=== PATIENT | female | born 1975 | race Hispanic/Latino ===

== ENCOUNTER → 2018-03-12 | Day surgery (SDC) | payer MEDICARE ==
[~2018-03-12] MED LIST: ACETAMINOPHEN 1000 MG/100 ML 100 ML IV ONE; AMPYRA10 MG PO; BACLOFEN10 MG PO; BELLADONNA/OPIUM 60 MG SUPP PR ONE; BOTULINUM TOXIN TYPE A 100 UNIT VIAL IM ONE; DEXAMETHASONE SOD PHOS INJ 4 MG/ML VIAL ONE; DITROPAN XL5 MG PO; FENTANYL CITRATE/PF 100MCG/2 ML INJ ONE; GENTAMICIN 80MG/NS 100 ML 200 ML IV ONE; HYDROCHLOROTHIA25 MG PO; IOPAMIDOL 610MG/1ML 300 MG/ML VIAL IV ONE; LIDOCAINE HCL 2% LOCAL INJ 5 ML SDV VIAL INJ ONE; MIDAZOLAM HCL 2 MG/2 ML VIAL ONE; NEURONTIN300 MG PO; NITROFURANTOIN100 MG PO; ONDANSETRON HCL INJ 2 MG/ML VIAL ONE; POTASSIUM CHLO20 ME1 PO; PROPOFOL IV EMULSION 10 MG/ML 20 ML VIAL ONE; SEVOFLURANE INHAL SOLN 250 ML PEN BTL ONE; TYSABRI300 MG/15 IV; ULTRAM50 MG PO
--- OUTSIDE RECORDS SUMMARY | 2018-03-12 05:12 | XMS REPORT | Clinical Summary ---
Author Author [facility] Organization [facility] Address Unknown Phone Unavailable Care Team Providers Care Financial Institution Manager Name Role Phone Caat Norman DO PCP Allergies No Known Allergies Current Medications Not on file Active Problems Not on file Encounters Date Type Specialty Care Team Description 10/04/2017 [facility]iology ReyesGriselda Mi Orders 10/03/2017 [facility] Radiology ReyesGriselda Mi Multiple sclerosis; Encounter High risk medications (not anticoagulants) long-term use; Weakness; Abnormality of gait; Spasticity 10/03/2017 [facility] Radiology ReyesGriselda Mi Multiple sclerosis; Encounter High risk medications (not anticoagulants) long-term use; Weakness; Abnormality of gait; Spasticity 10/03/2017 [facility] Radiology ReyesGriselda Mi Multiple sclerosis; Encounter High risk medications (not anticoagulants) long-term use; Weakness; Abnormality of gait; Spasticity 10/03/2017 [facility] Radiology ReyesGriselda Mi Orders 10/03/2017 Ancillary Radiology ReyesGriselda Mi Orders 10/03/2017 Ancillary Radiology ReyesGriselda Mi Orders 10/02/2017 Ancillary Radiology ReyesGriselda Mi Multiple sclerosis ; Orders High risk medications (not anticoagulants) long-term use; Weakness; Abnormality of gait; Spasticity 09/11/2017 Procedure Pass Radiology 09/11/2017 Procedure Pass Radiology 09/11/2017 Procedure Pass Radiology 09/11/2017 Transcribe Access Griselda Muniz Multiple sclerosis Orders (Primary Dx); High risk medications (not anticoagulants) long-term use; Weakness; Abnormality of gait; Spasticity after 03/11/2017 Social History Tobacco Use Types Packs/Day Years Used Date Never Assessed Sex Assigned at Date Recorded Not on file Last Filed Vital Signs Vital Sign Reading Time Taken Blood Pressure - - Pulse - - Temperature - - Respiratory Rate - - Oxygen Saturation - - Inhaled Oxygen - - Concentration Weight 54 kg (119 lb) 10/03/2017 1:10 PM 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 FINDINGS: 1. The patient has been previously described to have chronic demyelinating lesions in the mid and lower thoracic spinal cord. There is a similar appearance on today's examination although not that clearly or convincingly demonstrated. There is no abnormal contrast enhancement. There are no new lesions demonstrated. 2.There is minimal thoracic spondylosis without stenosis. In fact the patient has a large thoracic spinal canal. IMPRESSION: No definite change or new lesion demonstrated since the prior examinations. [facility]-[id number] Procedure Note Hm Interface, Radiology Results Incoming - 10/03/2017 3:42 PM PRINCIPAL CYBER ENGINEER EXAMINATION: MRI THORACIC SPINE W CONTRAST CLINICAL HISTORY: G35 Multiple sclerosis, Z79.899 Other long-term (current) drug therapy, G35 Z79.899 R53.1 R26.9 R25.2 COMPARISON: MRI thoracic spine April 13, 2011 and July 05, 2009. FINDINGS: 1. The patient has been previously described to have chronic demyelinating lesions in the mid and lower thoracic spinal cord. There is a similar appearance on today's examination although not that clearly or convincingly demonstrated. There is no abnormal contrast enhancement. There are no new lesions demonstrated. 2. There is minimal thoracic spondylosis without stenosis. In fact the patient has a large thoracic spinal canal. IMPRESSION: No definite change or new lesion demonstrated since the prior examinations. [facility]-[id number] * MRI Cervical Spine W Contrast (10/03/2017 2:05 PM) Specimen Performing Laboratory [facility] [address] [place] [address] Narrative EXAMINATION: MRI CERVICAL SPINE W CONTRAST CLINICAL HISTORY: G35 Multiple sclerosis, Z79.899 Other long-term (current) drug therapy, G35Z79.899R53.1R26.9R25.2 COMPARISON:MRI cervical spine from April 13, 2011 TECHNIQUE: Multiplanar multisequence pre and post contrast enhanced examination was performed of the cervical spine. FINDINGS: There are multiple areas of increased T2 signal intensity in the cervical cord seen best on the inversion recovery images. There is decreased size of the lower cervical and upper thoracic cord. These findings are relatively stable. I do not see definite areas of new enhancement or signal changes in the cord to suggest active demyelinating disease. Active demyelinating disease cannot be excluded on MRI exam. There is no significant canal or foramen stenosis from degenerative changes. There are mild degenerative changes in the cervical spine. There is a small amount of fluid in the left ethmoid sinus. There is no definite incidental thyroid gland mass. IMPRESSION: No definite evidence of active demyelinating disease although active demyelinating disease cannot be excluded on this exam. Left ethmoid sinusitis. [id number] Procedure Note Interface, Radiology Results Incoming - 10/03/2017 5:32 PM PRINCIPAL CYBER ENGINEER EXAMINATION: MRI CERVICAL SPINE W CONTRAST CLINICAL HISTORY: G35 Multiple sclerosis, Z79.899 Other adjunct faculty for medical terminology (current) drug therapy, G35 Z79.899 R53.1 R26.9 R25.2 COMPARISON: MRI cervical spine from April 13, 2011 TECHNIQUE: Multiplanar multisequence pre and post contrast enhanced examination was performed of the cervical spine. FINDINGS: There are multiple areas of increased T2 signal intensity in the cervical cord seen best on the inversion recovery images. There is decreased size of the lower cervical and upper thoracic cord. These findings are relatively stable. I do not see definite areas of new enhancement or signal changes in the cord to suggest active demyelinating disease. Active demyelinating disease cannot be excluded on MRI exam. There is no significant canal or foramen stenosis from degenerative changes. There are mild degenerative changes in the cervical spine. There is a small amount of fluid in the left ethmoid sinus. There is no definite incidental thyroid gland mass. IMPRESSION: No definite evidence of active demyelinating disease although active demyelinating disease cannot be excluded on this exam. Left ethmoid sinusitis. [id number] * MRI Brain W Wo Contrast (10/03/2017 1:35 PM) Specimen Performing [facility] [address] [facility] [place] [address] Narrative EXAMINATION: MRI BRAIN W WO CONTRAST CLINICAL HISTORY: G35 Multiple sclerosis, Z79.899 Other long-term (current) drug therapy, G35Z79.899R53.1R26.9R25.2 COMPARISON:MRI brain from November 11, 2016 TECHNIQUE: Multiplanar and multisequence MRI imaging of the brain was obtained with and without contrast. FINDINGS: There are no new areas of abnormal enhancement to suggest active demyelinating disease. Active demyelinating disease cannot excluded. There is severe areas of increased T2 and decreased T1 signal intensity in the white matter. Many of them are perpendicular to the lateral ventricles and some involve the corpus callosum consistent with the history of multiple sclerosis. I do not see definite new areas of signal changes given the differences in technique. IMPRESSION: No significant changes compared to prior exam given the differences in technique. [facility]-[id number] Procedure Note Interface, Radiology Results Incoming - 10/03/2017 3:30 PM PRINCIPAL CYBER ENGINEER EXAMINATION: MRI BRAIN W WO CONTRAST CLINICAL HISTORY: G35 Multiple sclerosis, Z79.899 Other adjunct faculty for medical terminology (current) drug therapy, G35 Z79.899 R53.1 R26.9 R25.2 COMPARISON: MRI brain from November 11, 2016 TECHNIQUE: Multiplanar and multisequence MRI imaging of the brain was obtained with and without contrast. FINDINGS: There are no new areas of abnormal enhancement to suggest active demyelinating disease. Active demyelinating disease cannot excluded. There is severe areas of increased T2 and decreased T1 signal intensity in the white matter. Many of them are perpendicular to the lateral ventricles and some involve the corpus callosum consistent with the history of multiple sclerosis. I do not see definite new areas of signal changes given the differences in technique. IMPRESSION: No significant changes compared to prior exam given the differences in technique. [id number] after 03/11/2017 Insurance Payer Benefit Subscriber ID Type Phone Address Plan / Group MEDICARE MEDICARE xxxxxxxxxx Medicare [place], [place] PART [place] B [place] [address] [facility] amily [address] [address]
--- OUTSIDE RECORDS SUMMARY | 2018-03-12 05:12 | XMS REPORT ---
Author Author [facility] Address Unknown Phone Unavailable Care Team Providers Care Flume Maker Name Role Phone PETRA GIRARD Unavailable Unavailable HAMPEL, AVA Unavailable Unavailable Problems This patient has no known problems. Allergies, Adverse Reactions, Alerts This patient has no known allergies or adverse reactions. Medications This patient has no known medications. Results Test Description Test Time Test Comments Text Results Atomic Results Result Comments RAD, CHEST, 1 VIEW, NON DEPT 2018-02-04 13:51:00 Reason for exam:->rule out infectionShould this be performed at the bedside?->Yes Addendum BeginsREPORT STATUS:A CLINICAL HISTORY: Multiple sclerosis, slurred speech Signed: Tevin Thomas Verified Date/Time: 02/04/2018 13:51: 55 Reading Location: [facility] Radiology Reading RoomAddendum EndsFINAL REPORT Chest one view AP 01/21/2018 10:27 AM CLINICAL HISTORY: rule out infection COMPARISON: None available FINDINGS: The lungs are clear. Cardiomediastinal contours are within normal limits. The central pulmonary vasculature is not engorged. IMPRESSION: Unremarkable frontal chest radiograph. Signed: Tevin Thomas Verified Date/Time: 2017 10:27:05 Reading Location: [facility] Radiology Reading Room W/PLT COUNT & AUTO DIFFERENTIAL 2018-01-21 07:24:00 WHITE BLOOD CELL COUNT (BEAKER) (test aahh=388) 8.4 K/ L 3.5-10.5 RED BLOOD CELL COUNT (BEAKER) (test sund=879) 4.41 M/ L 3.93-5.22 HEMOGLOBIN (BEAKER) (test pdif=810) 12.0 GM/DL 11.2-15.7 HEMATOCRIT (BEAKER) (test ljxw=511) 38.2 % 34.1-44.9 MEAN CORPUSCULAR VOLUME (BEAKER) (test osrp=970) 86.6 fL 79.4-94.8 MEAN CORPUSCULAR HEMOGLOBIN (BEAKER) (test sdij=478) 27.2 pg 25.6-32.2 MEAN CORPUSCULAR HEMOGLOBIN CONC (BEAKER) (test rema=843) 31.4 GM/DL 32.2- 35.5 RED CELL DISTRIBUTION WIDTH (BEAKER) (test npaz=507) 13.4 % 11.7-14.4 PLATELET COUNT (BEAKER) (test teic=103) 213 K/CU MM 150-450 MEAN PLATELET VOLUME (BEAKER) (test opkg=688) 11.5 fL 9.4-12.3 NUCLEATED RED BLOOD CELLS (BEAKER) (test wplo=377) 0 /100 WBC 0-0 NEUTROPHILS RELATIVE PERCENT (BEAKER) (test eodu=277) 35 % LYMPHOCYTES RELATIVE PERCENT (BEAKER) (test cquw=745) 48 % MONOCYTES RELATIVE PERCENT (BEAKER) (test yitq=938) 14 % EOSINOPHILS RELATIVE PERCENT (BEAKER) (test ndnm=113) 1 % BASOPHILS RELATIVE PERCENT (BEAKER) (test zjry=019) 1 % NEUTROPHILS ABSOLUTE COUNT (BEAKER) (test cjtd=862) 2.99 K/ L 1.56-6.13 LYMPHOCYTES ABSOLUTE COUNT (BEAKER) (test ebrk=714) 4.06 K/ L 1.18-3.74 MONOCYTES ABSOLUTE COUNT (BEAKER) (test fcuy=304) 1.18 K/ L 0.24-0.36 EOSINOPHILS ABSOLUTE COUNT (BEAKER) (test tmeo=583) 0.11 K/ L 0.04-0.36 BASOPHILS ABSOLUTE COUNT (BEAKER) (test ytps=784) 0.05 K/ L 0.01-0.08 IMMATURE GRANULOCYTES-RELATIVE PERCENT (BEAKER) (test mpyh=2022) 1 % 0-1 (MANUAL DIFFERENTIAL)2018-01-21 07:24:00* Test Item Value Reference Range Comments TOTAL COUNTED (BEAKER) (test niru=5083) TSH/FREE T4 IF [id number] 06:36:00* Test Item Value Reference Range Comments THYROID STIMULATING HORMONE (BEAKER) (test hmbi=375) 4.38 uIU/mL 0.35-4.94 [id number] 05:57:00* Test Item Value Reference Range Comments MAGNESIUM (BEAKER) (test akid=641) 1.7 mg/dL 1.6-2.6 BASIC METABOLIC [id number] 05:57:00* Test Item Value Reference Range Comments SODIUM (BEAKER) (test ybtd=128) 140 meq/L 136-145 POTASSIUM (BEAKER) (test gkbi=213) 3.5 meq/L 3.5-5.1 CHLORIDE (BEAKER) (test dlos=611) 104 meq/L 98-107 CO2 (BEAKER) (test bhaa=520) 28 meq/L 22-29 BLOOD UREA NITROGEN (BEAKER) (test opbe=142) 16 mg/dL 7-21 CREATININE (BEAKER) (test lniy=438) 0.59 mg/dL 0.57-1.25 GLUCOSE RANDOM (BEAKER) (test aglo=901) 84 mg/dL 70-105 CALCIUM (BEAKER) (test pmzq=357) 9.0 mg/dL 8.4-10.2 EGFR (BEAKER) (test uuxr=3421) 113 mL/min/1.73 sq m ESTIMATED GFR IS NOT ACCURATE CREATININE CLEARANCE IN PREDICTING GLOMERULAR FILTRATION RATE. ESTIMATED GFR IS NOT APPLICABLE FOR DIALYSIS PATIENTS. LIPID [id number] 05:57:00* Test Item Value Reference Range Comments TRIGLYCERIDES (BEAKER) (test oeph=126) 107 mg/dL CHOLESTEROL (BEAKER) (test sjjg=714) 170 mg/dL HDL CHOLESTEROL (BEAKER) (test dhbo=638) 52 mg/dL LDL CHOLESTEROL CALCULATED (BEAKER) (test rilt=108) 97 mg/dL Triglyceride Reference Range: Low Risk <150 Borderline 150-199 High Risk 200-499 Very High Risk >=500Cholesterol Reference Range: Low Risk <200 Borderline 200-239 High Risk >240HDL Cholesterol Reference Range: Low Risk >=60 High Risk <40LDL Cholesterol Reference Range: Optimal <100 Near Optimal 100-129 Borderline 130-159 High 160-189 Very High >=190 MR, SPINE, CERVICAL, [id number] 21:46:00FINAL REPORT EXAM : MRI cervical and thoracic spine with and without contrast . CLINICAL HISTORY: Multiple sclerosis. TECHNIQUE: MRI of the cervical and thoracic spine was performed with and without intravenous gadolinium contrast. COMPARISON: None available. FINDINGS: There is straightening of the cervical lordosis. There is a mild thoracic kyphosis. Vertebral body height and alignment is within normal limits. The bone marrow signal is normal. The craniocervical junction and visualized intracranial compartment are unremarkable. There is no abnormal enhancement. There is mild diffuse spinal cord atrophy. There is a possible T2 hyperintense lesion in the right dorsal T3 spinal cord (axial image 39). The conus medullaris is located at T12. The intervertebral disc spaces are normal in height and signal. There is no significant spinal canal or neuroforaminal stenosis. The prevertebral and paraspinal soft tissues are within normal limits. The visualized retroperitoneum is unremarkable. IMPRESSION: Mild diffuse spinal cord atrophy. Possible demyelinating lesion in the right dorsal T3 spinal cord. No abnormal enhancement to suggest active demyelination. Signed : Kia Contreras MDReport Verified Date/Time: 01/20/2018 21:46:33 Reading Location: [address] Transitional Reading Room , SPINE, THORACIC, [id number] 21:46:00FINAL REPORT EXAM: MRI cervical and thoracic spine with and without contrast . CLINICAL HISTORY: Multiple sclerosis. TECHNIQUE: MRI of the cervical and thoracic spine was performed with and without intravenous gadolinium contrast. COMPARISON: None available. FINDINGS: There is straightening of the cervical lordosis. There is a mild thoracic kyphosis. Vertebral body height and alignment is within normal limits. The bone marrow signal is normal. The craniocervical junction and visualized intracranial compartment are unremarkable. There is no abnormal enhancement. There is mild diffuse spinal cord atrophy. There is a possible T2 hyperintense lesion in the right dorsal T3 spinal cord (axial image 39). The conus medullaris is located at T12. The intervertebral disc spaces are normal in height and signal. There is no significant spinal canal or neuroforaminal stenosis. The prevertebral and paraspinal soft tissues are within normal limits. The visualized retroperitoneum is unremarkable. IMPRESSION: Mild diffuse spinal cord atrophy. Possible demyelinating lesion in the right dorsal T3 spinal cord. No abnormal enhancement to suggest active demyelination. Signed : Kia Contreras Verified Date/Time: 01/20/2018 21:46:33 Reading Location: [address] Transitional Reading Room , BRAIN, [id number] 21:35: 00FINAL REPORT Exam: MRI brain with and without contrast Comparison: No prior study for comparison. Reason for exam: Multiple sclerosis , new neurological event Discussion: Multiplanar multi sequential MR imaging of the brain was provided tvk-rra-thxm IV gadolinium administration. There are multiple small ovoid FLAIR hyperintense foci lesions in the bilateral periventricular and subcortical white matter without mass effect. Many of these lesions are seen along the callososeptal interface. Multiple juxtacortical lesions are present. No brainstem or cerebellar lesions are identified. A punctate right frontal subcortical white matter lesion demonstrates hyperintensity on the DWI sequence without corresponding hypointensity on the ADC sequence. There is no abnormal enhancement. There is mild parenchymal atrophy. There is no intracranial mass, mass effect, extra-axial collection, hydrocephalus or herniation. There is no restricted diffusion to suggest an acute infarct. There is no abnormality on susceptibility sequences to suggest hemorrhage or hemosiderin deposition. Flow-voids are seen in the basilar and internal carotid arteries as well as in the large posterior dural sinuses. The pineal, sella, and craniocervical junction regions are within normal limits. The visualized orbital contents, skullbase and surrounding soft tissues are unremarkable. The visualized paranasal sinuses and mastoid air cells are clear. Impressions: Multiple T2 hyperintense lesions in the supratentorial brain in keeping with reported history of demyelinating disease. No evidence of active demyelination.No acute intracranial hemorrhage, acute infarct or mass effect. Signed: Kia Contreras MDReport Verified Date/Time: 01/20/2018 21:35:56 Reading Location: [address] Transitional Reading Room -GLUCOSE [id number] 16: 54:00* Test Item Value Reference Range Comments POC-GLUCOSE METER (BEAKER) (test nmzu=7584) 99 mg/dL 70-110 [address]ED AT [address] [address] BASIC METABOLIC [id number] 14:54:00* Test Item Value Reference Range Comments SODIUM (BEAKER) (test cclq=825) 140 meq/L 136-145 POTASSIUM (BEAKER) (test rjaf=033) 3.1 meq/L 3.5-5.1 CHLORIDE (BEAKER) (test cbew=560) 102 meq/L 98-107 CO2 (BEAKER) (test fqyw=830) 30 meq/L 22-29 BLOOD UREA NITROGEN (BEAKER) (test pmsi=021) 18 mg/dL 7-21 CREATININE (BEAKER) (test bawh=755) 0.63 mg/dL 0.57-1.25 GLUCOSE RANDOM (BEAKER) (test hbtd=339) 80 mg/dL 70-105 CALCIUM (BEAKER) (test azek=159) 9.4 mg/dL 8.4-10.2 EGFR (BEAKER) (test dyue=9491) mL/min/1.73 sq m INSUFFICIENT CLINICAL DATA TO CALCULATE ESTIMATED GFR. SCREEN, [id number] 14:50:00* Test Item Value Reference Range Comments TEST URINE (BEAKER) (test qrro=887) Negative URINALYSIS W/ [id number] 14:50:00* Test Item Value Reference Range Comments COLOR (BEAKER) (test dpro=973) Yellow CLARITY (BEAKER) (test xkzj=657) Clear SPECIFIC GRAVITY UA (BEAKER) (test ipbt=767) 1.018 1.001-1.035 PH UA (BEAKER) (test eahl=753) 7.0 5.0-8.0 PROTEIN UA (BEAKER) (test zvxu=877) Negative Negative GLUCOSE UA (BEAKER) (test esre=292) Negative Negative KETONES UA (BEAKER) (test cnab=155) Negative Negative BILIRUBIN UA (BEAKER) (test lfqr=496) Negative Negative BLOOD UA (BEAKER) (test hdek=850) Negative Negative NITRITE UA (BEAKER) (test aunc=749) Negative Negative LEUKOCYTE ESTERASE UA (BEAKER) (test iuum=557) Negative Negative UROBILINOGEN UA (BEAKER) (test txux=480) 0.2 mg/dL 0.2-1.0 RBC UA (BEAKER) (test ppqe=559) 0 /HPF WBC UA (BEAKER) (test zgtj=862) 3 /HPF BACTERIA (BEAKER) (test dimw=017) Rare MUCUS (BEAKER) (test bzdq=2829) Rare SQUAMOUS EPITHELIAL (BEAKER) (test iphx=931) 5 /HPF SOURCE(BEAKER) (test twmw=3957) Urine, Clean Catch CBC W/PLT COUNT & AUTO [id number] 14:33:00* Test Item Value Reference Range Comments WHITE BLOOD CELL COUNT (BEAKER) (test zpyr=749) 7.8 K/ L 3.5-10.5 RED BLOOD CELL COUNT (BEAKER) (test mvoi=732) 4.42 M/ L 3.93-5.22 HEMOGLOBIN (BEAKER) (test ocol=918) 12.2 GM/DL 11.2-15.7 HEMATOCRIT (BEAKER) (test sgtq=886) 38.3 % 34.1-44.9 MEAN CORPUSCULAR VOLUME (BEAKER) (test ljfg=375) 86.7 fL 79.4-94.8 MEAN CORPUSCULAR HEMOGLOBIN (BEAKER) (test dlmg=053) 27.6 pg 25.6-32.2 MEAN CORPUSCULAR HEMOGLOBIN CONC (BEAKER) (test xwje=927) 31.9 GM/DL 32.2- 35.5 RED CELL DISTRIBUTION WIDTH (BEAKER) (test qrau=366) 13.4 % 11.7-14.4 PLATELET COUNT (BEAKER) (test zeds=896) 228 K/CU MM 150-450 MEAN PLATELET VOLUME (BEAKER) (test ssne=715) 10.6 fL 9.4-12.3 NUCLEATED RED BLOOD CELLS (BEAKER) (test ipyp=638) 0 /100 WBC 0-0 NEUTROPHILS RELATIVE PERCENT (BEAKER) (test fzts=539) 50 % LYMPHOCYTES RELATIVE PERCENT (BEAKER) (test yvmz=158) 33 % MONOCYTES RELATIVE PERCENT (BEAKER) (test xpmn=938) 15 % EOSINOPHILS RELATIVE PERCENT (BEAKER) (test nern=951) 1 % BASOPHILS RELATIVE PERCENT (BEAKER) (test pjtg=701) 1 % NEUTROPHILS ABSOLUTE COUNT (BEAKER) (test vhvm=700) 3.89 K/ L 1.56-6.13 LYMPHOCYTES ABSOLUTE COUNT (BEAKER) (test xmww=234) 2.62 K/ L 1.18-3.74 MONOCYTES ABSOLUTE COUNT (BEAKER) (test hoph=881) 1.15 K/ L 0.24-0.36 EOSINOPHILS ABSOLUTE COUNT (BEAKER) (test puda=977) 0.10 K/ L 0.04-0.36 BASOPHILS ABSOLUTE COUNT (BEAKER) (test cxqg=519) 0.04 K/ L 0.01-0.08 IMMATURE GRANULOCYTES-RELATIVE PERCENT (BEAKER) (test vcgc=2471) 1 % 0-1 US RENAL RETROPERITONEAL COMP [place] [address] Patient Name: NANI GARCIA MR #: [id number] : 1975 Age/Sex: 42/F Req #: [id number] Adm Physician: Ordered by: AVA ROSE MD Report #: [id number] Location: US Room/Bed: Procedure: [id number] US/US RENAL RETROPERITONEAL COMP Exam Date: Exam Time: REPORT STATUS: Signed PROCEDURE: US RETROPERITONEAL ( KIDNEY ) . COMPARISON: 06/13/2016. INDICATIONS: Urine Retention TECHNIQUE: Chacko- scale and color sonographic images of the bilateral kidneys and bladder where obtained in transverse and longitudinal planes. FINDINGS: RIGHT KIDNEY: 9.4 cm in length, cortical thickness 1.3 cm. Cysts: None Solid masses: None Stones: None Hydronephrosis: None Echogenicity: Normal renal cortical echogenicity. LEFT KIDNEY: 9.1 cm in length, cortical thickness 1.2 cm. Cysts: None Solid masses: None Stones: None Hydronephrosis: None Echogenicity: Normal renal cortical echogenicity. Bladder: Mildly distended but otherwise unremarkable. Right and left ureteral jets are identified. CONCLUSION: Unremarkable sonographic appearance of the kidneys. Dictated by: Subha Rivera M.D. on 08/06/2017 at 15:23 Electronically approved by: Subha Rivera M.D. on 12/2016 at 15:23 Dictated By: SUBHA RIVERA MD 1523 Transcribed By: LUIS F on 08/06/17 1523 COPY TO: AVA ROSE MD
--- OUTSIDE RECORDS SUMMARY | 2018-03-12 05:12 | XMS REPORT | Clinical Summary ---
Author Author [facility] Address Unknown Phone Unavailable Care Team Providers Care Core Feeder Name Role Phone PCP Unavailable Allergies Active Allergy Reactions Severity Noted Date Comments Fluconazole Swelling 01/20/2018 Swelling of lips and hives on face Current Medications Prescription Sig. Disp. Refills Start End Date Status Date oxybutynin (DITROPAN XL) Take 10 mg by mouth 2 Active 10 MG 24 hr (two) times daily . tabletIndications: Neurogenic Bladder nitrofurantoin Take 50 mg by mouth daily Active (MACRODANTIN) 50 MG . capsule gabapentin (NEURONTIN) Take 600 mg by mouth 3 Active 600 MG tablet (three) times daily. NATALIZUMAB (TYSABRI IV) Inject intravenously. Active baclofen (LIORESAL) 10 MG Take 10 mg by mouth 2 Active tablet (two) times daily. zolpidem (AMBIEN CR) 12.5 Take 12.5 mg by mouth Active MG CR tablet every night as needed for Insomnia. dalfampridine 10 mg Take 10 mg by mouth 2 Active [id number]: walking (two) times daily. impairment due to multiple sclerosis hydroCHLOROthiazide Take 2 capsules (25 mg 60 capsule 11 01/22/20 Active (MICROZIDE) 12.5 mg total) by mouth daily. 18 19 capsule hydroCHLOROthiazide Take 25 mg by mouth 01/22/20 Discontin (MICROZIDE) 12.5 mg daily. 18 ued capsuleIndications: Edema traMADol (ULTRAM) 50 mg Take 1 tablet (50 mg 60 tablet 0 01/22/20 tablet total) by mouth every 12 18 18 (twelve) hours as needed for Pain for up to 10 days. Max Daily Amount: 100 mg Active Problems Problem Noted Date MS (multiple sclerosis) (HCC) 01/20/2018 Encounters Date Type Specialty Care Team Description 01/20/2018 [facility] General Internal Medicine JaquezMonicoOlivierShane, Weakness of left lower - Encounter MD extremity (Primary Dx);MS 01/21/2018 Nathaniel Miller MD (multiple sclerosis) Yessy Sandhu MD ([facility]);Slurred speech;Neurogenic bladder;Immunosuppressive disease ([facility]) after 03/11/2017 Social History Tobacco Use Types Packs/Day Years Used Date Never Smoker Alcohol Use Drinks/Week oz/Week Comments No Sex Assigned at Date Recorded Not on file Last Filed Vital Signs Vital Sign Reading Time Taken Blood Pressure 98/53 01/21/2018 11:23 AM CDT Pulse 70 01/21/2018 11:23 AM CDT Temperature 36 C (96.8 F) 01/21/2018 11:23 AM CDT Respiratory Rate 18 01/21/2018 11:23 AM CDT Oxygen Saturation 98% 01/21/2018 11:23 AM CDT Inhaled Oxygen - - Concentration Weight 53 kg (116 lb 14.4 oz) 01/21/2018 6:00 AM CDT Height 154.9 cm (5' 1") 01/20/2018 1:42 PM CDT Body Mass Index 22.09 01/21/2018 6:00 AM CDT Plan of Treatment Not on file Results * XR chest 1 view portable / bedside (01/21/2018 10:19 AM) Specimen Performing Laboratory GE RIS Narrative Addendum Begins REPORT STATUS:A CLINICAL HISTORY: Multiple sclerosis, slurred speech Signed: Tevin Pang MD Report Verified Date/Time:02/04/2018 13:51:55 Reading Location: [facility] Radiology Reading Room Addendum Ends FINAL REPORT Chest one view AP 01/21/2018 10:27 AM CLINICAL HISTORY: rule out infection COMPARISON: None available FINDINGS: The lungs are clear. Cardiomediastinal contours are within normal limits. The central pulmonary vasculature is not engorged. IMPRESSION: Unremarkable frontal chest radiograph. Signed: Tevin Pang MD Report Verified Date/Time:01/21/2018 10:27:05 Reading Location: [facility] Radiology Reading Room Procedure Note Interface, External Ris In - 02/04/2018 1:54 PM CDT Addendum Begins REPORT STATUS:A CLINICAL HISTORY: Multiple sclerosis, slurred speech Signed: Tevin Pang MD Report Verified Date/Time: 02/04/2018 13:51:55 Reading Location: [facility] Radiology Reading Room Addendum Ends FINAL REPORT Chest one view AP 01/21/2018 10:27 AM CLINICAL HISTORY: rule out infection COMPARISON: None available FINDINGS: The lungs are clear. Cardiomediastinal contours are within normal limits. The central pulmonary vasculature is not engorged. IMPRESSION: Unremarkable frontal chest radiograph. Signed: Tevin Pang MD Report Verified Date/Time: 01/21/2018 10:27:05 Reading Location: [facility] Reading Room * Manual Differential (01/21/2018 3:58 AM) Component Value Ref Range Total Counted Specimen [place] [address] * TSH/Free T4 If Indicated (01/21/2018 3:58 AM) Component Value Ref Range TSH 4.38 0.35 - 4.94 uIU/mL Specimen [place] [address] * CBC with platelet count + automated diff (01/21/2018 3:58 AM) Only the most recent of 2 results within the time period is included. Component Value Ref Range WBC 8.4 3.5 - 10.5 K/ L RBC 4.41 3.93 - 5.22 M/ L Hemoglobin 12.0 11.2 - 15.7 GM/DL Hematocrit 38.2 34.1 - 44.9 % MCV 86.6 79.4 - 94.8 fL MCH 27.2 25.6 - 32.2 pg MCHC 31.4 (L) 32.2 - 35.5 GM/DL RDW 13.4 11.7 - 14.4 % Platelets 213 150 - 450 K/CU MM MPV 11.5 9.4 - 12.3 fL nRBC 0 0 - 0 /100 WBC % Neutros 35 % % Lymphs 48 % % Monos 14 % % Eos 1 % % Baso 1 % # Neutros 2.99 1.56 - 6.13 K/ L # Lymphs 4.06 (H) 1.18 - 3.74 K/ L # Monos 1.18 (H) 0.24 - 0.36 K/ L # Eos 0.11 0.04 - 0.36 K/ L # Baso 0.05 0.01 - 0.08 K/ L Immature 1 0 - 1 % Granulocytes-Relative Specimen Performing Laboratory Blood [address] [address] * CBC with platelet count + automated diff (01/21/2018 3:58 AM) Only the most recent of 2 results within the time period is included. Specimen Performing Laboratory Blood Narrative The following orders were created for panel order CBC with platelet count + automated diff. Procedure Abnormality Status --------- - ------ CBC with platelet count ...[[id number]]AbnormalFinal result Manual Differential[[id number]] Final result Please view results for these tests on the individual orders. * Magnesium (01/21/2018 3:58 AM) Component Value Ref Range Magnesium 1.7 1.6 - 2.6 mg/dL Specimen Performing Laboratory Blood [address] [address] * Lipid panel (01/21/2018 3:58 AM) Component Value Ref Range Triglycerides 107 mg/dL Cholesterol 170 mg/dL HDL 52 mg/dL LDL Calculated 97 mg/dL Specimen Performing Laboratory Blood [address] [address] Narrative Triglyceride Reference Range: Low Risk <150 [id number] High Risk 200-499 Very High Risk>=500 Cholesterol Reference Range: Low Risk <200 Ymkqrohzhf570-532 High Risk>240 HDL Cholesterol Reference Range: Low Risk >=60 High Risk <40 LDL Cholesterol Reference Range: Optimal<100 Near Hkpsfij395-569 Ytbtjnzrcv121-131 Aoxa868-169 Very High >=190 * Basic metabolic panel (01/21/2018 3:58 AM) Only the most recent of 2 results within the time period is included. Component Value Ref Range Sodium 140 136 - 145 meq/L Potassium 3.5 3.5 - 5.1 meq/L Chloride 104 98 - 107 meq/L CO2 28 22 - 29 meq/L BUN 16 7 - 21 mg/dL Creatinine 0.59 0.57 - 1.25 mg/dL Glucose 84 70 - 105 mg/dL Calcium 9.0 8.4 - 10.2 mg/dL EGFR 113Comment: ESTIMATED GFR IS NOT ACCURATE mL/min/1.73 sq m CREATININE CLEARANCE IN PREDICTING GLOMERULAR FILTRATION RATE. ESTIMATED GFR IS NOT APPLICABLE FOR DIALYSIS PATIENTS. Specimen Performing Laboratory Blood [facility] [address] [address] * MR thoracic spine without & with IV contrast (01/20/2018 9:22 PM) Specimen Performing Laboratory RIS Narrative FINAL REPORT EXAM: MRI cervical and thoracic spine with and without contrast . CLINICAL HISTORY: Multiple sclerosis. TECHNIQUE: MRI of the cervical and thoracic spine was performed with and without intravenous gadolinium contrast. COMPARISON: None available. FINDINGS: There is straightening of the cervical lordosis. There is a mild thoracic kyphosis.Vertebral body height and alignment is within normal limits.The bone marrow signal is normal. The craniocervical [...] No abnormal enhancement to suggest active demyelination. Signed: Conchis Contreras MD Report Verified Date/Time:01/20/2018 21:46:33 Reading Location: [facility] Transitional Reading Room Procedure Note Interface, External Ris In - 01/20/2018 9:48 PM CDT FINAL REPORT EXAM: MRI cervical and thoracic spine [...] No abnormal enhancement to suggest active demyelination. Signed: Conchis Contreras MD Report Verified Date/Time: 01/20/2018 21:46:33 Reading Location: [address] Transitional Reading Room * MR cervical spine without & with IV contrast (01/20/2018 9:22 PM) Specimen Performing Laboratory [facility] Narrative FINAL REPORT EXAM: MRI cervical and thoracic spine with and without contrast . CLINICAL HISTORY: Multiple sclerosis. TECHNIQUE: MRI of the cervical and thoracic spine was performed with and without intravenous gadolinium contrast. COMPARISON: None available. FINDINGS: There is straightening of the cervical lordosis. There is a mild thoracic kyphosis.Vertebral body height and alignment is within normal limits.The bone marrow signal is normal. The craniocervical [...] No abnormal enhancement to suggest active demyelination. Signed: Conchis Contreras MD Report Verified Date/Time:01/20/2018 21:46:33 Reading Location: [address] Transitional Reading Room Procedure Note Interface, External Ris In - 01/20/2018 9:48 PM CDT FINAL REPORT EXAM: MRI cervical and thoracic spine [...] No abnormal enhancement to suggest active demyelination. Signed: Conchis Contreras MD Report Verified Date/Time: 01/20/2018 21:46:33 Reading Location: [address] Transitional Reading Room * MR brain without & with IV contrast (01/20/2018 9:22 PM) Specimen Performing Laboratory [facility] RIS Narrative FINAL REPORT Exam: MRI brain with and without contrast Comparison:No prior study for comparison. Reason for exam: Multiple sclerosis, new neurological event Discussion: Multiplanar multi sequential MR imaging of the brain was provided [id number] IV gadolinium administration. There are multiple small [...] of demyelinating disease. No evidence of active demyelination. No acute intracranial hemorrhage, acute infarct or mass effect. Signed: Conchis Contreras MD Report Verified Date/Time:01/20/2018 21:35:56 Reading Location: [facility] Transitional Reading Room Procedure Note Interface, External Ris In - 01/20/2018 9:38 PM CDT FINAL REPORT Exam: MRI brain with and without contrast Comparison: No prior study for comparison. Reason for exam: Multiple sclerosis, new neurological event Discussion: Multiplanar multi sequential MR imaging of the brain was provided [id number] IV gadolinium administration. There are multiple small [...] of demyelinating disease. No evidence of active demyelination. No acute intracranial hemorrhage, acute infarct or mass effect. Signed: Conchis Contreras MD Report Verified Date/Time: 01/20/2018 21:35:56 Reading Location: [facility] C013T Transitional Reading Room * POC-Glucose meter (01/20/2018 4:47 PM) Component Value Ref Range POC-Glucose Meter 99Comment: TESTED AT [address] [place] 70 - 110 mg/dL [address] Specimen Performing Laboratory Blood [address] [address] * Screen, urine (01/20/2018 2:15 PM) Component Value Ref Range Preg Test, Ur Negative Specimen Performing Laboratory Urine - Urine, [facility] [address] [place] [phone] * Urinalysis w/Microscopic (01/20/2018 2:15 PM) Component Value Ref Range Color, UA Yellow Clarity, UA Clear Specific [place], UA 1.018 1.001 - 1.035 pH, UA 7.0 5.0 - 8.0 Protein, UA Negative Negative Glucose, UA Negative Negative Ketones, UA Negative Negative Bilirubin, UA Negative Negative Blood, UA Negative Negative Nitrite, UA Negative Negative Leukocytes, UA Negative Negative Urobilinogen, UA 0.2 0.2 - 1.0 mg/dL RBC, UA 0 /HPF WBC, UA 3 /HPF Bacteria, UA Rare Mucus Rare Squam Epithel, UA 5 /HPF Specimen Source Urine, Clean Catch Specimen Performing Laboratory Urine - Urine, [facility] [address] [place] [address] after 03/11/2017
[2018-03-12 06:01] LABS: BASOPHILS % 0.5 % (0.0-1.0); EOSINOPHILS # (AUTO) 0.1 (0.0-0.4); EOSINOPHILS % 1.8 % (0.0-6.0); HEMATOCRIT 36.6 % (34.2-44.1); HEMOGLOBIN 11.9 g/dL (12.0-16.0); LYMPHOCYTES # (AUTO) 2.9 (1.0-3.2); MEAN CORPUSCULAR HEMOGLOBIN 27.4 pg (28-32); MEAN CORPUSCULAR HGB CONC 32.5 g/dL (31-35); MEAN CORPUSCULAR VOLUME 84.1 fL (81-99); MONOCYTES # (AUTO) 0.7 (0.2-0.8); MONOCYTES % 11.2 % (4.4-11.3); NEUTROPHILS # (AUTO) 2.3 (2.1-6.9); NEUTROPHILS % 38.2 % (38.7-80.0); PLATELET COUNT 207 x10e3/uL (140-360); RED BLOOD COUNT 4.35 x10e6/uL (3.6-5.1); RED CELL DISTRIBUTION WIDTH 13.8 % (11.7-14.4)
[2018-03-12 06:14] LABS: ANION GAP 11.1 mmol/L (8-16); BLOOD UREA NITROGEN 17 mg/dL (7-26); BUN/CREATININE RATIO 26 (6-25); CALCIUM 9.3 mg/dL (8.4-10.2); CARBON DIOXIDE 28 mmol/L (22-29); CHLORIDE 102 mmol/L (98-107); CREATININE, SERUM 0.66 mg/dL (0.57-1.11); EST GLOMERULAR FILTRATION RATE > 60 ML/MIN (60-); GLUCOSE 87 mg/dL (74-118); POTASSIUM 3.1 mmol/L (3.5-5.1); SODIUM 138 mmol/L (136-145)
--- NOTE | 2018-04-24 03:02 | Operative Report ---
DATE OF PROCEDURE: March 12, 2018 PREOPERATIVE DIAGNOSES: 1. Refractory urge incontinence. 2. Urinary tract infections. POSTOPERATIVE DIAGNOSES: 1. Refractory urge incontinence. 2. Urinary tract infections. 3. Mild cystocele. PROCEDURES PERFORMED: 1. Cystourethroscopy with bilateral ureteral catheterization and retrograde ureteropyelography (separate procedure performed for the urinary tract infections). 2. Interpretation of retrograde ureteropyelography. 3. Supervision of fluoroscopy. No radiologist present. 4. Cystourethroscopy with intravesical injection of Botox (separate procedure performed for the incontinence). 5. Pelvic examination under anesthesia. ANESTHESIA: General. COMPLICATIONS: None. CLINICAL SUMMARY: Omayra Gan is an unfortunate 42-year-old woman with multiple sclerosis. The patient has multiple sequelae from her disease. She is brought to the operating room for the above procedures. She is on anticholinergic medications as well as intermittent catheterizations as well as suppression antibiotics. She is aware of the risks of bleeding, infection, injury to adjacent structures, need for additional procedures and elected to proceed. OPERATIVE PROCEDURE IN DETAIL: Informed consent was verified. Omayra Gan was properly identified, taken to the operating room, placed on the cystoscopy table in supine position. Anesthesia was uneventfully begun. The patient was then carefully and gently repositioned in the dorsal lithotomy position with all pressure points well padded. Her genitalia were prepared and draped in usual sterile fashion. A 22.5-Portuguese cystoscope sheath with the obturator in place was atraumatically inserted into the patient's urethra and the bladder was drained. Panendoscopy of the urinary bladder revealed no suspicious mucosal lesions, no tumors, no stones and no diverticula. Normally positioned and configured ureteral orifices were identified. Heavy trabeculations were noted. Ureteral catheter was used to cannulate each ureter and retrograde ureteropyelograms were performed. Interpretation of retrograde ureteropyelography: Contrast was instilled in retrograde fashion bilaterally. There were no tumors, no stones and no diverticula. Unobstructed drainage was observed bilaterally fluoroscopically. Two hundred units of Botox were constituted in 20 mL of saline. They were injected in 1 mL aliquots in an even distribution throughout the supratrigonal bladder. No significant bleeding was encountered. The patient's bladder was drained. The cystoscope was withdrawn. Pelvic examination under anesthesia revealed a grade 1 cystocele, no rectocele. No abnormal palpable pelvic masses could be appreciated. The patient was then uneventfully reversed from anesthesia and taken to recovery room in stable condition. There were no complications during the procedure. She tolerated the procedure well. Explicit postoperative instructions were given. We will follow the patient up in the office. Job#: [id number] JANET
== END | disposition home or self-care (01) ==
LOC: OR 05:10
PROVIDERS: ATTEND Urology
DX: N39.41 Urge incontinence (principal); N39.0 Urinary tract infection, site not specified; N32.89 Other specified disorders of bladder; N81.10 Cystocele, unspecified; N32.81 Overactive bladder; G35 Multiple sclerosis
CPT/HCPCS: 36415; 52005; 52287; 74420; 80048; 84702; 85025; C1758; J0587; J1100; J1580; J2001; J2250; J2405; Q9967

== ENCOUNTER → 2018-07-19 | Day surgery (SDC) | payer MEDICARE ==
[~2018-07-19] MED LIST changes: -ACETAMINOPHEN 1000 MG/100 ML 100 ML IV ONE; -BELLADONNA/OPIUM 60 MG SUPP PR ONE; +CEFTRIAXONE SOD 1 GM VIAL ONE; -GENTAMICIN 80MG/NS 100 ML 200 ML IV ONE; +IOPAMIDOL 300MG/ML 50ML INFUS..BTL IV ONE; -IOPAMIDOL 610MG/1ML 300 MG/ML VIAL IV ONE
[2018-07-19 14:30] VITALS: BP 109/75
--- NOTE | 2018-07-19 15:09 | Diagnostic Imaging Report ---
Bilateral retrograde urography Indications: Incontinence Comparison: Retrograde urogram 03/12/2018 and 09/17/2017 CPT code: 95643 Technique: Fluoroscopic guidance was provided to Dr. Samson Cabezas for the purposes of retrograde urogram. RADIATION DOSE: Fluoroscopy Time: 00:20 seconds Dose (Kerma) Area Product: 112.6 cGycm2 Air Kerma (AK) value (7.56 mGy) has been reviewed. It is below the limits set by the Radiation Protocol Committee (RPC) committee. Findings: Contrast was injected into the left ureter in a retrograde fashion. No intraluminal mass. No dilatation or stricture. The collecting system fills normally with normal morphology. Contrast was injected into the right ureter in a retrograde fashion. The caliber of the right ureter appear normal. No stricture or intraluminal mass. The right renal collecting system filled normally. IMPRESSION: Unremarkable bilateral retrograde urography. Signed by: Dr. Jose Jeter MD on 07/19/2018 3:05 PM
--- OUTSIDE RECORDS SUMMARY | 2018-08-08 08:03 | XMS REPORT | Clinical Summary ---
Author Author [facility] Address Unknown Phone Unavailable Care Team Providers Care Retail Customer Service Representative Name Role Phone Cata Norman DO PCP Allergies No Known Allergies Current Medications Not on file Active Problems Not on file Encounters Date Type Specialty Care Team Description 10/04/2017 [facility] ReyesGriselda Mi Orders 10/03/2017 [facility] Radiology ReyesGriselda Mi Multiple sclerosis; Encounter High risk medications (not anticoagulants) long-term use; Weakness; Abnormality of gait; Spasticity 10/03/2017 [facility] Radiology ReyesGriselda Mi Multiple sclerosis; Encounter High risk medications (not anticoagulants) long-term use; Weakness; Abnormality of gait; Spasticity 10/03/2017 [facility] Radiology ReyesGriselda Mi Multiple sclerosis; Encounter High [...] use; Weakness; Abnormality of gait; Spasticity after 07/18/2017 Social History Tobacco Use Types Packs/Day Years Used Date Never Assessed Sex Assigned at Date Recorded Not on file Last Filed Vital Signs Vital Sign Reading Time Taken Blood Pressure - - Pulse - - Temperature - - Respiratory Rate - - Oxygen Saturation - - Inhaled Oxygen - - Concentration Weight 54 kg (119 lb) 10/03/2017 1:10 PM DATE NIGHT CAREGIVER Height - - Body Mass Index 22.48 10/03/2017 1:10 PM DATE NIGHT CAREGIVER Plan of Treatment Health Maintenance Due Date Last Done Comments CERVICAL CANCER SCREENING 1998 INFLUENZA VACCINE 06/05/2018 Procedures Procedure Name Priority Date/Time Associated Diagnosis Comments MRI THORACIC SPINE W Routine 10/03/2017 Multiple sclerosis Results for this CONTRAST 2:38 PM DATE NIGHT CAREGIVER High risk medications procedure are in the (not anticoagulants) results section. long-term use Weakness Abnormality of gait Spasticity MRI CERVICAL SPINE W Routine 10/03/2017 Multiple sclerosis Results for this CONTRAST 2:05 PM DATE NIGHT CAREGIVER High risk medications procedure are in the (not anticoagulants) results section. long-term use Weakness Abnormality of gait Spasticity MRI BRAIN W WO CONTRAST Routine 10/03/2017 Multiple sclerosis Results for this 1:35 PM DATE NIGHT CAREGIVER High risk medications procedure are in the (not anticoagulants) results section. 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 Left ethmoid sinusitis. [facility]-[id number] Procedure Note Interface, Radiology Results Incoming - 10/03/2017 5:32 PM DATE NIGHT CAREGIVER EXAMINATION: MRI CERVICAL SPINE W CONTRAST CLINICAL HISTORY: G35 Multiple sclerosis, Z79.899 Other detention (current) drug therapy, G35 Z79.899 R53.1 R26.9 [...] excluded on this exam. Left ethmoid sinusitis. [facility]-[id number] Performing Organization Address City/State/Zipcode Phone Number [facility] [address] [place] [address] * MRI Brain W Wo Contrast (10/03/2017 1:35 PM) Narrative Performed At [facility] EXAMINATION: MRI BRAIN W WO CONTRAST CLINICAL HISTORY: G35 Multiple sclerosis, Z79.899 Other detention (current) drug therapy, G35 Z79.899 R53.1 R26.9 [...] prior exam given the differences in technique. 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 [facility][id number] Performing Organization Address City/State/Zipcode Phone Number [facility] [address] [place] [address] after 07/18/2017 Insurance Payer Benefit Subscriber ID Type Phone Address Plan / Group MEDICARE MEDICARE xxxxxxxxxx Medicare [place], [place] PART A AND B
--- OUTSIDE RECORDS SUMMARY | 2018-08-08 08:03 | XMS REPORT | Clinical Summary ---
Author Author QUITA [facility] Address Unknown Phone Unavailable Care Team Providers Care Event Planning Intern Name Role Phone PCP Unavailable Allergies Active [...] Take 10 mg by mouth 2 Active [id number]: walking (two) times daily. impairment due to [...] Date Type Specialty Care Team Description 01/20/2018 [facility] General Internal Medicine JaquezMonicoOlivierShane, Weakness of left lower - Encounter MD extremity (Primary Dx);MS 01/21/2018 Nathaniel Miller MD (multiple sclerosis) Yessy Sandhu MD ([facility]);Slurred speech;Neurogenic bladder;Immunosuppressive disease ([facility]) after 07/18/2017 Social History Tobacco Use Types [...] MD Report Verified Date/Time:02/04/2018 13:51:55 Reading Location: [facility] Radiology Reading Room Addendum Ends FINAL REPORT Chest one view AP 01/21/2018 10:27 AM CLINICAL HISTORY: rule out infection COMPARISON: None available FINDINGS: The lungs are clear. Cardiomediastinal contours are within normal limits. The central pulmonary vasculature is not engorged. IMPRESSION: Unremarkable frontal chest radiograph. Signed: Tevin Pang MD Report Verified Date/Time:01/21/2018 10:27:05 Reading Location: [facility] Radiology Reading Room Procedure Note Interface, External Ris In - 02/04/2018 1:54 PM CDT Addendum Begins REPORT STATUS:A CLINICAL HISTORY: Multiple sclerosis, slurred speech Signed: Tevin Pang MD Report Verified Date/Time: 02/04/2018 13:51:55 Reading Location: [facility] Radiology Reading Room Addendum Ends FINAL REPORT Chest one view AP 01/21/2018 10:27 AM CLINICAL HISTORY: rule out infection COMPARISON: None available FINDINGS: The lungs are clear. Cardiomediastinal contours are within normal limits. The central pulmonary vasculature is not engorged. IMPRESSION: Unremarkable frontal chest radiograph. Signed: Tevin Pang MD Report Verified Date/Time: 01/21/2018 10:27:05 Reading Location: [facility] [place] Reading Room * Manual Differential (01/21/2018 3:58 AM) Component Value Ref Range Total Counted Specimen [place] [address] * TSH/Free T4 If Indicated (01/21/2018 3:58 AM) Component Value Ref Range TSH 4.38 0.35 - 4.94 uIU/mL Specimen [place] [address] * CBC with platelet count + automated [...] 1 % Granulocytes-Relative Specimen Performing Laboratory Blood [address] [address] * CBC with platelet count + automated diff (01/21/2018 3:58 AM) Only the most recent of 2 results within the time period is included. Specimen Performing Laboratory Blood Narrative The following orders were created for panel order CBC with platelet count + automated diff. Procedure Abnormality Status --------- - ------ CBC with platelet count ...[[id number]]AbnormalFinal result Manual Differential[[id number]] Final result Please view results for these tests on the individual orders. * Magnesium (01/21/2018 3:58 AM) Component Value Ref Range Magnesium 1.7 1.6 - 2.6 mg/dL Specimen Performing Laboratory Blood [address] [address] * Lipid panel (01/21/2018 3:58 AM) Component Value Ref Range Triglycerides 107 mg/dL Cholesterol 170 mg/dL HDL 52 mg/dL LDL Calculated 97 mg/dL Specimen Performing Laboratory Blood [address] [address] Narrative Triglyceride Reference Range: Low Risk <150 Vpoedvnviy126-217 High Risk 200-499 Very High Risk>=500 Cholesterol Reference Range: Low Risk <200 Rgowyzuwhs460-109 High Risk>240 HDL Cholesterol Reference Range: Low Risk >=60 High Risk <40 LDL Cholesterol Reference Range: Optimal<100 Near Jjtnivu795-562 Xaxqpkldmg380-971 Oouh230-250 Very High >=190 * Basic metabolic panel [...] DIALYSIS PATIENTS. Specimen Performing Laboratory Blood [facility] [address] [address] * MR thoracic spine without & with [...] MD Report Verified Date/Time:01/20/2018 21:46:33 Reading Location: [facility] Transitional Reading Room Procedure Note Interface, [...] Report Verified Date/Time: 01/20/2018 21:46:33 Reading Location: [address] Transitional Reading Room * MR cervical spine without & with IV contrast (01/20/2018 9:22 PM) Specimen Performing Laboratory Harimata Narrative FINAL REPORT EXAM: MRI cervical and [...] MD Report Verified Date/Time:01/20/2018 21:46:33 Reading Location: [address] Transitional Reading Room Procedure Note Interface, [...] Report Verified Date/Time: 01/20/2018 21:46:33 Reading Location: [address] Transitional Reading Room * MR brain without & with IV contrast (01/20/2018 9:22 PM) Specimen Performing Laboratory Dealo RIS Narrative FINAL REPORT Exam: MRI brain with and without contrast Comparison:No prior study for comparison. Reason for exam: Multiple sclerosis, new neurological event Discussion: Multiplanar multi sequential MR imaging of the brain was provided [id number] IV gadolinium administration. There are multiple small [...] MD Report Verified Date/Time:01/20/2018 21:35:56 Reading Location: [facility] Transitional Reading Room Procedure Note Interface, External Ris In - 01/20/2018 9:38 PM CDT FINAL REPORT Exam: MRI brain with and without contrast Comparison: No prior study for comparison. Reason for exam: Multiple sclerosis, new neurological event Discussion: Multiplanar multi sequential MR imaging of the brain was provided [id number]-[id number] IV gadolinium administration. There are multiple small [...] Report Verified Date/Time: 01/20/2018 21:35:56 Reading Location: [facility] C013T Transitional Reading Room * POC-Glucose meter (01/20/2018 4:47 PM) Component Value Ref Range POC-Glucose Meter 99Comment: TESTED AT [address] [place] [address] - 110 mg/dL [address] Specimen Performing Laboratory Blood [address] [address] * Screen, urine (01/20/2018 2:15 PM) Component Value Ref Range Preg Test, Ur Negative Specimen Performing Laboratory Urine - Urine, [facility] [address] [place] [address] * Urinalysis w/Microscopic (01/20/2018 2:15 PM) Component Value Ref Range Color, UA Yellow Clarity, UA Clear Specific [place], UA 1.018 1.001 - 1.035 pH, UA [...] [facility] [address] [place] [address] after 07/18/2017
--- NOTE | 2018-09-16 01:40 | Operative Report ---
DATE OF PROCEDURE: July 19, 2018 PREOPERATIVE DIAGNOSES 1. Refractory urge incontinence. 2. Recurrent urinary tract infections. POSTOPERATIVE DIAGNOSES 1. Refractory urge incontinence. 2. Recurrent urinary tract infections. 3. Mild urethral hypermobility. 4. Mild cystocele. OPERATIONS PERFORMED 1. Cystourethroscopy with bilateral ureteral catheterization and retrograde ureteropyelography (separate procedure performed for the urinary tract infections). 2. Interpretation of retrograde ureteropyelography. 3. Supervision of fluoroscopy. No radiologist present. 4. Cystourethroscopy with intravesical injection of Botox (separate procedure performed to relieve the refractory urge incontinence). 5. Pelvic examination under anesthesia. ANESTHESIA: General. COMPLICATIONS: None. CLINICAL SUMMARY: Omayra Gan is a woman, who suffers from urinary retention as well as refractory urge incontinence. She also has urinary frequency. She self-catheterizes at least 5 times a day and her symptomatology waxes and wanes with flare ups of her multiple sclerosis. The patient had a good success with Botox injection and desires to continue therapy. She is aware of the risks of bleeding, infection, injury to adjacent structures, need for additional procedures, and elected to proceed. OPERATIVE PROCEDURE IN DETAIL: Informed consent was verified. Omayra Gan was properly identified, taken to operating room, placed on the cystoscopy table in supine position. Anesthesia was uneventfully begun. The patient was then carefully and gently repositioned in the dorsal lithotomy position with all pressure points well padded. Her genitalia were prepared draped in usual sterile fashion. The 22.5-Austrian cystoscope sheath was inserted. Patient's urethra and the bladder was drained. Panendoscopy revealed no suspicious mucosal lesions. No tumors, no stones, and no diverticula. Normally positioned and configured ureteral orifices were identified. Some trabeculations were noted. An 8-Austrian catheter was used to cannulate each ureter and retrograde ureteropyelograms were performed. Interpretation of retrograde ureteropyelography: Contrast was instilled in retrograde fashion bilaterally. There were no tumors, no stones, and no diverticula. Unobstructed drainage was observed bilaterally fluoroscopically. Botox was reconstituted. The 200 units of Botox were reconstituted in 20 mL of sterile saline. We then proceeded with injecting 1 mL aliquots in an uneven distribution throughout the supratrigonal bladder. There were no complications to the procedure. Patient tolerated the procedure well. The patient's bladder was drained. The cystoscope was withdrawn. Pelvic examination under anesthesia revealed mild urethral hypermobility with a mild cystocele. No abnormal palpable pelvic masses were identified. There were no obvious mucosal lesions. Patient was then uneventfully reversed from anesthesia and taken to recovery room in stable condition. Explicit postop instructions were given. Will follow the patient up in the office. Job#: [id number]
== END | disposition home or self-care (01) ==
LOC: OR 11:36
PROVIDERS: ATTEND Urology
DX: N39.41 Urge incontinence (principal); N39.0 Urinary tract infection, site not specified; N36.41 Hypermobility of urethra; N81.10 Cystocele, unspecified; N32.89 Other specified disorders of bladder; G35 Multiple sclerosis; F41.9 Anxiety disorder, unspecified
CPT/HCPCS: 52005; 52287; 74420; 81025; C1758; J0587; J0696; J1100; J2001; J2250; J2405; Q9967

== ENCOUNTER 2018-08-17 20:35 | Emergency (ER) | payer MEDICARE ==
[~2018-08-17] VITALS: Ht 154.9 cm; Wt 54.0 kg
[~2018-08-17 20:35] MED LIST changes: -BOTULINUM TOXIN TYPE A 100 UNIT VIAL IM ONE; -CEFTRIAXONE SOD 1 GM VIAL ONE; -DEXAMETHASONE SOD PHOS INJ 4 MG/ML VIAL ONE; -FENTANYL CITRATE/PF 100MCG/2 ML INJ ONE; -IOPAMIDOL 300MG/ML 50ML INFUS..BTL IV ONE; -LIDOCAINE HCL 2% LOCAL INJ 5 ML SDV VIAL INJ ONE; -MIDAZOLAM HCL 2 MG/2 ML VIAL ONE; -ONDANSETRON HCL INJ 2 MG/ML VIAL ONE; -PROPOFOL IV EMULSION 10 MG/ML 20 ML VIAL ONE; -SEVOFLURANE INHAL SOLN 250 ML PEN BTL ONE
[2018-08-17] MEDS ORDERED: SODIUM CHLORIDE 0.9% 1000ML 1,000 ML IV STA (20:57)
[2018-08-17 21:44] LABS: BASOPHILS # (AUTO) 0.1 (0.0-0.1); BASOPHILS % 0.4 % (0.0-1.0); EOSINOPHILS # (AUTO) 0.1 (0.0-0.4); HEMATOCRIT 39.9 % (34.2-44.1); HEMOGLOBIN 13.1 g/dL (12.0-16.0); LYMPHOCYTES % 30.7 % (18.0-39.1); MEAN CORPUSCULAR HEMOGLOBIN 27.9 pg (28-32); MEAN CORPUSCULAR HGB CONC 32.8 g/dL (31-35); MEAN CORPUSCULAR VOLUME 85.1 fL (81-99); MONOCYTES # (AUTO) 1.7 (0.2-0.8); MONOCYTES % 12.7 % (4.4-11.3); NEUTROPHILS # (AUTO) 7.2 (2.1-6.9); NEUTROPHILS % 54.8 % (38.7-80.0); PLATELET COUNT 314 x10e3/uL (140-360); RED BLOOD COUNT 4.69 x10e6/uL (3.6-5.1); RED CELL DISTRIBUTION WIDTH 14.3 % (11.7-14.4)
[2018-08-17 21:49] LABS: ALANINE AMINOTRANSFERASE 37 IU/L (0-55); ALBUMIN 4.4 g/dL (3.5-5.0); ALBUMIN/GLOBULIN RATIO 1.4 (0.8-2.0); ALKALINE PHOSPHATASE 60 IU/L (40-150); ANION GAP 16.8 mmol/L (8-16); BLOOD UREA NITROGEN 20 mg/dL (7-26); BUN/CREATININE RATIO 27 (6-25); CALCIUM 9.8 mg/dL (8.4-10.2); CARBON DIOXIDE 27 mmol/L (22-29); CHLORIDE 99 mmol/L (98-107); CREATININE, SERUM 0.74 mg/dL (0.57-1.11); EST GLOMERULAR FILTRATION RATE > 60 ML/MIN (60-); GLUCOSE 79 mg/dL (74-118); SODIUM 140 mmol/L (136-145)
[2018-08-17 21:52] LABS: POTASSIUM 2.8 mmol/L (3.5-5.1)
[2018-08-17] MEDS ORDERED: POTASSIUM CHLORIDE 20 MEQ TAB CR PO STA (22:07)
[2018-08-17] MEDS ORDERED: HYDROMORPHONE 2MG/ML 2 MG/ML ML IV STA (22:07)
[2018-08-17] MEDS ORDERED: ONDANSETRON HCL INJ 2 MG/ML VIAL IV STA (22:07)
[2018-08-17 22:11] LABS: CLARITY,URINE SL CLOUDY (CLEAR); COLOR,URINE YELLOW (YELLOW)
[2018-08-17 22:12] LABS: BILIRUBIN,URINE NEGATIVE (NEGATIVE); KETONES,URINE TRACE (NEGATIVE); LEUKOCYTE ESTERASE ,URINE 2+ (NEGATIVE); NITRITE,URINE POSITIVE (NEGATIVE); PROTEIN,URINE DIPSTICK 1+ (NEGATIVE); URINE UROBILINOGEN 0.2 mg/dL (0.2 - 1)
[2018-08-17] MEDS ORDERED: KCL 20MEQ/.9 SOD CHL 1,000 ML IV ONE (22:15)
[2018-08-17 22:29] LABS: LYMPHOCYTES % (MANUAL) 25 % (19-48); MONOCYTES % (MANUAL) 14 % (3.4-9.0); NEUTROPHILS % (MANUAL) 59 % (40-74); NUCLEATED RED BLOOD CELLS 2
[2018-08-17 22:30] LABS: PLATELET ESTIMATE ADEQUATE; PLATELET MORPHOLOGY COMMENT NORMAL; RBC MORPHOLOGY COMMENT ABNORMAL
[2018-08-17 22:34] LABS: ANISOCYTOSIS SLIGHT
[2018-08-17 22:55] LABS: BACTERIA,URINE MODERATE /HPF; EPITHELIAL CELLS,URINE FEW /LPF; RBC,URINE 0-5 /HPF (0-5); WBC,URINE (MAN) >50 /HPF (0-5)
--- NOTE | 2018-08-17 23:11 | Diagnostic Imaging Report ---
EXAM: CT ABDOMEN AND PELVIS without IV CONTRAST INDICATION: Lower abdominal pain, Botox injection Bladder 2 weeks ago COMPARISON: None TECHNIQUE: The abdomen and pelvis were scanned using a multidetector helical scanner. Coronal and sagittal reformations were obtained. Dose modulation, iterative reconstruction, and/or weight based adjustment of the mA/kV was utilized to reduce the radiation dose to as low as reasonably achievable. Routine protocol performed. IV Contrast: None Oral Contrast: None CTDIvol has been reviewed. It is below the limits set by the Radiation Protocol Committee (RPC). FINDINGS: LOWER THORAX: No consolidations LIVER: No masses BILIARY: Normal gallbladder. No ductal dilation. SPLEEN: No masses PANCREAS: No masses ADRENALS: No nodules RIGHT KIDNEY: No nephroureterolithiasis or hydronephrosis. LEFT KIDNEY: No nephroureterolithiasis or hydronephrosis. GI TRACT: No wall thickening or obstruction. VESSELS: Unremarkable PERITONEUM/RETROPERITONEUM: No free air or fluid LYMPH NODES: No lymphadenopathy REPRODUCTIVE ORGANS: Normal BLADDER: Normal SOFT TISSUES: Normal BONES: No suspicious bone lesions. IMPRESSION: Normal CT of the abdomen and pelvis. Signed by: Dr. Lissette Chamorro M.D. on 08/17/2018 11:07 PM
[2018-08-17] MEDS ORDERED: CEFTRIAXONE SOD 1 GM VIAL IV ONE (23:45)
--- OUTSIDE RECORDS SUMMARY | 2018-08-20 13:48 | XMS REPORT | Clinical Summary ---
Author Author QUITA [facility] Address Unknown Phone Unavailable Care Team Providers Care Electrician Apprentice Powerhouse Name Role Phone PCP Unavailable Allergies Active [...] Take 10 mg by mouth 2 Active [id number]: walking (two) times daily. impairment due to multiple sclerosis hydroCHLOROthiazide Take 2 capsules (25 mg 60 capsule 11 01/22/20 01/22/20 Active (MICROZIDE) 12.5 mg total) by mouth daily. 18 19 capsule hydroCHLOROthiazide Take 25 mg by mouth 01/22/20 Discontin (MICROZIDE) 12.5 mg daily. 18 ued capsuleIndications: Edema traMADol (ULTRAM) 50 mg Take 1 tablet (50 mg 60 tablet 0 01/22/20 02/01/20 tablet total) by mouth every 12 18 [...] Miller MD (multiple sclerosis) Yessy Sandhu MD ([facility]);Slurred speech;Neurogenic bladder;Immunosuppressive disease ([facility]) after 08/16/2017 Social History Tobacco Use Types Packs/Day Years [...] MD Report Verified Date/Time:02/04/2018 13:51:55 Reading Location: [facility] Radiology Reading Room Addendum Ends FINAL REPORT Chest one view AP 01/21/2018 10:27 AM CLINICAL HISTORY: rule out infection COMPARISON: None available FINDINGS: The lungs are clear. Cardiomediastinal contours are within normal limits. The central pulmonary vasculature is not engorged. IMPRESSION: Unremarkable frontal chest radiograph. Signed: Tevin Pang MD Report Verified Date/Time:01/21/2018 10:27:05 Reading Location: [facility] Radiology Reading Room Procedure Note Interface, External Ris In - 02/04/2018 1:54 PM CDT Addendum Begins REPORT STATUS:A CLINICAL HISTORY: Multiple sclerosis, slurred speech Signed: Tevin Pang MD Report Verified Date/Time: 02/04/2018 13:51:55 Reading Location: [facility] Radiology Reading Room Addendum Ends FINAL REPORT Chest one view AP 01/21/2018 10:27 AM CLINICAL HISTORY: rule out infection COMPARISON: None available FINDINGS: The lungs are clear. Cardiomediastinal contours are within normal limits. The central pulmonary vasculature is not engorged. IMPRESSION: Unremarkable frontal chest radiograph. Signed: Tevin Pang MD Report Verified Date/Time: 01/21/2018 10:27:05 Reading Location: [facility] Reading Room * Manual Differential (01/21/2018 3:58 AM) Component Value Ref Range Total Counted Specimen [place] [address] * TSH/Free T4 If Indicated (01/21/2018 3:58 AM) Component Value Ref Range TSH 4.38 0.35 - 4.94 uIU/mL Specimen [place]forming [place] [address] * CBC with platelet count + automated diff (01/21/2018 3:58 AM) Only the most recent of 2 results within the time period is included. Component Value Ref Range WBC 8.4 3.5 - 10.5 K/L RBC 4.41 3.93 - 5.22 M/L Hemoglobin 12.0 11.2 - 15.7 GM/DL Hematocrit [...] % # Neutros 2.99 1.56 - 6.13 K/L # Lymphs 4.06 (H) 1.18 - 3.74 K/L # Monos 1.18 (H) 0.24 - 0.36 K/L # Eos 0.11 0.04 - 0.36 K/L # Baso 0.05 0.01 - 0.08 K/L Immature 1 0 - 1 % Granulocytes-Relative Specimen Performing Laboratory Blood [address] [address] * CBC with platelet count + automated diff (01/21/2018 3:58 AM) Only the most recent of 2 results within the time period is included. Specimen Performing Laboratory Blood Narrative The following orders were created for panel order CBC with platelet count + automated diff. Procedure Abnormality Status --------- ------ CBC with platelet count ...[[id number]]AbnormalFinal result Manual Differential[[id number]]Final result Please view results for these tests on the individual orders. * Magnesium (01/21/2018 3:58 AM) Component Value Ref Range Magnesium 1.7 1.6 - 2.6 mg/dL Specimen Performing Laboratory Blood [address] [address] * Lipid panel (01/21/2018 3:58 AM) Component Value Ref Range Triglycerides 107 mg/dL Cholesterol 170 mg/dL HDL 52 mg/dL LDL Calculated 97 mg/dL Specimen Performing Laboratory Blood [address] [address] Narrative Triglyceride Reference Range: Low Risk <150 Yjocwxzyeg661-321 High Risk 200-499 Very High Risk>=500 Cholesterol Reference Range: Low Risk <200 Fpydjvyvmr641-488 High Risk>240 HDL Cholesterol Reference Range: Low Risk >=60 High Risk <40 LDL Cholesterol Reference Range: Optimal<100 Near Lgjvosy486-397 Rufjoxhxit740-286 Enjb330-311 Very High >=190 * Basic metabolic panel [...] DIALYSIS PATIENTS. Specimen Performing Laboratory Blood [facility] [address] [address] * MR thoracic spine without & with [...] MD Report Verified Date/Time:01/20/2018 21:46:33 Reading Location: [facility] Transitional Reading Room Procedure Note Interface, External [...] Verified Date/Time: 01/20/2018 21:46:33 Reading Location: [address] Transitional Reading Room * MR cervical spine without & with IV contrast (01/20/2018 9:22 PM) Specimen Performing Laboratory [employer] Narrative FINAL REPORT EXAM: MRI cervical and [...] Report Verified Date/Time:01/20/2018 21:46:33 Reading Location: [address] Transitional Reading Room Procedure Note Interface, [...] Verified Date/Time: 01/20/2018 21:46:33 Reading Location: [address] Transitional Reading Room * MR brain without & with IV contrast (01/20/2018 9:22 PM) Specimen Performing Laboratory [employer] RIS Narrative FINAL REPORT Exam: MRI brain with and without contrast Comparison:No prior study for comparison. Reason for exam: Multiple sclerosis, new neurological event Discussion: Multiplanar multi sequential MR imaging of the brain was provided [id number] IV gadolinium administration. There are multiple small [...] MD Report Verified Date/Time:01/20/2018 21:35:56 Reading Location: [facility] Transitional Reading Room Procedure Note Interface, External Ris In - 01/20/2018 9:38 PM CDT FINAL REPORT Exam: MRI brain with and without contrast Comparison: No prior study for comparison. Reason for exam: Multiple sclerosis, new neurological event Discussion: Multiplanar multi sequential MR imaging of the brain was provided [id number] IV gadolinium administration. There are multiple small [...] Report Verified Date/Time: 01/20/2018 21:35:56 Reading Location: [facility] C013T Transitional Reading Room * POC-Glucose meter (01/20/2018 4:47 PM) Component Value Ref Range POC-Glucose Meter 99Comment: TESTED AT [address] [place] [address] mg/dL [address] Specimen Performing Laboratory Blood [address] [address] * Screen, urine (01/20/2018 2:15 PM) Component Value Ref Range Preg Test, Ur Negative Specimen Performing Laboratory Urine - Urine, [facility] [address] [place] [address] * Urinalysis w/Microscopic (01/20/2018 2:15 PM) Component Value Ref Range Color, UA Yellow Clarity, UA Clear Specific [place], UA 1.018 1.001 - 1.035 pH, UA [...] Catch Specimen Performing Laboratory Urine - Urine, [facility] [address] [place] [address] after 08/16/2017
--- OUTSIDE RECORDS SUMMARY | 2018-08-20 13:48 | XMS REPORT | Clinical Summary ---
Author Author [facility] Address Unknown Phone Unavailable Care Team Providers Care Residential Designer Name Role Phone Cata Norman DO PCP Allergies No Known Allergies Current Medications Not on file Active Problems Not on file Encounters Date Type Specialty Care Team Description 10/04/2017 [facility]iology ReyesGriselda Mi Orders 10/03/2017 [facility] Radiology ReyesGriselda Mi Multiple sclerosis; Encounter High risk medications (not anticoagulants) long-term use; Weakness; Abnormality of gait; Spasticity 10/03/2017 [facility] Radiology ReyesGriselda Mi Multiple sclerosis; Encounter High risk medications (not anticoagulants) long-term use; Weakness; Abnormality of gait; Spasticity 10/03/2017 [facility] Radiology ReyesGriselda Mi Multiple sclerosis; Encounter High risk medications (not anticoagulants) long-term use; Weakness; Abnormality of gait; Spasticity 10/03/2017 Ancillary Radiology ReyesGriselda Mi Orders 10/03/2017 Ancillary Radiology ReyesGriselda Mi Orders 10/03/2017 Ancillary Radiology ReyesGriselda Mi Orders 10/02/2017 Ancillary Radiology ReyesGriselda Mi Multiple sclerosis; Orders High risk medications (not anticoagulants) long-term use; Weakness; Abnormality of gait; Spasticity 09/11/2017 Procedure Pass Radiology 09/11/2017 Procedure Pass Radiology 09/11/2017 Procedure Pass Radiology 09/11/2017 Transcribe Access Griselda Muniz Multiple sclerosis Orders (Primary Dx); High risk medications (not anticoagulants) long-term use; Weakness; Abnormality of gait; Spasticity after 08/16/2017 Social History Tobacco Use Types Packs/Day Years Used Date Never Assessed Sex Assigned at Date Recorded Not on file Last Filed Vital Signs Vital Sign Reading Time Taken Blood Pressure - - Pulse - - Temperature - - Respiratory Rate - - Oxygen Saturation - - Inhaled Oxygen - - Concentration Weight 54 kg (119 lb) 10/03/2017 1:10 PM SUBWAY REPAIR SUPERVISOR Height - - Body Mass Index 22.48 10/03/2017 1:10 PM SUBWAY REPAIR SUPERVISOR Plan of Treatment Health Maintenance Due Date Last Done Comments CERVICAL CANCER SCREENING 1998 INFLUENZA VACCINE 06/05/2018 Procedures Procedure Name Priority Date/Time Associated Diagnosis Comments MRI THORACIC SPINE W Routine 10/03/2017 Multiple sclerosis Results for this CONTRAST 2:38 PM SUBWAY REPAIR SUPERVISOR High risk medications procedure are in the (not anticoagulants) results section. long-term use Weakness Abnormality of gait Spasticity MRI CERVICAL SPINE W Routine 10/03/2017 Multiple sclerosis Results for this CONTRAST 2:05 PM SUBWAY REPAIR SUPERVISOR High risk medications procedure are in the (not anticoagulants) results section. long-term use Weakness Abnormality of gait Spasticity MRI BRAIN W WO CONTRAST Routine 10/03/2017 Multiple sclerosis Results for this 1:35 PM SUBWAY REPAIR SUPERVISOR High risk medications procedure are in the (not anticoagulants) results section. long-term use Weakness Abnormality of gait Spasticity after 08/16/2017 Results * MRI Thoracic Spine W Contrast (10/03/2017 2:38 PM) Narrative Performed At EXAMINATION:MRI THORACIC SPINE W CONTRAST [facility] CLINICAL HISTORY:G35 Multiple sclerosis, Z79.899 Other fci (current) drug therapy, G35Z79.899R53.1R26.9R25.2 COMPARISON:MRI thoracic spine April [...] new lesion demonstrated since the prior examinations. [facility]-[id number] Procedure Note Hm Interface, Radiology Results Incoming - 10/03/2017 3:42 PM SUBWAY REPAIR SUPERVISOR EXAMINATION: MRI THORACIC SPINE W CONTRAST CLINICAL HISTORY: G35 Multiple sclerosis, Z79.899 Other exterminator helper termite (current) drug therapy, G35 Z79.899 R53.1 R26.9 [...] new lesion demonstrated since the prior examinations. [facility]-[id number] Performing Organization Address City/State/Zipcode Phone Number [facility] [address] [place] [address] * MRI Cervical Spine W Contrast (10/03/2017 2:05 PM) Narrative Performed At EXAMINATION: [facility]ERVICAL SPINE W CONTRAST [facility] CLINICAL H[facility]: G35 Multiple sclerosis, Z79.899 Other exterminator helper termite (current) drug therapy, G35Z79.899R53.1R26.9R25.2 COMPARISON:MRI cervical spine [...] excluded on this exam. Left ethmoid sinusitis. [facility]-[id number] Procedure Note Interface, Radiology Results Incoming - 10/03/2017 5:32 PM SUBWAY REPAIR SUPERVISOR EXAMINATION: MRI CERVICAL SPINE W CONTRAST CLINICAL HISTORY: G35 Multiple sclerosis, Z79.899 Other fci (current) drug therapy, G35 Z79.899 R53.1 R26.9 [...] excluded on this exam. Left ethmoid sinusitis. [facility]-[id number] Performing Organization Address City/State/Zipcode Phone Number [facility] [address] [place] [address] * MRI Brain W Wo Contrast (10/03/2017 1:35 PM) Narrative [facility]formed At [facility] EXAMINATION: MRI BRAIN W WO CONTRAST CLINICAL HISTORY: G35 Multiple sclerosis, Z79.899 Other exterminator helper termite (current) drug therapy, G35Z79.899R53.1R26.9R25.2 COMPARISON:MRI brain from [...] prior exam given the differences in technique. [facility]-[id number] Procedure Note Interface, Radiology Results Incoming - 10/03/2017 3:30 PM SUBWAY REPAIR SUPERVISOR EXAMINATION: MRI BRAIN W WO CONTRAST CLINICAL HISTORY: G35 Multiple sclerosis, Z79.899 Other exterminator helper termite (current) drug therapy, G35 Z79.899 R53.1 R26.9 [...] prior exam given the differences in technique. [facility]-[id number] Performing Organization Address City/State/Zipcode Phone Number [facility] [address] [place] [address] after 08/16/2017 Insurance Payer Benefit Subscriber ID Type Phone Address Plan / Group MEDICARE MEDICARE xxxxxxxxxx Medicare [place], [place] PART A AND B
== END 2018-08-18 01:44 | disposition home or self-care (01) ==
LOC: ER 20:35
DX: M54.5 Low back pain (principal); R10.30 Lower abdominal pain, unspecified; N30.90 Cystitis, unspecified without hematuria; G35 Multiple sclerosis; N31.9 Neuromuscular dysfunction of bladder, unspecified
CPT/HCPCS: 36415; 74176; 80053; 81001; 81025; 83605; 85025; 87040; 87086; 87186; 96374; 96375; 99284; J0696; J1170; J2405; J7030

== ENCOUNTER → 2018-10-28 | Day surgery (SDC) | payer MEDICARE ==
[~2018-10-28] MED LIST changes: +BELLADONNA/OPIUM 30 MG SUPP RC ONE; +BOTULINUM TOXIN TYPE A 100 UNIT VIAL IM ONE; +DEXAMETHASONE SOD PHOS INJ 4 MG/ML VIAL ONE; +FENTANYL CITRATE/PF 100MCG/2 ML INJ ONE; +IOPAMIDOL 610MG/1ML 300 MG/ML VIAL IV ONE; +LIDOCAINE HCL 2% LOCAL INJ 5 ML SDV VIAL INJ ONE; +MIDAZOLAM HCL 2 MG/2 ML VIAL ONE; +ONDANSETRON HCL INJ 2MG/ML 2ML 2 MG/ML VIAL ONE; +PIPER-TAZ 3.375 GM 50 ML ONE; +PROPOFOL IV EMULSION 10 MG/ML 20 ML VIAL ONE; +SEVOFLURANE INHAL SOLN 250 ML PEN BTL ONE
--- OUTSIDE RECORDS SUMMARY | 2018-10-28 08:44 | XMS REPORT | Clinical Summary ---
Author Author QUITA [facility] Address Unknown Phone Unavailable Care Team Providers Care Rn Access Name Role Phone Cata Norman PCP Allergies Comments Active Allergy Reactions Severity Noted Date Swelling of lips and hives on face Fluconazole Swelling 01/20/2018 Medications End Date Status Medication Sig Dispensed Refills Start Date Active oxybutynin (DITROPAN XL) Take 10 mg by 0 10 MG 24 hr mouth 2 (two) tabletIndications: times daily . Neurogenic Bladder Active nitrofurantoin Take 50 mg by 0 (MACRODANTIN) 50 MG mouth daily . capsule Active gabapentin (NEURONTIN) Take 600 mg 0 600 MG tablet by mouth 3 (three) times daily. Active NATALIZUMAB (TYSABRI IV) Inject 0 intravenously . Active baclofen (LIORESAL) 10 MG Take 10 mg by 0 tablet mouth 2 (two) times daily. Active zolpidem (AMBIEN CR) 12.5 Take 12.5 mg 0 MG CR tablet by mouth every night as needed for Insomnia. Active dalfampridine 10 mg Take 10 mg by 0 [id number]: walking mouth 2 (two) impairment due to times daily. multiple sclerosis 01/21/2019 Active hydroCHLOROthiazide Take 2 60 capsule 11 (MICROZIDE) 12.5 mg capsules (25 8 capsule mg total) by mouth daily. 01/21/2018 Discontinued hydroCHLOROthiazide Take 25 mg by 0 (MICROZIDE) 12.5 mg mouth daily. capsuleIndications: Edema 01/31/2018 traMADol (ULTRAM) 50 mg Take 1 tablet 60 tablet 0 tablet (50 mg total) 8 by mouth every 12 (twelve) hours as needed for Pain for up to 10 days. Max Daily Amount: 100 mg Active Problems Problem Noted Date MS (multiple sclerosis) 01/20/2018 Encounters Care Team Description Date Type Specialty Monico Jaquez MD Parikh, MD Phoebe Max, Yessy Alicea MD Weakness of left lower extremity (Primary Dx); MS (multiple sclerosis) ([facility]); Slurred speech; Neurogenic bladder; Immunosuppressive disease ([facility]) 01/20/2018 [facility] Internal Medicine - Encounter 01/21/2018 after 10/27/2017 Social History Date Tobacco Use Types Packs/Day Years Used Never Smoker Alcohol Use Drinks/Week oz/Week Comments No Sex Assigned at Date Recorded Not on file Industry Job Start Date Occupation Not on file Not on file Not on file Travel End Travel History Travel Start No recent travel history available. Last Filed Vital Signs Time Taken Vital Sign Reading 01/21/2018 11:23 AM CDT Blood Pressure 98/53 01/21/2018 11:23 AM CDT Pulse 70 01/21/2018 11:23 AM CDT Temperature 36 C (96.8 F) 01/21/2018 11:23 AM CDT Respiratory Rate 18 01/21/2018 11:23 AM CDT Oxygen Saturation 98% - Inhaled Oxygen - Concentration 01/21/2018 6:00 AM CDT Weight 53 kg (116 lb 14.4 oz) 01/20/2018 1:42 PM CDT Height 154.9 cm (5' 1") 01/21/2018 6:00 AM CDT Body Mass Index 22.09 Plan of Treatment Not on file Procedures Comments Procedure Name Priority Date/Time Associated Diagnosis XR CHEST 1 VIEW Routine 01/21/2018 PORTABLE/BEDSIDE 10:19 AM CDT (MANUAL DIFFERENTIAL) Routine 01/21/2018 3:58 AM CDT CBC W/PLT COUNT & AUTO Routine 01/21/2018 DIFFERENTIAL 3:58 AM CDT TSH/FREE T4 IF INDICATED Routine 01/21/2018 3:58 AM CDT CBC W/PLT COUNT & AUTO Routine 01/21/2018 DIFFERENTIAL 3:58 AM CDT MAGNESIUM Routine 01/21/2018 3:58 AM CDT LIPID PANEL Routine 01/21/2018 3:58 AM CDT BASIC METABOLIC PANEL (7) Routine 01/21/2018 3:58 AM CDT MR THORACIC SPINE W & WO STAT 01/20/2018 CONTRAST 9:22 PM CDT MR CERVICAL SPINE W/WO STAT 01/20/2018 CONTRAST 9:22 PM CDT MR BRAIN WITHOUT & WITH STAT 01/20/2018 IV CONTRAST 9:22 PM CDT POCT-GLUCOSE METER Routine 01/20/2018 4:47 PM CDT CBC W/PLT COUNT & AUTO STAT 01/20/2018 DIFFERENTIAL 2:16 PM CDT BASIC METABOLIC PANEL (7) STAT 01/20/2018 2:16 PM CDT CBC W/PLT COUNT & AUTO STAT 01/20/2018 DIFFERENTIAL 2:16 PM CDT SCREEN, URINE STAT 01/20/2018 2:15 PM CDT URINALYSIS W/ MICROSCOPIC STAT 01/20/2018 2:15 PM CDT after 10/27/2017 Results * XR chest 1 view portable / bedside (01/21/2018 10:19 AM CDT) Narrative Performed At Addendum Begins [facility] REPORT STATUS:A CLINICAL HISTORY: Multiple sclerosis, slurred speech Signed: Tevin Pang MD Report Verified Date/Time:02/04/2018 13:51:55 Reading Location: [facility] Radiology Reading Room Addendum Ends FINAL REPORT Chest one view AP 01/21/2018 10:27 AM CLINICAL HISTORY: rule out infection COMPARISON: None available FINDINGS: The lungs are clear. Cardiomediastinal contours are within normal limits. The central pulmonary vasculature is not engorged. IMPRESSION: Unremarkable frontal chest radiograph. Signed: Tevin Pang MD Report Verified Date/Time:01/21/2018 10:27:05 Reading Location: [facility] Radiology Reading Room Procedure Note Interface, External Ris In - 02/04/2018 1:54 PM CDT Addendum Begins REPORT STATUS:A CLINICAL HISTORY: Multiple sclerosis, slurred speech Signed: Tevin Pang MD Report Verified Date/Time: 02/04/2018 13:51:55 Reading Location: [facility] Radiology Reading Room Addendum Ends FINAL REPORT Chest one view AP 01/21/2018 10:27 AM CLINICAL HISTORY: rule out infection COMPARISON: None available FINDINGS: The lungs are clear. Cardiomediastinal contours are within normal limits. The central pulmonary vasculature is not engorged. IMPRESSION: Unremarkable frontal chest radiograph. Signed: Tevin Pang MD Report Verified Date/Time: 01/21/2018 10:27:05 Reading Location: [facility] Radiology Reading Room Performing Organization Address [facility] Phone Number GE RIS * Manual Differential (01/21/2018 3:58 AM CDT) Total Counted [facility] Specimen Blood Performing Organization Address [facility] Phone Number [address] * TSH/Free T4 If Indicated (01/21/2018 3:58 AM CDT) TSH 4.38 0.35 - 4.94 uIU/mL [facility] Specimen Blood Performing Organization Address [facility] Phone Number [address] * CBC with platelet count + automated diff (01/21/2018 3:58 AM CDT) Only the most recent of 2 results within the time period is included. WBC 8.4 3.5 - 10.5 K/L [facility] RBC 4.41 3.93 - 5.22 M/L [facility] Hemoglobin 12.0 11.2 - 15.7 GM/DL [facility] Hematocrit 38.2 34.1 - 44.9 % [facility] MCV 86.6 79.4 - 94.8 fL [facility] MCH 27.2 25.6 - 32.2 pg [facility] MCHC 31.4 (L) 32.2 - 35.5 GM/DL [facility] RDW 13.4 11.7 - 14.4 % [facility] Platelets 213 150 - 450 K/CU MM [facility] MPV 11.5 9.4 - 12.3 fL [facility] nRBC 0 0 - 0 /100 WBC [facility] % Neutros 35 % [facility] % Lymphs 48 % [facility] % Monos 14 % [facility] % Eos 1 % [facility] % Baso 1 % [facility] # Neutros 2.99 1.56 - 6.13 K/L [facility] # Lymphs 4.06 (H) 1.18 - 3.74 K/L [facility] # Monos 1.18 (H) 0.24 - 0.36 K/L [facility] # Eos 0.11 0.04 - 0.36 K/L [facility] # Baso 0.05 0.01 - 0.08 K/L [facility] Immature 1 0 - 1 % [facility] Granulocytes-[facility] CENTER Specimen Blood Performing Organization Address City/State/Zipcode Phone Number [facility] [address] [place] [address] [facility] * Magnesium (01/21/2018 3:58 AM CDT) Magnesium 1.7 1.6 - 2.6 mg/dL [facility] Specimen Blood Performing Organization Address [facility] Phone Number [place] [phone] [place], [place] [phone] [facility] * Lipid panel (01/21/2018 3:58 AM CDT) Triglycerides 107 mg/dL [facility] Cholesterol 170 mg/dL [facility] HDL 52 mg/dL [facility] LDL Calculated 97 mg/dL [facility] Specimen Blood Narrative Performed At Triglyceride Reference Range: [facility] Low Risk <150 [facility] [id number] High Risk 200-499 Very High Risk>=500 Cholesterol Reference Range: Low Risk <200 [id number] High Risk>240 HDL Cholesterol Reference Range: Low Risk >=60 High Risk <40 LDL Cholesterol Reference Range: Optimal<100 Near [id number] Very High >=190 Performing Organization Address City/[facility] Phone Number [place] [phone] [place], [place] [phone] [facility] * Basic metabolic panel (01/21/2018 3:58 AM CDT) Only the most recent of 2 results within the time period is included. Sodium 140 136 - 145 meq/L [facility] Potassium 3.5 3.5 - 5.1 meq/L [facility] Chloride 104 98 - 107 meq/L [facility] CO2 28 22 - 29 meq/L [facility] BUN 16 7 - 21 mg/dL [facility] Creatinine 0.59 0.57 - 1.25 mg/dL [facility] Glucose 84 70 - 105 mg/dL [facility] Calcium 9.0 8.4 - 10.2 mg/dL [facility] EGFR 113Comment: ESTIMATED GFR IS mL/min/1.73 sq m [facility] NOT ACCURATE CREATININE [facility] CLEARANCE IN PREDICTING GLOMERULAR FILTRATION RATE. ESTIMATED GFR IS NOT APPLICABLE FOR DIALYSIS PATIENTS. Specimen Blood Performing Organization Address City/State/Zipcode Phone Number [facility] [address] [place] [address] MED[facility] * MR thoracic spine without & with IV contrast (01/20/2018 9:22 PM CDT) Narrative Performed At FINAL REPORT [facility] EXAM: MRI cervical and thoracic spine with [...] abnormal enhancement to suggest active demyelination. Signed: Kia Contreras MD Report Verified Date/Time:01/20/2018 21:46:33 Reading Location: [address] Transitional Reading Room Procedure Note Interface, [...] abnormal enhancement to suggest active demyelination. Signed: Kia Contreras MD Report Verified Date/Time: 01/20/2018 21:46:33 Reading Location: [address] Reading Room Performing Organization Address City/State/Zipcode Phone Number [facility] * MR cervical spine without & with IV contrast (01/20/2018 9:22 PM CDT) Narrative Performed At FINAL REPORT [facility] EXAM: MRI cervical and thoracic spine with [...] abnormal enhancement to suggest active demyelination. Signed: Kia Contreras MD Report Verified Date/Time:01/20/2018 21:46:33 Reading Location: [address] Transitional Reading Room Procedure Note Interface, [...] abnormal enhancement to suggest active demyelination. Signed: Kia Contreras MD Report Verified Date/Time: 01/20/2018 21:46:33 Reading Location: [address] Transitional Reading Room Performing Organization Address City/State/Zipcode Phone Number [facility] * MR brain without & with IV contrast (01/20/2018 9:22 PM CDT) Narrative Performed At FINAL REPORT [facility] Exam: MRI brain with and without contrast Comparison:No prior study for comparison. Reason for exam: Multiple sclerosis, new neurological event Discussion: Multiplanar multi sequential MR imaging of the brain was provided [id number] IV gadolinium administration. There are multiple small [...] infarct or mass effect. Signed: Kia Contreras MD Report Verified Date/Time:01/20/2018 21:35:56 Reading Location: [address] Transitional Reading Room Procedure Note Interface, External Ris In - 01/20/2018 9:38 PM CDT FINAL REPORT Exam: MRI brain with and without contrast Comparison: No prior study for comparison. Reason for exam: Multiple sclerosis, new neurological event Discussion: Multiplanar multi sequential MR imaging of the brain was provided [id number] IV gadolinium administration. There are multiple small [...] infarct or mass effect. Signed: Kia Contreras MD Report Verified Date/Time: 01/20/2018 21:35:56 Reading Location: [facility] C013 Transitional Reading Room Performing Organization Address City/[facility] Phone Number [facility] * POC-Glucose meter (01/20/2018 4:47 PM CDT) POC-Glucose Meter 99Comment: TESTED AT [facility] 70 - 110 mg/dL [address] Specimen Blood Performing Organization Address [facility] Phone Number [address] * Screen, urine (01/20/2018 2:15 PM CDT) Preg Test, Ur Negative [facility] Specimen Urine - Urine, Clean Catch Performing Organization Address [facility] Phone Number [address] * Urinalysis w/Microscopic (01/20/2018 2:15 PM CDT) Color, UA Yellow [facility] Clarity, UA Clear [facility] Specific Reading, UA 1.018 1.001 - 1.035 [facility] pH, UA 7.0 5.0 - 8.0 [facility] Protein, UA Negative Negative [facility] Glucose, UA Negative Negative [facility] Ketones, UA Negative Negative [facility] Bilirubin, UA Negative Negative [facility] Blood, UA Negative Negative [facility] Nitrite, UA Negative Negative [facility] Leukocytes, UA Negative Negative [facility] Urobilinogen, UA 0.2 0.2 - 1.0 mg/dL [facility] RBC, UA 0 /HPF [facility] WBC, UA 3 /HPF [facility] Bacteria, UA Rare [facility] Mucus Rare [facility] Squam Epithel, UA 5 /HPF [facility] Specimen Source Urine, Clean Catch [facility] Specimen Urine - Urine, Clean Catch Performing Organization Address City/State/Zipcode Phone Number [facility] [address] [place] [address] [facility] after 10/27/2017 Insurance Payer Benefit Subscriber ID Type Phone Address Plan / Group MEDICARE MEDICARE A xxxxxxxxxx Medicare B Advance Directives For more information, please contact: [facility] [address] [place], [place] [phone] Date Inactivated Comments Code Status Date Activated 01/21/2018 6:16 PM Full Code 01/20/2018 3:41 PM This code status was determined by: Patient
--- OUTSIDE RECORDS SUMMARY | 2018-10-28 08:44 | XMS REPORT | Clinical Summary ---
Author Author [facility] Organization [facility] Address Unknown Phone Unavailable Care Team Providers Care Business Manager Name Role Phone Cata Norman DO PCP Allergies No Known Allergies Medications Not on file Active Problems Not on file Social History Date Tobacco Use Types Packs/Day Years Used Never Assessed Sex Assigned at Date Recorded Not on file Industry Job Start Date Occupation Not on file Not on file Not on file Travel End Travel History Travel Start No recent travel history available. Last Filed Vital Signs Not on file Plan of Treatment Health Maintenance Due Date Last Done Comments CERVICAL CANCER SCREENING 1998 INFLUENZA VACCINE 06/05/2018 Results Not on fileafter 10/27/2017 Insurance Payer Benefit Subscriber ID Type Phone Address Plan / Group MEDICARE MEDICARE xxxxxxxxxx Medicare [place], [place] PART A AND B Advance Directives Patient has advance care planning documents on file. For more information, shay montes contact: Jonnie Lima [address] [place] [address]
[2018-10-28 13:00] VITALS: BP 101/76
--- NOTE | 2018-12-30 08:22 | Operative Report ---
DATE OF PROCEDURE: 1975 SURGEON: Samson Cabezas MD PREOPERATIVE DIAGNOSES: 1. Refractory urge incontinence. 2. Urinary tract infections. POSTOPERATIVE DIAGNOSES: 1. Refractory urge incontinence. 2. Urinary tract infections. 3. Mild cystocele. 4. Urethral hypermobility. OPERATION PERFORMED: 1. Cystourethroscopy with bilateral ureteral catheterization and retrograde ureteropyelography (several procedures were then performed for the urinary tract infections). 2. Interpretation of retrograde ureteropyelography. 3. Cystourethroscopy with intravesical injection of Botox (several procedures were then performed for the refractory urge incontinence). 4. Pelvic examination under anesthesia. ANESTHESIA: General. COMPLICATIONS: None. CLINICAL SUMMARY: Omayra Salmon is a complicated 43-year-old woman with multiple sclerosis. She has a neurogenic bladder and overreactive bladder. She does intermittent catheterizations and does have some leaking between catheterizations. This leak was greatly improved with Botox injections. She is brought to the operating room for another procedure. She is aware of the risks of bleeding, infection, injury to the adjacent structures, and need for additional procedure, and elected to proceed. PROCEDURE IN DETAIL: Informed consent was verified. Omayra Salmon was appropriately identified, taken to the operating room, and placed on the cystoscopy table in the supine position. Anesthesia was uneventfully begun. The patient was then carefully and gently repositioned in a dorsal lithotomy position with all pressure points well padded. Her genitalia were prepared and draped in the usual sterile fashion. A 22.5-Malagasy cystoscopy sheath was inserted in the patient's urethra and the bladder was drained. Panendoscopy revealed no suspicious mucosal lesions, no tumors, no stones, and no diverticula. Mild trabeculations were noted. A ureteral catheter was used to cannulate each ureter and retrograde ureteropyelograms were performed. Interpretation Of Retrograde Ureteropyelography: Contrast was instilled in a retrograde fashion bilaterally. There were no tumors, no stones, and no diverticula. Unobstructed drainage was observed bilaterally fluoroscopically. A 200 units of Botox were dissolved in 20 mL of sterile saline. We then injected 1 mL aliquots in an even distribution throughout the supratrigonal bladder. The patient's bladder was drained and the cystoscope was withdrawn. Pelvic examination under anesthesia revealed a grade 1 cystocele with urethral hypermobility. No abnormal could be appreciated. There were no suspicious mucosal lesions. The patient was then uneventfully reversed from anesthesia and taken to the recovery room in stable condition. Exclusive postop instructions were given and we will follow the patient up in the office. MD CEDRIC Silva/ANGELO /[id number] cc: Cata Norman DO
== END | disposition home or self-care (01) ==
LOC: OR 08:41
PROVIDERS: ATTEND Urology
DX: N39.41 Urge incontinence (principal); N39.0 Urinary tract infection, site not specified; N81.10 Cystocele, unspecified; N36.41 Hypermobility of urethra; G35 Multiple sclerosis; N32.89 Other specified disorders of bladder
CPT/HCPCS: 52005; 52287; 74420; 81025; C1758; J0587; J1100; J2001; J2250; J2405; J2543; J2704; Q9967

== ENCOUNTER → 2019-03-03 | Day surgery (SDC) | payer MEDICARE ==
[~2019-03-03] MED LIST changes: -BELLADONNA/OPIUM 30 MG SUPP RC ONE; +BELLADONNA/OPIUM 60 MG SUPP PR ONE; +CEFTRIAXONE SOD 1 GM/NS 50 ML 50 ML IV ONE; +DIPHENHYDRAMINE HCL INJ 50 MG/ML VIAL ONE; +GENTAMICIN 80MG/NS 100 ML 100 ML IV ONE; +HYDROMORPHONE 2MG/ML 2 MG/ML ML ONE; -PIPER-TAZ 3.375 GM 50 ML ONE
--- OUTSIDE RECORDS SUMMARY | 2019-03-03 05:21 | XMS REPORT | Clinical Summary ---
Author Author [facility] Organization [facility] Address Unknown Phone Unavailable Care Team Providers Care Dental Mechanic Name Role Phone Cata Norman DO PCP [...] Comments CERVICAL CANCER SCREENING 1998 INFLUENZA VACCINE 06/05/2019 Results Not on fileafter 03/02/2018 Insurance Payer Benefit Subscriber ID Type Phone Address Plan / Group MEDICARE MEDICARE xxxxxxxxxx Medicare [place], [place] PART A AND B Advance Directives Patient has advance care planning documents on file. For more information, shay montes contact: Jonnie Lima [address] [place] [address]
--- OUTSIDE RECORDS SUMMARY | 2019-03-03 05:21 | XMS REPORT | Clinical Summary ---
Author Author QUITA [facility] Address Unknown Phone Unavailable Care Team Providers Care [employer] W[employer] Technician Name Role Phone Cata Norman PCP Allergies [...] 10 mg Take 10 mg by 0 [id number]: walking mouth 2 (two) impairment due to times daily. multiple sclerosis 01/21/2019 hydroCHLOROthiazide Take 2 60 capsule 11 (MICROZIDE) 12.5 mg capsules (25 8 capsule mg total) by mouth daily. Active Problems Problem Noted Date MS (multiple sclerosis) 01/20/2018 Encounters Care Team Description Date Type Specialty [facility] 01/27/2019 Hospital Magnetic Resonance Encounter Imaging Aston Turner Jr., MD 3, [facility] [place] Mr Multiple sclerosis (HCC) 01/27/2019 [facility] Magnetic Resonance Encounter [facility] 01/27/2019 [facility] Magnetic Resonance Encounter Imaging Aston Turner Jr., MD Multiple sclerosis (HCC) (Primary Dx) 01/17/2019 Outside Orders Central Scheduling after 03/02/2018 Social History Date Tobacco Use Types Packs/Day Years Used Never Smoker Alcohol Use Drinks/Week oz/Week Comments No Sex Assigned at Date Recorded Not on file Industry Job Start Date Occupation Not on file Not on file Not on file Travel End Travel History Travel Start No recent travel history available. Last Filed Vital Signs Not on file Plan of Treatment Not on file Procedures Comments Procedure Name Priority Date/Time Associated Diagnosis MR CERVICAL SPINE W/WO Routine 01/27/2019 Multiple sclerosis (HCC) CONTRAST 11:00 AM CDT MR THORACIC SPINE W & WO Routine 01/27/2019 Multiple sclerosis (HCC) CONTRAST 11:00 AM CDT MR BRAIN WITHOUT & WITH Routine 01/27/2019 Multiple sclerosis (HCC) IV CONTRAST 10:59 AM CDT after 03/02/2018 Results * MR thoracic spine without & with IV contrast (01/27/2019 11:00 AM CDT) Specimen Narrative Performed At FINAL REPORT [facility] EXAMINATION: MRI of the cervical and thoracic spinewithout and with contrast. HISTORY: Multiple sclerosis,back pain radiating to the lower extremities with weakness for the last month. COMPARISON: Cervical and thoracic spine MRI of 02/26/2017 and 01/20/2018 TECHNIQUE: Pre-contrast sagittal T1, T2, STIR; axial T1, T2.. Post contrast axial and sagittal T1. Intravenous Contrast: 5 mLGadavist. FINDINGS: Spinal Cord: Spinal cord size: Minimal diffuse volume loss T1 lesions: None Enhancing lesions: None T2 lesions: Overall unchanged T2 lesions as follows: Cervical spinal cord: No significantly changedsubtle ill-defined lesions are better visualized on sagittal STIR. Questionable dorsal lesions extending from the base of the dens to the inferior endplate of C7. C2: Subtle bilateral lateral cord. C3-C4: Central/holocord lesion better seen on sagittal plane. C5 C7: Questionable ill-defined ventral cord lesion, probably already present on prior study. Thoracic spinal cord: Multiple scattered small and sagittal T2 lesions throughout the thoracic spinal cord are less conspicuous, no discrete new lesions. T1-T2: Left lateral and posterior cord. T2: Left lateral and right posterolateral cord. T3: Left lateral cord. T4-T5: Left lateral cord. T5-T6: Possible right posterolateral cord. T6: Questionable right posterolateral cord. T7: Right lateral and left lateral cord. T8 and T9: Subtle bilateral lateral cord. Others: Vertebrae: Normal alignment, height, signal intensity. Discs: Stable minimal spondylosis with tiny right paracentral disc protrusion at T6-T7, otherwise unremarkable. Craniocervical junction: Normal. IMPRESSION: 1.No significant interval change in previously seen cervical and thoracic spinal cord demyelinating T2 lesions. No discrete new MS lesions. 2.Mild diffuse spinal cord volume loss. Signed: Jonathan Pérez MD Report Verified Date/Time:01/27/2019 12:51:08 Reading Location: [facility] Reading Room [address] [place] [address] Procedure Note Interface, External Ris In - 01/27/2019 12:53 PM CDT FINAL REPORT EXAMINATION: MRI of the cervical and thoracic spine without and with contrast. HISTORY: Multiple sclerosis,back pain radiating to the lower extremities with weakness for the last month. COMPARISON: Cervical and thoracic spine MRI of 02/26/2017 and 01/20/2018 TECHNIQUE: Pre-contrast sagittal T1, T2, STIR; axial T1, T2.. Post contrast axial and sagittal T1. Intravenous Contrast: 5 mL Gadavist. FINDINGS: Spinal Cord: Spinal cord size: Minimal diffuse volume loss T1 lesions: None Enhancing lesions: None T2 lesions: Overall unchanged T2 lesions as follows: Cervical spinal cord: No significantly changed subtle ill-defined lesions are better visualized on sagittal STIR. Questionable dorsal lesions extending from the base of the dens to the inferior endplate of C7. C2: Subtle bilateral lateral cord. C3-C4: Central/holocord lesion better seen on sagittal plane. C5 C7: Questionable ill-defined ventral cord lesion, probably already present on prior study. Thoracic spinal cord: Multiple scattered small and sagittal T2 lesions throughout the thoracic spinal cord are less conspicuous, no discrete new lesions. T1-T2: Left lateral and posterior cord. T2: Left lateral and right posterolateral cord. T3: Left lateral cord. T4-T5: Left lateral cord. T5-T6: Possible right posterolateral cord. T6: Questionable right posterolateral cord. T7: Right lateral and left lateral cord. T8 and T9: Subtle bilateral lateral cord. Others: Vertebrae: Normal alignment, height, signal intensity. Discs: Stable minimal spondylosis with tiny right paracentral disc protrusion at T6-T7, otherwise unremarkable. Craniocervical junction: Normal. IMPRESSION: 1.No significant interval change in previously seen cervical and thoracic spinal cord demyelinating T2 lesions. No discrete new MS lesions. 2.Mild diffuse spinal cord volume loss. Signed: Jonathan Pérez MD Report Verified Date/Time: 01/27/2019 12:51:08 Reading Location: [facility] Reading Room [address] [place] [address] Performing Organization Address City/State/Zipcode Phone Number [facility] * MR cervical spine without & with IV contrast (01/27/2019 11:00 AM CDT) Specimen Narrative Performed At FINAL REPORT [facility] EXAMINATION: MRI of the cervical and thoracic spinewithout and with contrast. HISTORY: Multiple sclerosis,back pain radiating to the lower extremities with weakness for the last month. COMPARISON: Cervical and thoracic spine MRI of 02/26/2017 and 01/20/2018 TECHNIQUE: Pre-contrast sagittal T1, T2, STIR; axial T1, T2.. Post contrast axial and sagittal T1. Intravenous Contrast: 5 mLGadavist. FINDINGS: Spinal Cord: Spinal cord size: Minimal diffuse volume loss T1 lesions: None Enhancing lesions: None T2 lesions: Overall unchanged T2 lesions as follows: Cervical spinal cord: No significantly changedsubtle ill-defined lesions are better visualized on sagittal STIR. Questionable dorsal lesions extending from the base of the dens to the inferior endplate of C7. C2: Subtle bilateral lateral cord. C3-C4: Central/holocord lesion better seen on sagittal plane. C5 C7: Questionable ill-defined ventral cord lesion, probably already present on prior study. Thoracic spinal cord: Multiple scattered small and sagittal T2 lesions throughout the thoracic spinal cord are less conspicuous, no discrete new lesions. T1-T2: Left lateral and posterior cord. T2: Left lateral and right posterolateral cord. T3: Left lateral cord. T4-T5: Left lateral cord. T5-T6: Possible right posterolateral cord. T6: Questionable right posterolateral cord. T7: Right lateral and left lateral cord. T8 and T9: Subtle bilateral lateral cord. Others: Vertebrae: Normal alignment, height, signal intensity. Discs: Stable minimal spondylosis with tiny right paracentral disc protrusion at T6-T7, otherwise unremarkable. Craniocervical junction: Normal. IMPRESSION: 1.No significant interval change in previously seen cervical and thoracic spinal cord demyelinating T2 lesions. No discrete new MS lesions. 2.Mild diffuse spinal cord volume loss. Signed: Jonathan Pérez MD Report Verified Date/Time:01/27/2019 12:51:08 Reading Location: [facility] Reading Room [address] [place] [address] Procedure Note Interface, External Ris In - 01/27/2019 12:53 PM CDT FINAL REPORT EXAMINATION: MRI of the cervical and thoracic spine without and with contrast. HISTORY: Multiple sclerosis,back pain radiating to the lower extremities with weakness for the last month. COMPARISON: Cervical and thoracic spine MRI of 02/26/2017 and 01/20/2018 TECHNIQUE: Pre-contrast sagittal T1, T2, STIR; axial T1, T2.. Post contrast axial and sagittal T1. Intravenous Contrast: 5 mL Gadavist. FINDINGS: Spinal Cord: Spinal cord size: Minimal diffuse volume loss T1 lesions: None Enhancing lesions: None T2 lesions: Overall unchanged T2 lesions as follows: Cervical spinal cord: No significantly changed subtle ill-defined lesions are better visualized on sagittal STIR. Questionable dorsal lesions extending from the base of the dens to the inferior endplate of C7. C2: Subtle bilateral lateral cord. C3-C4: Central/holocord lesion better seen on sagittal plane. C5 C7: Questionable ill-defined ventral cord lesion, probably already present on prior study. Thoracic spinal cord: Multiple scattered small and sagittal T2 lesions throughout the thoracic spinal cord are less conspicuous, no discrete new lesions. T1-T2: Left lateral and posterior cord. T2: Left lateral and right posterolateral cord. T3: Left lateral cord. T4-T5: Left lateral cord. T5-T6: Possible right posterolateral cord. T6: Questionable right posterolateral cord. T7: Right lateral and left lateral cord. T8 and T9: Subtle bilateral lateral cord. Others: Vertebrae: Normal alignment, height, signal intensity. Discs: Stable minimal spondylosis with tiny right paracentral disc protrusion at T6-T7, otherwise unremarkable. Craniocervical junction: Normal. IMPRESSION: 1.No significant interval change in previously seen cervical and thoracic spinal cord demyelinating T2 lesions. No discrete new MS lesions. 2.Mild diffuse spinal cord volume loss. Signed: Jonathan Pérez MD Report Verified Date/Time: 01/27/2019 12:51:08 Reading Location: [facility] Reading Room [address] [place] [address] Performing Organization Address City/State/Zipcode Phone Number [facility] * MR brain without & with IV contrast (01/27/2019 10:59 AM CDT) Specimen Narrative Performed At FINAL REPORT [facility] EXAMINATION: MRI of the brain without and with contrast . HISTORY: Multiple sclerosis, back pain radiating to the lower extremities with weakness for the last month. COMPARISON: Brain MRI 01/20/2018 TECHNIQUE: Precontrast axial DWI, T1, T2, T2 FLAIR, Volumetric T2 FLAIR FS reconstructed in the axial, sagittal and coronal planes. Postcontrast volumetric T1 FS obtained in the coronal plane reconstructed in the axial and sagittal planes Intravenous contrast: 5 mL Gadavist FINDINGS: T2 lesions: Accounting for the differences in technique there has not been significant interval change in previously seen too numerous and too confluent to count supratentorial white matter demyelinating T2 lesions located in the corpus callosum, callosal septal interface, periventricular, hayden radiata, centrum semiovale and juxtacortical white matter. Also grossly unchanged sagittal T2 lesion in the right ventral [place] near the root entry zone four and L4-5. No discrete new T2 lesions. T1 lesions: Unchanged about 10-15 slightly T1 hypointense periventricular. Enhancing lesions: None Corpus callosum volume: Mild volume loss Brain volume: Mild generalized volume loss Other: No mass, hydrocephalus, hemorrhage, acute or chronic infarcts IMPRESSION: 1.Not significantly changed predominantly supratentorial white matter demyelinating T2 lesions compared to MRI of 01/20/2018. No enhancing MS plaques. 2.Stable mild brain and callosal volume loss. Signed: Jonathan Pérez MD Report Verified Date/Time:01/27/2019 12:22:03 Reading Location: [facility] Reading Room [address] [place] [address] Procedure Note Interface, External Ris In - 01/27/2019 12:24 PM CDT FINAL REPORT EXAMINATION: MRI of the brain without and with contrast . HISTORY: Multiple sclerosis, back pain radiating to the lower extremities with weakness for the last month. COMPARISON: Brain MRI 01/20/2018 TECHNIQUE: Precontrast axial DWI, T1, T2, T2 FLAIR, Volumetric T2 FLAIR FS reconstructed in the axial, sagittal and coronal planes. Postcontrast volumetric T1 FS obtained in the coronal plane reconstructed in the axial and sagittal planes Intravenous contrast: 5 mL Gadavist FINDINGS: T2 lesions: Accounting for the differences in technique there has not been significant interval change in previously seen too numerous and too confluent to count supratentorial white matter demyelinating T2 lesions located in the corpus callosum, callosal septal interface, periventricular, hayden radiata, centrum semiovale and juxtacortical white matter. Also grossly unchanged sagittal T2 lesion in the right ventral [place] near the root entry zone four and L4-5. No discrete new T2 lesions. T1 lesions: Unchanged about 10-15 slightly T1 hypointense periventricular. Enhancing lesions: None Corpus callosum volume: Mild volume loss Brain volume: Mild generalized volume loss Other: No mass, hydrocephalus, hemorrhage, acute or chronic infarcts IMPRESSION: 1.Not significantly changed predominantly supratentorial white matter demyelinating T2 lesions compared to MRI of 01/20/2018. No enhancing MS plaques. 2.Stable mild brain and callosal volume loss. Signed: Jonathan Pérez MD Report Verified Date/Time: 01/27/2019 12:22:03 Reading Location: [facility] Reading Room [address] [place] [address] Performing Organization Address City/State/Zipcode Phone Number [facility] RIS after 03/02/2018 Insurance Payer Benefit Subscriber ID Type Phone Address Plan / Group MEDICARE MEDICARE A xxxxxxxxxxx Medicare B Advance Directives For more information, please contact: [address] [address] Date Inactivated Comments Code Status Date Activated 01/21/2018 6:16 PM Full Code 01/20/2018 3:41 PM This code status was determined by: Patient
--- OUTSIDE RECORDS SUMMARY | 2019-03-03 05:22 | XMS REPORT | Continuity of Care Document ---
Author Author [facility] Interface Address Unknown Phone Unavailable Problems Problem Status Onset Date Classification Date Reported Comments Source LOWER EXTREMITY Active 02/03/2019 [facility] Discharge Diagnosis: Nausea vomiting and diarrhea 06/09/2017 06/12/2017 [facility] Discharge Diagnosis: Acute hypokalemia 06/09/2017 06/12/2017 [facility] VOMITING Active 06/09/2017 [facility] MULTIPLE SCLEROSIS Active 01/11/2017 [facility] MULTIPLE SCLER Active 12/06/2016 [facility] [place] S/P R UNT Active 03/05/2015 [facility] [place] section Active Problem 06/12/2017 [facility]<sup>1</sup> Active Problem 06/12/2017 right knee scope [facility] Resolved Problem 06/12/2017 [facility] Insomnia Active Problem 02/09/2019 [facility] Swelling of lower extremity Active Problem 06/14/2018 [facility] Neuropathy Active Problem 02/09/2019 [facility] Neurogenic bladder Active Problem 02/09/2019 [facility] Multiple sclerosis Active Problem 06/14/2018 [facility] Osteopenia Active Problem 08/30/2017 [facility] Anxiety Active Problem 02/09/2019 [facility] Osteopenia of other site Active Diagnosis 10/03/2017 [facility] Low blood potassium Active Diagnosis 03/08/2018 [facility] Exposure to sexually transmitted disease Active Diagnosis 03/02/2018 [facility] Acute vaginitis Active Diagnosis 08/30/2018 [facility] Possible exposure to STD Active Diagnosis 03/05/2018 [facility] Dysphagia, unspecified type Active Problem 02/09/2019 [facility] Mild acid reflux Active Problem 02/09/2019 [facility] Self-catheterizes urinary bladder Active Problem 02/09/2019 [facility] Multiple sclerosis, secondary progressive Active Problem 02/09/2019 [facility] Plantar fasciitis Active Problem 06/14/2018 [facility] Spasticity Active Diagnosis 06/27/2018 [facility] Dependent edema Active Diagnosis 04/19/2016 [facility] UTI Active Diagnosis 01/15/2016 [facility] Pain passing urine Active Diagnosis 01/15/2016 [facility] Vaginitis Active Diagnosis 06/16/2016 [facility] Discoloration of skin of foot Active Problem 02/09/2019 [facility] Breast pain, right Active Diagnosis 11/28/2016 [facility] Hordeolum externum of left upper eyelid Active Diagnosis 2016 [facility] Left foot pain Active Diagnosis 11/12/2018 [facility] Swelling of left foot Active Diagnosis 11/12/2018 [facility] Cold extremities Active Diagnosis 11/12/2018 [facility] Medications Medication Details Route Status Patient Instructions Ordering Provider Order Date Source NIFEdipine ER 1 tablet on an empty stomach Orally Active 30 mg Orally Once a day [place] 10/25/2018 [facility] Zantac 1 tablet at bedtime Orally Active 300 MG Orally Once a day [place] 06/24/2018 [facility] Bactrim DS 1 tablet Orally Active 800-160 MG Orally Twice a day [place] 06/24/2018 [facility] Terazol 3 1 application at bedtime Vaginal Active 0.8 % Vaginal once every night for 3 nights [place] 02/25/2018 [facility] Flagyl 1 tablet Orally Active 500 mg Orally twice a day (bid) [place] 02/25/2018 [facility] Potassium Chloride ER 1 tablet with food Orally Active 20 MEQ Orally Once a day [place] 09/25/2017 [facility] Ondansetron 4 MG Disintegrating Tablet 4 mg=1 tab, PO, TID, PRN Nausea / Vomiting, Dissolve tab under tongue, # 10 tab, 0 Refill(s) Active 06/09/2017 [facility] Potassium Chloride 40 mEq, 2 tab, Route: PO, Drug form: ERTAB, ONCE, Dosing Weight 52.727, kg, Priority: STAT, Start date: 06/09/17 13:58:00 CDT, Stop date: 06/09/17 13:58:00 CDTNotes: (Same as: K-Dur 20) "Do Not Crush" With food and full glass of water Inactive 06/09/2017 [facility] Ondansetron 4 mg, 2 mL, Route: IVP, Drug form: INJ, ONCE, Dosing Weight 52.727, kg, Priority: STAT, Start date: 06/09/17 13:58:00 CDT, Stop date: 06/09/17 13:58:00 CDTNotes: (Same as: Kennafran) MEDICATION WASTE Product Size: 4 mg Product Wasted: ___ mg Inactive 06/09/2017 [facility] Potassium Chloride 10 mEq, Route: IVPB, ONCE, Dosing Weight 52.727, kg, Start date: 06/09/17 11:51:00 CDT, Stop date: 06/09/17 11:51:00 CDT Inactive 06/09/2017 [facility] Potassium Chloride 40 mEq, Route: PO, Drug form: ERTAB, ONCE, Dosing Weight 52.727, kg, Priority: STAT, Start date: 06/09/17 11:50:00 CDT, Stop date: 06/09/17 11:50:00 CDT Inactive 06/09/2017 [facility] Ondansetron 4 mg, Route: IVP, ONCE, Dosing Weight 52.727, kg, Priority: STAT, Start date: 06/09/17 11:03:00 CDT, Stop date: 06/09/17 11:03:00 CDT Inactive 06/09/2017 [facility] Saline Flush 0.9% 10 mL, Route: IVP, Drug Form: INJ, Dosing Weight 52.727, kg, PRN, PRN Line Flush, Start date: 06/09/17 11:03:00 CDT, Duration: 30 day, Stop date: 07/09/17 11:02:00 CDTNotes: preservative free. Inactive 06/09/2017 [facility] Sodium Chloride 0.9% (Bolus) IV 1,000 mL, 2,000 ml/hr, Infuse Over: 30 minutes, Route: IV, ONCE, Priority: STAT, Dosing Weight 52.727 kg, Start date: 06/09/17 11:03:00 CDT, Duration: 1 doses or times, Stop date: 06/09/17 11:03:00 CDT Inactive 06/09/2017 [facility] Hydrochlorothiazide 1 tablet Orally Active 50 MG Orally Once a day [place] 02/19/2017 [facility] Ibuprofen 1 tablet Orally Active 800 MG Orally Q 8 PRN [place] 08/03/2016 [facility] TobraDex 1 application Ophthalmic Active 0.3-0.1 % Ophthalmic 2- 3 times daily PRN Marisol 08/03/2016 [facility] Hydrochlorothiazide 1 tablet Orally Active 50 mg Orally Once a day [place] 04/17/2016 [facility] Cipro 1 tablet Orally Active 500 mg Orally Twice a day [place] 01/13/2016 [facility] Nasonex 2 sprays in each nostril Nasally Active 50 MCG/ACT Nasally Once a day [place] 07/29/2013 [facility] Zolpidem Tartrate ER 1 tablet Orally Active 12.5 MG Orally qhs prn LAST REFILL, NEEDS TO BE SEEN Ruben 04/23/2013 [facility] Zolpidem Tartrate ER 1 tablet Orally Active 12.5 MG Orally qhs prn LAST REFILL, MUST SEE DOCTOR Bharath Bradley 04/23/2013 [facility] Tramadol HCl 1 - 2 tablet Orally Active 50 mg Orally every [address] [facility] Nitrofurantoin 1 tablet Orally Active 50 MG Orally Once a day [facility] Ditropan XL as directed Orally Active [address] [facility] Ampyra 1 tablet Orally Active 10 MG Orally Twice a day [facility] Lorazepam 1 tablet as needed Orally Active 1 MG Orally Twice a day [facility] Gabapentin 2 capsule Orally Active 300 MG Orally Q [address] [facility] Tysabri 15 ml IV infusion Intravenous Active 300 MG/15ML Intravenous Once a month Je[address] [facility] Potassium Chloride CR not defined Orally Active [address] [facility] Gabapentin 2 capsule Orally Active 300 MG Orally three times a day (tid) Ruben [facility] Baclofen 1 tablet with food or milk Orally Active 10 mg Orally twice a day (bid) Ruben [facility] Hydrochlorothiazide 1 tablet Orally Active 50 MG Orally Once a day [place] [facility] Gabapentin 2 capsule Orally Active 300 MG Orally three times a day (tid) Jeyson [facility] Hydrochlorothiazide 1 tablet Orally Active 50 Orally Once a day [address] [facility] Baclofen 1 tablet with food or milk Orally Active 10 mg Orally twice a day (bid) Jeyson [facility] Hydrochlorothiazide 1 capsule as needed Orally No Longer Active 12.5 Orally Once a day [facility] Nitrofurantoin 1 tablet Orally Active 50 MG Orally Once a day [address] [facility] Ampyra 1 tablet Orally Active 10 MG Orally Twice a day [facility] [facility] Tramadol HCl 1 - 2 tablet Orally Active 50 mg Orally every 6 hrs [place] [facility] Lorazepam 1 tablet as needed Orally Active 1 MG Orally Twice a day [facility] Ditropan XL as directed Orally Active 15 MG Orally [place] [facility] Gabapentin 2 capsule Orally Active 300 MG Orally Three times a day Mar[place] [facility] Tysabri 15 ml IV infusion Intravenous Active 300 MG/15ML Intravenous Once a month [place] [facility] Hydrochlorothiazide 1 tablet Orally Active 50 MG Orally Once a day [place] [facility] Gabapentin 2 capsule Orally Active 300 MG Orally Q 8 [facility] Hydrochlorothiazide 1 TABLET ONCE A DAY ORALLY 30 DAY(S) NA Active 50 mg [facility] Allergies, Adverse Reactions, Alerts Substance Category Reaction Severity Reaction type Status Date Reported Comments Source Diflucan Adverse Reaction Info Not Available Adverse Reaction Active 10/25/2018 [facility] Immunizations Immunization Date Given Site Status Last Updated Comments Source Results Order Name Results Value Reference Range Date Interpretation Comments Source ELECTROLYTES Potassium Lvl 3.2 meq/L 3.5 - 5.1 06/09/2017 [facility] CHEM PANEL Alk Phos 118 unit/L 39 - 136 06/09/2017 [facility] CHEM PANEL AST 18 unit/L 0 - 37 06/09/2017 [facility] CHEM PANEL Bili Total 0.5 mg/dL 0.2 - 1.3 06/09/2017 [facility] CHEM PANEL ALT 31 unit/L 0 - 65 06/09/2017 [facility] A/G Ratio 1.3 0.7 - 1.6 06/09/2017 [facility] Globulin 3.3 g/dL 2.7 - 4.2 06/09/2017 [facility] CHEM PANEL Albumin Lvl 4.2 g/dL 3.5 - 5.0 06/09/2017 [facility]M PANEL B/C Ratio 15 6 - 25 06/09/2017 [facility]M PANEL Total Protein 7.5 g/dL 6.4 - 8.4 06/09/2017 [facility] CHEM PANEL eGFR 111 mL/min/1.73m2 06/09/2017 Result Comment: The eGFR is calculated using the CKD-EPI formula. In most young, healthy individuals the eGFR will be >90 mL/min/1.73m2. The eGFR declines with age. An eGFR of 60-89 may be normal in some populations, particularly the elderly, for whom the CKD-EPI formula has not been extensively validated. Use of the eGFR is not recommended in the following populations: Individuals with unstable creatinine concentrations, including patients and those with serious co-morbid conditions. Patients with extremes in muscle mass or diet. The data above are obtained from the National Kidney Disease Education Program (NKDEP) which additionally recommends that when the eGFR is used in patients with extremes of body mass index for purposes of drug dosing, the eGFR should be multiplied by the estimated BMI. [facility] CHEM PANEL Calcium Lvl 9.0 mg/dL 8.5 - 10.5 06/09/2017 [facility] CHEM PANEL AGAP 10.5 meq/L 10.0 - 20.0 06/09/2017 [facility] CHEM PANEL CO2 32 meq/L 24 - 32 06/09/2017 [facility] CHEM PANEL Potassium Lvl 2.5 meq/L 3.5 - 5.1 06/09/2017 Result Comment: Critical Result(s) called to BOBBY at _06/09/2017 11:42 by [facility]_. Read back OK. [facility] CHEM PANEL Chloride Lvl 97 meq/L 95 - 109 06/09/2017 [facility] CHEM PANEL Sodium Lvl 137 meq/L 135 - 145 06/09/2017 [facility] CHEM PANEL Creatinine Lvl 0.67 mg/dL 0.50 - 1.40 06/09/2017 [facility] CHEM PANEL BUN 10 mg/dL 7 - 22 06/09/2017 [facility] CHEM PANEL Glucose Lvl 84 mg/dL 70 - 99 06/09/2017 [facility] CHEM PANEL Lipase Lvl 152 unit/L 73 - 393 06/09/2017 [facility] CHEM PANEL Amylase Lvl 22 unit/L 25 - 115 06/09/2017 [facility] HEMATOLOGY Platelet 252 K/CMM 133 - 450 06/09/2017 [facility] HEMATOLOGY Hgb 13.2 g/dL 12.0 - 16.0 06/09/2017 [facility] MCH 27.6 pg 27.0 - 31.0 06/09/2017 [facility] HEMATOLOGY MCV 83.2 fL 80.0 - 98.0 06/09/2017 [facility] Hct 39.8 % 36.0 - 48.0 06/09/2017 [facility] RBC 4.79 M/CMM 4.20 - 5.40 06/09/2017 [facility] WBC 9.2 K/CMM 3.7 - 10.4 06/09/2017 [facility] RDW 13.9 % 11.5 - 14.5 06/09/2017 [facility] MCHC 33.2 g/dL 32.0 - 36.0 06/09/2017 [facility] MPV 9.2 fL 7.4 - 10.4 06/09/2017 [facility] Basophils # 0.1 K/CMM 0.0 - 0.2 06/09/2017 [facility] HEMATOLOGY Basophils 1.2 % 0.0 - 1.0 06/09/2017 [facility] HEMATOLOGY Eosinophils 0.8 % 0.0 - 4.0 06/09/2017 [facility] Monocytes 9.4 % 2.0 - 12.0 06/09/2017 [facility] Lymphocytes 35.2 % 20.0 - 40.0 06/09/2017 [facility] HEMATOLOGY Segs-Bands # 4.9 K/CMM 1.5 - 8.1 06/09/2017 [facility] HEMATOLOGY Segs 53.4 % 45.0 - 75.0 06/09/2017 [facility] Eosinophils # 0.1 K/CMM 0.0 - 0.5 06/09/2017 [facility] HEMATOLOGY Monocytes # 0.9 K/CMM 0.0 - 0.8 06/09/2017 [facility] HEMATOLOGY Lymphocytes # 3.2 K/CMM 1.0 - 5.5 06/09/2017 [facility] URINE AND STOOL UA Urobilinogen <=1.0 mg/dL 0.1 - 1.0 06/09/2017 [facility] URINE AND STOOL UA Bacteria Moderate /HPF None Seen /HPF 06/09/2017 [facility] URINE AND STOOL UA WBC 2 /HPF 0 - 5 06/09/2017 [facility] URINE AND STOOL UA Color Yellow *NA* (06/09/17 11:08 AM) Yellow 06/09/2017 [facility] URINE AND STOOL UA Protein Negative mg/dL Negative mg/dL 06/09/2017 [facility] URINE AND STOOL UA Glucose Negative mg/dL Negative mg/dL 06/09/2017 [facility] URINE AND STOOL UA pH 7.0 5.0 - 8.0 06/09/2017 [facility] URINE AND STOOL UA Spec Grav 1.009 <=1.030 06/09/2017 [facility] URINE AND STOOL UA Turbidity Clear (06/09/17 11:08 AM) Clear 06/09/2017 [facility] URINE AND STOOL UA Sq Epi Few /LPF Few /LPF 06/09/2017 [facility] URINE AND STOOL UA Leuk Est Trace *ABN* (06/09/17 11:08 AM) Negative 06/09/2017 [facility] URINE AND STOOL UA Nitrite Negative (06/09/17 11:08 AM) Negative 06/09/2017 [facility] URINE AND STOOL UA Blood Negative (06/09/17 11:08 AM) Negative 06/09/2017 [facility] URINE AND STOOL UA Bili Negative *NA* (06/09/17 11:08 AM) Negative 06/09/2017 [facility] URINE AND STOOL UA Ketones 20 mg/dL Negative mg/dL 06/09/2017 [facility] URINE CHEM U Preg Negative (06/09/17 11:08 AM) Negative 06/09/2017 [facility] Vital Signs Vital Sign Value Date Comments Source Weight 121 10/25/2018 [facility] Height 60 10/25/2018 [facility] Heart Rate 65 10/25/2018 [facility] Diastolic (mm Hg) 72 10/25/2018 [facility] Systolic (mm Hg) 104 10/25/2018 [facility] Weight 118 06/24/2018 [facility] Height 60 06/24/2018 [facility] Temperature Oral (F) 97.9 F 06/24/2018 [facility] Heart Rate 63 06/24/2018 [facility] Diastolic (mm Hg) 60 06/24/2018 [facility] Systolic (mm Hg) 90 06/24/2018 [facility] Weight 119 02/25/2018 [facility] Height 60 02/25/2018 [facility] Temperature Oral (F) 98.2 F 02/25/2018 [facility] Heart Rate 80 02/25/2018 [facility] Diastolic (mm Hg) 60 02/25/2018 [facility] Systolic (mm Hg) 92 02/25/2018 [facility] Weight 120 09/25/2017 [facility] Height 60 09/25/2017 [facility] Heart Rate 68 09/25/2017 [facility] Diastolic (mm Hg) 58 09/25/2017 [facility] Systolic (mm Hg) 90 09/25/2017 [facility] Systolic (mm Hg) 101 06/09/2017 [facility] Diastolic (mm Hg) 72 06/09/2017 [facility] Temperature Oral (F) 98 F 06/09/2017 [facility] Respitory Rate 13 06/09/2017 [facility] Systolic (mm Hg) 109 06/09/2017 [facility] Diastolic (mm Hg) 71 06/09/2017 [facility] Respitory Rate 12 06/09/2017 [facility] Temperature Oral (F) 97.8 F 06/09/2017 [facility] Height 154.94 cm 06/09/2017 [facility] Heart Rate 69 06/09/2017 [facility] Temperature Oral (F) 98 F 06/09/2017 [facility] Respitory Rate 18 06/09/2017 [facility] Systolic (mm Hg) 123 06/09/2017 [facility] Diastolic (mm Hg) 81 06/09/2017 [facility] Weight 52.727 06/09/2017 [facility] BMI Calculated 21.96 06/09/2017 [facility] Weight 118 02/08/2017 [facility] Height 60 02/08/2017 [facility] Heart Rate 78 02/08/2017 [facility] Diastolic (mm Hg) 70 02/08/2017 [facility] Systolic (mm Hg) 100 02/08/2017 [facility] Weight 118 10/26/2016 [facility] Height 60 10/26/2016 [facility] Heart Rate 68 10/26/2016 [facility] Diastolic (mm Hg) 70 10/26/2016 [facility] Systolic (mm Hg) 102 10/26/2016 [facility] Weight 115 08/03/2016 [facility] Height 60 08/03/2016 [facility] Diastolic (mm Hg) 68 08/03/2016 [facility] Systolic (mm Hg) 100 08/03/2016 [facility] Weight 117 06/13/2016 [facility] Height 60 06/13/2016 [facility] Diastolic (mm Hg) 70 06/13/2016 [facility] Systolic (mm Hg) 108 06/13/2016 [facility] Weight 112 01/13/2016 [facility] Height 60 01/13/2016 [facility] Temperature Oral (F) 98.3 F 01/13/2016 [facility] Diastolic (mm Hg) 68 01/13/2016 [facility] Systolic (mm Hg) 100 01/13/2016 [facility] Encounters Location Location Details Encounter Type Encounter Number Reason For Visit Attending Provider ADM Date DC Date Status Source [facility] Unknown [id number] 07/29/2013 07/29/2013 [facility] Unknown [id number] 07/29/2013 07/29/2013 [facility] Unknown [id number] 07/29/2013 07/29/2013 [facility] Unknown [id number] 07/29/2013 07/29/2013 [facility] Unknown [id number] 07/29/2013 07/29/2013 [facility] Unknown [id number] 07/29/2013 07/29/2013 [facility] Unknown [id number] 07/29/2013 07/29/2013 [facility] Unknown [id number] 07/29/2013 07/29/2013 [facility] Unknown [id number] 07/29/2013 07/29/2013 [facility] Unknown [id number] 07/29/2013 07/29/2013 [facility] Unknown [id number] 07/29/2013 07/29/2013 [facility] Unknown [id number] 07/29/2013 07/29/2013 [facility] Results [id number] 08/08/2013 08/08/2013 [facility] Results [id number] 08/08/2013 08/08/2013 [facility] Results [id number] 08/08/2013 08/08/2013 [facility] Results [id number] 08/08/2013 08/08/2013 [facility] Results [id number] 08/08/2013 08/08/2013 [facility] Results [id number] 08/08/2013 08/08/2013 [facility] Results [id number] 08/08/2013 08/08/2013 [facility] Results [id number] 08/08/2013 08/08/2013 [facility] Results [id number] 08/08/2013 08/08/2013 [facility] Results [id number] 08/08/2013 08/08/2013 [facility] Results [id number] 08/08/2013 08/08/2013 [facility] Results [id number] 08/08/2013 08/08/2013 [facility] Refill [id number] 08/19/2013 08/19/2013 [facility] Refill [id number] 08/19/2013 08/19/2013 [facility] Refill [id number] 08/19/2013 08/19/2013 [facility] Refill [id number] 08/19/2013 08/19/2013 [facility] Refill [id number] 08/19/2013 08/19/2013 [facility] Refill [id number] 08/19/2013 08/19/2013 [facility] Refill [id number] 08/19/2013 08/19/2013 [facility] Refill [id number] 08/19/2013 08/19/2013 [facility] Refill [id number] 08/19/2013 08/19/2013 [facility] Refill [id number] 08/19/2013 08/19/2013 [facility] Refill [id number] 08/19/2013 08/19/2013 [facility] Refill [id number] 08/19/2013 08/19/2013 [facility] Unknown [id number] 10/27/2013 10/27/2013 [facility] Unknown [id number] 10/27/2013 10/27/2013 [facility] Unknown [id number] 10/27/2013 10/27/2013 [facility] Unknown [id number] 10/27/2013 10/27/2013 [facility] Unknown [id number] 10/27/2013 10/27/2013 [facility] Unknown [id number] 10/27/2013 10/27/2013 [facility] Unknown [id number] 10/27/2013 10/27/2013 [facility] Unknown [id number] 10/27/2013 10/27/2013 [facility] Unknown [id number] 10/27/2013 10/27/2013 [facility] Unknown [id number] 10/27/2013 10/27/2013 [facility] Unknown [id number] 10/27/2013 10/27/2013 [facility] Unknown [id number] 10/27/2013 10/27/2013 [facility] shingles outbreak [id number] 10/28/2013 10/28/2013 [facility] shingles outbreak [id number] 10/28/2013 10/28/2013 [facility] shingles outbreak [id number] 10/28/2013 10/28/2013 [facility] shingles outbreak [id number] 10/28/2013 10/28/2013 [facility] shingles outbreak [id number] 10/28/2013 10/28/2013 [facility] shingles outbreak [id number] 10/28/2013 10/28/2013 [facility] shingles outbreak [id number] 10/28/2013 10/28/2013 [facility] shingles outbreak [id number] 10/28/2013 10/28/2013 [facility] shingles outbreak [id number] 10/28/2013 10/28/2013 [facility] shingles outbreak [id number] 10/28/2013 10/28/2013 [facility] shingles outbreak [id number] 10/28/2013 10/28/2013 [facility] shingles outbreak [id number] 10/28/2013 10/28/2013 [facility] Shingles [id number] 10/31/2013 10/31/2013 [facility] Shingles [id number] 10/31/2013 10/31/2013 [facility] Shingles [id number] 10/31/2013 10/31/2013 [facility] Shingles [id number] 10/31/2013 10/31/2013 [facility] Shingles [id number] 10/31/2013 10/31/2013 [facility] Yasmin [id number] 10/31/2013 10/31/2013 [facility] Yasmin [id number] 10/31/2013 10/31/2013 [facility] Yasmin [id number] 10/31/2013 10/31/2013 [facility] Yasmin [id number] 10/31/2013 10/31/2013 [facility] Yasmin [id number] 10/31/2013 10/31/2013 [facility] Yasmin [id number] 10/31/2013 10/31/2013 [facility] Yasmin [id number] 10/31/2013 10/31/2013 [facility] Return to work note [id number] 11/03/2013 11/03/2013 [facility] Return to work note [id number] 11/03/2013 11/03/2013 [facility] Return to work note [id number] 11/03/2013 11/03/2013 [facility] Return to work note [id number] 11/03/2013 11/03/2013 [facility] Return to work note [id number] 11/03/2013 11/03/2013 [facility] Return to work note [id number] 11/03/2013 11/03/2013 [facility] Return to work note [id number] 11/03/2013 11/03/2013 [facility] Return to work note [id number] 11/03/2013 11/03/2013 [facility] Return to work note [id number] 11/03/2013 11/03/2013 [facility] Return to work note [id number] 11/03/2013 11/03/2013 [facility] Return to work note [id number] 11/03/2013 11/03/2013 [facility] Return to work note [id number] 11/03/2013 11/03/2013 [facility] Unknown [id number] 11/04/2013 11/04/2013 [facility] Unknown [id number] 11/04/2013 11/04/2013 [facility] Unknown [id number] 11/04/2013 11/04/2013 [facility] Unknown [id number] 11/04/2013 11/04/2013 [facility] Unknown [id number] 11/04/2013 11/04/2013 [facility] Unknown [id number] 11/04/2013 11/04/2013 [facility] Unknown [id number] 11/04/2013 11/04/2013 [facility] Unknown [id number] 11/04/2013 11/04/2013 [facility] Unknown [id number] 11/04/2013 11/04/2013 [facility] Unknown [id number] 11/04/2013 11/04/2013 [facility] Unknown [id number] 11/04/2013 11/04/2013 [facility] Unknown [id number] 11/04/2013 11/04/2013 [facility] Unknown [id number] 11/12/2013 11/12/2013 [facility] Unknown [id number] 11/12/2013 11/12/2013 [facility] Unknown [id number] 11/12/2013 11/12/2013 [facility] Unknown [id number] 11/12/2013 11/12/2013 [facility] Unknown [id number] 11/12/2013 11/12/2013 [facility] Unknown [id number] 11/12/2013 11/12/2013 [facility] Unknown [id number] 11/12/2013 11/12/2013 [facility] Unknown [id number] 11/12/2013 11/12/2013 [facility] Unknown [id number] 11/12/2013 11/12/2013 [facility] Unknown [id number] 11/12/2013 11/12/2013 [facility] Unknown [id number] 11/12/2013 11/12/2013 [facility] Unknown [id number] 11/12/2013 11/12/2013 [facility] REFILL [id number] 12/17/2013 12/17/2013 [facility] REFILL [id number] 12/17/2013 12/17/2013 [facility] REFILL [id number] 12/17/2013 12/17/2013 [facility] REFILL [id number] 12/17/2013 12/17/2013 [facility] REFILL [id number] 12/17/2013 12/17/2013 [facility] REFILL [id number] 12/17/2013 12/17/2013 [facility] REFILL [id number] 12/17/2013 12/17/2013 [facility] REFILL [id number] 12/17/2013 12/17/2013 [facility] REFILL [id number] 12/17/2013 12/17/2013 [facility] REFILL [id number] 12/17/2013 12/17/2013 [facility] REFILL [id number] 12/17/2013 12/17/2013 [facility] REFILL [id number] 12/17/2013 12/17/2013 [facility] Refill [id number] 01/14/2014 01/14/2014 [facility] Refill [id number] 01/14/2014 01/14/2014 [facility] Refill [id number] 01/14/2014 01/14/2014 [facility] Refill [id number] 01/14/2014 01/14/2014 [facility] Refill [id number] 01/14/2014 01/14/2014 [facility] Refill [id number] 01/14/2014 01/14/2014 [facility] Refill [id number] 01/14/2014 01/14/2014 [facility] Refill [id number] 01/14/2014 01/14/2014 [facility] Refill [id number] 01/14/2014 01/14/2014 [facility] Refill [id number] 01/14/2014 01/14/2014 [facility] Refill [id number] 01/14/2014 01/14/2014 [facility] Refill [id number] 01/14/2014 01/14/2014 [facility] Refill [id number] 02/11/2014 02/11/2014 [facility] Refill [id number] 02/11/2014 02/11/2014 [facility] Refill [id number] 02/11/2014 02/11/2014 [facility] Refill [id number] 02/11/2014 02/11/2014 [facility] Refill [id number] 02/11/2014 02/11/2014 [facility] Refill [id number] 02/11/2014 02/11/2014 [facility] Refill [id number] 02/11/2014 02/11/2014 [facility] Refill [id number] 02/11/2014 02/11/2014 [facility] Refill [id number] 02/11/2014 02/11/2014 [facility] Refill [id number] 02/11/2014 02/11/2014 [facility] Refill [id number] 02/11/2014 02/11/2014 [facility] Refill [id number] 02/11/2014 02/11/2014 [facility] RIGHT HAND NUMB/RASH [id number] 02/19/2014 02/19/2014 [facility] RIGHT HAND NUMB/RASH [id number] 02/19/2014 02/19/2014 [facility] RIGHT HAND NUMB/RASH [id number] 02/19/2014 02/19/2014 [facility] RIGHT HAND NUMB/RASH [id number] 02/19/2014 02/19/2014 [facility] RIGHT HAND NUMB/RASH [id number] 02/19/2014 02/19/2014 [facility] RIGHT HAND NUMB/RASH [id number] 02/19/2014 02/19/2014 [facility] RIGHT HAND NUMB/RASH [id number] 02/19/2014 02/19/2014 [facility] RIGHT HAND NUMB/RASH [id number] 02/19/2014 02/19/2014 [facility] RIGHT HAND NUMB/RASH [id number] 02/19/2014 02/19/2014 [facility] RIGHT HAND NUMB/RASH [id number] 02/19/2014 02/19/2014 [facility] RIGHT HAND NUMB/RASH [id number] 02/19/2014 02/19/2014 [facility] RIGHT HAND NUMB/RASH [id number] 02/19/2014 02/19/2014 [facility] REFILL [id number] 03/10/2014 03/10/2014 [facility] REFILL [id number] 03/10/2014 03/10/2014 [facility] REFILL [id number] 03/10/2014 03/10/2014 [facility] REFILL [id number] 03/10/2014 03/10/2014 [facility] REFILL [id number] 03/10/2014 03/10/2014 [facility] REFILL [id number] 03/10/2014 03/10/2014 [facility] REFILL [id number] 03/10/2014 03/10/2014 [facility] REFILL [id number] 03/10/2014 03/10/2014 [facility] REFILL [id number] 03/10/2014 03/10/2014 [facility] REFILL [id number] 03/10/2014 03/10/2014 [facility] REFILL [id number] 03/10/2014 03/10/2014 [facility] REFILL [id number] 03/10/2014 03/10/2014 [facility] Refill [id number] 04/03/2014 04/03/2014 [facility] Refill [id number] 04/03/2014 04/03/2014 [facility] Refill [id number] 04/03/2014 04/03/2014 [facility] Refill [id number] 04/03/2014 04/03/2014 [facility] Refill [id number] 04/03/2014 04/03/2014 [facility] Refill [id number] 04/03/2014 04/03/2014 [facility] Refill [id number] 04/03/2014 04/03/2014 [facility] Refill [id number] 04/03/2014 04/03/2014 [facility] Refill [id number] 04/03/2014 04/03/2014 [facility] Refill [id number] 04/03/2014 04/03/2014 [facility] Refill [id number] 04/03/2014 04/03/2014 [facility] Refill [id number] 04/03/2014 04/03/2014 [facility] Unknown [id number] 04/06/2014 04/06/2014 [facility] Unknown [id number] 04/06/2014 04/06/2014 [facility] Unknown [id number] 04/06/2014 04/06/2014 [facility] Unknown [id number] 04/06/2014 04/06/2014 [facility] Unknown [id number] 04/06/2014 04/06/2014 [facility] Unknown [id number] 04/06/2014 04/06/2014 [facility] Unknown [id number] 04/06/2014 04/06/2014 [facility] Unknown [id number] 04/06/2014 04/06/2014 [facility] Unknown [id number] 04/06/2014 04/06/2014 [facility] Unknown [id number] 04/06/2014 04/06/2014 [facility] Unknown [id number] 04/06/2014 04/06/2014 [facility] Unknown [id number] 04/06/2014 04/06/2014 [facility] REFILL [id number] 04/09/2014 04/09/2014 [facility] REFILL [id number] 04/09/2014 04/09/2014 [facility] REFILL [id number] 04/09/2014 04/09/2014 [facility] REFILL [id number] 04/09/2014 04/09/2014 [facility] REFILL [id number] 04/09/2014 04/09/2014 [facility] REFILL [id number] 04/09/2014 04/09/2014 [facility] REFILL [id number] 04/09/2014 04/09/2014 [facility] REFILL [id number] 04/09/2014 04/09/2014 [facility] REFILL [id number] 04/09/2014 04/09/2014 [facility] REFILL [id number] 04/09/2014 04/09/2014 [facility] REFILL [id number] 04/09/2014 04/09/2014 [facility] REFILL [id number] 04/09/2014 04/09/2014 [facility] refill [id number] 05/11/2014 05/11/2014 [facility] refill [id number] 05/11/2014 05/11/2014 [facility] refill [id number] 05/11/2014 05/11/2014 [facility] refill [id number] 05/11/2014 05/11/2014 [facility] refill [id number] 05/11/2014 05/11/2014 [facility] refill [id number] 05/11/2014 05/11/2014 [facility] refill [id number] 05/11/2014 05/11/2014 [facility] refill [id number] 05/11/2014 05/11/2014 [facility] refill [id number] 05/11/2014 05/11/2014 [facility] refill [id number] 05/11/2014 05/11/2014 [facility] refill [id number] 05/11/2014 05/11/2014 [facility] refill [id number] 05/11/2014 05/11/2014 [facility] lt eye pain [id number] 05/26/2014 05/26/2014 [facility] lt eye pain [id number] 05/26/2014 05/26/2014 [facility] lt eye pain [id number] 05/26/2014 05/26/2014 [facility] lt eye pain [id number] 05/26/2014 05/26/2014 [facility] lt eye pain [id number] 05/26/2014 05/26/2014 [facility] lt eye pain [id number] 05/26/2014 05/26/2014 [facility] lt eye pain [id number] 05/26/2014 05/26/2014 [facility] lt eye pain [id number] 05/26/2014 05/26/2014 [facility] lt eye pain [id number] 05/26/2014 05/26/2014 [facility] lt eye pain [id number] 05/26/2014 05/26/2014 [facility] lt eye pain [id number] 05/26/2014 05/26/2014 [facility] lt eye pain [id number] 05/26/2014 05/26/2014 [facility] Refill [id number] 06/05/2014 06/05/2014 [facility] Refill [id number] 06/05/2014 06/05/2014 [facility] Refill [id number] 06/05/2014 06/05/2014 [facility] Refill [id number] 06/05/2014 06/05/2014 [facility] Refill [id number] 06/05/2014 06/05/2014 [facility] Refill [id number] 06/05/2014 06/05/2014 [facility] Refill [id number] 06/05/2014 06/05/2014 [facility] Refill [id number] 06/05/2014 06/05/2014 [facility] Refill [id number] 06/05/2014 06/05/2014 [facility] Refill [id number] 06/05/2014 06/05/2014 [facility] Refill [id number] 06/05/2014 06/05/2014 [facility] Refill [id number] 06/05/2014 06/05/2014 [facility] Unknown [id number] 07/06/2014 07/06/2014 [facility] Unknown [id number] 07/06/2014 07/06/2014 [facility] Unknown [id number] 07/06/2014 07/06/2014 [facility] Unknown [id number] 07/06/2014 07/06/2014 [facility] Unknown [id number] 07/06/2014 07/06/2014 [facility] Unknown [id number] 07/06/2014 07/06/2014 [facility] Unknown [id number] 07/06/2014 07/06/2014 [facility] Unknown [id number] 07/07/2014 07/07/2014 [facility] Unknown [id number] 07/07/2014 07/07/2014 [facility] Unknown [id number] 07/07/2014 07/07/2014 [facility] Unknown [id number] 07/07/2014 07/07/2014 [facility] Unknown [id number] 07/07/2014 07/07/2014 [facility] Refill [id number] 11/03/2014 11/03/2014 [facility] Refill [id number] 11/03/2014 11/03/2014 [facility] Refill [id number] 11/03/2014 11/03/2014 [facility] Refill [id number] 11/03/2014 11/03/2014 [facility] Refill [id number] 11/03/2014 11/03/2014 [facility] Refill [id number] 11/03/2014 11/03/2014 [facility] Refill [id number] 11/03/2014 11/03/2014 [facility] Refill [id number] 11/03/2014 11/03/2014 [facility] Refill [id number] 11/03/2014 11/03/2014 [facility] Refill [id number] 11/03/2014 11/03/2014 [facility] Refill [id number] 11/03/2014 11/03/2014 [facility] Refill [id number] 11/03/2014 11/03/2014 [facility] [id number] Zoya Causey 03/25/2015 04/24/2015 [facility] legs [id number] 04/09/2015 04/09/2015 [facility] legs [id number] 04/09/2015 04/09/2015 [facility] legs [id number] 04/09/2015 04/09/2015 [facility] legs [id number] 04/09/2015 04/09/2015 [facility] legs [id number] 04/09/2015 04/09/2015 [facility] legs [id number] 04/09/2015 04/09/2015 [facility] legs [id number] 04/09/2015 04/09/2015 [facility] legs [id number] 04/09/2015 04/09/2015 [facility] legs [id number] 04/09/2015 04/09/2015 [facility] legs [id number] 04/09/2015 04/09/2015 [facility] legs [id number] 04/09/2015 04/09/2015 [facility] legs [id number] 04/09/2015 04/09/2015 [facility] Unknown [id number] 04/30/2015 04/30/2015 [facility] Unknown [id number] 04/30/2015 04/30/2015 [facility] Unknown [id number] 04/30/2015 04/30/2015 [facility] Unknown [id number] 04/30/2015 04/30/2015 [facility] Unknown [id number] 04/30/2015 04/30/2015 [facility] Unknown [id number] 04/30/2015 04/30/2015 [facility] Unknown [id number] 04/30/2015 04/30/2015 [facility] Unknown [id number] 04/30/2015 04/30/2015 [facility] Unknown [id number] 04/30/2015 04/30/2015 [facility] Unknown [id number] 04/30/2015 04/30/2015 [facility] Unknown [id number] 04/30/2015 04/30/2015 [facility] Unknown [id number] 04/30/2015 04/30/2015 [facility] Unknown [id number] 05/29/2015 05/29/2015 [facility] Unknown [id number] 05/29/2015 05/29/2015 [facility] Unknown [id number] 05/29/2015 05/29/2015 [facility] Unknown [id number] 05/29/2015 05/29/2015 [facility] Unknown [id number] 05/29/2015 05/29/2015 [facility] Unknown [id number] 05/29/2015 05/29/2015 [facility] Unknown [id number] 05/29/2015 05/29/2015 [facility] Unknown [id number] 05/29/2015 05/29/2015 [facility] Unknown [id number] 05/29/2015 05/29/2015 [facility] Unknown [id number] 05/29/2015 05/29/2015 [facility] Unknown [id number] 05/29/2015 05/29/2015 [facility] Unknown [id number] 05/29/2015 05/29/2015 [facility] Unknown [id number] 05/31/2015 05/31/2015 [facility] Unknown [id number] 05/31/2015 05/31/2015 [facility] Unknown [id number] 05/31/2015 05/31/2015 [facility] Unknown [id number] 05/31/2015 05/31/2015 [facility] Unknown [id number] 05/31/2015 05/31/2015 [facility] [facility] Unknown [id number] 05/31/2015 05/31/2015 [facility] Unknown [id number] 05/31/2015 05/31/2015 [facility] Unknown [id number] 05/31/2015 05/31/2015 [facility] Unknown [id number] 05/31/2015 05/31/2015 [facility] Unknown [id number] 05/31/2015 05/31/2015 [facility] Unknown [id number] 05/31/2015 05/31/2015 [facility] Unknown [id number] 05/31/2015 05/31/2015 [facility] Unknown [id number] 07/29/2015 07/29/2015 [facility] Unknown [id number] 07/29/2015 07/29/2015 [facility] Unknown [id number] 07/29/2015 07/29/2015 [facility] Unknown [id number] 07/29/2015 07/29/2015 [facility] Unknown [id number] 07/29/2015 07/29/2015 [facility] Unknown [id number] 07/29/2015 07/29/2015 [facility] Unknown [id number] 07/29/2015 07/29/2015 [facility] Unknown [id number] 07/29/2015 07/29/2015 [facility] Unknown [id number] 07/29/2015 07/29/2015 [facility] Unknown [id number] 07/29/2015 07/29/2015 [facility] Unknown [id number] 07/29/2015 07/29/2015 [facility] Unknown [id number] 07/29/2015 07/29/2015 [facility] Refill [id number] 08/27/2015 08/27/2015 [facility] Refill [id number] 08/27/2015 08/27/2015 [facility] Refill [id number] 08/27/2015 08/27/2015 [facility] Refill [id number] 08/27/2015 08/27/2015 [facility] Refill [id number] 08/27/2015 08/27/2015 [facility] Refill [id number] 08/27/2015 08/27/2015 [facility] Refill [id number] 08/27/2015 08/27/2015 [facility] Refill [id number] 08/27/2015 08/27/2015 [facility] Refill [id number] 08/27/2015 08/27/2015 [facility] Refill [id number] 08/27/2015 08/27/2015 [facility] Refill [id number] 08/27/2015 08/27/2015 [facility] Refill [id number] 08/27/2015 08/27/2015 [facility] Refill [id number] 09/27/2015 09/27/2015 [facility] Refill [id number] 09/27/2015 09/27/2015 [facility] Refill [id number] 09/27/2015 09/27/2015 [facility] Refill [id number] 09/27/2015 09/27/2015 [facility] Refill [id number] 09/27/2015 09/27/2015 [facility] Refill [id number] 09/27/2015 09/27/2015 [facility] Refill [id number] 09/27/2015 09/27/2015 [facility] Refill [id number] 09/27/2015 09/27/2015 [facility] Refill [id number] 09/27/2015 09/27/2015 [facility] Refill [id number] 09/27/2015 09/27/2015 [facility] Refill [id number] 09/27/2015 09/27/2015 [facility] Refill [id number] 09/27/2015 09/27/2015 [facility] Unknown [id number] 10/27/2015 10/27/2015 [facility] Unknown [id number] 10/27/2015 10/27/2015 [facility] Unknown [id number] 10/27/2015 10/27/2015 [facility] Unknown [id number] 10/27/2015 10/27/2015 [facility] Unknown [id number] 10/27/2015 10/27/2015 [facility] Unknown [id number] 10/27/2015 10/27/2015 [facility] Unknown [id number] 10/27/2015 10/27/2015 [facility] Unknown [id number] 10/28/2015 10/28/2015 [facility] Unknown [id number] 10/28/2015 10/28/2015 [facility] Unknown [id number] 10/28/2015 10/28/2015 [facility] Unknown [id number] 10/28/2015 10/28/2015 [facility] Unknown [id number] 10/28/2015 10/28/2015 [facility] Bladder problems. [id number] 01/13/2016 01/13/2016 [facility] Bladder problems. [id number] 01/13/2016 01/13/2016 [facility] Bladder problems. [id number] 01/13/2016 01/13/2016 [facility] Bladder problems. [id number] 01/13/2016 01/13/2016 [facility] Bladder problems. [id number] 01/13/2016 01/13/2016 [facility] Bladder problems. [id number] 01/13/2016 01/13/2016 [facility] Bladder problems. [id number] 01/13/2016 01/13/2016 [facility] Bladder problems. [id number] 01/13/2016 01/13/2016 [facility] Bladder problems. [id number] 01/13/2016 01/13/2016 [facility] Bladder problems. [id number] 01/13/2016 01/13/2016 [facility] Bladder problems. [id number] 01/13/2016 01/13/2016 [facility] Bladder problems. [id number] 01/13/2016 01/13/2016 [facility] Needs call back from Medical Staff [id number] 04/17/2016 04/17/2016 [facility] Needs call back from Medical Staff [id number] 04/17/2016 04/17/2016 [facility] Needs call back from Medical Staff [id number] 04/17/2016 04/17/2016 [facility] Needs call back from Medical Staff [id number] 04/17/2016 04/17/2016 [facility] Needs call back from Medical Staff [id number] 04/17/2016 04/17/2016 [facility] Needs call back from Medical Staff [id number] 04/17/2016 04/17/2016 [facility] Needs call back from Medical Staff [id number] 04/17/2016 04/17/2016 [facility] Needs call back from Medical Staff [id number] 04/17/2016 04/17/2016 [facility] Needs call back from Medical Staff [id number] 04/17/2016 04/17/2016 [facility] Needs call back from Medical Staff [id number] 04/17/2016 04/17/2016 [facility] Needs call back from Medical Staff [id number] 04/17/2016 04/17/2016 [facility] Refill [id number] 05/15/2016 05/15/2016 [facility] Refill [id number] 05/15/2016 05/15/2016 [facility] Refill [id number] 05/15/2016 05/15/2016 [facility] Refill [id number] 05/15/2016 05/15/2016 [facility] Refill [id number] 05/15/2016 05/15/2016 [facility] Refill [id number] 05/15/2016 05/15/2016 [facility] Refill [id number] 05/15/2016 05/15/2016 [facility] Refill [id number] 05/15/2016 05/15/2016 [facility] Refill [id number] 05/15/2016 05/15/2016 [facility] Refill [id number] 05/15/2016 05/15/2016 [facility] [id number] 06/13/2016 06/13/2016 [facility] [id number] 06/13/2016 06/13/2016 [facility] [id number] 06/13/2016 06/13/2016 [facility] [id number] 06/13/2016 06/13/2016 [facility] [id number] 06/13/2016 06/13/2016 [facility] [id number] 06/13/2016 06/13/2016 [facility] [id number] 06/13/2016 06/13/2016 [facility] [id number] 06/13/2016 06/13/2016 [facility] [id number] 06/13/2016 06/13/2016 [facility] Refill [id number] 06/20/2016 06/20/2016 [facility] Refill [id number] 06/20/2016 06/20/2016 [facility] Refill [id number] 06/20/2016 06/20/2016 [facility] Refill [id number] 06/20/2016 06/20/2016 [facility] Refill [id number] 06/20/2016 06/20/2016 [facility] Refill [id number] 06/20/2016 06/20/2016 [facility] Refill [id number] 06/20/2016 06/20/2016 [facility] Refill [id number] 06/20/2016 06/20/2016 [facility] Refill [id number] 07/21/2016 07/21/2016 [facility] Refill [id number] 07/21/2016 07/21/2016 [facility] Refill [id number] 07/21/2016 07/21/2016 [facility] Refill [id number] 07/21/2016 07/21/2016 [facility] Refill [id number] 07/21/2016 07/21/2016 [facility] Refill [id number] 07/21/2016 07/21/2016 [facility] Refill [id number] 07/21/2016 07/21/2016 [facility] Woke up with eye very swollen [id number] 08/03/2016 08/03/2016 [facility] Woke up with eye very swollen [id number] 08/03/2016 08/03/2016 [facility] Woke up with eye very swollen [id number] 08/03/2016 08/03/2016 [facility] Woke up with eye very swollen [id number] 08/03/2016 08/03/2016 [facility] Woke up with eye very swollen [id number] 08/03/2016 08/03/2016 [facility] Woke up with eye very swollen [id number] 08/03/2016 08/03/2016 [facility] Refill [id number] 08/22/2016 08/22/2016 [facility] Refill [id number] 08/22/2016 08/22/2016 [facility] Refill [id number] 08/22/2016 08/22/2016 [facility] Refill [id number] 08/22/2016 08/22/2016 [facility] Refill [id number] 08/22/2016 08/22/2016 [facility] Needs call back from Medical Staff [id number] 09/14/2016 09/14/2016 [facility] Needs call back from Medical Staff [id number] 09/14/2016 09/14/2016 [facility] Needs call back from Medical Staff [id number] 09/14/2016 09/14/2016 [facility] Needs call back from Medical Staff [id number] 09/14/2016 09/14/2016 [facility] RED HANDS AND FEET, SHARP PRICKLY FEELINGS. [id number] 10/26/2016 10/26/2016 [facility] RED HANDS AND FEET, SHARP PRICKLY FEELINGS. [id number] 10/26/2016 10/26/2016 [facility] RED HANDS AND FEET, SHARP PRICKLY FEELINGS. [id number] 10/26/2016 10/26/2016 [facility] Unknown [id number] 11/27/2016 11/27/2016 [facility] Unknown [id number] 11/27/2016 11/27/2016 [facility] Unknown [id number] 01/12/2017 01/12/2017 [facility] OP Therapy Patients [id number] Aston Turner Jr 01/23/2017 02/22/2017 [facility] Emergency [id number] Justin Hahn 06/09/2017 06/09/2017 [facility] Procedures Procedure Code Date Perfomer Comments Source section 24542495 [facility] Carpal tunnel release [id number] [facility] section [id number] [facility]
--- OUTSIDE RECORDS SUMMARY | 2019-03-03 05:23 | XMS REPORT | Summary of Care ---
Author Organization Unknown Address Unknown Phone Unavailable Encounter [facility] Jurgenntr_chi(FIN) [id number] Date(s): 03/25/15 - 04/23/15 [facility] [place] Discharge Disposition: Home Physician Attending: Zoya Causey MD Vital Signs No data available for this section Problem List Condition Effective Dates Status Health Status Informant Active section(Confirmed) Knee joint Active operation(Confirmed) 1 MS - Multiple Resolved sclerosis(Confirmed) 1right knee scope Allergies, Adverse Reactions, Alerts Substance Reaction Severity Status NKDA Active Medications No data available for this section Results No data available for this section Immunizations No data available for this section Procedures Procedure Date Related Diagnosis Body Site section Social History Social History Type Response Alcohol Previous treatment: None. Smoking Status Never smoker; Exposure to Tobacco Smoke None; Cigarette Smoking Last 365 Days No; Reg Smoking Cessation Counseling No Assessment and Plan No data available for this section
--- OUTSIDE RECORDS SUMMARY | 2019-03-03 05:23 | XMS REPORT | Summary of Care ---
Author Author [facility] Organization [facility] Address Unknown Phone Unavailable Encounter HQ Praveen(NOEL) [id number] Date(s): 06/09/17 - 06/09/17 [facility] [address] [place] [address]- Discharge Diagnosis: Nausea vomiting and diarrhea Discharge Diagnosis: Acute hypokalemia Discharge Disposition: Home or Self Care Attending Physician: Justin Hahn MD Vital Signs 1 2 3 Most recent to oldest [Reference Range]: 154.94 cm (06/09/17 9:45 AM) Height 98 DegF (06/09/17 3:10 PM) 97.8 DegF (06/09/17 12:42 PM) 98 DegF (06/09/17 9:45 AM) Temperature Oral [96.4-99.1 DegF] 101/72 mmHg (06/09/17 3:10 PM) 109/71 mmHg (06/09/17 12:42 PM) 123/81 mmHg (06/09/17 9:45 AM) Blood Pressure [90-140/60-90 mmHg] 13 BRMIN *LOW* (06/09/17 3:10 PM) 12 BRMIN *LOW* (06/09/17 12:42 PM) 18 BRMIN (06/09/17 9:45 AM) Respiratory Rate [14-20 BRMIN] 69 bpm (06/09/17 9:45 AM) Peripheral Pulse Rate [60-100 bpm] 52.727 kg (06/09/17 9:45 AM) Weight 21.96 m2 (06/09/17 9:45 AM) Body Mass Index Problem List Condition Effective Dates Status Health Status Informant Active section(Confirmed) Knee joint Active operation(Confirmed) 1 MS - Multiple Resolved sclerosis(Confirmed) 1right knee scope Allergies, Adverse Reactions, Alerts Substance Reaction Severity Status NKDA Active Medications ondansetron 4 mg, Route: IVP, ONCE, Dosing Weight 52.727, kg, Priority: STAT, Start date: 11:03:00 CDT, Stop date: 06/09/17 11:03:00 CDT Start Date: 06/09/17 Stop Date: 06/09/17 Status: Completed ondansetron 4 mg, 2 mL, Route: IVP, Drug form: INJ, ONCE, Dosing Weight 52.727, kg, Priority : STAT, Start date: 06/09/17 13:58:00 CDT, Stop date: 06/09/17 13:58:00 CDT Notes: (Same as: Altaf) MEDICATION WASTE Product Size: 4 mgProduct Was gregory: ___ mg Start Date: 06/09/17 Stop Date: 06/09/17 Status: Completed ondansetron 4 mg oral tablet, disintegrating 4 mg=1 tab, PO, TID, PRN Nausea / Vomiting, Dissolve tab under tongue, # 10 tab, 0 Refill(s) Start Date: 06/09/17 Stop Date: 06/12/17 Status: Ordered potassium chloride 40 mEq, 2 tab, Route: PO, Drug form: ERTAB, ONCE, Dosing Weight 52.727, kg, Prio rity: STAT, Start date: 06/09/17 13:58:00 CDT, Stop date: 06/09/17 13:58:00 CDT Notes: (Same as: K-Dur 20)"Do Not Crush" With food and full glass of water Start Date: 06/09/17 Stop Date: 06/09/17 Status: Completed potassium chloride 40 mEq, Route: PO, Drug form: ERTAB, ONCE, Dosing Weight 52.727, kg, Priority: S TAT, Start date: 06/09/17 11:50:00 CDT, Stop date: 06/09/17 11:50:00 CDT Start Date: 06/09/17 Stop Date: 06/09/17 Status: Completed potassium chloride 10 mEq, Route: IVPB, ONCE, Dosing Weight 52.727, kg, Start date: 06/09/17 11:51: 00 CDT, Stop date: 06/09/17 11:51:00 CDT Start Date: 06/09/17 Stop Date: 06/09/17 Status: Completed Saline Flush 0.9% 10 mL, Route: IVP, Drug Form: INJ, Dosing Weight 52.727, kg, PRN, PRN Line Flush , Start date: 06/09/17 11:03:00 CDT, Duration: 30 day, Stop date: 07/09/17 11:02 :00 CDT Notes: preservative free. Start Date: 06/09/17 Stop Date: 06/09/17 Status: Discontinued Sodium Chloride 0.9% (Bolus) IV 1,000 mL, 2,000 ml/hr, Infuse Over: 30 minutes, Route: IV, ONCE, Priority: STAT, Dosing Weight 52.727 kg, Start date: 06/09/17 11:03:00 CDT, Duration: 1 doses or times, Stop date: 06/09/17 11:03:00 CDT Start Date: 06/09/17 Stop Date: 06/09/17 Status: Completed Results ELECTROLYTES Most recent to 1 2 oldest [Reference Range]: Sodium Lvl [135-145 137 mEq/L mEq/L] (06/09/17 11:08 AM) Potassium Lvl 3.2 mEq/L 2.5 mEq/L 1 [3.5-5.1 mEq/L] *LOW* *CRIT* (06/09/17 2:36 PM) (06/09/17 11:08 AM) Chloride Lvl [95-109 97 mEq/L mEq/L] (06/09/17 11:08 AM) CO2 [24-32 mEq/L] 32 mEq/L (06/09/17 11:08 AM) AGAP [10.0-20.0 10.5 mEq/L mEq/L] (06/09/17 11:08 AM) 1Result Comment: Critical Result(s) called to BOBBY at _06/09/2017 11:42 by [facility]_. Read back OK. CHEM PANEL Most recent to 1 2 oldest [Reference Range]: Creatinine Lvl 0.67 mg/dL [0.50-1.40 mg/dL] (06/09/17 11:08 AM) eGFR 111 mL/min/1.73m2 1 *NA* (06/09/1708 AM) BUN [7-22 mg/dL] 10 mg/dL (06/09/1708 AM) B/C Ratio [6-25] 15 (06/09/1708 AM) Glucose Lvl [70-99 84 mg/dL mg/dL] (06/09/1708 AM) Total Protein 7.5 g/dL [6.4-8.4 g/dL] (06/09/1708 AM) Albumin Lvl [3.5-5.0 4.2 g/dL g/dL] (06/09/1708 AM) Globulin [2.7-4.2 3.3 g/dL g/dL] (06/09/17 AM) A/G Ratio [0.7-1.6] 1.3 (06/09/1708 AM) Calcium Lvl 9.0 mg/dL [8.5-10.5 mg/dL] (06/09/1708 AM) ALT [0-65 unit/L] 31 unit/L (06/09/1708 AM) AST [0-37 unit/L] 18 unit/L (06/09/1708 AM) Alk Phos [39-136 118 unit/L unit/L] (06/09/1708 AM) Bili Total [0.2-1.3 0.5 mg/dL mg/dL] (06/09/17:08 AM) Amylase Lvl [25-115 22 unit/L unit/L] *LOW* (06/09/1708 AM) Lipase Lvl [73-393 152 unit/L unit/L] (06/09/17:08 AM) 1Result Comment: The eGFR is calculated using the [...] from the National Kidney Disease Education Program ( NKDEP) which additionally recommends that when the eGFR is used in patients with extremes of body mass index for purposes of drug dosing, the eGFR should be mul tiplied by the estimated BMI. URINE CHEM Most recent to 1 2 oldest [Reference Range]: U Preg [Negative] Negative (06/09/17 11:08 AM) URINE AND STOOL Most recent to 1 2 oldest [Reference Range]: UA Turbidity [Clear] Clear (06/09/17 11:08 AM) UA Color [Yellow] Yellow *NA* (06/09/17:08 AM) UA pH [5.0-8.0] 7.0 (06/09/17 11:08 AM) UA Spec Grav 1.009 [<=1.030] (06/09/17 11:08 AM) UA Glucose [Negative Negative mg/dL mg/dL] *NA* (06/09/17 11:08 AM) UA Blood [Negative] Negative (06/09/17 11:08 AM) UA Ketones [Negative 20 mg/dL mg/dL] *ABN* (06/09/17 11:08 AM) UA Protein [Negative Negative mg/dL mg/dL] (06/09/17 11:08 AM) UA Urobilinogen <=1.0 mg/dL [0.1-1.0 mg/dL] *NA* (06/09/17 11:08 AM) UA Bili [Negative] Negative *NA* (06/09/17 11:08 AM) UA Leuk Est Trace [Negative] *ABN* (06/09/17 11:08 AM) UA Nitrite Negative [Negative] (06/09/17 11:08 AM) UA WBC [0-5 /HPF] 2 /HPF (06/09/17 11:08 AM) UA Bacteria [None Moderate /HPF Seen /HPF] *ABN* (06/09/17 11:08 AM) UA Sq Epi [Few /LPF] Few /LPF *NA* (06/09/17 11:08 AM) HEMATOLOGY Most recent to 1 2 oldest [Reference Range]: WBC [3.7-10.4 K/CMM] 9.2 K/CMM (06/09/17 11:08 AM) RBC [4.20-5.40 4.79 M/CMM M/CMM] (06/09/17 11:08 AM) Hgb [12.0-16.0 g/dL] 13.2 g/dL (06/09/17 11:08 AM) Hct [36.0-48.0 %] 39.8 % (06/09/17 11:08 AM) MCV [80.0-98.0 fL] 83.2 fL (06/09/17:08 AM) MCH [27.0-31.0 pg] 27.6 pg (06/09/17:08 AM) MCHC [32.0-36.0 33.2 g/dL g/dL] (06/09/17 11:08 AM) RDW [11.5-14.5 %] 13.9 % (06/09/17 11:08 AM) Platelet [133-450 252 K/CMM K/CMM] (06/09/17 11:08 AM) MPV [7.4-10.4 fL] 9.2 fL (06/09/17 11:08 AM) Segs [45.0-75.0 %] 53.4 % (06/09/17 11:08 AM) Lymphocytes 35.2 % [20.0-40.0 %] (06/09/17 11:08 AM) Monocytes [2.0-12.0 9.4 % %] (06/09/17 11:08 AM) Eosinophils [0.0-4.0 0.8 % %] (06/09/17 11:08 AM) Basophils [0.0-1.0 1.2 % %] *HI* (06/09/17 11:08 AM) Segs-Bands # 4.9 K/CMM [1.5-8.1 K/CMM] (06/09/17 11:08 AM) Lymphocytes # 3.2 K/CMM [1.0-5.5 K/CMM] (06/09/17 11:08 AM) Monocytes # [0.0-0.8 0.9 K/CMM K/CMM] *HI* (06/09/17 11:08 AM) Eosinophils # 0.1 K/CMM [0.0-0.5 K/CMM] (06/09/17 11:08 AM) Basophils # [0.0-0.2 0.1 K/CMM K/CMM] (06/09/17 11:08 AM) Immunizations No data available for this section Procedures Procedure Date Related Diagnosis Body Site Carpal tunnel release section Social History Social History Type Response Substance Abuse Use: None. Alcohol Previous treatment: None. Smoking Status Never smoker; Exposure to Tobacco Smoke None; Cigarette Smoking Last 365 Days No; Reg Smoking Cessation Counseling No Assessment and Plan No data available for this section
--- OUTSIDE RECORDS SUMMARY | 2019-03-03 05:23 | XMS REPORT ---
Author Author Vicki Orr Organization [employer] Address Unknown Phone Unavailable Care Team Providers Care Mechanical Manufacturing Engineer Name Role Phone Vicki Orr CP Unavailable Allergies No Known Allergies Problems Problem Type Condition Code Onset Dates Condition Status Problem Swelling of lower extremity M79.89 Active Problem Neuropathy G62.9 Active Problem Neurogenic bladder N31.9 Active Problem Anxiety F41.9 Active Assessment Low blood potassium E87.6 Active Problem Multiple sclerosis G35 Active Problem Insomnia G47.00 Active Medications No Known Medications Results No Known Results Summary Purpose [employer] Submission
--- OUTSIDE RECORDS SUMMARY | 2019-03-03 05:23 | XMS REPORT ---
Author Author Vicki Orr Organization [employer] Address Unknown Phone Unavailable Care Team Providers Care Dump Worker Name Role Phone Vicki Orr CP Unavailable Allergies No Known Allergies Problems Problem Type Condition Code Onset Dates Condition Status Problem Swelling of lower extremity M79.89 Active Problem Neuropathy G62.9 Active Problem Neurogenic bladder N31.9 Active Problem Anxiety F41.9 Active Problem Multiple sclerosis G35 Active Problem Insomnia G47.00 Active Medications No Known Medications Results No Known Results Summary Purpose [employer] Submission
--- OUTSIDE RECORDS SUMMARY | 2019-03-03 05:23 | XMS REPORT ---
Author Author Cata Wills Organization [employer] Address Unknown Phone Unavailable Care Team Providers Care Stand Grinder Name Role Phone Cata Wills CP Unavailable Allergies No Known Allergies Problems Problem Type Condition Code Onset Dates Condition Status Problem Swelling of lower extremity M79.89 Active Problem Neuropathy G62.9 Active Problem Neurogenic bladder N31.9 Active Problem Anxiety F41.9 Active Assessment Insomnia G47.00 Active Problem Multiple sclerosis G35 Active Problem Insomnia G47.00 Active Medications Medication Code System Code Instructions Start Date End Date Status Dosage Zolpidem Tartrate ER [facility] 30680419958 12.5 MG Orally qhs prn April 23, 2013 Active 1 tablet Results No Known Results Summary Purpose [employer] Submission
--- OUTSIDE RECORDS SUMMARY | 2019-03-03 05:23 | XMS REPORT ---
Author Aldo Beltran Organization [employer] Address Unknown Phone Unavailable Care Team Providers Care Powder Line Repairer Name Role Phone Aldo Miranda CP Unavailable Allergies, Adverse Reactions, Alerts Substance Reaction Event Type Diflucan Info Not Available Drug Allergy Problems Problem Type Condition Code Onset Dates Condition Status Assessment Multiple sclerosis G35 Active Assessment Exposure to sexually transmitted disease (STD) Z20.2 Active Problem Swelling of lower extremity M79.89 Active Problem Neuropathy G62.9 Active Problem Neurogenic bladder N31.9 Active Problem Anxiety F41.9 Active Assessment Acute vaginitis N76.0 Active Problem Multiple sclerosis G35 Active Problem Insomnia G47.00 Active Medications Medication Code System Code Instructions Start Date End Date Status Dosage Ampyra [facility] 64643853490 10 MG Orally Twice a day Active 1 tablet Potassium Chloride CR NDC 0 20 MEQ Orally Active not defined Gabapentin [facility] [address]-05 300 MG Orally three times a day (tid) Active 2 capsule Lorazepam [facility] 62431429798 1 MG Orally Twice a day Active 1 tablet as needed Tramadol HCl [facility] 49786840348 50 mg Orally every 6 hrs Active 1 - 2 tablet Terazol 3 NDC 0 0.8 % Vaginal Once a day February 25, 2018 February 28, 2018 Active 1 application at bedtime Baclofen [facility] [address]-08 10 mg Orally twice a day (bid) Active 1 tablet with food or milk Hydrochlorothiazide [facility] 36231432392 50 MG Orally Once a day Active 1 tablet Zolpidem Tartrate ER ND 23308529382 12.5 MG Orally qhs prn April 23, 2013 Active 1 tablet Tysabri [facility] 72292110231 300 MG/15ML Intravenous Once a month Active 15 ml IV infusion Flagyl [facility] 24794411451 500 mg Orally twice a day (bid) February 25, 2018 March 04, 2018 Active 1 tablet Ditropan XL [facility] 69960834078 15 MG Orally Active as directed Nitrofurantoin [facility] [address]-29 50 MG Orally Once a day Active 1 tablet Vital Signs Date/Time: February 25, 2018 BMI 23.24 Index Weight 119 lbs Height 60 in Temperature 98.2 F Cardiac Monitoring Heart Rate 80 /min Blood Pressure Diastolic 60 mm Hg Blood Pressure Systolic 92 mm Hg Results No Known Results Summary Purpose [employer] Submission
--- OUTSIDE RECORDS SUMMARY | 2019-03-03 05:23 | XMS REPORT ---
Author Author Cata Wills Organization [employer] Address Unknown Phone Unavailable Care Team Providers Care Machine Adjuster Name Role Phone Cata Wills CP Unavailable [...] Date Status Dosage Zolpidem Tartrate ER [facility] 68952084598 12.5 MG Orally qhs prn April 23, 2013 Active 1 tablet Results No Known Results Summary Purpose [employer] Submission
--- OUTSIDE RECORDS SUMMARY | 2019-03-03 05:23 | XMS REPORT ---
Author Aldo Beltran Organization [employer] Address Unknown Phone Unavailable Care Team Providers Care Press Tender Long Goods Name Role Phone Aldo Miranda CP Unavailable Allergies No Known Allergies Problems Problem Type Condition Code Onset Dates Condition Status Problem Insomnia G47.00 Active Problem Anxiety F41.9 Active Assessment Insomnia G47.00 Active Problem Dysphagia, unspecified type R13.10 Active Problem Mild acid reflux K21.9 Active Problem Discoloration of skin of foot L81.9 Active Problem Neurogenic bladder N31.9 Active Problem Neuropathy G62.9 Active Problem Multiple sclerosis, secondary progressive G35 Active Problem Self-catheterizes urinary bladder Z78.9 Active Medications Medication Code System Code Instructions Start Date End Date Status Dosage Zolpidem Tartrate ER [facility] 47578856732 12.5 MG Orally qhs prn April 23, 2013 Active 1 tablet Results No Known Results Summary Purpose [employer] Submission
--- OUTSIDE RECORDS SUMMARY | 2019-03-03 05:23 | XMS REPORT ---
Author Author Cata Wills Organization [employer] Address Unknown Phone Unavailable Care Team Providers Care Production Hand Name Role Phone Cata Wills CP Unavailable Allergies No Known Allergies Problems Problem Type Condition Code Onset Dates Condition Status Assessment Insomnia G47.00 Active Problem Neurogenic bladder N31.9 Active Problem Neuropathy G62.9 Active Problem Swelling of lower extremity M79.89 Active Problem Insomnia G47.00 Active Problem Osteopenia 733.90 Active Problem Anxiety F41.9 Active Problem Multiple sclerosis G35 Active Medications Medication Code System Code Instructions Start Date End Date Status Dosage Zolpidem Tartrate ER [facility] [address]-68 12.5 MG Orally qhs prn LAST REFILL, MUST SEE DOCTOR April 23, 2013 Active 1 tablet Results No Known Results Summary Purpose [employer] Submission
--- OUTSIDE RECORDS SUMMARY | 2019-03-03 05:23 | XMS REPORT ---
Author Author Cata Wills Organization [employer] Address Unknown Phone Unavailable Care Team Providers Care Parts Administrator Name Role Phone Cata Wills CP Unavailable [...] End Date Status Dosage Zolpidem Tartrate ER [facility] [address]-68 12.5 MG Orally at bedtime as needed April 23, 2013 Active 1 tablet Results No Known Results Summary Purpose [employer] Submission
--- OUTSIDE RECORDS SUMMARY | 2019-03-03 05:23 | XMS REPORT ---
Author Author Vicki Orr Organization [employer] Address Unknown Phone Unavailable Care Team Providers Care Plastic Parts Designer Name Role Phone Vicki Orr CP Unavailable [...]
--- OUTSIDE RECORDS SUMMARY | 2019-03-03 05:23 | XMS REPORT ---
Author Author Vicki Orr Organization [employer] Address Unknown Phone Unavailable Care Team Providers Care Reheater Name Role Phone Vicki Orr CP Unavailable [...]
--- OUTSIDE RECORDS SUMMARY | 2019-03-03 05:23 | XMS REPORT ---
Author Author Aldo Miranda Organization [employer] Address Unknown Phone Unavailable Care Team Providers Care Roller Structural Mill Name Role Phone Aldo Miranda CP Unavailable Allergies, Adverse Reactions, Alerts Substance Reaction Event Type Diflucan Info Not Available Drug Allergy Problems Problem Type Condition Code Onset Dates Condition Status Assessment Anxiety F41.9 Active Assessment Multiple sclerosis G35 Active Assessment Osteopenia of other site M85.88 Active Assessment Neurogenic bladder N31.9 Active Assessment Insomnia G47.00 Active Problem Swelling of lower extremity M79.89 Active Problem Neuropathy G62.9 Active Problem Neurogenic bladder N31.9 Active Problem Anxiety F41.9 Active Assessment Swelling of lower extremity M79.89 Active Problem Multiple sclerosis G35 Active Problem Insomnia G47.00 Active Medications Medication Code System Code Instructions Start Date End Date Status Dosage Hydrochlorothiazide [facility] 15844515433 50 MG Orally Once a day February 19, 2017 Active 1 tablet Tramadol HCl [facility] 63582329196 50 mg Orally every 6 hrs Active 1 - 2 tablet Zolpidem Tartrate ER [facility] 45990818230 12.5 MG Orally qhs prn April 23, 2013 Active 1 tablet Nitrofurantoin [facility] [address]-90 50 MG Orally Once a day Active 1 tablet Ditropan XL [facility] 14931553440 15 MG Orally Active as directed Ampyra [facility] 72487316297 10 MG Orally Twice a day Active 1 tablet Potassium Chloride ER [facility] 12570067991 20 MEQ Orally Once a day Sep 25, 2017 January 23, 2018 Active 1 tablet with food Lorazepam [facility] 37182924159 1 MG Orally Twice a day Active 1 tablet as needed Gabapentin ND 05243386970 300 MG Orally Q 8 Active 2 capsule Tysabri [facility] 55096051070 300 MG/15ML Intravenous Once a month Active 15 ml IV infusion Vital Signs Date/Time: Sep 25, 2017 BMI 23.43 Index Weight 120 lbs Height 60 in Cardiac Monitoring Heart Rate 68 /min Blood Pressure Diastolic 58 mm Hg Blood Pressure Systolic 90 mm Hg Results Name Result Date Reference Range Unit Abnormality Flag CBC With Differential/Platelet ----Neutrophils (Absolute) 2.4 [id number] 1.4-7.0 x10E3/uL ----Basos 1 [id number] Not Estab. % ----Monocytes(Absolute) 1.0 [id number] 0.1-0.9 x10E3/uL H ----Lymphs (Absolute) 2.7 [id number] 0.7-3.1 x10E3/uL ----Platelets 207 [id number] 150-379 x10E3/uL ----Baso (Absolute) 0.0 [id number] 0.0-0.2 x10E3/uL ----RDW 14.5 20170925 12.3-15.4 % ----Eos (Absolute) 0.1 20170925 0.0-0.4 x10E3/uL ----MCHC 34.2 20170925 31.5-35.7 g/dL ----MCH 28.0 20170925 26.6-33.0 pg ----MCV 82 20170925 79-97 fL ----Lymphs 41 [id number] Not Estab. % ----Neutrophils 39 [id number] Not Estab. % ----Eos 2 [id number] Not Estab. % ----Monocytes 16 [id number] Not Estab. % ----Immature Granulocytes 1 [id number] Not Estab. % ----Immature Grans (Abs) 0.0 20170925 0.0-0.1 x10E3/uL ----WBC 6.3 20170925 3.4-10.8 x10E3/uL ----RBC 4.72 20170925 3.77-5.28 x10E6/uL ----Hemoglobin 13.2 20170925 11.1-15.9 g/dL ----Hematocrit 38.6 20170925 34.0-46.6 % Summary Purpose [employer] Submission
--- OUTSIDE RECORDS SUMMARY | 2019-03-03 05:23 | XMS REPORT ---
Author Author Kerrie Benítez Organization [employer] Address Unknown Phone Unavailable Care Team Providers Care Claim Clerk Name Role Phone Kerrie Benítez CP Unavailable Allergies No Known Allergies Problems Problem Type Condition Code Onset Dates Condition Status Problem Swelling of lower extremity M79.89 Active Problem Neuropathy G62.9 Active Problem Neurogenic bladder N31.9 Active Problem Anxiety F41.9 Active Assessment Insomnia G47.00 Active Problem Multiple sclerosis G35 Active Problem Insomnia G47.00 Active Medications Medication Code System Code Instructions Start Date End Date Status Dosage Zolpidem Tartrate ER [facility] 76016651940 12.5 MG Orally qhs prn April 23, 2013 Active 1 tablet Results No Known Results Summary Purpose [employer] Submission
--- OUTSIDE RECORDS SUMMARY | 2019-03-03 05:23 | XMS REPORT | Summary of Care ---
Author Author [facility] Address Unknown Phone Unavailable Encounter [facility] Jurgenntr_chi(FIN) [id number] Date(s): 01/23/17 - 02/21/17 Critical access hospital Discharge Disposition: Home or Self Care Attending Physician: Aston Bruno MD Vital Signs No data available for [...]
--- OUTSIDE RECORDS SUMMARY | 2019-03-03 05:23 | XMS REPORT ---
Author Author Aldo Miranda Organization [employer] Address Unknown Phone Unavailable Care Team Providers Care Outbound Sales Advisor Name Role Phone Aldo Miranda CP Unavailable Allergies No Known Allergies Problems Problem Type Condition Code Onset Dates Condition Status Problem Insomnia G47.00 Active Problem Anxiety F41.9 Active Problem Dysphagia, unspecified type R13.10 Active Problem Mild acid reflux K21.9 Active Problem Discoloration of skin of foot L81.9 Active Problem Neurogenic bladder N31.9 Active Problem Neuropathy G62.9 Active Problem Multiple sclerosis, secondary progressive G35 Active Problem Self-catheterizes urinary bladder Z78.9 Active Medications No Known Medications Results No Known Results Summary Purpose [employer] Submission
--- OUTSIDE RECORDS SUMMARY | 2019-03-03 05:23 | XMS REPORT ---
Author Author Vicki Orr Organization [employer] Address Unknown Phone Unavailable Care Team Providers Care Telephone Ad Taker Name Role Phone Vicki Orr CP Unavailable [...]
--- OUTSIDE RECORDS SUMMARY | 2019-03-03 05:23 | XMS REPORT ---
Author Author Cata Wills Organization [employer] Address Unknown Phone Unavailable Care Team Providers Care Repair Coil Winder Name Role Phone Cata Wills CP Unavailable [...] End Date Status Dosage Zolpidem Tartrate ER [facility] [address]-14 12.5 MG Orally at bedtime as needed April 23, 2013 Active 1 tablet Results No Known Results Summary Purpose [employer] Submission
--- OUTSIDE RECORDS SUMMARY | 2019-03-03 05:23 | XMS REPORT ---
Author Author Cata Wills Organization [employer] Address Unknown Phone Unavailable Care Team Providers Care Blue Line Hanger Name Role Phone Cata Wills CP Unavailable [...] End Date Status Dosage Zolpidem Tartrate ER [facility] [address]-90 12.5 MG Orally at bedtime as needed April 23, 2013 Active 1 tablet Results No Known Results Summary Purpose [employer] Submission
--- OUTSIDE RECORDS SUMMARY | 2019-03-03 05:23 | XMS REPORT ---
Author Author Vicki Orr Organization [employer] Address Unknown Phone Unavailable Care Team Providers Care Leach Tank Tender Name Role Phone Vicki Orr CP Unavailable [...]
--- OUTSIDE RECORDS SUMMARY | 2019-03-03 05:23 | XMS REPORT ---
Author Author Kerrie Benítez Organization [employer] Address Unknown Phone Unavailable Care Team Providers Care Instrumentation Manager Name Role Phone Kerrie Benítez CP Unavailable Allergies No Known Allergies Problems Problem Type Condition Code Onset Dates Condition Status Problem Neurogenic bladder N31.9 Active Problem Neuropathy G62.9 Active Problem Swelling of lower extremity M79.89 Active Problem Insomnia G47.00 Active Problem Osteopenia 733.90 Active Problem Anxiety F41.9 Active Problem Multiple sclerosis G35 Active Medications No Known Medications Results No Known Results Summary Purpose [employer]Works Submission
--- OUTSIDE RECORDS SUMMARY | 2019-03-03 05:23 | XMS REPORT ---
Author Author Vicki Orr Organization [employer] Address Unknown Phone Unavailable Care Team Providers Care Electrocardiograph Technician Name Role Phone Vicki Orr CP Unavailable [...]
--- OUTSIDE RECORDS SUMMARY | 2019-03-03 05:23 | XMS REPORT ---
Author Author Vicki Orr Organization [employer] Address Unknown Phone Unavailable Care Team Providers Care Printer'S Assistant Name Role Phone Vicki Orr CP Unavailable [...]
--- OUTSIDE RECORDS SUMMARY | 2019-03-03 05:23 | XMS REPORT ---
Author Author Cata Wills Organization [employer] Address Unknown Phone Unavailable Care Team Providers Care Oil Mixer Name Role Phone Cata Wills CP Unavailable Allergies No Known Allergies Problems Problem Type Condition Code Onset Dates Condition Status Assessment Insomnia G47.00 Active Problem Swelling of lower extremity M79.89 Active Problem Neuropathy G62.9 Active Problem Neurogenic bladder N31.9 Active Problem Multiple sclerosis G35 Active Problem Osteopenia 733.90 Active Problem Insomnia G47.00 Active Problem Anxiety F41.9 Active Medications Medication Code System Code Instructions Start Date End Date Status Dosage Zolpidem Tartrate ER [facility] 17961068916 12.5 MG Orally qhs prn LAST REFILL, MUST SEE DOCTOR April 23, 2013 Active 1 tablet Results No Known Results Summary Purpose [employer]ClinicalWorks Submission
--- OUTSIDE RECORDS SUMMARY | 2019-03-03 05:23 | XMS REPORT ---
Author Author Vicki Orr Organization [employer] Address Unknown Phone Unavailable Care Team Providers Care Exerciser Name Role Phone Vicki Orr CP Unavailable Allergies No Known Allergies Problems Problem Type Condition Code Onset Dates Condition Status Assessment Possible exposure to STD Z20.2 Active Problem Swelling of lower extremity M79.89 Active Problem Neuropathy G62.9 Active Problem Neurogenic bladder N31.9 Active Problem Anxiety F41.9 Active Assessment Multiple sclerosis G35 Active Problem Multiple sclerosis G35 Active Problem Insomnia G47.00 Active Medications No Known Medications Results No Known Results Summary Purpose [employer]Works Submission
--- OUTSIDE RECORDS SUMMARY | 2019-03-03 05:24 | XMS REPORT ---
Author Author Echo Koenig Organization [employer] Address Unknown Phone Unavailable Care Team Providers Care Patient Transporter Name Role Phone Echo Koenig Unavailable Allergies, Adverse Reactions, Alerts Substance Reaction Event Type Diflucan Info Not Available Drug Allergy Encounters Encounter Location Date REFILL [facility] Dec 17, 2013 Bladder problems. [facility] January 13, 2016 Unknown [facility] Oct 27, 2015 refill [facility] May 11, 2014 RIGHT HAND NUMB/RASH [facility] February 19, 2014 REFILL [facility] April 09, 2014 Refill [facility] April 03, 2014 REFILL [facility] March 10, 2014 Unknown [facility] April 06, 2014 Refill [facility] January 14, 2014 Refill [facility] February 11, 2014 Refill [facility] Jun 05, 2014 shingles outbreak [facility] Oct 27, 2013 Unknown [facility] Oct 27, 2013 Shingles [facility] Oct 31, 2013 Return to work note [facility] Nov 03, 2013 Unknown [facility] Jul 29, 2013 Results [facility] Aug 08, 2013 Refill [facility] Aug 19, 2013 lt eye pain [facility] May 26, 2014 Unknown [facility] Jul 06, 2014 Unknown [facility] Nov 04, 2013 Unknown [facility] Nov 12, 2013 Unknown [facility] May 31, 2015 Unknown [facility] Jul 29, 2015 Refill [facility] Aug 27, 2015 Refill [facility] Sep 27, 2015 Refill [facility] Nov 03, 2014 legs [facility] April 09, 2015 Unknown [facility] April 30, 2015 Unknown [facility] May 28, 2015 Problems Problem Type Condition ICD-9 Code Onset Dates Condition Status Problem Multiple sclerosis G35 Active Problem Insomnia G47.00 Active Problem Anxiety F41.9 Active Assessment UTI (urinary tract infection) N39.0 Active Problem Osteopenia 733.90 Active Assessment Pain passing urine R30.9 Active Medications Medication Code System Code Instructions Start Date End Date Status Dosage Nitrofurantoin [facility] [address]-96 50 MG Orally Active Unknown Zolpidem Tartrate ER [facility] [address]-72 12.5 MG Orally at bedtime as needed April 23, 2013 Active 1 tablet Ampyra [facility] [address]-64 10 MG Orally Twice a day Active 1 tablet Tramadol HCl [facility] [address]-56 50 mg Orally every 6 hrs Active 1 - 2 tablet Lorazepam [facility] [address]-15 1 MG Orally Twice a day Active 1 tablet as needed Hydrochlorothiazide [facility] 81845432393 12.5 Orally Once a day Active 1 capsule as needed Ditropan XL [facility] [address]-39 15 MG Orally Active as directed Gabapentin [facility] [address]-39 300 MG Orally Three times a day Active 1 capsule Nasonex [facility] [address]-60 50 MCG/ACT Nasally Once a day Jul 29, 2013 Active 2 sprays in each nostril Tysabri [facility] [address]-43 300 MG/15ML Intravenous Once a month Active 15 ml IV infusion Cipro [facility] [address]-88 500 mg Orally Twice a day January 13, 2016 January 18, 2016 Active 1 tablet Social History Social History Element Qualifiers Date Reported Ethnicity . Status , Is jordanian your primary language? Yes January 13, 2016 children . 1 January 13, 2016 Tobacco Use: . Are you a: never smoker January 13, 2016 Use of recreational / street drugs? . Answer: No January 13, 2016 Where or with whom do you live ? . with spouse January 13, 2016 Do you have pets? . Status: No January 13, 2016 Marital Status: single. January 13, 2016 Caffeine intake? . Status: Yes, What type: Coffee, 1 - 2 cup(s) a day January 13, 2016 Do you exercise? . Answer: No January 13, 2016 Do you drink alcohol? . 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 [employer] January 13, 2016 Family history Qualifier Description Comment Date Reported Maternal Grandmother Comment not available January 13, 2016 Paternal Grandmother Comment not available January 13, 2016 Siblings Comment not available January 13, 2016 Maternal Grandfather Comment not available January 13, 2016 Children Comment not available January 13, 2016 Father alive prostate cancer January 13, 2016 Paternal Grandfather Comment not available January 13, 2016 Mother alive bladder cancer, bone cancer January 13, 2016 Other: Comment not available January 13, 2016 Vital Signs Date/Time: January 13, 2016 Weight 112 lbs Height 60 in Temperature 98.3 F Blood Pressure Diastolic 68 mm Hg Blood Pressure Systolic 100 mm Hg Summary Purpose eClinicalWorks Submission
--- OUTSIDE RECORDS SUMMARY | 2019-03-03 05:24 | XMS REPORT ---
Author Aldo Beltran Organization [employer] Address Unknown Phone Unavailable Care Team Providers Care Local Intermodal Truck Driver Name Role Phone Aldo Miranda CP Unavailable [...] End Date Status Dosage Zolpidem Tartrate ER [facility] 70993809584 12.5 MG Orally qhs prn April 23, 2013 Active 1 tablet Results No Known Results Summary Purpose eClinicalWorks Submission
--- OUTSIDE RECORDS SUMMARY | 2019-03-03 05:24 | XMS REPORT ---
Author Author Cata Wills Organization [employer] Address Unknown Phone Unavailable Care Team Providers Care Hand Box Folder Name Role Phone Cata Wills CP Unavailable [...] Date Status Dosage Zolpidem Tartrate ER [facility] 11729440093 12.5 MG Orally qhs prn April 23, 2013 Active 1 tablet Results No Known Results Summary Purpose [employer]ClinicalWorks Submission
--- OUTSIDE RECORDS SUMMARY | 2019-03-03 05:24 | XMS REPORT ---
Author Author Aldo Miranda Organization [employer] Address Unknown Phone Unavailable Care Team Providers Care Distribution Manager Name Role Phone Aldo Miranda CP Unavailable Allergies No Known Allergies Problems Problem Type Condition Code Onset Dates Condition Status Assessment Acute vaginitis N76.0 Active Problem Anxiety F41.9 Active Problem Dysphagia, unspecified type R13.10 Active Problem Mild acid reflux K21.9 Active Problem Self-catheterizes urinary bladder Z78.9 Active Problem Neuropathy G62.9 Active Problem Insomnia G47.00 Active Problem Multiple sclerosis, secondary progressive G35 Active Problem Neurogenic bladder N31.9 Active Medications Medication Code System Code Instructions Start Date End Date Status Dosage Terazol 3 NDC 0 0.8 % Vaginal once every night for 3 nights February 25, 2018 Sep 01, 2018 Active 1 application at bedtime Results No Known Results Summary Purpose [employer]ClinicalWorks Submission
--- OUTSIDE RECORDS SUMMARY | 2019-03-03 05:24 | XMS REPORT ---
Author Author Kerrie Benítez Organization [employer] Address Unknown Phone Unavailable Care Team Providers Care Net Mobile Developer Name Role Phone Kerrie Benítez CP Unavailable Allergies No Known Allergies Problems Problem Type Condition Code Onset Dates Condition Status Problem Insomnia G47.00 Active Problem Anxiety F41.9 Active Assessment Discoloration of skin of foot L81.9 Active Problem Dysphagia, unspecified type R13.10 Active Problem Mild acid reflux K21.9 Active Problem Discoloration of skin of foot L81.9 Active Problem Neurogenic bladder N31.9 Active Problem Neuropathy G62.9 Active Problem Multiple sclerosis, secondary progressive G35 Active Problem Self-catheterizes urinary bladder Z78.9 Active Medications Medication Code System Code Instructions Start Date End Date Status Dosage Gabapentin [facility] 68973951147 300 MG Orally three times a day (tid) Active 2 capsule Tysabri [facility] 62292974716 300 MG/15ML Intravenous Once a month Active 15 ml IV infusion Potassium Chloride CR NDC 0 20 MEQ Orally Active not defined Nitrofurantoin [facility] [address]-72 50 MG Orally Once a day Active 1 tablet NIFEdipine ER ND 28536434188 30 mg Orally Once a day Oct 25, 2018 Active 1 tablet on an empty stomach Ampyra [facility] 90332515856 10 MG Orally Twice a day Active 1 tablet Tramadol HCl ND 67915330584 50 mg Orally every 6 hrs Active 1 - 2 tablet Baclofen ND 84381707096 10 mg Orally twice a day (bid) Active 1 tablet with food or milk Hydrochlorothiazide [facility] 22321475147 50 MG Orally Once a day Active 1 tablet Ditropan XL ND 17439999629 15 MG Orally Active as directed Zolpidem Tartrate ER ND 96212500002 12.5 MG Orally qhs prn April 23, 2013 Active 1 tablet Zantac ND 11617860606 300 MG Orally Once a day Jun 24, 2018 Active 1 tablet at bedtime Results No Known Results Summary Purpose eClinicalWorks Submission
--- OUTSIDE RECORDS SUMMARY | 2019-03-03 05:24 | XMS REPORT ---
Author Aldo Beltran Organization [employer] Address Unknown Phone Unavailable Care Team Providers Care Career Development Associate Name Role Phone Aldo Miranda CP Unavailable Allergies, Adverse Reactions, Alerts Substance Reaction Event Type Diflucan Info Not Available Drug Allergy Problems Problem Type Condition Code Onset Dates Condition Status Assessment Neurogenic bladder N31.9 Active Problem Anxiety F41.9 Active Assessment Multiple sclerosis, secondary progressive G35 Active Problem Dysphagia, unspecified type R13.10 Active Problem Mild acid reflux K21.9 Active Problem Self-catheterizes urinary bladder Z78.9 Active Problem Neuropathy G62.9 Active Problem Insomnia G47.00 Active Problem Multiple sclerosis, secondary progressive G35 Active Problem Neurogenic bladder N31.9 Active Assessment Self-catheterizes urinary bladder Z78.9 Active Assessment Spasticity R25.2 Active Assessment Neuropathy G62.9 Active Assessment Mild acid reflux K21.9 Active Assessment Insomnia G47.00 Active Assessment Dysphagia, unspecified type R13.10 Active Medications Medication Code System Code Instructions Start Date End Date Status Dosage Gabapentin [facility] 10790984115 300 MG Orally three times a day (tid) Active 2 capsule Zantac [facility] 76970394337 300 MG Orally Once a day Jun 24, 2018 Active 1 tablet at bedtime Hydrochlorothiazide ND 19699963709 50 Orally Once a day Active 1 tablet Nitrofurantoin [facility] [address]-35 50 MG Orally Once a day Active 1 tablet Potassium Chloride CR ND 0 20 MEQ Orally Active not defined Tysabri [facility] 15260412816 300 MG/15ML Intravenous Once a month Active 15 ml IV infusion Tramadol HCl ND 23446254904 50 mg Orally every 6 hrs Active 1 - 2 tablet Hydrochlorothiazide [facility] 08228724612 50 MG Orally Once a day Active 1 tablet Ditropan XL ND 59652565752 15 MG Orally Active as directed Zolpidem Tartrate ER ND 48376483426 12.5 MG Orally qhs prn April 23, 2013 Active 1 tablet Ampyra [facility] 44488700844 10 MG Orally Twice a day Active 1 tablet Bactrim DS [facility] 15764092533 800-160 MG Orally Twice a day Jun 24, 2018 Jun 29, 2018 Active 1 tablet Baclofen [facility] 99755514164 10 mg Orally twice a day (bid) Active 1 tablet with food or milk Lorazepam [facility] 41812758169 1 MG Orally Twice a day Active 1 tablet as needed Vital Signs Date/Time: Jun 24, 2018 BMI 23.04 Index Weight 118 lbs Height 60 in Temperature 97.9 F Cardiac Monitoring Heart Rate 63 /min Blood Pressure Diastolic 60 mm Hg Blood Pressure Systolic 90 mm Hg Results Name Result Date Reference Range Unit Abnormality Flag URINE AUTO W/O SCOPE ----Spec Commiskey 1.010 20180624 ----Turbidity clear 20180624 ----Glucose neg 20180624 ----Ketones 15 20180624 ----Blood neg 20180624 ----Bili neg 20180624 ----Color yellow 20180624 ----pH 7.0 20180624 ----Leuk Est trace 20180624 ----Nitrite neg 20180624 ----Urobilinogen 0.2 20180624 ----Protein neg 20180624 Summary Purpose eClinicalWorks Submission
--- OUTSIDE RECORDS SUMMARY | 2019-03-03 05:24 | XMS REPORT ---
Author Author Aldo Miranda Organization [employer] Address Unknown Phone Unavailable Care Team Providers Care Account Support Manager Name Role Phone Aldo Miranda CP Unavailable Allergies No Known Allergies Problems Problem Type Condition Code Onset Dates Condition Status Assessment Insomnia G47.00 Active Problem Swelling of lower extremity M79.89 Active Problem Neuropathy G62.9 Active Problem Neurogenic bladder N31.9 Active Problem Multiple sclerosis G35 Active Problem Plantar fasciitis M72.2 Active Problem Insomnia G47.00 Active Problem Anxiety F41.9 Active Medications Medication Code System Code Instructions Start Date End Date Status Dosage Zolpidem Tartrate ER [facility] 59718135778 12.5 MG Orally qhs prn April 23, 2013 Active 1 tablet Results No Known Results Summary Purpose eClinicalWorks Submission
--- OUTSIDE RECORDS SUMMARY | 2019-03-03 05:24 | XMS REPORT ---
Author Author Aldo Miranda Organization [employer] Address Unknown Phone Unavailable Care Team Providers Care Elderly Sitter Name Role Phone Aldo Miranda CP Unavailable Allergies, Adverse Reactions, Alerts Substance Reaction Event Type Diflucan Info Not Available Drug Allergy Encounters Encounter Location Date REFILL [facility] Dec 17, 2013 Needs call back from Medical Staff [facility] April 17, 2016 Bladder problems. [facility] January 13, 2016 Unknown [facility] Oct 27, 2015 refill [facility] May 11, 2014 RIGHT HAND NUMB/RASH [facility] February 19, 2014 Refill [facility] May 15, 2016 REFILL [facility] April 09, 2014 WWE/FBW [facility] Jun 13, 2016 Refill [facility] April 03, 2014 REFILL [facility] March 10, 2014 Unknown [facility] April 06, 2014 Refill [facility] January 14, 2014 Refill [facility] February 11, 2014 Refill [facility] Jun 05, 2014 shingles [facility] Oct 27, 2013 Unknown [facility] Oct 27, 2013 Shinjude [facility] Oct 31, 2013 Return to work note [facility] Nov 03, 2013 Unknown [facility] Jul 29, 2013 Results [facility] Aug 08, 2013 Refill [facility] Aug 19, 2013 lt eye pain [facility] May 26, 2014 Unknown [facility] Jul 06, 2014 Unknown [facility] Nov 04, 2013 Unknown [facility] Nov 12, 2013 Unknown [facility] May 31, 2015 Unknown [facility] Jul 29, 2015 Refill [facility] Aug 27, 2015 Refill [facility] Sep 27, 2015 Refill [facility] Nov 03, 2014 legs [facility] April 09, 2015 Unknown [facility] April 30, 2015 Unknown [facility] May 28, 2015 Problems Problem Type Condition ICD-9 Code Onset Dates Condition Status Problem Multiple sclerosis G35 Active Problem Insomnia G47.00 Active Problem Anxiety F41.9 Active Assessment Vaginitis N76.0 Active Problem Osteopenia 733.90 Active Assessment Encounter for routine gynecological examination Z01.419 Active Medications Medication Code System Code Instructions Start Date End Date Status Dosage Ampyra [facility] [address]-95 10 MG Orally Twice a day Active 1 tablet Ditropan XL [facility] [address]-56 15 MG Orally Active as directed Lorazepam [facility] [address]-94 1 MG Orally Twice a day Active 1 tablet as needed Tysabri [facility] [address]-36 300 MG/15ML Intravenous Once a month Active 15 ml IV infusion Gabapentin [facility] [address]-15 300 MG Orally Three times a day Active 1 capsule Nasonex [facility] [address]-01 50 MCG/ACT Nasally Once a day Jul 29, 2013 Active 2 sprays in each nostril Nitrofurantoin [facility] [address]-33 50 MG Orally Active Unknown Hydrochlorothiazide [facility] [address]-21 50 mg Orally Once a day April 17, 2016 Active 1 tablet Zolpidem Tartrate ER [facility] [address]-31 12.5 MG Orally at bedtime as needed April 23, 2013 Active 1 tablet Tramadol HCl [facility] [address]-27 50 mg Orally every 6 hrs Active 1 - 2 tablet Social History Social History Element Qualifiers Date Reported Ethnicity . Status , Is armenian your primary language? Yes Jun 13, 2016 children . 1 Jun 13, 2016 Tobacco Use: . Are you a: never smoker Jun 13, 2016 Use of recreational / street drugs? . Answer: No Jun 13, 2016 Where or with whom do you live ? . with spouse Jun 13, 2016 Do you have pets? . Status: No Jun 13, 2016 Marital Status: single. Jun 13, 2016 Caffeine intake? . Status: Yes, What type: Coffee, 1 - 2 cup(s) a day Jun 13, 2016 Do you exercise? . Answer: No Jun 13, 2016 Do you drink alcohol? . Status: No Jun 13, 2016 Occupation: employed. Disabled, working at the [employer] Jun 13, 2016 Family history Qualifier Description Comment Date Reported Maternal Grandmother Comment not available Jun 13, 2016 Paternal Grandmother Comment not available Jun 13, 2016 Siblings Comment not available Jun 13, 2016 Maternal Grandfather Comment not available Jun 13, 2016 Children Comment not available Jun 13, 2016 Father alive prostate cancer Jun 13, 2016 Paternal Grandfather Comment not available Jun 13, 2016 Mother alive bladder cancer, bone cancer Jun 13, 2016 Other: Comment not available Jun 13, 2016 Vital Signs Date/Time: Jun 13, 2016 Weight 117 lbs Height 60 in Blood Pressure Diastolic 70 mm Hg Blood Pressure Systolic 108 mm Hg Summary Purpose eClinicalWorks Submission
--- OUTSIDE RECORDS SUMMARY | 2019-03-03 05:24 | XMS REPORT ---
Author Author Aldo Miranda Organization [employer] Address Unknown Phone Unavailable Care Team Providers Care Application Architect Manager Name Role Phone Aldo Miranda CP Unavailable Encounters Encounter Location Date REFILL [facility] Dec 17, 2013 Needs call back from Medical Staff [facility] April 17, 2016 Bladder problems. [facility] January 13, 2016 Unknown [facility] Oct 27, 2015 refill [facility] May 11, 2014 RIGHT HAND NUMB/RASH [facility] February 19, 2014 REFILL [facility] April 09, 2014 Refill [facility] April 03, 2014 REFILL [facility] March 10, 2014 Unknown [facility] April 06, 2014 Refill [facility] January 14, 2014 Refill [facility] February 11, 2014 Refill [facility] Jun 05, 2014 shingles outbreak [facility] Oct 27, 2013 Unknown [facility] Oct 27, 2013 Shingles [facility] Oct 31, 2013 Return to work note [facility] Nov 03, 2013 Unknown [facility] Jul 29, 2013 Results [facility] Aug 08, 2013 Refill [facility] Aug 19, 2013 lt eye pain [facility] May 26, 2014 Unknown [facility] Jul 06, 2014 Unknown [facility] Nov 04, 2013 Unknown [facility] Nov 12, 2013 Unknown [facility] May 31, 2015 Unknown [facility] Jul 29, 2015 Refill [facility] Aug 27, 2015 Refill [facility] Sep 27, 2015 Refill [facility] Nov 03, 2014 legs [facility] April 09, 2015 Unknown [facility] April 30, 2015 Unknown [facility] May 28, 2015 Problems Problem Type Condition ICD-9 Code Onset Dates Condition Status Problem Multiple sclerosis G35 Active Problem Insomnia G47.00 Active Problem Anxiety F41.9 Active Problem Osteopenia 733.90 Active Assessment Dependent edema 782.3 Active Medications Medication Code System Code Instructions Start Date End Date Status Dosage Hydrochlorothiazide MEDISPAN [address]-95 50 mg Orally Once a day April 17, 2016 Active 1 tablet Hydrochlorothiazide MEDISPAN [id number] 12.5 Orally Once a day Inactive 1 capsule as needed Social History Social History Element Qualifiers Date Reported Ethnicity . Status , Is czech your primary language? 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
--- OUTSIDE RECORDS SUMMARY | 2019-03-03 05:24 | XMS REPORT ---
Author Aldo Beltran Organization [employer] Address Unknown Phone Unavailable Care Team Providers Care Process Control Tech Name Role Phone Aldo Miranda CP Unavailable Allergies No Known Allergies Problems Problem Type Condition Code Onset Dates Condition Status Problem Anxiety F41.9 Active Problem Dysphagia, unspecified type R13.10 Active Problem Mild acid reflux K21.9 Active Problem Self-catheterizes urinary bladder Z78.9 Active Problem Neuropathy G62.9 Active Problem Insomnia G47.00 Active Problem Multiple sclerosis, secondary progressive G35 Active Problem Neurogenic bladder N31.9 Active Medications No Known Medications Results No Known Results Summary Purpose [employer]Works Submission
--- OUTSIDE RECORDS SUMMARY | 2019-03-03 05:24 | XMS REPORT ---
Author Author Kerrie Benítez Organization [employer] Address Unknown Phone Unavailable Care Team Providers Care Plc Controls Engineer Name Role Phone Kerrie Benítez CP Unavailable Allergies, Adverse Reactions, Alerts Substance Reaction Event Type Diflucan Info Not Available Drug Allergy Encounters Encounter Location Date REFILL [facility] Dec 17, 2013 Needs call back from Medical Staff [facility] April 17, 2016 Bladder problems. [facility] January 13, 2016 Unknown [facility] Oct 27, 2015 Refill [facility] Jun 20, 2016 refill [facility] May 11, 2014 Refill [facility] Jul 21, 2016 RIGHT HAND NUMB/RASH [facility] February 19, 2014 Refill [facility] May 15, 2016 REFILL [facility] April 09, 2014 WWE/FBW [facility] Jun 13, 2016 Refill [facility] April 03, 2014 REFILL [facility] March 10, 2014 Unknown [facility] April 06, 2014 Woke up with eye very swollen [facility] Aug 03, 2016 Refill [facility] January 14, 2014 Refill [facility] February 11, 2014 Refill [facility] Jun 05, 2014 shingles outbreak [facility] Oct 27, 2013 Unknown [facility] Oct 27, 2013 Shingles [facility] Oct 31, 2013 Return to work note [facility] Nov 03, 2013 Unknown [facility] Jul 29, 2013 Results [facility] Aug 08, 2013 Refill [facility] Aug 19, 2013 lt eye pain [facility] May 26, 2014 Unknown [facility] Jul 06, 2014 Unknown [facility] Nov 04, 2013 Unknown [facility] Nov 12, 2013 Unknown [facility] May 31, 2015 Unknown [facility] Jul 29, 2015 Refill [facility] Aug 27, 2015 Refill [facility] Sep 27, 2015 Refill [facility] Nov 03, 2014 legs [facility] April 09, 2015 Unknown [facility] April 30, 2015 Unknown [facility] May 28, 2015 Problems Problem Type Condition ICD-9 Code Onset Dates Condition Status Problem Multiple sclerosis G35 Active Problem Insomnia G47.00 Active Problem Anxiety F41.9 Active Problem Osteopenia 733.90 Active Assessment Hordeolum externum of left upper eyelid H00.014 Active Medications Medication Code System Code Instructions Start Date End Date Status Dosage Ampyra [facility] [address]-60 10 MG Orally Twice a day Active 1 tablet Ditropan XL [facility] [address]-66 15 MG Orally Active as directed Hydrochlorothiazide [facility] 68158189752 50 mg Active 1 TABLET ONCE A DAY ORALLY 30 DAY(S) Nitrofurantoin [facility] [address]-63 50 MG Orally Active Unknown Nasonex [facility] [address]-18 50 MCG/ACT Nasally Once a day Jul 29, 2013 Active 2 sprays in each nostril Gabapentin [facility] [address]-26 300 MG Orally Three times a day Active 1 capsule Ibuprofen [facility] [address]-10 800 MG Orally Q 8 PRN Aug 03, 2016 Aug 13, 2016 Active 1 tablet Lorazepam [facility] [address]-35 1 MG Orally Twice a day Active 1 tablet as needed Tysabri [facility] [address]-20 300 MG/15ML Intravenous Once a month Active 15 ml IV infusion Zolpidem Tartrate ER [facility] [address]-81 12.5 MG Orally at bedtime as needed April 23, 2013 Active 1 tablet Tramadol HCl [facility] [address]-25 50 mg Orally every 6 hrs Active 1 - 2 tablet TobraDex [facility] [address]-46 0.3-0.1 % Ophthalmic 2-3 times daily PRN Aug 03, 2016 Active 1 application Social History Social History Element Qualifiers Date Reported Ethnicity . Status , Is pashto your primary language? Yes Aug 03, 2016 children . 1 Aug 03, 2016 Tobacco Use: . Are you a: never smoker Aug 03, 2016 Use of recreational / street drugs? . Answer: No Aug 03, 2016 Where or with whom do you live ? . with spouse Aug 03, 2016 Do you have pets? . Status: No Aug 03, 2016 Marital Status: single. Aug 03, 2016 Caffeine intake? . Status: Yes, What type: Coffee, 1 - 2 cup(s) a day Aug 03, 2016 Do you exercise? . Answer: No Aug 03, 2016 Do you drink alcohol? . Status: No Aug 03, 2016 Occupation: employed. Disabled, working at the [employer] Aug 03, 2016 Family history Qualifier Description Comment Date Reported Maternal Grandmother Comment not available Aug 03, 2016 Paternal Grandmother Comment not available Aug 03, 2016 Siblings Comment not available Aug 03, 2016 Maternal Grandfather Comment not available Aug 03, 2016 Children Comment not available Aug 03, 2016 Father alive prostate cancer Aug 03, 2016 Paternal Grandfather Comment not available Aug 03, 2016 Mother alive bladder cancer, bone cancer Aug 03, 2016 Other: Comment not available Aug 03, 2016 Vital Signs Date/Time: Aug 03, 2016 Weight 115 lbs Height 60 in Blood Pressure Diastolic 68 mm Hg Blood Pressure Systolic 100 mm Hg Summary Purpose eClinicalWorks Submission
--- OUTSIDE RECORDS SUMMARY | 2019-03-03 05:24 | XMS REPORT ---
Author Author Aldo Miranda Organization [employer] Address Unknown Phone Unavailable Care Team Providers Care Feeder Worker Power Unit Operator Name Role Phone Aldo Miranda CP Unavailable Encounters Encounter Location Date REFILL [facility] Dec 17, 2013 Needs call back from Medical Staff [facility] April 17, 2016 Bladder problems. [facility] January 13, 2016 Unknown [facility] Oct 27, 2015 Refill [facility] Jun 20, 2016 refill [facility] May 11, 2014 Refill [facility] Jul 21, 2016 RIGHT HAND NUMB/RASH [facility] February 19, 2014 Refill [facility] May 15, 2016 REFILL [facility] April 09, 2014 WWE/FBW [facility] Jun 13, 2016 Refill [facility] April 03, 2014 REFILL [facility] March 10, 2014 Unknown [facility] April 06, 2014 Woke up with eye very swollen [facility] Aug 03, 2016 Refill [facility] January 14, 2014 Refill [facility] Aug 22, 2016 Refill [facility] February 11, 2014 Refill [facility] Jun 05, 2014 shingles outbreak [facility] Oct 27, 2013 Unknown [facility] Oct 27, 2013 Shingles [facility] Oct 31, 2013 Return to work note [facility] Nov 03, 2013 Unknown [facility] Jul 29, 2013 Results [facility] Aug 08, 2013 Refill [facility] Aug 19, 2013 lt eye pain [facility] May 26, 2014 Unknown [facility] Jul 06, 2014 Unknown [facility] Nov 04, 2013 Unknown [facility] Nov 12[facility] 2013 Unknown [facility] May 31, 2015 Unknown [facility] Jul 29, 2015 Refill [facility] Aug 27, 2015 Refill [facility] Sep 27, 2015 Refill [facility] Nov 03, 2014 legs [facility] April 09, 2015 Unknown [facility] April 30, 2015 Unknown [facility] May 28, 2015 Problems Problem Type Condition ICD-9 Code Onset Dates Condition Status Problem Multiple sclerosis G35 Active Problem Insomnia G47.00 Active Problem Anxiety F41.9 Active Problem Osteopenia 733.90 Active Medications Medication Code System Code Instructions Start Date End Date Status Dosage Zolpidem Tartrate ER [facility] [address]-70 12.5 MG Orally at bedtime as needed April 23, 2013 Active 1 tablet Social History Social History Element Qualifiers Date Reported Ethnicity . Status , Is wallisian your primary language? Yes Aug 03, 2016 [...] 2016 Occupation: employed. Disabled, working at the [employer] Aug 03, 2016 Summary Purpose eClinicalWorks Submission
--- OUTSIDE RECORDS SUMMARY | 2019-03-03 05:24 | XMS REPORT ---
Author Author Aldo Miranda Organization [employer] Address Unknown Phone Unavailable Care Team Providers Care Sales And Service Specialist Name Role Phone Aldo Miranda CP Unavailable Encounters Encounter Location Date REFILL [facility] Dec 17, 2013 Needs call back from Medical Staff [facility] April 17, 2016 Bladder problems. [facility] January 13, [address] [facility] Oct 27, [address] [facility] Jun 20, [address] [facility] May 11, 2014 RIGHT HAND NUMB/RASH [facility] February 19, [address] [facility] May 15, [address] [facility] April 09, 2014 WWE/FBW [facility] Jun 13, [address] [facility] April 03, [address] [facility] March 10, [address] [facility] April 06, [address] [facility] January 14, [address] [facility] February 11, [address] [facility] Jun 05, 2014 shinjude kay [facility] Oct 27, [address] [facility] Oct 27, [address] [facility] Oct 31, 2013 Return to work note [facility] Nov 03, [address] [facility] Jul 29, [address] [facility] Aug 08, [address] [facility] Aug 19, [address] [facility] May 26, [address] [facility] Jul 06, [address] [facility] Nov 04, [address] [facility] Nov 12, [address] [facility] May 31, 2015 Unknown [facility] Jul 29, [address] [facility] Aug 27, 2015 Refill [facility] Sep 27[facility] 2015 Refill [facility] Nov 03, 2014 legs [facility] April 09, 2015 Unknown [facility] April 30, 2015 Unknown [facility] May 28, 2015 Problems Problem Type Condition ICD-9 Code Onset Dates Condition Status Problem Multiple sclerosis G35 Active Problem Insomnia G47.00 Active Problem Anxiety F41.9 Active Problem Osteopenia 733.90 Active Medications Medication Code System Code Instructions Start Date End Date Status Dosage Zolpidem Tartrate ER [facility] [address]-68 12.5 MG Orally at bedtime as needed April 23, 2013 Active 1 tablet Social History Social History Element Qualifiers Date Reported Ethnicity . Status , Is lao your primary language? Yes Jun 13, 2016 [...] 2016 Occupation: employed. Disabled, working at the [employer] Jun 13, 2016 Summary Purpose eClinicalWorks Submission
--- OUTSIDE RECORDS SUMMARY | 2019-03-03 05:24 | XMS REPORT ---
Author Author Aldo Miranda Organization [employer] Address Unknown Phone Unavailable Care Team Providers Care Junior Financial Analyst Name Role Phone Aldo Miranda CP Unavailable Encounters Encounter Location Date REFILL [facility] Dec 17, 2013 Needs call back from Medical Staff [facility] April 17, [address] [facility] January 13, [address] [facility] Oct 27, [address] [facility] May 11, 2014 RIGHT HAND NUMB/RASH [facility] February 19, [address] [facility] May 15, [address] [facility] April 09, [address] [facility] April 03, [address] [facility] March 10, [address] [facility] April 06, [address] [facility] January 14, [address] [facility] February 11, [address] [facility] Jun 05, 2014 shingles outbreak [facility] Oct 27, [address] [facility] Oct 27, [address] [facility] Oct 31, 2013 Return to work note [facility] Nov 03, [address] [facility] Jul 29, [address] [facility] Aug 08[facility] [address] [facility] Aug 19, 2013 lt eye pain [facility] May 26, [address] [facility] Jul 06, [address] [facility] Nov 04[facility] [address] [facility] Nov 12, [address] [facility] May 31, [address] [facility] Jul 29, [address] [facility] Aug 27, [address] [facility] Sep 27, [address] [facility] Nov 03, 2014 legs [facility] April 09, 2015 Unknown [facility] April 30, 2015 Unknown [facility] May 28, 2015 Problems Problem Type Condition ICD-9 Code Onset Dates Condition Status Problem Multiple sclerosis G35 Active Problem Insomnia G47.00 Active Problem Anxiety F41.9 Active Problem Osteopenia 733.90 Active Medications Medication Code System Code Instructions Start Date End Date Status Dosage Zolpidem Tartrate ER [facility] [address]-33 12.5 MG Orally at bedtime as needed April 23, 2013 Active 1 tablet Social History Social History Element Qualifiers Date Reported Ethnicity . Status , Is cape verdean your primary language? 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
--- OUTSIDE RECORDS SUMMARY | 2019-03-03 05:24 | XMS REPORT ---
Author Author Aldo Miranda Organization [employer] Address Unknown Phone Unavailable Care Team Providers Care Waxer Operator Name Role Phone Aldo Miranda CP Unavailable Encounters Encounter Location Date REFILL [facility] Dec 17, 2013 Needs call back from Medical Staff [facility] April 17, 2016 Bladder problems. [facility] January 13, 2016 Unknown [facility] Oct 27, 2015 Refill [facility] Jun 20, 2016 refill [facility] May 11, 2014 Refill [facility] Jul 21, 2016 RIGHT HAND NUMB/RASH [facility] February 19, 2014 Refill [facility] May 15, 2016 REFILL [facility] April 09, 2014 WWE/FBW [facility] Jun 13, 2016 Refill [facility] April 03, 2014 REFILL [facility] March 10, 2014 Unknown [facility] April 06, 2014 Refill [facility] January 14, 2014 Refill [facility] February 11, 2014 Refill [facility] Jun 05, 2014 shingles outbreak [facility] Oct 27, 2013 Unknown [facility] Oct 27, 2013 Shingles [facility] Oct 31, 2013 Return to work note [facility] Nov 03, 2013 Unknown [facility] Jul 29, 2013 Results [facility] Aug 08, 2013 Refill [facility] Aug 19, 2013 lt eye pain [facility] May 26, 2014 Unknown [facility] Jul 06, 2014 Unknown [facility] Nov 04, 2013 Unknown [facility] Nov 12, 2013 Unknown [facility] May 31, 2015 Unknown [facility] Jul 29, 2015 Refill [facility] Aug 27, 2015 Refill [facility] Sep 27, 2015 Refill [facility] Nov 03, 2014 legs [facility] April 09, 2015 Unknown [facility] April 30, 2015 Unknown [facility] May 28, 2015 Problems Problem Type Condition ICD-9 Code Onset Dates Condition Status Problem Multiple sclerosis G35 Active Problem Insomnia G47.00 Active Problem Anxiety F41.9 Active Problem Osteopenia 733.90 Active Medications Medication Code System Code Instructions Start Date End Date Status Dosage Zolpidem Tartrate ER [facility] [address]-27 12.5 MG Orally at bedtime as needed April 23, 2013 Active 1 tablet Social History Social History Element Qualifiers Date Reported Ethnicity . Status , Is turkish your primary language? Yes Jun 13, 2016 [...] 2016 Occupation: employed. Disabled, working at the [employer] Jun 13, 2016 Summary Purpose eClinicalWorks Submission
--- OUTSIDE RECORDS SUMMARY | 2019-03-03 05:24 | XMS REPORT ---
Author Author Kerrie Benítez [facility] [employer]Works Address Unknown Phone Unavailable Care Team Providers Care Marketing Information Coordinator Name Role Phone Kerrie Benítez Unavailable Allergies, Adverse Reactions, Alerts Substance Reaction [...] Active Problem Self-catheterizes urinary bladder Z78.9 Active Assessment Left foot pain M79.672 Active Assessment Swelling of left foot M79.89 Active Assessment Cold extremities R68.89 Active Assessment Discoloration of skin of foot L81.9 Active Medications Medication Code System Code Instructions Start Date End Date Status Dosage NIFEdipine ER [facility] 26551901627 30 mg Orally Once a day Oct 25, 2018 Active 1 tablet on an empty stomach Hydrochlorothiazide [facility] 36585191467 50 Orally Once a day Active 1 tablet Baclofen [facility] 90185709634 10 mg Orally twice a day (bid) Active 1 tablet with food or milk Lorazepam [facility] 95118865417 1 MG Orally Twice a day Active 1 tablet as needed Zantac [facility] 24515122943 300 MG Orally Once a day Jun 24, 2018 Active 1 tablet at bedtime Nitrofurantoin [facility] [address]-19 50 MG Orally Once a day Active 1 tablet Zolpidem Tartrate ER [facility] 25831908223 12.5 MG Orally qhs prn April 23, 2013 Active 1 tablet Hydrochlorothiazide [facility] 38026515248 50 MG Orally Once a day Active 1 tablet Tysabri [facility] 81348550634 300 MG/15ML Intravenous Once a month Active 15 ml IV infusion Potassium Chloride CR NDC 0 20 MEQ Orally Active not defined Ditropan XL [facility] 43412820860 15 MG Orally Active as directed Ampyra [facility] 78602706731 10 MG Orally Twice a day Active 1 tablet Tramadol HCl [facility] 07117476712 50 mg Orally every 6 hrs Active 1 - 2 tablet Gabapentin [facility] 88582468316 300 MG Orally three times a day (tid) Active 2 capsule Vital Signs Date/Time: Oct 25, 2018 BMI 23.63 Index Weight 121 lbs Height 60 in Cardiac Monitoring Heart Rate 65 /min Blood Pressure Diastolic 72 mm Hg Blood Pressure Systolic 104 mm Hg Results No Known Results Summary Purpose eClinicalWorks Submission
--- OUTSIDE RECORDS SUMMARY | 2019-03-03 05:24 | XMS REPORT ---
Author Author Aldo Miranda Organization [employer] Address Unknown Phone Unavailable Care Team Providers Care Occupational Work Experience Teacher Name Role Phone Aldo Miranda CP Unavailable Allergies No Known Allergies Problems Problem Type Condition Code Onset Dates Condition Status Problem Anxiety F41.9 Active Assessment Insomnia G47.00 Active Problem Dysphagia, unspecified type R13.10 Active Problem Mild acid reflux K21.9 Active Problem Self-catheterizes urinary bladder Z78.9 Active Problem Neuropathy G62.9 Active Problem Insomnia G47.00 Active Problem Multiple sclerosis, secondary progressive G35 Active Problem Neurogenic bladder N31.9 Active Medications Medication Code System Code Instructions Start Date End Date Status Dosage Zolpidem Tartrate ER [facility] 70496110601 12.5 MG Orally qhs prn April 23, 2013 Active 1 tablet Results No Known Results Summary Purpose eClinicalWorks Submission
--- OUTSIDE RECORDS SUMMARY | 2019-03-03 05:24 | XMS REPORT ---
Author Author Aldo Miranda Organization [employer] Address Unknown Phone Unavailable Care Team Providers Care Director Business Integration Name Role Phone Aldo Miranda CP Unavailable [...] End Date Status Dosage Zolpidem Tartrate ER [facility] 02841814718 12.5 MG Orally qhs prn April 23, 2013 Active 1 tablet Results No Known Results Summary Purpose eClinicalWorks Submission
--- OUTSIDE RECORDS SUMMARY | 2019-03-03 05:25 | XMS REPORT ---
Author Author Vciki Orr [facility] e[employer]Works Address Unknown Phone Unavailable Care Team Providers Care Icing Coater Name Role Phone Vicki Orr CP Unavailable Encounters Encounter Location Date REFILL [facility] Dec 17, 2013 Needs call back from Medical Staff [facility] April 17, 2016 Bladder problems. [facility] January 13, 2016 Unknown [facility] Oct 27, 2015 Refill [facility] Jun 20, 2016 refill [facility] May 11, 2014 Refill [facility] Jul 21, 2016 RIGHT HAND NUMB/RASH [facility] February 19, 2014 Refill [facility] May 15, 2016 REFILL [facility] April 09, 2014 WWE/FBW [facility] Jun 13, 2016 Refill [facility] April 03, 2014 Needs call back from Medical Staff [facility] Sep 14, 2016 REFILL [facility] March 10, 2014 Unknown [facility] April 06, 2014 Woke up with eye very swollen [facility] Aug 03, 2016 Refill [facility] January 14, 2014 Refill [facility] Aug 22, 2016 Refill [facility] February 11, 2014 Refill [facility] Jun 05, 2014 shingles outbreak [facility] Oct 27, 2013 Unknown [facility] Oct 27, 2013 Shinglaletha [facility] Oct 31, 2013 Return to work note [facility] Nov 03, 2013 Unknown [facility] Jul 29, 2013 Results [facility] Aug 08, 2013 Refill [facility] Aug 19, 2013 lt eye pain [facility] May 26, 2014 Unknown [facility] Jul 06, 2014 Unknown [facility] Nov 04, 2013 Unknown [facility] Nov 12, 2013 Unknown [facility] May 31, 2015 Unknown [facility] Jul 29, 2015 Refill [facility] Aug 27, 2015 Refill [facility] Sep 27, 2015 Refill [facility] Nov 03, 2014 legs [facility] April 09, 2015 Unknown [facility] April 30, 2015 Unknown [facility] May 28, 2015 Problems Problem Type Condition ICD-9 Code Onset Dates Condition Status Problem Multiple sclerosis G35 Active Problem Insomnia G47.00 Active Problem Anxiety F41.9 Active Problem Osteopenia 733.90 Active Social History Social History Element Qualifiers Date Reported Ethnicity . Status , Is lebanese your primary language? Yes Aug 03, 2016 [...] 2016 Occupation: employed. Disabled, working at the [employer] Aug 03, 2016 Summary Purpose eClinicalWorks Submission
--- OUTSIDE RECORDS SUMMARY | 2019-03-03 05:25 | XMS REPORT ---
Author Author Kerrie Benítez Organization [employer] Address Unknown Phone Unavailable Care Team Providers Care Garment Finisher Name Role Phone Kerrie Benítez CP Unavailable Allergies, Adverse Reactions, Alerts Substance Reaction Event Type Diflucan Info Not Available Drug Allergy Problems Problem Type Condition Code Onset Dates Condition Status Assessment Neuropathy G62.9 Active Assessment Insomnia G47.00 Active Assessment Swelling of lower extremity M79.89 Active Problem Neurogenic bladder N31.9 Active Problem Neuropathy G62.9 Active Problem Swelling of lower extremity M79.89 Active Problem Insomnia G47.00 Active Problem Osteopenia 733.90 Active Problem Anxiety F41.9 Active Problem Multiple sclerosis G35 Active Medications Medication Code System Code Instructions Start Date End Date Status Dosage Tramadol HCl [facility] [address]-64 50 mg Orally every 6 hrs Active 1 - 2 tablet Tysabri [facility] [address]-35 300 MG/15ML Intravenous Once a month Active 15 ml IV infusion Lorazepam [facility] [address]-27 1 MG Orally Twice a day Active 1 tablet as needed Ditropan XL [facility] [address]-04 15 MG Orally Active as directed Hydrochlorothiazide [facility] [address]-34 50 MG Orally Once a day Active 1 tablet Zolpidem Tartrate ER [facility] [address]-28 12.5 MG Orally at bedtime as needed April 23, 2013 Active 1 tablet Ampyra [facility] [address]-76 10 MG Orally Twice a day Active 1 tablet Nitrofurantoin [facility] [address]-92 50 MG Orally Once a day Active 1 tablet Gabapentin [facility] [address]-17 300 MG Orally Q 8 Active 2 capsule Vital Signs Date/Time: February 08, 2017 BMI 23.04 Index Weight 118 lbs Height 60 in Cardiac Monitoring Heart Rate 78 /min Blood Pressure Diastolic 70 mm Hg Blood Pressure Systolic 100 mm Hg Results No Known Results Summary Purpose eClinicalWorks Submission
--- OUTSIDE RECORDS SUMMARY | 2019-03-03 05:25 | XMS REPORT ---
Author Author Cata Wills Organization eClinicalWorks Address Unknown Phone Unavailable Care Team Providers Care Mitigation Supervisor Name Role Phone Bharath BradleyCata Unavailable Encounters Encounter Location Date REFILL [facility] Dec 17, 2013 Needs call back from Medical Staff [facility] April 17, 2016 Bladder problems. [facility] January 13, 2016 Unknown [facility] Oct 27, 2015 Refill [facility] Jun 20, 2016 refill [facility] May 11, 2014 Refill [facility] Jul 21, 2016 RIGHT HAND NUMB/RASH [facility] February 19, 2014 Refill [facility] May 15, 2016 REFILL [facility] April 09, 2014 WWE/FBW [facility] Jun 13, 2016 Refill [facility] April 03, 2014 Needs call back from Medical Staff [facility] Sep 14, 2016 REFILL [facility] March 10, 2014 Unknown [facility] April 06, 2014 Woke up with eye very swollen [facility] Aug 03, 2016 Refill [facility] January 14, 2014 Refill [facility] Aug 22, 2016 Refill [facility] February 11, 2014 Refill [facility] Jun 05, 2014 shingles outbreak [facility] Oct 27, 2013 Unknown [facility] Oct 27, 2013 Shinjude [facility] Oct 31, 2013 Return to work note [facility] Nov 03, 2013 Unknown [facility] Jul 29, 2013 Results [facility] Aug 08, 2013 Refill [facility] Aug 19, 2013 lt eye pain [facility] May 26, 2014 Unknown [facility] Jul 06, 2014 Unknown [facility] Nov 27, 2016 Unknown [facility] Nov 04, 2013 RED HANDS AND FEET, SHARP PRICKLY FEELINGS. [facility] Oct 26, 2016 Unknown [facility] Nov 12, 2013 Unknown [facility] January 12, 2017 Unknown [facility] May 31, 2015 Unknown [facility] Jul 29, 2015 Refill [facility] Aug 27, 2015 Refill [facility] Sep 27, 2015 Refill [facility] Nov 03, 2014 legs [facility] April 09, 2015 Unknown [facility] April 30, 2015 Unknown [facility] May 28, 2015 Problems Problem Type Condition ICD-9 Code Onset Dates Condition Status Problem Anxiety F41.9 Active Problem Multiple sclerosis G35 Active Problem Neuropathy G62.9 Active Problem Insomnia G47.00 Active Problem Osteopenia 733.90 Active Medications Medication Code System Code Instructions Start Date End Date Status Dosage Zolpidem Tartrate ER [facility] [address]-92 12.5 MG Orally at bedtime as needed April 23, 2013 Active 1 tablet Social History Social History Element Qualifiers Date Reported Occupation: employed. Disabled, working at the [employer] Oct 26, 2016 children . 1 Oct 26, 2016 Ethnicity . Status , Is persian your primary language? Yes Oct 26, 2016 Tobacco Use: . Are you a: never smoker Oct 26, 2016 Last Colonoscopy: . 2001 Oct 26, 2016 Use of recreational / street drugs? . Answer: No Oct 26, 2016 Do you have pets? . Status: No Oct 26, 2016 Where or with whom do you live ? . with spouse Oct 26, 2016 Last Bone Density: . never Oct 26, 2016 Marital Status: single. Oct 26, 2016 Caffeine intake? . Status: Yes, What type: Coffee, 1 - 2 cup(s) a day Oct 26, 2016 Do you exercise? . Answer: No Oct 26, 2016 Flu Vaccine: . Refuse Oct 26, 2016 Depression Screening: . negative Oct 26, 2016 Do you drink alcohol? . Status: No Oct 26, 2016 Summary Purpose eClinicalWorks Submission
--- OUTSIDE RECORDS SUMMARY | 2019-03-03 05:25 | XMS REPORT ---
Author Author Aldo Miranda Organization eClinicalWorks Address Unknown Phone Unavailable Care Team Providers Care Infusion Rn Name Role Phone Aldo Miranda CP Unavailable Encounters Encounter Location Date REFILL [facility] Dec 17, 2013 Needs call back from Medical Staff [facility] April 17, 2016 Bladder problems. [facility] January 13, 2016 Unknown [facility] Oct 27, 2015 Refill [facility] Jun 20, 2016 refill [facility] May 11, 2014 Refill [facility] Jul 21, 2016 RIGHT HAND NUMB/RASH [facility] February 19, 2014 Refill [facility] May 15, 2016 REFILL [facility] April 09, 2014 WWE/FBW [facility] Jun 13, 2016 Refill [facility] April 03, 2014 Needs call back from Medical Staff [facility] Sep 14, 2016 REFILL [facility] March 10, 2014 Unknown [facility] April 06, 2014 Woke up with eye very swollen [facility] Aug 03, 2016 Refill [facility] January 14, 2014 Refill [facility] Aug 22, 2016 Refill [facility] February 11, 2014 Refill [facility] Jun 05, 2014 shingles outbreak [facility] Oct 27, 2013 Unknown [facility] Oct 27, 2013 Shinjude [facility] Oct 31, 2013 Return to work note [facility] Nov 03, 2013 Unknown [facility] Jul 29, 2013 Results [facility] Aug 08, 2013 Refill [facility] Aug 19, 2013 lt eye pain [facility] May 26, 2014 Unknown [facility] Jul 06, 2014 Unknown [facility] Nov 27, 2016 Unknown [facility] Nov 04, 2013 RED HANDS AND FEET, SHARP PRICKLY FEELINGS. [facility] Oct 26, 2016 Unknown [facility] Nov 12, 2013 Unknown [facility] May 31, 2015 Unknown [facility] Jul 29, 2015 Refill [facility] Aug 27, 2015 Refill [facility] Sep 27, 2015 Refill [facility] Nov 03, 2014 legs [facility] April 09, 2015 Unknown [facility] April 30, 2015 Unknown [facility] May 28, 2015 Problems Problem Type Condition ICD-9 Code Onset Dates Condition Status Problem Anxiety F41.9 Active Problem Multiple sclerosis G35 Active Problem Neuropathy G62.9 Active Assessment Breast pain, right N64.4 Active Problem Insomnia G47.00 Active Problem Osteopenia 733.90 Active Social History Social History Element Qualifiers Date Reported Occupation: employed. Disabled, working at the [employer] Oct 26, 2016 children . 1 Oct 26, 2016 Ethnicity . Status , Is lithuanian your primary language? Yes Oct 26, 2016 [...]
--- OUTSIDE RECORDS SUMMARY | 2019-03-03 05:25 | XMS REPORT ---
Author Author Keya Damon [facility] eClinicalWorks Address Unknown Phone Unavailable Care Team Providers Care Tiedown Operator Name Role Phone Keya Damon Unavailable Allergies, Adverse Reactions, Alerts Substance Reaction Event Type Diflucan Info Not Available Drug Allergy Encounters Encounter Location Date REFILL [facility] Dec 17, 2013 Needs call back from Medical Staff [facility] April 17, [address] [facility] January 13, [address] [facility] Oct 27, [address] [facility] Jun 20, [address] [facility] May 11, [address] [facility] Jul 21, 2016 RIGHT HAND NUMB/RASH [facility] February 19, [address] [facility] May 15, 2016 REFILL [facility] April 09, 2014 WWE/FBW [facility] Jun 13, [address] [facility] April 03, 2014 Needs call back from Medical Staff [facility] Sep 14, 2016 REFILL [facility] March 10, 2014 Unknown [facility] April 06, 2014 Woke up with eye very swollen [facility] Aug 03, 2016 Refill [facility] January 14, 2014 Refill [facility] Aug 22, 2016 Refill [facility] February 11, 2014 Refill [facility] Jun 05, 2014 shingles outbreak [facility] Oct 27, [address] [facility] Oct 27, 2013 Shingles [facility] Oct 31, 2013 Return to work note [facility] Nov 03, [address] [facility] Jul 29, [address] [facility] Aug 08, [address] [facility] Aug 19, 2013 lt eye pain [facility] May 26, 2014 Unknown [facility] Jul 06, 2014 Unknown [facility] Nov 04, 2013 RED HANDS AND FEET, SHARP PRICKLY FEELINGS. [facility] Oct 26, 2016 Unknown [facility] Nov 12, 2013 Unknown [facility] May 31, 2015 Unknown [facility] Jul 29, 2015 Refill [facility] Aug 27, 2015 Refill [facility] Sep 27, 2015 Refill [facility] Nov 03, 2014 legs [facility] April 09, 2015 Unknown [facility] April 30, 2015 Unknown [facility] May 28, 2015 Problems Problem Type Condition ICD-9 Code Onset Dates Condition Status Problem Anxiety F41.9 Active Problem Multiple sclerosis G35 Active Problem Neuropathy G62.9 Active Assessment Multiple sclerosis G35 Active Assessment Neuropathy G62.9 Active Problem Insomnia G47.00 Active Problem Osteopenia 733.90 Active Medications Medication Code System Code Instructions Start Date End Date Status Dosage Lorazepam [facility] [address]-35 1 MG Orally Twice a day Active 1 tablet as needed Tramadol HCl [facility] [address]-39 50 mg Orally every 6 hrs Active 1 - 2 tablet Hydrochlorothiazide [facility] 81432499751 50 mg Active 1 TABLET ONCE A DAY ORALLY 30 DAY(S) Zolpidem Tartrate ER [facility] [address]-37 12.5 MG Orally at bedtime as needed April 23, 2013 Active 1 tablet Ditropan XL [facility] [address]-88 15 MG Orally Active as directed Tysabri [facility] [address]-71 300 MG/15ML Intravenous Once a month Active 15 ml IV infusion TobraDex [facility] [address]-60 0.3-0.1 % Ophthalmic 2-3 times daily PRN Aug 03, 2016 Active 1 application Nitrofurantoin [facility] [address]-23 50 MG Orally Active Unknown Gabapentin [facility] [address]-19 300 MG Orally Three times a day Active 2 capsule Nasonex [facility] [address]-89 50 MCG/ACT Nasally Once a day Jul 29, 2013 Active 2 sprays in each nostril Ampyra [facility] [address]-90 10 MG Orally Twice a day Active 1 tablet Social History Social History Element Qualifiers Date Reported Occupation: employed. Disabled, working at the [employer] Oct 26, 2016 children . 1 Oct 26, 2016 Ethnicity . Status , Is portuguese your primary language? Yes Oct 26, 2016 Tobacco Use: . Are you a: never smoker Oct 26, 2016 Last Colonoscopy: . 2000Oct 26, 2016 Use of recreational / street [...] alcohol? . Status: No Oct 26, 2016 Family history Qualifier Description Comment Date Reported Maternal Grandmother Comment not available Oct 26, 2016 Paternal Grandmother Comment not available Oct 26, 2016 Siblings Comment not available Oct 26, 2016 Maternal Grandfather Comment not available Oct 26, 2016 Children Comment not available Oct 26, 2016 Father alive prostate cancer Oct 26, 2016 Paternal Grandfather Comment not available Oct 26, 2016 Mother alive bladder cancer, bone cancer Oct 26, 2016 Other: Comment not available Oct 26, 2016 Vital Signs Date/Time: Oct 26, 2016 Weight 118 lbs Height 60 in Cardiac Monitoring Heart Rate 68 /min Blood Pressure Diastolic 70 mm Hg Blood Pressure Systolic 102 mm Hg Summary Purpose eClinicalWorks Submission
[2019-03-03 06:27] LABS: ANION GAP 12.1 mmol/L (8-16); BLOOD UREA NITROGEN 19 mg/dL (7-26); BUN/CREATININE RATIO 26 (6-25); CALCIUM 9.5 mg/dL (8.4-10.2); CARBON DIOXIDE 31 mmol/L (22-29); CHLORIDE 101 mmol/L (98-107); CREATININE, SERUM 0.72 mg/dL (0.57-1.11); EST GLOMERULAR FILTRATION RATE > 60 ML/MIN (60-); GLUCOSE 85 mg/dL (74-118); POTASSIUM 3.1 mmol/L (3.5-5.1); SODIUM 141 mmol/L (136-145)
[2019-03-03 08:45] VITALS: BP 100/50
--- NOTE | 2019-03-19 04:41 | Operative Report ---
DATE OF PROCEDURE: 03/03/2019 SURGEON: Samson aCbezas MD PREOPERATIVE DIAGNOSES: 1. Refractory urge incontinence. 2. Urinary tract infections. 3. Mild cystocele. POSTOPERATIVE DIAGNOSES: 1. Refractory urge incontinence. 2. Urinary tract infections. 3. Mild cystocele. OPERATION PERFORMED: 1. Cystourethroscopy with bilateral ureteral catheterization and retrograde ureteropyelography (separate procedure performed for the urinary tract infections). 2. Interpretation of retrograde ureteropyelography. 3. Supervision of fluoroscopy, no radiologist present. 4. Cystourethroscopy with intravesical injection of 200 units of Botox (separate procedure performed for the refractory urge incontinence). 5. Pelvic examination under anesthesia. ANESTHESIA: General. COMPLICATIONS: None. CLINICAL SUMMARY: Omayra Gan is a 43-year-old woman with the above preoperative diagnoses. She is brought for the above procedure. She is aware of the risks of bleeding, infection, injury to adjacent structures, need for additional procedures and elected to proceed. OPERATIVE PROCEDURE IN DETAIL: Informed consent was verified. Omayra Gan was properly identified, taken to the operating room, placed on the cystoscopy table in supine position. Anesthesia was uneventfully begun. The patient was then carefully gently with repositioned in dorsal lithotomy position with all pressure points were padded. The genitalia were prepared and draped in usual sterile fashion. The cystoscope sheath was inserted into the patient's urethra with obturator in place and the bladder was drained. Panendoscopy revealed mild trabeculations, but no tumors, no stones, no suspicious lesions were identified. Normally positioned and configured ureteral orifices were identified. An 8-Belarusian catheter was used to cannulate each ureter and retrograde ureteropyelogram was performed. Interpretation of retrograde ureteropyelography: Contrast was instilled in retrograde fashion bilaterally. There was upper tract tortuosity, most noted on the right-hand side. There was some corkscrew-like tortuosity of the ureter in several locations. Nevertheless, there was no hydronephrosis and even though there was ptosis of the right kidney, unobstructed drainage was observed bilaterally fluoroscopically. No stones were identified. 200 units of Botox were dissolved in 20 mL of normal saline. This Botox was then injected in 1 mL aliquots in an even distribution in the supratrigonal bladder. The bladder was drained. The cystoscope was withdrawn. Gulshan suppository were placed revealing on pelvic examination, no cysts, no rectocele, no suspicious lesions, no abnormal palpable pelvic masses could be appreciated. There was a mild grade 1 cystocele. The patient was then uneventfully reversed from anesthesia and taken to the recovery room in stable condition. Expressive postop instructions were given. We will follow the patient up in the office as well as on an ongoing basis. Samson Cabezas MD [place]/MODL /[id number] cc: Cata Norman DO
== END | disposition home or self-care (01) ==
LOC: OR 05:18
PROVIDERS: ATTEND Urology
DX: N39.41 Urge incontinence (principal); N39.0 Urinary tract infection, site not specified; N81.10 Cystocele, unspecified; N32.89 Other specified disorders of bladder; N13.8 Other obstructive and reflux uropathy; N28.83 Nephroptosis; G35 Multiple sclerosis; F41.9 Anxiety disorder, unspecified
CPT/HCPCS: 36415; 52005; 52287; 74420; 80048; 81025; C1758; J0587; J0696; J1100; J1170; J1200; J1580; J2001; J2250; J2405; J2704; Q9967

== ENCOUNTER → 2019-06-09 | Day surgery (SDC) | payer MEDICARE ==
[~2019-06-09] MED LIST changes: +B&O 60MG R/S 60 MG SUPP PR ONE; -BELLADONNA/OPIUM 60 MG SUPP PR ONE; -DIPHENHYDRAMINE HCL INJ 50 MG/ML VIAL ONE; -GENTAMICIN 80MG/NS 100 ML 100 ML IV ONE; -HYDROMORPHONE 2MG/ML 2 MG/ML ML ONE; +MORPHINE SULFATE 2 MG/ML SYR 1ML ONE
--- OUTSIDE RECORDS SUMMARY | 2019-06-09 05:17 | XMS REPORT | Clinical Summary ---
Author Author [facility] Address Unknown Phone Unavailable Care Team Providers Care Stock Preparation Operator Name Role Phone Cata Norman PCP Allergies [...] 10 mg Take 10 mg by 0 [id number]: walking mouth 2 (two) impairment due to times daily. multiple sclerosis 01/21/2019 hydroCHLOROthiazide Take 2 60 capsule 11 (MICROZIDE) 12.5 mg capsules (25 8 capsule mg total) by mouth daily. Active Problems Problem Noted Date MS (multiple sclerosis) 01/20/2018 Encounters Care Team Description Date Type Specialty [facility] 01/27/2019 Hospital Magnetic Resonance Encounter Imaging Aston Turner Jr., MD 3, [facility] [place] Mr Multiple sclerosis (HCC) 01/27/2019 [facility] Encounter [facility] 01/27/2019 [facility] Magnetic Resonance Encounter Imaging Aston Turner Jr., MD Multiple sclerosis (HCC) (Primary Dx) 01/17/2019 Outside Orders Central Scheduling after 06/08/2018 Social History Date Tobacco Use Types Packs/Day [...] (HCC) IV CONTRAST 10:59 AM CDT after 06/08/2018 Results * MR thoracic spine without & with IV contrast (01/27/2019 11:00 AM CDT) Specimen Narrative Performed At FINAL REPORT [facility] EXAMINATION: MRI of the cervical and thoracic [...] MD Report Verified Date/Time:01/27/2019 12:51:08 Reading Location: [facility] Reading Room [address] [place] [address] Procedure Note Interface, External Ris In - [...] Report Verified Date/Time: 01/27/2019 12:51:08 Reading Location: [facility] Reading Room [address] [place] [address] Performing Organization Address City/State/Zipcode Phone Number [employer] * MR cervical spine without & with IV contrast (01/27/2019 11:00 AM CDT) Specimen Narrative Performed At FINAL REPORT [employer] EXAMINATION: MRI of the cervical and thoracic [...] MD Report Verified Date/Time:01/27/2019 12:51:08 Reading Location: [facility] Reading Room [address] [place] [address] Procedure Note Interface, External Ris In - [...] Report Verified Date/Time: 01/27/2019 12:51:08 Reading Location: [facility] Reading Room [address] [place] [address] Performing Organization Address City/State/Zipcode Phone Number [employer] * MR brain without & with IV contrast (01/27/2019 10:59 AM CDT) Specimen Narrative Performed At FINAL REPORT [employer] EXAMINATION: MRI of the brain without and [...] MD Report Verified Date/Time:01/27/2019 12:22:03 Reading Location: [facility] Reading Room [address] [place] [address] Procedure Note Interface, External Ris In - [...] Report Verified Date/Time: 01/27/2019 12:22:03 Reading Location: [facility] Reading Room [address] [place] [address] Performing Organization Address City/State/Zipcode Phone Number [facility] after 06/08/2018 Insurance Payer Benefit Subscriber ID Type Phone Address Plan / Group MEDICARE MEDICARE A xxxxxxxxxxx Medicare B Advance Directives For more information, please contact: [address] [address] Date Inactivated Comments Code Status Date Activated 01/21/2018 6:16 PM Full Code 01/20/2018 3:41 PM This code status was determined by: Patient
--- OUTSIDE RECORDS SUMMARY | 2019-06-09 05:17 | XMS REPORT | Clinical Summary ---
Author Author [facility] Address Unknown Phone Unavailable Care Team Providers Care Zipper Trimmer Hand Name Role Phone Cata Norman DO PCP [...] Health Maintenance Due Date Last Done Comments INFLUENZA VACCINE 06/05/2019 Results Not on fileafter 06/08/2018 Insurance Type Payer Benefit Subscriber ID Effective Phone Address Plan / Dates Group Medicare MEDICARE MEDICARE xxxxxxxxxx 2005-P JONNIE, PART A AND resent [place] B Advance Directives Patient has advance care planning documents on file. For more information, shay montes contact: Jonnie Lima [address] [place] [address]
--- OUTSIDE RECORDS SUMMARY | 2019-06-09 05:19 | XMS REPORT ---
Author Author Kerrie Benítez Organization e[employer] Address Unknown Phone Unavailable Care Team Providers Care Spa Manager Name Role Phone Kerrie Beníetz CP Unavailable Allergies No Known Allergies Problems [...] Tartrate ER [facility] [id number] 12.5 MG Orally qhs prn LAST REFILL, NEEDS TO BE SEEN April 23, 2013 Active 1 tablet Results No Known Results Summary Purpose eClinicalWorks Submission
--- OUTSIDE RECORDS SUMMARY | 2019-06-09 05:19 | XMS REPORT | Continuity of Care Document ---
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 Name Role Phone [employer] Unavailable Unavailable Problems Problem Status Onset Date Classification Date Reported Comments Source LOWER EXTREMITY Active 02/03/2019 [facility] [place] Discharge Diagnosis: Nausea vomiting and diarrhea 06/09/2017 06/12/2017 [facility] Discharge Diagnosis: Acute hypokalemia 06/09/2017 06/12/2017 [facility] VOMITING Active 06/09/2017 [facility] MULTIPLE SCLEROSIS Active 01/11/2017 [facility] [place] MULTIPLE SCLER Active 12/06/2016 [facility] [place] S/P R UNT Active 03/05/2015 [facility] [place] section Active Problem 06/12/2017 [facility] [place] Knee joint operation1 Active Problem 06/12/2017 right knee scope [facility] [place] - Multiple sclerosis Resolved Problem 06/12/2017 [facility] [place] Neuropathy Active Problem 05/10/2019 [facility] Insomnia Active Problem 05/10/2019 [facility] Swelling of lower extremity Active Problem 06/14/2018 [facility] Neurogenic bladder Active Problem 05/10/2019 [facility] Osteopenia Active Problem 08/30/2017 [facility] Anxiety Active Problem 04/09/2019 [facility] Multiple sclerosis Active Problem 06/14/2018 [facility] Low blood potassium Active Diagnosis 03/08/2018 [facility] Osteopenia of other site Active Diagnosis 10/03/2017 [facility] Dysphagia, unspecified type Active Problem 05/10/2019 [facility] Mild acid reflux Active Problem 05/10/2019 [facility] Discoloration of skin of foot Active Problem 05/10/2019 [facility] Multiple sclerosis, secondary progressive Active Problem 05/10/2019 [facility] Self-catheterizes urinary bladder Active Problem 05/10/2019 [facility] Possible exposure to STD Active Diagnosis 03/05/2018 [facility] Exposure to sexually transmitted disease Active Diagnosis 03/02/2018 [facility] Acute vaginitis Active Diagnosis 08/30/2018 [facility] Plantar fasciitis Active Problem 06/14/2018 [facility] Spasticity Active Diagnosis 06/27/2018 [facility] Falling Active Problem 05/10/2019 [facility] Left foot pain Active Diagnosis 11/12/2018 [facility] Swelling of left foot Active Diagnosis 11/12/2018 [facility] Cold extremities Active Diagnosis 11/12/2018 [facility] Encounter for screening mammogram for malignant neoplasm of breast Active Diagnosis 04/30/2019 [facility] Special screening for malignant neoplasms, colon Active Diagnosis 04/30/2019 [facility] Dependent edema Active Diagnosis 04/19/2016 [facility] UTI Active Diagnosis 01/15/2016 [facility] Pain passing urine Active Diagnosis 01/15/2016 [facility] Hordeolum externum of left upper eyelid Active Diagnosis 2016 [facility] Vaginitis Active Diagnosis 06/16/2016 [facility] Breast pain, right Active Diagnosis 11/28/2016 [facility] Medications Medication Details Route Status Patient Instructions Ordering Provider Order Date Source NIFEdipine ER 1 tablet on an empty stomach Orally Active 30 mg Orally Once a day [place] 10/25/2018 [facility] Zantac 1 tablet at bedtime Orally Active 300 MG Orally Once a day [place] 06/24/2018 [facility] Bactrim DS 1 tablet Orally Active 800-160 MG Orally Twice a day [place] 06/24/2018 [facility] Terazol 3 1 application at bedtime Vaginal Active 0.8 % Vaginal once every night for 3 nights [place] 02/25/2018 [facility] Flagyl 1 tablet Orally Active 500 mg Orally twice a day (bid) Ruben 02/25/2018 [facility] Potassium Chloride ER 1 tablet with food Orally Active 20 MEQ Orally Once a day [place] 09/25/2017 [facility] Ondansetron 4 MG Disintegrating Tablet 4 mg=1 tab, PO, TID, PRN Nausea / Vomiting, Dissolve tab under tongue, # 10 tab, 0 Refill(s) Active 06/09/2017 [facility] Potassium Chloride 40 mEq, 2 tab, Route: PO, Drug form: ERTAB, ONCE, Dosing Weight 52.727, kg, Priority: STAT, Start date: 06/09/17 13:58:00 CDT, Stop date: 06/09/17 13:58:00 CDTNotes: (Same as: K-Dur 20) "Do Not Crush" With food and full glass of water Inactive 06/09/2017 [facility] Ondansetron 4 mg, 2 mL, Route: IVP, Drug form: INJ, ONCE, Dosing Weight 52.727, kg, Priority: STAT, Start date: 06/09/17 13:58:00 CDT, Stop date: 06/09/17 13:58:00 CDTNotes: (Same as: Altaf) MEDICATION WASTE Product Size: 4 mg Product Wasted: ___ mg Inactive 06/09/2017 [facility] Potassium Chloride 10 mEq, Route: IVPB, ONCE, Dosing Weight 52.727, kg, Start date: 06/09/17 11:51:00 CDT, Stop date: 06/09/17 11:51:00 CDT Inactive 06/09/2017 [facility] Potassium Chloride 40 mEq, Route: PO, Drug form: ERTAB, ONCE, Dosing Weight 52.727, kg, Priority: STAT, Start date: 06/09/17 11:50:00 CDT, Stop date: 06/09/17 11:50:00 CDT Inactive 06/09/2017 [facility] Ondansetron 4 mg, Route: IVP, ONCE, Dosing Weight 52.727, kg, Priority: STAT, Start date: 06/09/17 11:03:00 CDT, Stop date: 06/09/17 11:03:00 CDT Inactive 06/09/2017 [facility] Saline Flush 0.9% 10 mL, Route: IVP, Drug Form: INJ, Dosing Weight 52.727, kg, PRN, PRN Line Flush, Start date: 06/09/17 11:03:00 CDT, Duration: 30 day, Stop date: 07/09/17 11:02:00 CDTNotes: preservative free. Inactive 06/09/2017 [facility] Sodium Chloride 0.9% (Bolus) IV 1,000 mL, 2,000 ml/hr, Infuse Over: 30 minutes, Route: IV, ONCE, Priority: STAT, Dosing Weight 52.727 kg, Start date: 06/09/17 11:03:00 CDT, Duration: 1 doses or times, Stop date: 06/09/17 11:03:00 CDT Inactive 06/09/2017 [facility] Hydrochlorothiazide 1 tablet Orally Active 50 MG Orally Once a day Ruben 02/19/2017 [facility] Ibuprofen 1 tablet Orally Active 800 MG Orally Q 8 PRN Jeyson 08/03/2016 [facility] TobraDex 1 application Ophthalmic Active 0.3-0.1 % Ophthalmic 2- 3 times daily PRN Marisol 08/03/2016 [facility] Hydrochlorothiazide 1 tablet Orally Active 50 mg Orally Once a day Ruben 04/17/2016 [facility] Cipro 1 tablet Orally Active 500 mg Orally Twice a day [place] 01/13/2016 [facility] Nasonex 2 sprays in each nostril Nasally Active 50 MCG/ACT Nasally Once a day Marisol 07/29/2013 [facility] Zolpidem Tartrate ER 1 tablet Orally Active 12.5 MG Orally qhs prn LAST REFILL, MUST SEE DOCTOR Bharath Bradley 04/23/2013 [facility] Zolpidem Tartrate ER 1 tablet Orally Active 12.5 MG Orally q hs prn Ruben 04/23/2013 [facility] Tramadol HCl 1 - 2 tablet Orally Active 50 mg Orally every 6 hrs Jeyson [facility] Tysabri 15 ml IV infusion Intravenous Active 300 MG/15ML Intravenous Once a month Jeyson [facility] Lorazepam 1 tablet as needed Orally Active 1 MG Orally Twice a day Jeyson [facility] Ditropan XL as directed Orally Active 15 MG Orally Jeyson [facility] Hydrochlorothiazide 1 tablet Orally Active 50 MG Orally Once a day Jeyson [facility] Ampyra 1 tablet Orally Active 10 MG Orally Twice a day Jeyson [facility] Nitrofurantoin 1 tablet Orally Active 50 MG Orally Once a day Jeyson [facility] Gabapentin 2 capsule Orally Active 300 MG Orally Q 8 Jeyson [facility] Tramadol HCl 1 - 2 tablet Orally Active 50 mg Orally every 6 hrs Ruben [facility] Nitrofurantoin 1 tablet Orally Active 50 MG Orally Once a day Ruben [facility] Ditropan XL as directed Orally Active 15 MG Orally Ruben [facility] Ampyra 1 tablet Orally Active 10 MG Orally Twice a day Ruben [facility] Lorazepam 1 tablet as needed Orally Active 1 MG Orally Twice a day Jeyson [facility] Gabapentin 2 capsule Orally Active 300 MG Orally Q 8 Ruben [facility] Tysabri 15 ml IV infusion Intravenous Active 300 MG/15ML Intravenous Once a month Ruben [facility] Potassium Chloride CR not defined Orally Active 20 MEQ Orally Ruben [facility] Gabapentin 2 capsule Orally Active 300 MG Orally three times a day (tid) Ruben [facility] Baclofen 1 tablet with food or milk Orally Active 10 mg Orally twice a day (bid) Ruben [facility] Hydrochlorothiazide 1 tablet Orally Active 50 MG Orally Once a day Ruben [facility] Gabapentin 2 capsule Orally Active 300 MG Orally three times a day (tid) Ruben [facility] Baclofen 1 tablet with food or milk Orally Active 10 mg Orally twice a day (bid) Ruben [facility] Hydrochlorothiazide 1 tablet orally Active 50 orally Once a day Ruben [facility] NIFEdipine ER 1 tablet on an empty stomach Orally Active 30 Orally Once a day Ruben [facility] Hydrochlorothiazide 1 capsule as needed Orally No Longer Active 12.5 Orally Once a day Ruben [facility] Gabapentin 2 capsule Orally Active 300 MG Orally Three times a day Marisol [facility] Hydrochlorothiazide 1 TABLET ONCE A DAY ORALLY 30 DAY(S) NA Active 50 mg Marisol [facility] Baclofen 10 Mg Tablet Twice A Day Active [facility] Dalfampridine (Ampyra) 10 Mg Tab.er.12h Every 12 Hours Active [facility] Gabapentin (Neurontin) 300 Mg Capsule Three Times A Day Active [facility] Hydrochlorothiazide 25 Mg Tablet Daily Active [facility] Natalizumab (Tysabri) 300 Mg/15 Ml Vial Mthly Active [facility] Nitrofurantoin Macrocrystal (Nitrofurantoin) 100 Mg Capsule Daily Active [facility] Oxybutynin Chloride (Ditropan Xl) 5 Mg Tab.er.24 Twice A Day Active [facility] Potassium Chloride 20 Meq Tab.er.prt Daily Active [facility] Tramadol Hcl (Ultram) 50 Mg Tablet As Needed Active [facility] Allergies, Adverse Reactions, Alerts Substance Category Reaction Severity Reaction type Status Date Reported Comments Source Diflucan Adverse Reaction Info Not Available Adverse Reaction Active 04/21/2019 [facility] Immunizations No Data Provided for This Section Results Order Name Results Value Reference Range Date Interpretation Comments Source Automated blood basophil count (count/volume) Automated blood basophil count (count/volume) 0.1 0.0 - 0.1 08/17/2018 [facility] Automated blood basophil count as percentage of total leukocytes Automated blood basophil count as percentage of total leukocytes 0.4 0.0 - 1.0 08/17/2018 [facility] Automated blood eosinophil count Automated blood eosinophil count 0.1 0.0 - 0.4 08/17/2018 [facility] Automated blood eosinophil count as percentage of total leukocytes Automated blood eosinophil count as percentage of total leukocytes 1.0 0.0 - 6.0 08/17/2018 [facility] Automated blood hematocrit (volume fraction) Automated blood hematocrit (volume fraction) 39.9 34.2 - 44.1 08/17/2018 [facility] Automated blood lymphocyte count as percentage ot total leukocytes Automated blood lymphocyte count as percentage ot total leukocytes 30.7 18.0 - 39.1 08/17/2018 [facility] Automated blood monocyte count as percentage of total leukocytes Automated blood monocyte count as percentage of total leukocytes 12.7 4.4 - 11.3 08/17/2018 [facility] Automated blood neutrophil count Automated blood neutrophil count 7.2 2.1 - 6.9 08/17/2018 [facility] Automated blood platelet count (count/volume) Automated blood platelet count (count/volume) 314 140 - 360 08/17/2018 [facility] Automated blood segmented neutrophil count as percentage of total leukocytes Automated blood segmented neutrophil count as percentage of total leukocytes 54.8 38.7 - 80.0 08/17/2018 [facility] Automated erythrocyte mean corpuscular hemoglobin (mass per erythrocyte) Automated erythrocyte mean corpuscular hemoglobin (mass per erythrocyte) 27.9 28 - 32 08/17/2018 [facility] Automated erythrocyte mean corpuscular hemoglobin concentration measurement (mass/volume) Automated erythrocyte mean corpuscular hemoglobin concentration measurement (mass/volume) 32.8 31 - 35 08/17/2018 [facility] Automated erythrocyte mean corpuscular volume Automated erythrocyte mean corpuscular volume 85.1 81 - 99 08/17/2018 [facility] Blood anisocytosis detection by light microscopy Blood anisocytosis detection by light microscopy SLIGHT 08/17/2018 [facility] Blood erythrocytes automated count (number/volume) Blood erythrocytes automated count (number/volume) 4.69 3.6 - 5.1 08/17/2018 [facility] Blood hemoglobin measurement (moles/volume) Blood hemoglobin measurement (moles/volume) 13.1 12.0 - 16.0 08/17/2018 [facility] Blood leukocytes automated count (number/volume) Blood leukocytes automated count (number/volume) 13.11 4.8 - 10.8 08/17/2018 [facility] Blood lymphocytes count (number/volume) Blood lymphocytes count (number/volume) 4.0 1.0 - 3.2 08/17/2018 [facility] Blood lymphocytes variant count (number/volume) Blood lymphocytes variant count (number/volume) 2 08/17/2018 [facility] Blood monocytes automated count (number/volume) Blood monocytes automated count (number/volume) 1.7 0.2 - 0.8 08/17/2018 [facility] Blood nucleated erythrocytes count (number/volume) Blood nucleated erythrocytes count (number/volume) 2 08/17/2018 [facility] Blood platelets count by estimate (number/volume) Blood platelets count by estimate (number/volume) ADEQUATE 08/17/2018 [facility] Estimated glomerular filtration rate (GFR) determination Estimated glomerular filtration rate (GFR) determination >60 60 08/17/2018 [facility] Glucose measurement Glucose measurement 79 74 - 118 08/17/2018 [facility] Manual blood lymphocytes/100 leukocytes Manual blood lymphocytes/100 leukocytes 25 19 - 48 08/17/2018 [facility] Manual blood monocytes/100 leukocytes Manual blood monocytes/100 leukocytes 14 3.4 - 9.0 08/17/2018 [facility] Manual blood neutrophils/100 leukocytes Manual blood neutrophils/100 leukocytes 59 40 - 74 08/17/2018 [facility] Plasma globulin measurement (mass/volume) Plasma globulin measurement (mass/volume) 3.1 2.3 - 3.5 08/17/2018 [facility] Platelet morphology Platelet morphology NORMAL 08/17/2018 [facility] RBC morphology RBC morphology ABNORMAL 08/17/2018 [facility] Serum or plasma alanine aminotransferase measurement (enzymatic activity/volume) Serum or plasma alanine aminotransferase measurement (enzymatic activity/volume) 37 0 - 55 08/17/2018 [facility] Serum or plasma albumin measurement (mass/volume) Serum or plasma albumin measurement (mass/volume) 4.4 3.5 - 5.0 08/17/2018 [facility] Serum or plasma albumin/globulin mass ratio Serum or plasma albumin/globulin mass ratio 1.4 0.8 - 2.0 08/17/2018 [facility] Serum or plasma alkaline phosphatase measurement (enzymatic activity/volume) Serum or plasma alkaline phosphatase measurement (enzymatic activity/volume) 60 40 - 150 08/17/2018 [facility] Serum or plasma anion gap Serum or plasma anion gap 16.8 8 - 16 08/17/2018 [facility] Serum or plasma calcium measurement (mass/volume) Serum or plasma calcium measurement (mass/volume) 9.8 8.4 - 10.2 08/17/2018 [facility] Serum or plasma carbon dioxide, total measurement (moles/volume) Serum or plasma carbon dioxide, total measurement (moles/volume) 27 22 - 29 08/17/2018 [facility] Serum or plasma chloride measurement (moles/volume) Serum or plasma chloride measurement (moles/volume) 99 98 - 107 08/17/2018 [facility] Serum or plasma creatinine measurement (mass/volume) Serum or plasma creatinine measurement (mass/volume) 0.74 0.57 - 1.11 08/17/2018 [facility] Serum or plasma potassium measurement (moles/volume) Serum or plasma potassium measurement (moles/volume) 2.8 3.5 - 5.1 08/17/2018 [facility] Serum or plasma protein measurement (mass/volume) Serum or plasma protein measurement (mass/volume) 7.5 6.5 - 8.1 08/17/2018 [facility] Serum or plasma sodium measurement (moles/volume) Serum or plasma sodium measurement (moles/volume) 140 136 - 145 08/17/2018 [facility] Serum or plasma total bilirubin measurement (mass/volume) Serum or plasma total bilirubin measurement (mass/volume) 0.4 0.2 - 1.2 08/17/2018 [facility] Serum or plasma urea nitrogen measurement (mass/volume) Serum or plasma urea nitrogen measurement (mass/volume) 20 7 - 26 08/17/2018 [facility] Serum or plasma urea nitrogen/creatinine mass ratio Serum or plasma urea nitrogen/creatinine mass ratio 27 6 - 25 08/17/2018 [facility] Red Cell Distribution Width 14.3 11.7 - 14.4 08/17/2018 [facility] IM GRANULOCYTES % 0.4 0.0 - 1.0 08/17/2018 [facility] Absolute Immature Granulocyte (auto 0.05 0 - 0.1 08/17/2018 [facility] Differential Total Cells Counted 100 08/17/2018 [facility] Lactic Acid Level 8.6 4.5 - 19.8 08/17/2018 [facility] Aspartate Amino Transf (AST/SGOT) 24 5 - 34 08/17/2018 [facility] Automated urine sediment leukocyte count by microscopy (number/high power field) Automated urine sediment leukocyte count by microscopy (number/high power field) >50 0 - 5 08/17/2018 [facility] Bacteria detection in urine sediment by light microscopy Bacteria detection in urine sediment by light microscopy MODERATE NONE 08/17/2018 [facility] Epithelial cells detection in urine sediment by light microscopy Epithelial cells detection in urine sediment by light microscopy FEW NONE 08/17/2018 [facility] Erythrocytes detection in urine sediment by light microscopy Erythrocytes detection in urine sediment by light microscopy <5 0 - 5 08/17/2018 [facility] Specific gravity of Urine by Test strip Specific gravity of Urine by Test strip 1.015 1.010 - 1.025 08/17/2018 [facility] Urine clarity Urine clarity SL CLOUDY CLEAR 08/17/2018 [facility] Urine color determination Urine color determination YELLOW YELLOW 08/17/2018 [facility] Urine erythrocytes detection Urine erythrocytes detection 2+ NEGATIVE 08/17/2018 [facility] Urine glucose detection Urine glucose detection NEGATIVE NEGATIVE 08/17/2018 [facility] Urine human chorionic gonadotropin (hCG) detection Urine human chorionic gonadotropin (hCG) detection NEGATIVE NEGATIVE 08/17/2018 [facility] Urine ketones detection by automated test strip Urine ketones detection by automated test strip TRACE NEGATIVE 08/17/2018 [facility] Urine leukocyte esterase detection by dipstick Urine leukocyte esterase detection by dipstick 2+ NEGATIVE 08/17/2018 [facility] Urine nitrite detection Urine nitrite detection POSITIVE NEGATIVE 08/17/2018 [facility] Urine pH measurement by automated test strip Urine pH measurement by automated test strip 6.5 5 - 7 08/17/2018 [facility] Urine protein measurement by test strip (mass/volume) Urine protein measurement by test strip (mass/volume) 1+ NEGATIVE 08/17/2018 [facility] Urine total bilirubin measurement (mass/volume) Urine total bilirubin measurement (mass/volume) NEGATIVE NEGATIVE 08/17/2018 [facility] Urine urobilinogen measurement by test strip (mass/volume) Urine urobilinogen measurement by test strip (mass/volume) 0.2 0.2 - 1 08/17/2018 [facility] Serum or plasma choriogonadotropin ( test) detection Serum or plasma choriogonadotropin ( test) detection NEGATIVE NEGATIVE 03/12/2018 [facility] ELECTROLYTES Potassium Lvl 3.2 3.5 - 5.1 06/09/2017 [facility] CHEM PANEL Alk Phos 118 39 - 136 06/09/2017 [facility] CHEM PANEL AST 18 0 - 37 06/09/2017 [facility] CHEM PANEL Bili Total 0.5 0.2 - 1.3 06/09/2017 [facility] CHEM PANEL ALT 31 0 - 65 06/09/2017 [facility] CHEM PANEL A/G Ratio 1.3 0.7 - 1.6 06/09/2017 [facility] CHEM PANEL Globulin 3.3 2.7 - 4.2 06/09/2017 [facility] CHEM PANEL Albumin Lvl 4.2 3.5 - 5.0 06/09/2017 [facility] CHEM PANEL B/C Ratio 15 6 - 25 06/09/2017 [facility] CHEM PANEL Total Protein 7.5 6.4 - 8.4 06/09/2017 [facility] CHEM PANEL eGFR 111 06/09/2017 Result Comment: The eGFR is calculated [...] should be multiplied by the estimated BMI. [facility] CHEM PANEL Calcium Lvl 9.0 8.5 - 10.5 06/09/2017 [facility] CHEM PANEL AGAP 10.5 10.0 - 20.0 06/09/2017 [facility] CHEM PANEL CO2 32 24 - 32 06/09/2017 [facility] CHEM PANEL Potassium Lvl 2.5 3.5 - 5.1 06/09/2017 Result Comment: Critical Result(s) called to BOBBY at _06/09/2017 11:42 by [facility]_. Read back OK. [facility] CHEM PANEL Chloride Lvl 97 95 - 109 06/09/2017 [facility] CHEM PANEL Sodium Lvl 137 135 - 145 06/09/2017 [facility] CHEM PANEL Creatinine Lvl 0.67 0.50 - 1.40 06/09/2017 [facility] CHEM PANEL BUN 10 7 - 22 06/09/2017 [facility] CHEM PANEL Glucose Lvl 84 70 - 99 06/09/2017 [facility] CHEM PANEL Lipase Lvl 152 73 - 393 06/09/2017 [facility] CHEM PANEL Amylase Lvl 22 25 - 115 06/09/2017 [facility] HEMATOLOGY Platelet 252 133 - 450 06/09/2017 [facility] HEMATOLOGY Hgb 13.2 12.0 - 16.0 06/09/2017 [facility] HEMATOLOGY MCH 27.6 27.0 - 31.0 06/09/2017 [facility] HEMATOLOGY MCV 83.2 80.0 - 98.0 06/09/2017 [facility] HEMATOLOGY Hct 39.8 36.0 - 48.0 06/09/2017 [facility] HEMATOLOGY RBC 4.79 4.20 - 5.40 06/09/2017 [facility] HEMATOLOGY WBC 9.2 3.7 - 10.4 06/09/2017 [facility] HEMATOLOGY RDW 13.9 11.5 - 14.5 06/09/2017 [facility] MCHC 33.2 32.0 - 36.0 06/09/2017 [facility] HEMATOLOGY MPV 9.2 7.4 - 10.4 06/09/2017 [facility] HEMATOLOGY Basophils # 0.1 0.0 - 0.2 06/09/2017 [facility] HEMATOLOGY Basophils 1.2 0.0 - 1.0 06/09/2017 [facility] HEMATOLOGY Eosinophils 0.8 0.0 - 4.0 06/09/2017 [facility] HEMATOLOGY Monocytes 9.4 2.0 - 12.0 06/09/2017 [facility] HEMATOLOGY Lymphocytes 35.2 20.0 - 40.0 06/09/2017 [facility] HEMATOLOGY Segs-Bands # 4.9 1.5 - 8.1 06/09/2017 [facility] HEMATOLOGY Segs 53.4 45.0 - 75.0 06/09/2017 [facility] HEMATOLOGY Eosinophils # 0.1 0.0 - 0.5 06/09/2017 [facility] HEMATOLOGY Monocytes # 0.9 0.0 - 0.8 06/09/2017 [facility] HEMATOLOGY Lymphocytes # 3.2 1.0 - 5.5 06/09/2017 [facility] URINE AND STOOL UA Urobilinogen <=1.0 mg/dL 0.1 - 1.0 06/09/2017 [facility] URINE AND STOOL UA Bacteria Moderate /HPF None Seen /HPF 06/09/2017 [facility] URINE AND STOOL UA WBC 2 0 - 5 06/09/2017 [facility] URINE AND STOOL UA Color Yellow *NA* (06/09/17 11:08 AM) Yellow 06/09/2017 [facility] URINE AND STOOL UA Protein Negative mg/dL Negative mg/dL 06/09/2017 [facility] URINE AND STOOL UA Glucose Negative mg/dL Negative mg/dL 06/09/2017 [facility] URINE AND STOOL UA pH 7.0 5.0 - 8.0 06/09/2017 [facility] URINE AND STOOL UA Spec Grav 1.009 <=1.030 06/09/2017 [facility] URINE AND STOOL UA Turbidity Clear (06/09/17 11:08 AM) Clear 06/09/2017 [facility] URINE AND STOOL UA Sq Epi Few /LPF Few /LPF 06/09/2017 [facility] URINE AND STOOL UA Leuk Est Trace *ABN* (06/09/17 11:08 AM) Negative 06/09/2017 [facility] URINE AND STOOL UA Nitrite Negative (06/09/17 11:08 AM) Negative 06/09/2017 [facility] URINE AND STOOL UA Blood Negative (06/09/17 11:08 AM) Negative 06/09/2017 [facility] URINE AND STOOL UA Bili Negative *NA* (06/09/17 11:08 AM) Negative 06/09/2017 [facility] URINE AND STOOL UA Ketones 20 mg/dL Negative mg/dL 06/09/2017 [facility] URINE CHEM U Preg Negative (06/09/17 11:08 AM) Negative 06/09/2017 [facility] Pathology Reports No Data Provided for This Section Diagnostic Reports No Data Provided for This Section Consultation Notes No Data Provided for This Section Discharge Summaries No Data Provided for This Section History and Physicals No Data Provided for This Section Vital Signs Vital Sign Value Date Comments Source Weight 122 04/21/2019 [facility] Height 60 04/21/2019 [facility] Heart Rate 72 04/21/2019 [facility] Diastolic (mm Hg) 74 04/21/2019 [facility] Systolic (mm Hg) 110 04/21/2019 [facility] Weight 121 10/25/2018 [facility] Height 60 10/25/2018 [facility] Heart [facility] Systolic (mm Hg) 90 09/25/2017 [facility] Systolic (mm Hg) 101 06/09/2017 [facility] Diastolic (mm Hg) 72 06/09/2017 [facility] Temperature Oral (F) 98 F 06/09/2017 [facility] Respitory Rate 13 06/09/2017 [facility] Systolic (mm Hg) 109 06/09/2017 [facility] Diastolic (mm Hg) 71 06/09/2017 [facility] Respitory Rate 12 06/09/2017 [facility] Temperature Oral (F) 97.8 F 06/09/2017 [facility] Height 154.94 cm 06/09/2017 [facility] Heart Rate 69 06/09/2017 [facility] Temperature Oral (F) 98 F 06/09/2017 [facility] Respitory Rate 18 06/09/2017 [facility] Systolic (mm Hg) 123 06/09/2017 [facility] Diastolic (mm Hg) 81 06/09/2017 [facility] Weight 52.727 06/09/2017 [facility] BMI Calculated 21.96 06/09/2017 [facility] Weight 118 02/08/2017 [facility] Height 60 02/08/2017 [facility] Heart Rate 78 02/08/2017 [facility] Diastolic (mm Hg) 70 02/08/2017 [facility] Systolic (mm Hg) 100 02/08/2017 [facility] Weight 118 10/26/2016 [facility] Height 60 10/26/2016 [facility] Heart Rate 68 10/26/2016 [facility] Diastolic (mm Hg) 70 10/26/2016 [facility] Systolic (mm Hg) 102 10/26/2016 [facility] Weight 115 08/03/2016 [facility] Height 60 08/03/2016 [facility] Diastolic (mm Hg) 68 08/03/2016 [facility] Systolic (mm Hg) 100 08/03/2016 [facility] Weight 117 06/13/2016 [facility] Height 60 06/13/2016 [facility] Diastolic (mm Hg) 70 06/13/2016 [facility] Systolic (mm Hg) 108 06/13/2016 [facility] Weight 112 01/13/2016 [facility] Height 60 01/13/2016 [facility] Temperature Oral (F) 98.3 F 01/13/2016 [facility] Diastolic (mm Hg) 68 01/13/2016 [facility] Systolic (mm Hg) 100 01/13/2016 [facility] Encounters Location Location Details Encounter Type Encounter Number Reason For Visit Attending Provider ADM Date DC Date Status Source [facility] Unknown [id number] 07/29/2013 07/29/2013 [facility] Unknown [id number] 07/29/2013 07/29/2013 [facility] Unknown [id number] 07/29/2013 07/29/2013 [facility] Unknown [id number] 07/29/2013 07/29/2013 [facility] Unknown [id number] 07/29/2013 07/29/2013 [facility] Unknown [id number] 07/29/2013 07/29/2013 [facility] Unknown [id number] 07/29/2013 07/29/2013 [facility] Unknown [id number] 07/29/2013 07/29/2013 [facility] Unknown [id number] 07/29/2013 07/29/2013 [facility] Unknown [id number] 07/29/2013 07/29/2013 [facility] Unknown [id number] 07/29/2013 07/29/2013 [facility] Unknown [id number] 07/29/2013 07/29/2013 [facility] Results [id number] 08/08/2013 08/08/2013 [facility] Results [id number] 08/08/2013 08/08/2013 [facility] Results [id number] 08/08/2013 08/08/2013 [facility] Results [id number] 08/08/2013 08/08/2013 [facility] Results [id number] 08/08/2013 08/08/2013 [facility] Results [id number] 08/08/2013 08/08/2013 [facility] Results [id number] 08/08/2013 08/08/2013 [facility] Results [id number] 08/08/2013 08/08/2013 [facility] Results [id number] 08/08/2013 08/08/2013 [facility] Results [id number] 08/08/2013 08/08/2013 [facility] Results [id number] 08/08/2013 08/08/2013 [facility] Results [id number] 08/08/2013 08/08/2013 [facility] Refill [id number] 08/19/2013 08/19/2013 [facility] Refill [id number] 08/19/2013 08/19/2013 [facility] Refill [id number] 08/19/2013 08/19/2013 [facility] Refill [id number] 08/19/2013 08/19/2013 [facility] Refill [id number] 08/19/2013 08/19/2013 [facility] Refill [id number] 08/19/2013 08/19/2013 [facility] Refill [id number] 08/19/2013 08/19/2013 [facility] Refill [id number] 08/19/2013 08/19/2013 [facility] Refill [id number] 08/19/2013 08/19/2013 [facility] Refill [id number] 08/19/2013 08/19/2013 [facility] Refill [id number] 08/19/2013 08/19/2013 [facility] Refill [id number] 08/19/2013 08/19/2013 [facility] Unknown [id number] 10/27/2013 10/27/2013 [facility] Unknown [id number] 10/27/2013 10/27/2013 [facility] Unknown [id number] 10/27/2013 10/27/2013 [facility] Unknown [id number] 10/27/2013 10/27/2013 [facility] Unknown [id number] 10/27/2013 10/27/2013 [facility] Unknown [id number] 10/27/2013 10/27/2013 [facility] Unknown [id number] 10/27/2013 10/27/2013 [facility] Unknown [id number] 10/27/2013 10/27/2013 [facility] Unknown [id number] 10/27/2013 10/27/2013 [facility] Unknown [id number] 10/27/2013 10/27/2013 [facility] Unknown [id number] 10/27/2013 10/27/2013 [facility] Unknown [id number] 10/27/2013 10/27/2013 [facility] yasmin kay [id number] 10/28/2013 10/28/2013 [facility] shingles outbreak [id number] 10/28/2013 10/28/2013 [facility] shingles outbreak [id number] 10/28/2013 10/28/2013 [facility] shingles outbreak [id number] 10/28/2013 10/28/2013 [facility] shingles outbreak [id number] 10/28/2013 10/28/2013 [facility] shingles outbreak [id number] 10/28/2013 10/28/2013 [facility] shingles outbreak [id number] 10/28/2013 10/28/2013 [facility] shingles outbreak [id number] 10/28/2013 10/28/2013 [facility] shingles outbreak [id number] 10/28/2013 10/28/2013 [facility] shingles outbreak [id number] 10/28/2013 10/28/2013 [facility] shingles outbreak [id number] 10/28/2013 10/28/2013 [facility] yasmin kay [id number] 10/28/2013 10/28/2013 [facility] Shinjude [id number] 10/31/2013 10/31/2013 [facility] Shinjude [id number] 10/31/2013 10/31/2013 [facility] Yasmin [id number] 10/31/2013 10/31/2013 [facility] Yasmin [id number] 10/31/2013 10/31/2013 [facility] Shinjude [id number] 10/31/2013 10/31/2013 [facility] [place] [id number] 10/31/2013 10/31/2013 [facility] Sh[place] [id number] 10/31/2013 10/31/2013 [facility] Sh[place]ude [id number] 10/31/2013 10/31/2013 [facility] [place] [id number] 10/31/2013 10/31/2013 [facility] Yasmin [id number] 10/31/2013 10/31/2013 [facility] Yasmin [id number] 10/31/2013 10/31/2013 [facility] Yasmin [id number] 10/31/2013 10/31/2013 [facility] Return to work note [id number] 11/03/2013 11/03/2013 [facility] Return to work note [id number] 11/03/2013 11/03/2013 [facility] Return to work note [id number] 11/03/2013 11/03/2013 [facility] Return to work note [id number] 11/03/2013 11/03/2013 [facility] Return to work note [id number] 11/03/2013 11/03/2013 [facility] Return to work note [id number] 11/03/2013 11/03/2013 [facility] Return to work note [id number] 11/03/2013 11/03/2013 [facility] Return to work note [id number] 11/03/2013 11/03/2013 [facility] Return to work note [id number] 11/03/2013 11/03/2013 [facility] Return to work note [id number] 11/03/2013 11/03/2013 [facility] Return to work note [id number] 11/03/2013 11/03/2013 [facility] Return to work note [id number] 11/03/2013 11/03/2013 [facility] Unknown [id number] 11/04/2013 11/04/2013 [facility] Unknown [id number] 11/04/2013 11/04/2013 [facility] Unknown [id number] 11/04/2013 11/04/2013 [facility] Unknown [id number] 11/04/2013 11/04/2013 [facility] Unknown [id number] 11/04/2013 11/04/2013 [facility] Unknown [id number] 11/04/2013 11/04/2013 [facility] Unknown [id number] 11/04/2013 11/04/2013 [facility] Unknown [id number] 11/04/2013 11/04/2013 [facility] Unknown [id number] 11/04/2013 11/04/2013 [facility] Unknown [id number] 11/04/2013 11/04/2013 [facility] Unknown [id number] 11/04/2013 11/04/2013 [facility] Unknown [id number] 11/04/2013 11/04/2013 [facility] Unknown [id number] 11/12/2013 11/12/2013 [facility] Unknown [id number] 11/12/2013 11/12/2013 [facility] Unknown [id number] 11/12/2013 11/12/2013 [facility] Unknown [id number] 11/12/2013 11/12/2013 [facility] Unknown [id number] 11/12/2013 11/12/2013 [facility] Unknown [id number] 11/12/2013 11/12/2013 [facility] Unknown [id number] 11/12/2013 11/12/2013 [facility] Unknown [id number] 11/12/2013 11/12/2013 [facility] Unknown [id number] 11/12/2013 11/12/2013 [facility] Unknown [id number] 11/12/2013 11/12/2013 [facility] Unknown [id number] 11/12/2013 11/12/2013 [facility] Unknown [id number] 11/12/2013 11/12/2013 [facility] REFILL [id number] 12/17/2013 12/17/2013 [facility] [facility] REFILL [id number] 12/17/2013 12/17/2013 [facility] REFILL [id number] 12/17/2013 12/17/2013 [facility] REFILL [id number] 12/17/2013 12/17/2013 [facility] REFILL [id number] 12/17/2013 12/17/2013 [facility] REFILL [id number] 12/17/2013 12/17/2013 [facility] REFILL [id number] 12/17/2013 12/17/2013 [facility] REFILL [id number] 12/17/2013 12/17/2013 [facility] REFILL [id number] 12/17/2013 12/17/2013 [facility] REFILL [id number] 12/17/2013 12/17/2013 [facility] REFILL [id number] 12/17/2013 12/17/2013 [facility] REFILL [id number] 12/17/2013 12/17/2013 [facility] Refill [id number] 01/14/2014 01/14/2014 [facility] Refill [id number] 01/14/2014 01/14/2014 [facility] Refill [id number] 01/14/2014 01/14/2014 [facility] Refill [id number] 01/14/2014 01/14/2014 [facility] Refill [id number] 01/14/2014 01/14/2014 [facility] Refill [id number] 01/14/2014 01/14/2014 [facility] Refill [id number] 01/14/2014 01/14/2014 [facility] Refill [id number] 01/14/2014 01/14/2014 [facility] Refill [id number] 01/14/2014 01/14/2014 [facility] Refill [id number] 01/14/2014 01/14/2014 [facility] Refill [id number] 01/14/2014 01/14/2014 [facility] Refill [id number] 01/14/2014 01/14/2014 [facility] Refill [id number] 02/11/2014 02/11/2014 [facility] Refill [id number] 02/11/2014 02/11/2014 [facility] Refill [id number] 02/11/2014 02/11/2014 [facility] Refill [id number] 02/11/2014 02/11/2014 [facility] Refill [id number] 02/11/2014 02/11/2014 [facility] Refill [id number] 02/11/2014 02/11/2014 [facility] Refill [id number] 02/11/2014 02/11/2014 [facility] Refill [id number] 02/11/2014 02/11/2014 [facility] Refill [id number] 02/11/2014 02/11/2014 [facility] Refill [id number] 02/11/2014 02/11/2014 [facility] Refill [id number] 02/11/2014 02/11/2014 [facility] Refill [id number] 02/11/2014 02/11/2014 [facility] RIGHT HAND NUMB/RASH [id number] 02/19/2014 02/19/2014 [facility] RIGHT HAND NUMB/RASH [id number] 02/19/2014 02/19/2014 [facility] RIGHT HAND NUMB/RASH [id number] 02/19/2014 02/19/2014 [facility] RIGHT HAND NUMB/RASH [id number] 02/19/2014 02/19/2014 [facility] RIGHT HAND NUMB/RASH [id number] 02/19/2014 02/19/2014 [facility] RIGHT HAND NUMB/RASH [id number] 02/19/2014 02/19/2014 [facility] RIGHT HAND NUMB/RASH [id number] 02/19/2014 02/19/2014 [facility] RIGHT HAND NUMB/RASH [id number] 02/19/2014 02/19/2014 [facility] RIGHT HAND NUMB/RASH [id number] 02/19/2014 02/19/2014 [facility] RIGHT HAND NUMB/RASH [id number] 02/19/2014 02/19/2014 [facility] RIGHT HAND NUMB/RASH [id number] 02/19/2014 02/19/2014 [facility] RIGHT HAND NUMB/RASH [id number] 02/19/2014 02/19/2014 [facility] REFILL [id number] 03/10/2014 03/10/2014 [facility] REFILL [id number] 03/10/2014 03/10/2014 [facility] REFILL [id number] 03/10/2014 03/10/2014 [facility] REFILL [id number] 03/10/2014 03/10/2014 [facility] REFILL [id number] 03/10/2014 03/10/2014 [facility] REFILL [id number] 03/10/2014 03/10/2014 [facility] REFILL [id number] 03/10/2014 03/10/2014 [facility] REFILL [id number] 03/10/2014 03/10/2014 [facility] REFILL [id number] 03/10/2014 03/10/2014 [facility] REFILL [id number] 03/10/2014 03/10/2014 [facility] REFILL [id number] 03/10/2014 03/10/2014 [facility] REFILL [id number] 03/10/2014 03/10/2014 [facility] Refill [id number] 04/03/2014 04/03/2014 [facility] Refill [id number] 04/03/2014 04/03/2014 [facility] Refill [id number] 04/03/2014 04/03/2014 [facility] Refill [id number] 04/03/2014 04/03/2014 [facility] Refill [id number] 04/03/2014 04/03/2014 [facility] Refill [id number] 04/03/2014 04/03/2014 [facility] Refill [id number] 04/03/2014 04/03/2014 [facility] Refill [id number] 04/03/2014 04/03/2014 [facility] Refill [id number] 04/03/2014 04/03/2014 [facility] Refill [id number] 04/03/2014 04/03/2014 [facility] Refill [id number] 04/03/2014 04/03/2014 [facility] Refill [id number] 04/03/2014 04/03/2014 [facility] Unknown [id number] 04/06/2014 04/06/2014 [facility] Unknown [id number] 04/06/2014 04/06/2014 [facility] Unknown [id number] 04/06/2014 04/06/2014 [facility] Unknown [id number] 04/06/2014 04/06/2014 [facility] Unknown [id number] 04/06/2014 04/06/2014 [facility] Unknown [id number] 04/06/2014 04/06/2014 [facility] Unknown [id number] 04/06/2014 04/06/2014 [facility] Unknown [id number] 04/06/2014 04/06/2014 [facility] Unknown [id number] 04/06/2014 04/06/2014 [facility] Unknown [id number] 04/06/2014 04/06/2014 [facility] Unknown [id number] 04/06/2014 04/06/2014 [facility] Unknown [id number] 04/06/2014 04/06/2014 [facility] REFILL [id number] 04/09/2014 04/09/2014 [facility] REFILL [id number] 04/09/2014 04/09/2014 [facility] REFILL [id number] 04/09/2014 04/09/2014 [facility] REFILL [id number] 04/09/2014 04/09/2014 [facility] REFILL [id number] 04/09/2014 04/09/2014 [facility] REFILL [id number] 04/09/2014 04/09/2014 [facility] REFILL [id number] 04/09/2014 04/09/2014 [facility] REFILL [id number] 04/09/2014 04/09/2014 [facility] REFILL [id number] 04/09/2014 04/09/2014 [facility] REFILL [id number] 04/09/2014 04/09/2014 [facility] REFILL [id number] 04/09/2014 04/09/2014 [facility] REFILL [id number] 04/09/2014 04/09/2014 [facility] refill [id number] 05/11/2014 05/11/2014 [facility] refill [id number] 05/11/2014 05/11/2014 [facility] refill [id number] 05/11/2014 05/11/2014 [facility] refill [id number] 05/11/2014 05/11/2014 [facility] refill [id number] 05/11/2014 05/11/2014 [facility] refill [id number] 05/11/2014 05/11/2014 [facility] refill [id number] 05/11/2014 05/11/2014 [facility] refill [id number] 05/11/2014 05/11/2014 [facility] refill [id number] 05/11/2014 05/11/2014 [facility] refill [id number] 05/11/2014 05/11/2014 [facility] refill [id number] 05/11/2014 05/11/2014 [facility] refill [id number] 05/11/2014 05/11/2014 [facility] lt eye pain [id number] 05/26/2014 05/26/2014 [facility] lt eye pain [id number] 05/26/2014 05/26/2014 [facility] lt eye pain [id number] 05/26/2014 05/26/2014 [facility] eye pain [id number] 05/26/2014 05/26/2014 [facility] lt eye pain [id number] 05/26/2014 05/26/2014 [facility] lt eye pain [id number] 05/26/2014 05/26/2014 [facility] pain [id number] 05/26/2014 05/26/2014 [facility] eye pain [id number] 05/26/2014 05/26/2014 [facility] eye pain [id number] 05/26/2014 05/26/2014 [facility] lt eye pain [id number] 05/26/2014 05/26/2014 [facility] lt eye pain [id number] 05/26/2014 05/26/2014 [facility] lt eye pain [id number] 05/26/2014 05/26/2014 [facility] Refill [id number] 06/05/2014 06/05/2014 [facility] Refill [id number] 06/05/2014 06/05/2014 [facility] Refill [id number] 06/05/2014 06/05/2014 [facility] Refill [id number] 06/05/2014 06/05/2014 [facility] Refill [id number] 06/05/2014 06/05/2014 [facility] Refill [id number] 06/05/2014 06/05/2014 [facility] Refill [id number] 06/05/2014 06/05/2014 [facility] Refill [id number] 06/05/2014 06/05/2014 [facility] Refill [id number] 06/05/2014 06/05/2014 [facility] Refill [id number] 06/05/2014 06/05/2014 [facility] Refill [id number] 06/05/2014 06/05/2014 [facility] Refill [id number] 06/05/2014 06/05/2014 [facility] Unknown [id number] 07/06/2014 07/06/2014 [facility] Unknown [id number] 07/06/2014 07/06/2014 [facility] Unknown [id number] 07/06/2014 07/06/2014 [facility] Unknown [id number] 07/06/2014 07/06/2014 [facility] Unknown [id number] 07/06/2014 07/06/2014 [facility] Unknown [id number] 07/06/2014 07/06/2014 [facility] Unknown [id number] 07/06/2014 07/06/2014 [facility] Unknown [id number] 07/07/2014 07/07/2014 [facility] Unknown [id number] 07/07/2014 07/07/2014 [facility] Unknown [id number] 07/07/2014 07/07/2014 [facility] Unknown [id number] 07/07/2014 07/07/2014 [facility] [facility] Unknown [id number] 07/07/2014 07/07/2014 [facility] Refill [id number] 11/03/2014 11/03/2014 [facility] Refill [id number] 11/03/2014 11/03/2014 [facility] Refill [id number] 11/03/2014 11/03/2014 [facility] Refill [id number] 11/03/2014 11/03/2014 [facility] Refill [id number] 11/03/2014 11/03/2014 [facility] Refill [id number] 11/03/2014 11/03/2014 [facility] Refill [id number] 11/03/2014 11/03/2014 [facility] Refill [id number] 11/03/2014 11/03/2014 [facility] Refill [id number] 11/03/2014 11/03/2014 [facility] Refill [id number] 11/03/2014 11/03/2014 [facility] Refill [id number] 11/03/2014 11/03/2014 [facility] Refill [id number] 11/03/2014 11/03/2014 [facility] [place] [facility] [id number] Zoya Paidlla 03/25/2015 04/24/2015 [facility] legs [id number] 04/09/2015 04/09/2015 [facility] legs [id number] 04/09/2015 04/09/2015 [facility] legs [id number] 04/09/2015 04/09/2015 [facility] legs [id number] 04/09/2015 04/09/2015 [facility] legs [id number] 04/09/2015 04/09/2015 [facility] legs [id number] 04/09/2015 04/09/2015 [facility] legs [id number] 04/09/2015 04/09/2015 [facility] legs [id number] 04/09/2015 04/09/2015 [facility] legs [id number] 04/09/2015 04/09/2015 [facility] legs [id number] 04/09/2015 04/09/2015 [facility] legs [id number] 04/09/2015 04/09/2015 [facility] legs [id number] 04/09/2015 04/09/2015 [facility] Unknown [id number] 04/30/2015 04/30/2015 [facility] Unknown [id number] 04/30/2015 04/30/2015 [facility] Unknown [id number] 04/30/2015 04/30/2015 [facility] Unknown [id number] 04/30/2015 04/30/2015 [facility] Unknown [id number] 04/30/2015 04/30/2015 [facility] Unknown [id number] 04/30/2015 04/30/2015 [facility] Unknown [id number] 04/30/2015 04/30/2015 [facility] Unknown [id number] 04/30/2015 04/30/2015 [facility] Unknown [id number] 04/30/2015 04/30/2015 [facility] Unknown [id number] 04/30/2015 04/30/2015 [facility] Unknown [id number] 04/30/2015 04/30/2015 [facility] Unknown [id number] 04/30/2015 04/30/2015 [facility] Unknown [id number] 05/29/2015 05/29/2015 [facility] Unknown [id number] 05/29/2015 05/29/2015 [facility] Unknown [id number] 05/29/2015 05/29/2015 [facility] Unknown [id number] 05/29/2015 05/29/2015 [facility] Unknown [id number] 05/29/2015 05/29/2015 [facility] Unknown [id number] 05/29/2015 05/29/2015 [facility] Unknown [id number] 05/29/2015 05/29/2015 [facility] Unknown [id number] 05/29/2015 05/29/2015 [facility] Unknown [id number] 05/29/2015 05/29/2015 [facility] Unknown [id number] 05/29/2015 05/29/2015 [facility] Unknown [id number] 05/29/2015 05/29/2015 [facility] Unknown [id number] 05/29/2015 05/29/2015 [facility] Unknown [id number] 05/31/2015 05/31/2015 [facility] Unknown [id number] 05/31/2015 05/31/2015 [facility] Unknown [id number] 05/31/2015 05/31/2015 [facility] Unknown [id number] 05/31/2015 05/31/2015 [facility] Unknown [id number] 05/31/2015 05/31/2015 [facility] Unknown [id number] 05/31/2015 05/31/2015 [facility] Unknown [id number] 05/31/2015 05/31/2015 [facility] Unknown [id number] 05/31/2015 05/31/2015 [facility] Unknown [id number] 05/31/2015 05/31/2015 [facility] Unknown [id number] 05/31/2015 05/31/2015 [facility] Unknown [id number] 05/31/2015 05/31/2015 [facility] Unknown [id number] 05/31/2015 05/31/2015 [facility] Unknown [id number] 07/29/2015 07/29/2015 [facility] Unknown [id number] 07/29/2015 07/29/2015 [facility] Unknown [id number] 07/29/2015 07/29/2015 [facility] Unknown [id number] 07/29/2015 07/29/2015 [facility] Unknown [id number] 07/29/2015 07/29/2015 [facility] Unknown [id number] 07/29/2015 07/29/2015 [facility] Unknown [id number] 07/29/2015 07/29/2015 [facility] Unknown [id number] 07/29/2015 07/29/2015 [facility] Unknown [id number] 07/29/2015 07/29/2015 [facility] Unknown [id number] 07/29/2015 07/29/2015 [facility] Unknown [id number] 07/29/2015 07/29/2015 [facility] Unknown [id number] 07/29/2015 07/29/2015 [facility] Refill [id number] 08/27/2015 08/27/2015 [facility] Refill [id number] 08/27/2015 08/27/2015 [facility] Refill [id number] 08/27/2015 08/27/2015 [facility] Refill [id number] 08/27/2015 08/27/2015 [facility] Refill [id number] 08/27/2015 08/27/2015 [facility] Refill [id number] 08/27/2015 08/27/2015 [facility] Refill [id number] 08/27/2015 08/27/2015 [facility] Refill [id number] 08/27/2015 08/27/2015 [facility] Refill [id number] 08/27/2015 08/27/2015 [facility] Refill [id number] 08/27/2015 08/27/2015 [facility] Refill [id number] 08/27/2015 08/27/2015 [facility] Refill [id number] 08/27/2015 08/27/2015 [facility] Refill [id number] 09/27/2015 09/27/2015 [facility] Refill [id number] 09/27/2015 09/27/2015 [facility] Refill [id number] 09/27/2015 09/27/2015 [facility] Refill [id number] 09/27/2015 09/27/2015 [facility] Refill [id number] 09/27/2015 09/27/2015 [facility] Refill [id number] 09/27/2015 09/27/2015 [facility] Refill [id number] 09/27/2015 09/27/2015 [facility] Refill [id number] 09/27/2015 09/27/2015 [facility] Refill [id number] 09/27/2015 09/27/2015 [facility] Refill [id number] 09/27/2015 09/27/2015 [facility] Refill [id number] 09/27/2015 09/27/2015 [facility] Refill [id number] 09/27/2015 09/27/2015 [facility] Unknown [id number] 10/27/2015 10/27/2015 [facility] Unknown [id number] 10/27/2015 10/27/2015 [facility] Unknown [id number] 10/27/2015 10/27/2015 [facility] Unknown [id number] 10/27/2015 10/27/2015 [facility] Unknown [id number] 10/27/2015 10/27/2015 [facility] Unknown [id number] 10/27/2015 10/27/2015 [facility] Unknown [id number] 10/27/2015 10/27/2015 [facility] Unknown [id number] 10/28/2015 10/28/2015 [facility] Unknown [id number] 10/28/2015 10/28/2015 [facility] Unknown [id number] 10/28/2015 10/28/2015 [facility] Unknown [id number] 10/28/2015 10/28/2015 [facility] Unknown [id number] 10/28/2015 10/28/2015 [facility] Bladder problems. [id number] 01/13/2016 01/13/2016 [facility] Bladder problems. [id number] 01/13/2016 01/13/2016 [facility] Bladder problems. [id number] 01/13/2016 01/13/2016 [facility] Bladder problems. [id number] 01/13/2016 01/13/2016 [facility] Bladder problems. [id number] 01/13/2016 01/13/2016 [facility] Bladder problems. [id number] 01/13/2016 01/13/2016 [facility] Bladder problems. [id number] 01/13/2016 01/13/2016 [facility] Bladder problems. [id number] 01/13/2016 01/13/2016 [facility] Bladder problems. [id number] 01/13/2016 01/13/2016 [facility] Bladder problems. [id number] 01/13/2016 01/13/2016 [facility] Bladder problems. [id number] 01/13/2016 01/13/2016 [facility] Bladder problems. [id number] 01/13/2016 01/13/2016 [facility] Needs call back from Medical Staff [id number] 04/17/2016 04/17/2016 [facility] Needs call back from Medical Staff [id number] 04/17/2016 04/17/2016 [facility] Needs call back from Medical Staff [id number] 04/17/2016 04/17/2016 [facility] Needs call back from Medical Staff [id number] 04/17/2016 04/17/2016 [facility] Needs call back from Medical Staff [id number] 04/17/2016 04/17/2016 [facility] Needs call back from Medical Staff [id number] 04/17/2016 04/17/2016 [facility] Needs call back from Medical Staff [id number] 04/17/2016 04/17/2016 [facility] Needs call back from Medical Staff [id number] 04/17/2016 04/17/2016 [facility] Needs call back from Medical Staff [id number] 04/17/2016 04/17/2016 [facility] Needs call back from Medical Staff [id number] 04/17/2016 04/17/2016 [facility] Needs call back from Medical Staff [id number] 04/17/2016 04/17/2016 [facility] Refill [id number] 05/15/2016 05/15/2016 [facility] Refill [id number] 05/15/2016 05/15/2016 [facility] Refill [id number] 05/15/2016 05/15/2016 [facility] Refill [id number] 05/15/2016 05/15/2016 [facility] Refill [id number] 05/15/2016 05/15/2016 [facility] Refill [id number] 05/15/2016 05/15/2016 [facility] Refill [id number] 05/15/2016 05/15/2016 [facility] Refill [id number] 05/15/2016 05/15/2016 [facility] Refill [id number] 05/15/2016 05/15/2016 [facility] Refill [id number] 05/15/2016 05/15/2016 [facility] [id number] 06/13/2016 06/13/2016 [facility] [id number] 06/13/2016 06/13/2016 [facility] [id number] 06/13/2016 06/13/2016 [facility] [id number] 06/13/2016 06/13/2016 [facility] [id number] 06/13/2016 06/13/2016 [facility] [id number] 06/13/2016 06/13/2016 [facility] [id number] 06/13/2016 06/13/2016 [facility] [id number] 06/13/2016 06/13/2016 [facility] [id number] 06/13/2016 06/13/2016 [facility] Refill [id number] 06/20/2016 06/20/2016 [facility] Refill [id number] 06/20/2016 06/20/2016 [facility] Refill [id number] 06/20/2016 06/20/2016 [facility] Refill [id number] 06/20/2016 06/20/2016 [facility] Refill [id number] 06/20/2016 06/20/2016 [facility] Refill [id number] 06/20/2016 06/20/2016 [facility] Refill [id number] 06/20/2016 06/20/2016 [facility] Refill [id number] 06/20/2016 06/20/2016 [facility] Refill [id number] 07/21/2016 07/21/2016 [facility] Refill [id number] 07/21/2016 07/21/2016 [facility] Refill [id number] 07/21/2016 07/21/2016 [facility] Refill [id number] 07/21/2016 07/21/2016 [facility] Refill [id number] 07/21/2016 07/21/2016 [facility] Refill [id number] 07/21/2016 07/21/2016 [facility] Refill [id number] 07/21/2016 07/21/2016 [facility] Woke up with eye very swollen [id number] 08/03/2016 08/03/2016 [facility] Woke up with eye very swollen [id number] 08/03/2016 08/03/2016 [facility] Woke up with eye very swollen [id number] 08/03/2016 08/03/2016 [facility] Woke up with eye very swollen [id number] 08/03/2016 08/03/2016 [facility] Woke up with eye very swollen [id number] 08/03/2016 08/03/2016 [facility] Woke up with eye very swollen [id number] 08/03/2016 08/03/2016 [facility] Refill [id number] 08/22/2016 08/22/2016 [facility] Refill [id number] 08/22/2016 08/22/2016 [facility] Refill [id number] 08/22/2016 08/22/2016 [facility] Refill [id number] 08/22/2016 08/22/2016 [facility] Refill [id number] 08/22/2016 08/22/2016 [facility] Needs call back from Medical Staff [id number] 09/14/2016 09/14/2016 [facility] Needs call back from Medical Staff [id number] 09/14/2016 09/14/2016 [facility] Needs call back from Medical Staff [id number] 09/14/2016 09/14/2016 [facility] Needs call back from Medical Staff [id number] 09/14/2016 09/14/2016 [facility] RED HANDS AND FEET, SHARP PRICKLY FEELINGS. [id number] 10/26/2016 10/26/2016 [facility] RED HANDS AND FEET, SHARP PRICKLY FEELINGS. [id number] 10/26/2016 10/26/2016 [facility] RED HANDS AND FEET, SHARP PRICKLY FEELINGS. [id number] 10/26/2016 10/26/2016 [facility] Unknown [id number] 11/27/2016 11/27/2016 [facility] Unknown [id number] 11/27/2016 11/27/2016 [facility] Unknown [id number] 01/12/2017 01/12/2017 [facility] OP Therapy Patients [id number] Aston Turner Jr 01/23/2017 02/22/2017 [facility] Emergency [id number] Justin Hahn 06/09/2017 06/09/2017 [facility] Registered Surgical Day Care [id number] AVA ROSE MD 03/12/2018 [facility] Registered Surgical Day Care [id number] AVA ROSE MD 07/19/2018 [facility] Departed Emergency Room [id number] SHARLA PHILLIP MD 08/17/2018 08/18/2018 [facility] Procedures Procedure Code Date Perfomer Comments Source CT of abdomen and pelvis without contrast [id number] 08/17/2018 [facility] Cystoscopy with retrograde pyelography [id number] 07/19/2018 [facility] CYSTOSCOPY & URETER CATHETER [id number] 03/12/2018 [facility] CYSTOSCOPY CHEMODENERVATION [id number] 03/12/2018 [facility] section [id number] [facility] Carpal tunnel release [id number] [facility] section [id number] [facility] Assessment and Plan No Data Provided for This Section Plan of Care Plan of Care Date Source Discharge Date 08/18/18 1:44am Disposition HOME, SELF-CARE Condition at Discharge Stable Instructions/Education Provided Hemorrhagic Cystitis Forms Provided Work/School Excuse Prescriptions See Medication Section Referrals JARED MATHIAS DO Address: [address] [address] [place], [place] [id number] AVA ROSE MD Address: [address] [place] [address] Additional Instructions/Education FOLLOW UP WITH [facility] SUNDAY. FOLLOW UP WITH PRIMARY CARE PHYSICIAN ON SUNDAY. TAKE ALL MEDICATION DIRECTED. 08/18/2018 [facility] Social History Social History Date Source No social history information available. 08/18/2018 [facility] Social History TypeResponse Substance Abuse Use: None. Alcohol Previous treatment: None. Smoking Status Never smoker; Exposure to Tobacco Smoke None; Cigarette Smoking Last 365 Days No; Reg Smoking Cessation Counseling No 06/09/2017 [facility] Social History ElementQualifiersDate Reported Occupation: employed. Disabled, working at the [employer] Oct 26, 2016 children . 1 Oct 26, 2016 Ethnicity . Status , Is tristanian your primary language? Yes Oct 26, 2016 [...] alcohol? . Status: No Oct 26, 2016 10/26/2016 [facility] Social History TypeResponse Alcohol Previous treatment: None. Smoking Status Never smoker; Exposure to Tobacco Smoke None; Cigarette Smoking Last 365 Days No; Reg Smoking Cessation Counseling No 01/10/2014 [facility] [place] Family History Value Date Source QualifierDescriptionCommentDate Reported Maternal Grandmother Comment not available Oct [...] Other: Comment not available Oct 26, 2016 10/28/2016 [facility] QualifierDescriptionCommentDate Reported Maternal Grandmother Comment not available Aug [...] Other: Comment not available Aug 03, 2016 2016 [facility] QualifierDescriptionCommentDate Reported Maternal Grandmother Comment not available Jun [...] Other: Comment not available Jun 13, 2016 06/16/2016 [facility] QualifierDescriptionCommentDate Reported Maternal Grandmother Comment not available January [...] Other: Comment not available January 13, 2016 01/15/2016 [facility] Advance Directives Order Name Results Value Date Source Advance Directives Advance Directives Directive Response Recorded Date/Time Does the patient have an advance directive? No 12/27/11 8:45am Do you have a Directive to Physician? No 08/17/18 8:35pm Do you have a Medical Power of Tree Sapper? No 08/17/18 8:35pm Do you have an out of hospital Do Not Resuscitate Order? No 08/17/18 8:35pm Do you have any special needs we should be aware of? No 08/17/18 8:35pm Do you have a support person here with you today? No 08/17/18 8:35pm Did patient receive Notice of Privacy Practices? Yes 08/17/18 8:35pm Did patient receive patient rights and responsibilities? Yes 08/17/18 8:35pm 08/18/2018 [facility] Functional Status No Data Provided for This Section
--- OUTSIDE RECORDS SUMMARY | 2019-06-09 05:19 | XMS REPORT ---
Author Author Vicki Orr Organization [employer] Address Unknown Phone Unavailable Care Team Providers Care Assistant Film Editor Name Role Phone Vicki Orr CP Unavailable Allergies No Known Allergies Problems Problem Type Condition Code Onset Dates Condition Status Problem Neuropathy G62.9 Active Problem Insomnia G47.00 Active Problem Discoloration of skin of foot L81.9 Active Problem Dysphagia, unspecified type R13.10 Active Problem Falling R29.6 Active Problem Self-catheterizes urinary bladder Z78.9 Active Problem Neurogenic bladder N31.9 Active Problem Mild acid reflux K21.9 Active Problem Multiple sclerosis, secondary progressive G35 Active Medications No Known Medications Results No Known Results Summary Purpose [employer] Submission
--- OUTSIDE RECORDS SUMMARY | 2019-06-09 05:20 | XMS REPORT ---
Author Aldo Beltran Organization [employer] Address Unknown Phone Unavailable Care Team Providers Care Special Education Paraeducator Name Role Phone Aldo Miranda CP Unavailable [...] End Date Status Dosage Zolpidem Tartrate ER [facility] 15879616999 12.5 MG Orally qhs prn LAST REFILL, NEEDS TO BE SEEN April 23, 2013 Active 1 tablet Results No Known Results Summary Purpose [employer] Submission
--- OUTSIDE RECORDS SUMMARY | 2019-06-09 05:20 | XMS REPORT ---
Author Author Aldo Miranda Organization [employer] Address Unknown Phone Unavailable Care Team Providers Care Heat Treater Helper Name Role Phone Aldo Miranda CP Unavailable [...] Multiple sclerosis, secondary progressive G35 Active Medications Medication Code System Code Instructions Start Date End Date Status Dosage Zolpidem Tartrate ER [facility] 79084558311 12.5 MG Orally q hs prn April 23, 2013 Active 1 tablet Results No Known Results Summary Purpose [employer] Submission
--- OUTSIDE RECORDS SUMMARY | 2019-06-09 05:20 | XMS REPORT ---
Author Author Aldo Miranda Organization [employer] Address Unknown Phone Unavailable Care Team Providers Care Customer Service Specialist Name Role Phone Aldo Miranda [...] Problem Multiple sclerosis, secondary progressive G35 Active Assessment Falling R29.6 Active Assessment Multiple sclerosis, secondary progressive G35 Active Assessment Encounter for screening mammogram for malignant neoplasm of breast Z12.31 Active Assessment Neurogenic bladder N31.9 Active Assessment Special screening for malignant neoplasms, colon Z12.11 Active Assessment Neuropathy G62.9 Active Assessment Encounter for routine gynecological examination Z01.419 Active Medications Medication Code System Code Instructions Start Date End Date Status Dosage Ditropan XL [facility] 85043954089 15 MG Orally Active as directed Hydrochlorothiazide [facility] 12291827336 50 MG Orally Once a day Active 1 tablet Zantac [facility] 31411322013 300 MG Orally Once a day Jun 24, 2018 Active 1 tablet at bedtime Zolpidem Tartrate ER [facility] 95334205422 12.5 MG Orally qhs prn LAST REFILL, NEEDS TO BE SEEN April 23, 2013 Active 1 tablet Potassium Chloride CR NDC 0 20 MEQ Orally Active not defined NIFEdipine ER [facility] 33669620217 30 mg Orally Once a day Oct 25, 2018 Active 1 tablet on an empty stomach Nitrofurantoin [facility] [address]-92 50 MG Orally Once a day Active 1 tablet NIFEdipine ER [facility] 95382223811 30 Orally Once a day Active 1 tablet on an empty stomach Tramadol HCl [facility] 28655266484 50 mg Orally every 6 hrs Active 1 - 2 tablet Hydrochlorothiazide [facility] 88207664148 50 orally Once a day Active 1 tablet Gabapentin [facility] 01292906887 300 MG Orally three times a day (tid) Active 2 capsule Tysabri [facility] 11884093554 300 MG/15ML Intravenous Once a month Active 15 ml IV infusion Ampyra [facility] 24211991850 10 MG Orally Twice a day Active 1 tablet Baclofen [facility] 02011486729 10 mg Orally twice a day (bid) Active 1 tablet with food or milk Vital Signs Date/Time: April 21, 2019 BMI 23.82 Index Weight 122 lbs Height 60 in Cardiac Monitoring Heart Rate 72 /min Blood Pressure Diastolic 74 mm Hg Blood Pressure Systolic 110 mm Hg Results No Known Results Summary Purpose [employer] Submission
[2019-06-09 08:40] VITALS: BP 95/61
--- NOTE | 2019-08-01 04:28 | Operative Report ---
DATE OF PROCEDURE: 06/09/2019 SURGEON: Samson Cabezas MD PREOPERATIVE DIAGNOSES: 1. Refractory urge incontinence. 2. Urinary tract infections. POSTOPERATIVE DIAGNOSES: 1. Refractory urge incontinence. 2. Urinary tract infections. 3. Urethral hypermobility. 4. Grade 1 rectocele. OPERATION PERFORMED: 1. Cystourethroscopy with bilateral ureteral catheterization and retrograde ureteropyelography (separate procedure performed for the urinary tract infections). 2. Interpretation of retrograde ureteropyelography. 3. Cystourethroscopy with intravesical injection of Botox (separate procedure performed for the refractory urge incontinence). 4. Pelvic examination under anesthesia. ANESTHESIA: General. COMPLICATIONS: None. CLINICAL SUMMARY: Omayra Gan is a 43-year-old woman with neurogenic bladder. She has had rather significant multiple sclerosis that has caused her rather significant debility. The patient has urinary retention, is managed with intermittent catheterizations 5 times daily and as needed. The patient has incontinence between catheterizations episodes and this is managed fairly well with Botox. The patient is brought for another Botox treatment. She is aware of the risks of bleeding, infection, injury to adjacent structures, need for additional procedures, and elected to proceed. Her recurrent urinary tract infections are managed with chronic suppressive antibiotics with relative success. OPERATIVE PROCEDURE IN DETAIL: Informed consent was verified. Omayra Gan was properly identified, taken to the operating room, and placed on the cystoscopy table in supine position. Anesthesia was uneventfully begun. The patient was then carefully and gently repositioned in the dorsal lithotomy position with all pressure points well padded. Her genitalia were prepared and draped in usual sterile fashion. The cystoscope sheath with obturator in place was atraumatically inserted into the patient's urethra and bladder was drained. Panendoscopy of the bladder revealed grade 2 trabeculations, but no tumors, no stones, and no diverticula. Normally positioned configured ureteral orifices were identified. An 8-Kiswahili catheter was used to cannulate each ureter and retrograde ureteropyelograms were performed. Interpretation of retrograde ureteropyelography contrast was instilled in retrograde fashion bilaterally. There were no tumors, no stones, and no diverticula. Unobstructed drainage was observed bilaterally fluoroscopically. There was ureteral tortuosity noted bilaterally. Nevertheless, there was unobstructed drainage observed fluoroscopically bilaterally. 200 units of Botox were dissolved in 20 mL of sterile saline and they were injected in 1 mL aliquots in an even distribution in the supratrigonal bladder. The patient's bladder was then drained and cystoscope was withdrawn. Pelvic examination under anesthesia revealed urethral hypermobility and grade 1 rectocele. No abnormal palpable pelvic masses could be identified. There were no obvious mucosal lesions. The patient was then uneventfully reversed from anesthesia and taken to recovery room in stable condition. Explicit postop instructions were given. We will follow the patient up in the office and of course on an ongoing basis. Samson MD [place]/[facility] /[id number] cc: Cata Norman DO
== END | disposition home or self-care (01) ==
LOC: OR 05:14
PROVIDERS: ATTEND Urology
DX: N31.9 Neuromuscular dysfunction of bladder, unspecified (principal); N39.41 Urge incontinence; N39.0 Urinary tract infection, site not specified; N36.41 Hypermobility of urethra; N81.6 Rectocele; G35 Multiple sclerosis; N32.89 Other specified disorders of bladder; N13.8 Other obstructive and reflux uropathy
CPT/HCPCS: 52005; 52287; 74420; 81025; C1758; J0587; J0696; J1100; J2001; J2250; J2270; J2405; J2704; J3010; Q9967

== ENCOUNTER → 2019-10-28 | Day surgery (SDC) | payer MEDICARE ==
[~2019-10-28] MED LIST changes: +AMPICILLIN SOD 1 GM/NS 50ML 50 ML IV ONE; -CEFTRIAXONE SOD 1 GM/NS 50 ML 50 ML IV ONE; +GENTAMICIN 80MG/NS 100 ML 100 ML IV ONE; +IOPAMIDOL 300MG/ML 50ML INFUS..BTL IV ONE; -IOPAMIDOL 610MG/1ML 300 MG/ML VIAL IV ONE; -MORPHINE SULFATE 2 MG/ML SYR 1ML ONE
--- OUTSIDE RECORDS SUMMARY | 2019-10-28 09:40 | XMS REPORT | Summary of Care ---
Author Author [facility] Organization [facility] Address Unknown Phone Unavailable Care Team Providers Care Nut Sifter Name Role Phone Referral, Self PCP Unavailable Reason for Visit * Reason Comments Multiple Sclerosis Encounter Details Care Team Description Date Type Department Pro Orta MD [address] [facility] 9th Floor, [address] [place] [address] Multiple Sclerosis 07/14/2019 Office Visit [facility] Multiple Sclerosis [address] [facility] 9th Floor, [address] [place] [id number] Allergies No Known Allergiesdocumented as of this encounter (statuses as of 07/15/2019) Medications End Date Status Medication Sig Dispensed Refills Start Date Active NITROFURANTOIN [address] onto 0 the skin. Active zolpidem (AMBIEN CR) 12.5 Take 12.5 mg 0 MG CR tablet by mouth nightly as needed for Sleep. Active hydrochlorothiazide Take 50 mg by 0 (HYDRODIURIL) 50 MG mouth daily. tablet Active AMPYRA 10 MG TB12 TAKE 1 TABLET 180 Tab BY MOUTH 8 EVERY 12 HOURS Active gabapentin (NEURONTIN) Take 3 Caps 810 Cap 1 300 MG by mouth 3 9 capsuleIndications: times daily. Multiple sclerosis (HCCode), Neuropathic pain 07/14/2019 Discontinued baclofen (LIORESAL) 10 MG Take 1 Tab by 360 Tab 0 tablet mouth four 9 times daily. 07/14/2019 Discontinued predniSONE (DELTASONE) 50 Take 1000mg 60 Tab 0 MG tablet by mouth 9 daily for 3 days documented as of this encounter (statuses as of 07/15/2019) Active Problems Problem Noted Date Dysphagia 01/27/2019 High risk medication use 12/04/2017 Neurogenic bowel 02/28/2011 Spasticity 02/28/2011 Weakness of both legs 02/28/2011 NAUSEA WITHOUT VOMITING 02/06/2002 ASTHMA, EXTRINSIC (ALLERGIC), WITHOUT STATUS ASTHMATICUS 12/24/2001 MIGRAINE, COMMON W/O INTRACTABLE MIGRAINE 12/24/2001 CONSTIPATION 11/12/2001 HX, PERSONAL, COLONIC POLYPS 11/12/2001 [facility] 10/01/2001 ABNORMALITY, URINATION NEC - HESITANCY 10/01/2001 documented as of this encounter (statuses as of 07/15/2019) Resolved Problems Problem Noted Date Resolved Date Multiple sclerosis (HCCode) 12/27/2012 10/12/2015 Pain in limb LLE 6-3-11 04/07/2011 04/07/2011 Pain in limb right leg 04/07/2011 12/04/2017 Abnormality of gait 02/28/2011 12/04/2017 URI (UPPER RESPIRATORY INFECTION), MULTIPLE SITES(NOT 465.9) 02/04/2002 12/04/2017 Otitis media, suppurative, acute 02/04/2002 12/04/2017 documented as of this encounter (statuses as of 07/15/2019) Social History Date Tobacco Use Types Packs/Day Years Used Never Smoker Smokeless Tobacco: Never Used Drinks/Week oz/Week Comments Alcohol Use Not Asked Sex Assigned at Date Recorded Not on file Industry Job Start Date Occupation Not on file Not on file Not on file Travel End Travel History Travel Start No recent travel history available. documented as of this encounter Last Filed Vital Signs Reading Time Taken Comments Vital Sign 103/70 07/14/2019 3:56 PM CDT Blood Pressure 85 07/14/2019 3:56 PM CDT Pulse - - Temperature - - Respiratory Rate - - Oxygen Saturation - - Inhaled Oxygen Concentration 55.3 kg (122 lb) 07/14/2019 3:56 PM CDT Weight 152.4 cm (5') 07/14/2019 3:56 PM CDT Height 23.83 07/14/2019 3:56 PM CDT Body Mass Index documented in this encounter Patient Instructions * Patient Instructions* Pro Orta MD - 07/14/2019 3:30 PM CDT Continue your disease modifying drug, Tysabri It is important to take this drug on a regular basis, as scheduled. Continue your current vitamin D supplementation. If you think you are having a relapse between scheduled visits, call the office or send a message via [phone]. Please first contact your primary care physician or a specialist of record for a ll non-neurologic and non-MS health-related issues. Most care for patients with MS is managed as an outpatient. However, if you feel you need to go to an emergency room for evaluation, we suggest you go to your [facility]. If you elect to come to the [facility], please go to [facility] since we have a full team of [facility] neurologists there. We do not have coverage at [facility]. If you will be unable to come for your scheduled follow-up visit, please call to cancel at least 24 hours prior to the scheduled time. documented in this encounter Progress Notes * Pro Orta MD - 07/14/2019 3:30 PM CDT I saw and examined the patient with the neurology resident, Dr Mancia. Perla montes with the documented physical examination. I have reviewed interval history, ra diographic images, lab reports, historical medical records. I agree with the lucero gnosis of secondary progressive MS. I agree with the plans as documented in the above note. This is my first time to meet her again since Dr Turner's departure, I last saw her in 2011. As such, this was a long visit spent reviewing her past records, p rior imaging, and labs in detail. Continue Tysabri. Will check Tysabri Ab. Continue symptom management as noted in Dr. Mancia's note Continue high dose vitamin D supplementation Functional Mobility Evaluation She came to clinic today for a mobility evaluation and consideration for power m obility. She has secondary progressive MS which has continued to worsen in the 6 month interval since she was last here. She requires power mobility because her condition and functional limitations have changed such that this will be the mo st appropriate form of mobility for her, due to disease severity. She has sever e weakness in her lower extremities. She has significant diminution of sensatio n in her lower extremities. 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 She is no longer able to perform mobility related activities of daily living ins tracy the home. Such examples include difficulty with feeding, dressing, grooming and cooking. She is unable to use a cane or walker inside the home to assist wit h activities of daily living because her lower extremity strength is not suffici ent to allow any ambulation at all. She is not able to properly self propel a ma nual wheelchair because of fatigue and difficulty with dexterity in her upper ex tremities. A scooter will not be an appropriate option for her as she requires a joystick control and has poor trunk stability. She would not be able to operat e and maneuver a scooter in her home because of insufficient space. She is willing and motivated to use power mobility. She also has a physical and mental abilities to safely operate a power chair. This will be a lifelong need. Over 50% of this 50 minute visit was spent in counseling and coordination of car e. * Jose Elias Mancia MD - 07/14/2019 3:30 PM CDT Main complaints and progression: a 43 y.o. right handed female with a history of now secondary progressi ve multiple sclerosis, diagnosed 1993. She has been previously treated with Rebi f, Copaxone, Avonex, Betaseron, and Gilenya. She is currently on Tysabri s/p dos e # 69 (last 06/16). She was last seen in clinic in 01/2019 and is presenting today for a follow up clinic appointment. Her last MRI brain, c-spine, t-spine was 01/27/19, stable. Her last blood work was 05/06/19 (scanned): normal CBC and CMP JCV Ab negative 01/2019 Interval History She reports a recent increase in falls, most notably since April. At that time nakita montes received a short course of steroids which did help things temporarily but she reports continued symptoms. She continues to have falls about 3 times per week. She mainly uses a cane at home but it has not been as helpful She sees urology and self caths. She continues to receive botox injections which help greatly. Interval changes in social history: She is currently on disability ([employer]DI). She has a daughter who is in college. She lives alone in a second floor apartment (she does not feel safe living in a fir st floor apartment). Her family lives in [place]. CURRENT MEDICATIONS: AMPYRA 10 MG TB12 TAKE 1 TABLET BY MOUTH EVERY 12 HOURS baclofen (LIORESAL) 10 MG tablet Take 1 Tab by mouth four times daily. gabapentin (NEURONTIN) 300 MG capsule Take 3 Caps by mouth 3 times daily. hydrochlorothiazide (HYDRODIURIL) 50 MG tablet Take 50 mg by mouth daily. NITROFURANTOIN OXYBUTYNIN TD Place onto the skin. predniSONE (DELTASONE) 50 MG tablet Take 1000mg by mouth daily for 3 days zolpidem (AMBIEN CR) 12.5 MG CR tablet Take 12.5 mg by mouth nightly as need ed for Sleep. No Known Allergies ROS: Constitutional: Normal, no fatigue Eyes: no pain, no blurriness, use glasses ENT: No recent sinus, ear, or throat infections. No decreased hearing, no tinnit us Respiratory: No SOB no Cough Cardio: no chest pressure, no chest pain, no heart racing GI: + constipation, no diarrhea : follows with urology, as above Skin/Teg: No skin rashes. Musculoskeletal: as above Psychiatric: no depression, no anxiety, no memory problems Endocrine: None Neurological: as above NEUROLOGIC EXAMINATION: BP 103/70 (BP Location: left arm, Patient Position: Sitting, Cuff Size: regular) | Pulse 85 | Ht 5' (1.524 m) | Wt 122 lb (55.3 kg) | BMI 23.83 kg/m CV: regular rate and rhythm Mental Status: Alert and Oriented in place, person and time. Mood is normal and Affect is congruous. Speech is fluent, non-dysarthric Cranial Nerves: I- Not tested. II- Visual Acuity is OD 20/30 and OS 20/25, cor rected. Pupils equal and reactive bilaterally, III, IV, extraocular muscles a re intact. No nystagmus. V-light touch intact V1-3. VII- No facial asymmetry is observed. VIII- Hearing intact bilaterally. IX and X- Palate is symmetrical, uv [place] is midline. XI- Strength of sternocleidomastoids and trapezius bilaterally a re 5/5. XII- Tongue is midline without fasciculations. Motor: Increased tone in lower extremities left>right UE Power Deltoids Biceps Triceps Wrist Ext Wrist Fl Finger Ext Finger Fl Right 5 5 5 5 5 5 5 Left 5 5 5 5 5 5 5 LE Power Hip flex Quads Hams Dorsiflex Plantarflex Right 3 4 4- 4+ 4+ Left 2 4 3 4- 3 Sensation: Vibration: moderate loss up to the knees Reflexes Biceps Triceps B'radialis Knee Ankle Toes Right 3+ 3+ 3+ 3+ 3+ Left 3+ 3+ 3+ 3+ 3+ Coordination: no dysmetria on finger to nose Gait: did not assess, using wheelchair today [id number] deferred given recent issues with falls Assessment and Management plan: Omayra Gan is a 43 y.o. female with secondary progressive multiple scl erosis since 1993, currently on Tysabri and tolerating it well. She has residual disability with neurogenic bowl and bladder. We spoke at length today about her recent issues with gait, which may be related to her underlying progressive dis ease status. Given that imaging has remained stable on tysabri and patient is to lerating it well, plan made to continue tysabri at this time and to continue to treat gait issues with increased exercise and stretching as well as proper yissel tive equipment for ambulation 1. Continue Tysabri, s/p dose dose # 69, JCV Ab neg. She is tolerating the medi cation well without any significant side effects. She has had no new neurologic symptoms to suggest relapse and has no new symptoms to suggest a diagnosis of pr ogressive multifocal leukoencephalopathy (PML). We reviewed the risks and benefi ts of continued use, including the risk of PML. She wishes to continue on the me dication. 2. Continue high-dose Vitamin D 3. Symptomatic management - Gait: Ampyra, exercises and stretching; will fill out forms for electric whee lchair - Pain: gabapentin 900 mg TID - Spasticity: baclofen, stretching - Bladder: Botox injections, continue to follow up with Urology in [facility] in 3-6 months Jose Elias Mancia [facility] Pediatric Neurology PGY-4 documented in this encounter Plan of Treatment Order Schedule Name Type Priority Associated Diagnoses Ordered: 07/14/2019 TYSABRI ANTIBODY Lab Routine Multiple sclerosis (HCCode) Health Maintenance Due Date Last Done Comments MAMMOGRAM ANNUAL 1977 MEDICARE AWV 1977 TETANUS SHOT (ADULT) 1992 HIV SCREENING 1995 CERVICAL CANCER SCREENING 1998 3 YEAR FOLLOW UP FLU VACCINE > 6 MONTHS 06/05/2019 07/31/2017 (Declined) documented as of this encounter Results Not on filedocumented in this encounter Visit Diagnoses Diagnosis Multiple sclerosis (HCCode) - Primary Multiple sclerosis Neuropathic pain Neuralgia, neuritis, and radiculitis, unspecified documented in this encounter Insurance Type Payer Benefit Subscriber ID Effective Phone Address Plan / Dates Group Medicare MEDICARE MEDICARE xxxxxxxxxxx 2014-P [id number] [place] [address] documented as of this encounter Advance Directives 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
[2019-10-28 10:30] LABS: BASOPHILS % 0.6 % (0.0-1.0); EOSINOPHILS # (AUTO) 0.1 (0.0-0.4); EOSINOPHILS % 2.6 % (0.0-6.0); HEMATOCRIT 36.6 % (34.2-44.1); HEMOGLOBIN 11.7 g/dL (12.0-16.0); LYMPHOCYTES # (AUTO) 2.3 (1.0-3.2); LYMPHOCYTES % 44.9 % (18.0-39.1); MEAN CORPUSCULAR VOLUME 84.3 fL (81-99); MONOCYTES # (AUTO) 0.7 (0.2-0.8); MONOCYTES % 14.2 % (4.4-11.3); NEUTROPHILS # (AUTO) 1.9 (2.1-6.9); NEUTROPHILS % 37.3 % (38.7-80.0); PLATELET COUNT 223 x10e3/uL (140-360); RED BLOOD COUNT 4.34 x10e6/uL (3.6-5.1); RED CELL DISTRIBUTION WIDTH 13.7 % (11.7-14.4)
[2019-10-28 10:46] LABS: BLOOD UREA NITROGEN 17 mg/dL (7-26); BUN/CREATININE RATIO 24 (6-25); CALCIUM 9.6 mg/dL (8.4-10.2); CARBON DIOXIDE 29 mmol/L (22-29); CHLORIDE 99 mmol/L (98-107); CREATININE, SERUM 0.72 mg/dL (0.57-1.11); EST GLOMERULAR FILTRATION RATE > 60 ML/MIN (60-); GLUCOSE 72 mg/dL (74-118); SODIUM 138 mmol/L (136-145)
[2019-10-28 13:33] VITALS: BP 87/67
--- NOTE | 2019-12-10 03:46 | Operative Report ---
DATE OF PROCEDURE: 10/28/2019 SURGEON: Samson Cabezas MD PREOPERATIVE DIAGNOSES: 1. Refractory urge incontinence. 2. Urinary tract infections. POSTOPERATIVE DIAGNOSES: 1. Refractory urge incontinence. 2. Urinary tract infections. 3. Grade 2 cystocele. 4. Urethral hypermobility. OPERATIONS PERFORMED: 1. Cystourethroscopy with bilateral ureteral catheterization and retrograde ureteropyelography (separate procedure performed for the urinary tract infections). 2. Interpretation of retrograde ureteropyelography. 3. Cystourethroscopy with intravesical injection of Botox (separate procedure performed for refractory urge incontinence). 4. Pelvic examination under anesthesia. ANESTHESIA: General. COMPLICATIONS: None. CLINICAL SUMMARY: Omayra Gan is a 44-year-old woman with a neurogenic bladder due to advanced multiple sclerosis. She has refractory urge incontinence and also urinary retention. The patient self catheterizes five times daily, but in addition, she has incontinence between catheterizations. The incontinence has been improved by anticholinergic medications, but the current anticholinergic medications have failed that she has refractory incontinence. She was brought for the above procedures. She was aware of the risks of bleeding, infection, injury to adjacent structures, need for additional procedures and elected to proceed. OPERATIVE PROCEDURE IN DETAIL: Informed consent was verified. Omayra Gan was properly identified, taken to the operating room, placed on the cystoscopy table in supine position. Anesthesia was uneventfully begun. The patient was then carefully gently repositioned in dorsal lithotomy position with all pressure points well padded. Her genitalia were prepared and draped in usual sterile fashion. A 22.5-Congolese cystoscope sheath with obturator in place, was atraumatically inserted into the patient's urethra and bladder was drained. Panendoscopy of the urinary bladder revealed no suspicious gross lesions, no tumors, no stones, and no diverticula. Normally positioned, configured ureteral orifices were identified. Some trigonitis was noted, but this appears to be chronic. An 8-Congolese catheter was used to cannulate each ureter and retrograde ureteropyelograms were performed. Interpretation of retrograde ureteropyelography contrast was instilled in retrograde fashion bilaterally. There were no tumors, no stones, and no diverticula. Unobstructed drainage was observed bilaterally fluoroscopically. A 200 units of Botox were dissolved in 20 mL of sterile saline. There were then injected in 1 mL aliquots in an even distribution throughout the suprachoroidal bladder. The patient's bladder was drained. Cystoscope was withdrawn. Pelvic examination under anesthesia revealed a grade 2 cystocele with urethral hypermobility. No abnormal palpable pelvic masses could be appreciated. There were no obvious mucosal lesions. The patient was then uneventfully reversed from anesthesia and taken to recovery room in stable condition. Explicit postop instructions were given. We will follow the patient in the office. Samson Cabezas MD OH/MODL /[id number] cc: Cata Norman DO
== END | disposition home or self-care (01) ==
LOC: OR 09:37
PROVIDERS: ATTEND Urology
DX: N39.41 Urge incontinence (principal); Z01.812 Encounter for preprocedural laboratory examination; F41.9 Anxiety disorder, unspecified; Z87.440 Personal history of urinary (tract) infections; N81.10 Cystocele, unspecified; N36.41 Hypermobility of urethra
CPT/HCPCS: 36415; 52005; 52287; 74420; 80048; 81025; 85025; C1758; J0290; J0587; J1100; J1580; J2001; J2250; J2405; J2704; J3010; Q9967

== ENCOUNTER → 2020-04-09 | Day surgery (SDC) | payer MEDICARE, OTHER ==
[~2020-04-09] MED LIST changes: -AMPICILLIN SOD 1 GM/NS 50ML 50 ML IV ONE; +CEFTRIAXONE SOD 1 GM/NS 50 ML 50 ML IV ONE; -GENTAMICIN 80MG/NS 100 ML 100 ML IV ONE; -MIDAZOLAM HCL 2 MG/2 ML VIAL ONE
[2020-04-09 13:50] VITALS: BP 101/69
--- NOTE | 2020-04-09 15:46 | Diagnostic Imaging Report ---
OR Fluoroscopy: IMPRESSION: Fluoroscopy service provided in the OR. Interpretation not requested. Signed by: Syed Moss MD on 04/09/2020 3:42 PM
--- NOTE | 2020-04-11 20:50 | Operative Report ---
DATE OF PROCEDURE: 04/09/2020 SURGEON: Samson Cabezas MD PREOPERATIVE DIAGNOSES: 1. Refractory urge incontinence. 2. Urinary tract infections. POSTOPERATIVE DIAGNOSES: 1. Refractory urge incontinence. 2. Urinary tract infections. 3. Grade 1 cystocele. 4. Urethral hypermobility. OPERATIONS PERFORMED: 1. Cystourethroscopy with bilateral ureteral catheterization and retrograde ureteropyelography (separate procedure performed for the urinary tract infections). 2. Interpretation of retrograde ureteropyelography, no radiologist present. 3. Cystourethroscopy with intravesical injection of Botox (separate procedure performed for the refractory incontinence). 4. Pelvic examination under anesthesia. ANESTHESIA: General. COMPLICATIONS: None. CLINICAL SUMMARY: Omayra Gan is a 44-year-old woman with multiple sclerosis. She has neurogenic bladder. She catheterizes 5 times daily and also has refractory urge incontinence in between catheterizations, which has been managed well with Botox. She is aware of the risks of bleeding, infection, injury to adjacent structures, need for further procedures and elected to proceed. OPERATIVE PROCEDURE IN DETAIL: Informed consent was verified. Omayra Gan was properly identified, taken to the operating room, placed on the cystoscopy table in supine position. Anesthesia was uneventfully begun. The patient was then carefully and gently repositioned in the dorsal lithotomy position with all pressure points well padded. Her genitalia were prepared and draped in usual sterile fashion. The cystoscope sheath with obturator in place was atraumatically inserted. The patient's urethra and bladder were drained. Panendoscopy of the urinary bladder revealed no suspicious mucosal lesions, no tumors, no stones, and no diverticula. Some trigonitis was noted. No suspicious lesions were identified. An 8-Divehi catheter was used to cannulate each ureter and retrograde ureteral pyelograms were performed. Interpretation of retrograde ureteropyelography contrast was instilled in retrograde fashion bilaterally. There were no tumors, no stones, and no diverticula. Unobstructed drainage was observed bilaterally fluoroscopically. 100 units of Botox were dissolved in 10 mL of sterile saline. The Botox solution was then injected in 0.5 mL aliquots in an even distribution throughout the supratrigonal bladder. The patient's bladder was drained. Cystoscope was withdrawn. Pelvic examination revealed a grade 1 cystocele with urethral hypermobility. No abnormal palpable pelvic masses could be appreciated. There were no obvious mucosal lesions. The patient was then uneventfully reversed from anesthesia and taken to recovery room in stable condition. Explicit postop instructions were given. We will follow the patient up in the office. Samson MD CEDRIC Cabezas/ANGELO /[id number] cc: Cata Norman DO
== END | disposition home or self-care (01) ==
LOC: OR 10:43
PROVIDERS: ATTEND Urology
DX: N39.41 Urge incontinence (principal); N30.30 Trigonitis without hematuria; N81.10 Cystocele, unspecified; N36.41 Hypermobility of urethra; G35 Multiple sclerosis; Z01.812 Encounter for preprocedural laboratory examination; Z11.59 Encounter for screening for other viral diseases
CPT/HCPCS: 52005; 52287; 74420; 81025; 87635; C1758; C1769; J0587; J0696; J1100; J2001; J2405; J2704; J3010; Q9967

== ENCOUNTER → 2020-09-13 | Day surgery (SDC) | payer MEDICARE ==
[2020-09-09 16:08] LABS: BASOPHILS % 0.5 % (0.0-1.0); EOSINOPHILS # (AUTO) 0.1 (0.0-0.4); EOSINOPHILS % 1.7 % (0.0-6.0); HEMATOCRIT 40.5 % (34.2-44.1); HEMOGLOBIN 12.6 g/dL (12.0-16.0); LYMPHOCYTES # (AUTO) 3.3 (1.0-3.2); MEAN CORPUSCULAR HEMOGLOBIN 26.5 pg (28-32); MEAN CORPUSCULAR HGB CONC 31.1 g/dL (31-35); MEAN CORPUSCULAR VOLUME 85.1 fL (81-99); MONOCYTES % 13.4 % (4.4-11.3); NEUTROPHILS # (AUTO) 3.1 (2.1-6.9); NEUTROPHILS % 40.9 % (38.7-80.0); PLATELET COUNT 237 x10e3/uL (140-360); RED BLOOD COUNT 4.76 x10e6/uL (3.6-5.1)
[2020-09-09 16:39] LABS: ANION GAP 14.2 mmol/L (8-16); BLOOD UREA NITROGEN 12 mg/dL (7-26); BUN/CREATININE RATIO 18 (6-25); CALCIUM 9.6 mg/dL (8.4-10.2); CARBON DIOXIDE 30 mmol/L (22-29); CHLORIDE 99 mmol/L (98-107); CREATININE, SERUM 0.68 mg/dL (0.57-1.11); EST GLOMERULAR FILTRATION RATE > 60 ML/MIN (60-); GLUCOSE 93 mg/dL (74-118); POTASSIUM 3.2 mmol/L (3.5-5.1); SODIUM 140 mmol/L (136-145)
[~2020-09-13] MED LIST changes: +ASPIRIN81 MG PO; +ATORVASTATIN CA10 MG PO; +MIDAZOLAM HCL 2 MG/2 ML VIAL ONE
[2020-09-13 08:31] VITALS: BP 102/70
--- NOTE | 2020-09-13 10:44 | Operative Report ---
DATE OF PROCEDURE: 09/13/2020 SURGEON: Samson Cabezas MD PREOPERATIVE DIAGNOSES: 1. Refractory urge incontinence. 2. Urinary tract infections. 3. Mild cystocele. POSTOPERATIVE DIAGNOSES: 1. Refractory urge incontinence. 2. Urinary tract infections. 3. Mild cystocele. OPERATIONS PERFORMED: 1. Cystourethroscopy with injection of Botox (separate procedure performed for the urge incontinence). 2. Cystourethroscopy with bilateral ureteral catheterization and retrograde ureteropyelography (separate procedure performed for urinary tract infections). 3. Interpretation of retrograde ureteropyelography, no radiologist present. 4. Pelvic examination under anesthesia. ANESTHESIA: General. COMPLICATIONS: None. CLINICAL SUMMARY: Omayra Gan is a 45-year-old woman with multiple sclerosis. She has had recurrent infections. She is managed with anticholinergic medications as well as chronic suppression with nitrofurantoin. She is aware of the risks of nitrofurantoin including pulmonary fibrosis. Nevertheless, she continues the nitrofurantoin because her risk-benefit analysis reveals that she has been far better off for the life not having recurrent infections. She is brought for the above procedures. She is aware of the risks of bleeding, infection, injury to adjacent structures, need for additional procedures, and elected to proceed. OPERATIVE PROCEDURE IN DETAIL: Informed consent was verified. Omayra Gan was properly identified, taken to the operating room, placed on the cystoscopy table in supine position, and anesthesia was uneventfully begun. The patient was then carefully and gently repositioned in the dorsal lithotomy position with all pressure points were padded. Her genitalia were prepared and draped in usual sterile fashion. The cystoscope sheath with obturator in place was atraumatically inserted into the patient's urethra and the bladder was drained. Panendoscopy revealed no suspicious mucosal lesions, no tumors, no stones, no diverticula. Normally positioned configured ureteral orifices were identified. 200 units of Botox was dissolved in 20 mL of sterile saline and injected in 1 mL aliquots in an even distribution throughout the supratrigonal bladder. An 8-Greek catheter was used to cannulate each ureter and retrograde ureteropyelograms were performed. Interpretation of retrograde ureteropyelography contrast was instilled in retrograde fashion bilaterally. There were no tumors, no stones, no diverticula. Unobstructed drainage was observed bilaterally fluoroscopically. The patient's bladder was drained and cystoscope was withdrawn. Pelvic examination under anesthesia revealed grade 1 cystocele, no rectocele, no abnormal palpable pelvic masses could be appreciated. There were no obvious mucosal lesions. The patient was then uneventfully reversed anesthesia and taken to recovery room in stable condition. There were no complications to the procedure. She tolerated the procedure well. Estimated blood loss was minimal. Explicit postoperative instructions were given. We will follow the patient up in the office in about a month. Samson Cabezas MD OH/MODL /[id number]
== END | disposition home or self-care (01) ==
LOC: OR 05:30
PROVIDERS: ATTEND Urology
DX: N39.41 Urge incontinence (principal); N39.0 Urinary tract infection, site not specified; N81.10 Cystocele, unspecified; G35 Multiple sclerosis; F41.9 Anxiety disorder, unspecified; N31.9 Neuromuscular dysfunction of bladder, unspecified; Z01.812 Encounter for preprocedural laboratory examination; Z20.828 Contact with and (suspected) exposure to other viral communicable diseases; Z79.82 Long term (current) use of aspirin
CPT/HCPCS: 36415 ×2; 52005; 52287; 74420; 80048; 81025; 84132; 85025; C1758; J0587; J0696; J1100; J2001; J2250; J2405; J2704; J3010; Q9967; U0002

== ENCOUNTER 2020-11-13 17:21 | Emergency (ER) | payer MEDICARE ==
[~2020-11-13] VITALS: Ht 154.9 cm; Wt 54.0 kg
[~2020-11-13 17:21] MED LIST changes: -B&O 60MG R/S 60 MG SUPP PR ONE; -BOTULINUM TOXIN TYPE A 100 UNIT VIAL IM ONE; -CEFTRIAXONE SOD 1 GM/NS 50 ML 50 ML IV ONE; -DEXAMETHASONE SOD PHOS INJ 4 MG/ML VIAL ONE; -FENTANYL CITRATE/PF 100MCG/2 ML INJ ONE; -IOPAMIDOL 300MG/ML 50ML INFUS..BTL IV ONE; -LIDOCAINE HCL 2% LOCAL INJ 5 ML SDV VIAL INJ ONE; -MIDAZOLAM HCL 2 MG/2 ML VIAL ONE; -ONDANSETRON HCL INJ 2MG/ML 2ML 2 MG/ML VIAL ONE; -PROPOFOL IV EMULSION 10 MG/ML 20 ML VIAL ONE; -SEVOFLURANE INHAL SOLN 250 ML PEN BTL ONE
[2020-11-13 18:44] LABS: CLARITY,URINE CLEAR (CLEAR); COLOR,URINE YELLOW (YELLOW); KETONES,URINE TRACE (NEGATIVE); LEUKOCYTE ESTERASE ,URINE NEGATIVE (NEGATIVE); NITRITE,URINE NEGATIVE (NEGATIVE); PROTEIN,URINE DIPSTICK NEGATIVE (NEGATIVE); URINE UROBILINOGEN 1 mg/dL (0.2 - 1)
[2020-11-13 18:57] LABS: BACTERIA,URINE RARE /HPF; EPITHELIAL CELLS,URINE FEW /LPF; RBC,URINE 0-5 /HPF (0-5); WBC,URINE (MAN) 0-5 /HPF (0-5)
[2020-11-13] MEDS ORDERED: CIPRO500 MG PO (19:31)
[2020-11-13 20:05] VITALS: BP 119/78
== END 2020-11-13 20:07 | disposition home or self-care (01) ==
LOC: ER 17:52
DX: R30.0 Dysuria (principal); G35 Multiple sclerosis; N31.2 Flaccid neuropathic bladder, not elsewhere classified
CPT/HCPCS: 81001; 87086; 99283

== ENCOUNTER → 2020-12-25 | Day surgery (SDC) | payer MEDICARE ==
[2020-12-17 16:04] LABS: BASOPHILS % 0.3 % (0.0-1.0); EOSINOPHILS # (AUTO) 0.1 (0.0-0.4); EOSINOPHILS % 0.8 % (0.0-6.0); HEMOGLOBIN 12.2 g/dL (12.0-16.0); LYMPHOCYTES # (AUTO) 2.6 (1.0-3.2); LYMPHOCYTES % 21.7 % (18.0-39.1); MEAN CORPUSCULAR HEMOGLOBIN 27.1 pg (28-32); MEAN CORPUSCULAR HGB CONC 32.1 g/dL (31-35); MEAN CORPUSCULAR VOLUME 84.3 fL (81-99); MONOCYTES # (AUTO) 1.2 (0.2-0.8); MONOCYTES % 10.2 % (4.4-11.3); NEUTROPHILS # (AUTO) 7.8 (2.1-6.9); NEUTROPHILS % 66.7 % (38.7-80.0); PLATELET COUNT 204 x10e3/uL (140-360); RED BLOOD COUNT 4.51 x10e6/uL (3.6-5.1); RED CELL DISTRIBUTION WIDTH 13.9 % (11.7-14.4)
[2020-12-17 16:20] LABS: ANION GAP 14.2 mmol/L (8-16); BLOOD UREA NITROGEN 14 mg/dL (7-26); BUN/CREATININE RATIO 20 (6-25); CALCIUM 9.4 mg/dL (8.4-10.2); CARBON DIOXIDE 28 mmol/L (22-29); CHLORIDE 101 mmol/L (98-107); CREATININE, SERUM 0.69 mg/dL (0.57-1.11); EST GLOMERULAR FILTRATION RATE > 60 ML/MIN (60-); GLUCOSE 83 mg/dL (74-118); POTASSIUM 3.2 mmol/L (3.5-5.1); SODIUM 140 mmol/L (136-145)
[2020-12-24 12:41] LABS: BASOPHILS % 0.6 % (0.0-1.0); EOSINOPHILS # (AUTO) 0.1 (0.0-0.4); EOSINOPHILS % 1.3 % (0.0-6.0); HEMATOCRIT 38.5 % (34.2-44.1); HEMOGLOBIN 12.2 g/dL (12.0-16.0); LYMPHOCYTES # (AUTO) 2.7 (1.0-3.2); LYMPHOCYTES % 39.6 % (18.0-39.1); MEAN CORPUSCULAR HEMOGLOBIN 27.5 pg (28-32); MEAN CORPUSCULAR HGB CONC 31.7 g/dL (31-35); MEAN CORPUSCULAR VOLUME 86.9 fL (81-99); MONOCYTES # (AUTO) 1.1 (0.2-0.8); MONOCYTES % 15.4 % (4.4-11.3); NEUTROPHILS % 42.7 % (38.7-80.0); PLATELET COUNT 225 x10e3/uL (140-360); RED BLOOD COUNT 4.43 x10e6/uL (3.6-5.1); RED CELL DISTRIBUTION WIDTH 13.6 % (11.7-14.4)
[2020-12-24 12:59] LABS: ANION GAP 13.2 mmol/L (8-16); BLOOD UREA NITROGEN 15 mg/dL (7-26); BUN/CREATININE RATIO 23 (6-25); CALCIUM 9.1 mg/dL (8.4-10.2); CARBON DIOXIDE 28 mmol/L (22-29); CHLORIDE 100 mmol/L (98-107); CREATININE, SERUM 0.65 mg/dL (0.57-1.11); EST GLOMERULAR FILTRATION RATE > 60 ML/MIN (60-); GLUCOSE 80 mg/dL (74-118); POTASSIUM 3.2 mmol/L (3.5-5.1); SODIUM 138 mmol/L (136-145)
[~2020-12-25] MED LIST changes: +B&O 60MG R/S 60 MG SUPP PR ONE; +BOTULINUM TOXIN TYPE A 100 UNIT VIAL IM ONE; +CEFTRIAXONE SOD 1 GM VIAL ONE; +CIPRO500 MG PO; +DEXAMETHASONE SOD PHOS INJ 4 MG/ML VIAL ONE; +FENTANYL CITRATE/PF 100MCG/2 ML INJ ONE; +IOPAMIDOL 300MG/ML 50ML INFUS..BTL IV ONE; +LIDOCAINE HCL 2% LOCAL INJ 5 ML SDV VIAL INJ ONE; +ONDANSETRON HCL INJ 2MG/ML 2ML 2 MG/ML VIAL ONE; +PROPOFOL IV EMULSION 10 MG/ML 20 ML VIAL ONE; +SEVOFLURANE INHAL SOLN 250 ML PEN BTL ONE; +SODIUM CHLORIDE 0.9% 50ML 50 ML ONE; +VIAGRA50 MG PO
[2020-12-25 12:20] VITALS: BP 90/63
== END | disposition home or self-care (01) ==
LOC: OR 08:22
PROVIDERS: ATTEND Urology
DX: N39.41 Urge incontinence (principal); N39.0 Urinary tract infection, site not specified; N81.10 Cystocele, unspecified; N36.41 Hypermobility of urethra; N31.9 Neuromuscular dysfunction of bladder, unspecified; N13.8 Other obstructive and reflux uropathy; G35 Multiple sclerosis; F41.9 Anxiety disorder, unspecified; Z01.812 Encounter for preprocedural laboratory examination; Z20.822 Contact with and (suspected) exposure to COVID-19; Z79.82 Long term (current) use of aspirin
CPT/HCPCS: 36415 ×3; 52005; 52287; 74420; 80048 ×2; 81025; 84132; 85025 ×2; C1758; J0587; J0696; J3010; Q9967; U0002 ×2; J1100; J2001; J2405

== ENCOUNTER 2021-04-09 21:00 | Emergency (ER) | payer MEDICARE ==
[~2021-04-09] VITALS: Ht 154.9 cm; Wt 54.0 kg
[~2021-04-09 21:00] MED LIST changes: -B&O 60MG R/S 60 MG SUPP PR ONE; -BOTULINUM TOXIN TYPE A 100 UNIT VIAL IM ONE; -CEFTRIAXONE SOD 1 GM VIAL ONE; -DEXAMETHASONE SOD PHOS INJ 4 MG/ML VIAL ONE; -FENTANYL CITRATE/PF 100MCG/2 ML INJ ONE; -IOPAMIDOL 300MG/ML 50ML INFUS..BTL IV ONE; -LIDOCAINE HCL 2% LOCAL INJ 5 ML SDV VIAL INJ ONE; -ONDANSETRON HCL INJ 2MG/ML 2ML 2 MG/ML VIAL ONE; -PROPOFOL IV EMULSION 10 MG/ML 20 ML VIAL ONE; -SEVOFLURANE INHAL SOLN 250 ML PEN BTL ONE; -SODIUM CHLORIDE 0.9% 50ML 50 ML ONE
[2021-04-09] MEDS ORDERED: DEBROX15 ML EACH EAR (21:17)
[2021-04-09] MEDS ORDERED: MOTRIN200 MG PO (21:17)
[2021-04-12] MEDS ORDERED: POTASSIUM CHLO20 ME1 PO (10:20)
[2021-04-12] MEDS ORDERED: AMPYRA10 MG PO (10:20)
== END 2021-04-09 21:51 | disposition home or self-care (01) ==
LOC: ER 21:14
DX: H92.02 Otalgia, left ear (principal); H61.23 Impacted cerumen, bilateral; G35 Multiple sclerosis; N31.9 Neuromuscular dysfunction of bladder, unspecified
CPT/HCPCS: 99282

== ENCOUNTER → 2021-04-12 | Outpatient (CLI) | payer MEDICARE ==
[~2021-04-12] MED LIST changes: +DEBROX15 ML EACH EAR; +MOTRIN200 MG PO
== END ==
LOC: US 14:05
PROVIDERS: ATTEND Urology
DX: N39.0 Urinary tract infection, site not specified (principal)
CPT/HCPCS: 74018; 76770

== ENCOUNTER → 2021-04-18 | Day surgery (SDC) | payer MEDICARE ==
[2021-04-12 14:27] LABS: BASOPHILS % 0.4 % (0.0-1.0); EOSINOPHILS # (AUTO) 0.1 (0.0-0.4); EOSINOPHILS % 1.5 % (0.0-6.0); HEMOGLOBIN 11.4 g/dL (12.0-16.0); LYMPHOCYTES % 38.2 % (18.0-39.1); MEAN CORPUSCULAR HEMOGLOBIN 26.6 pg (28-32); MEAN CORPUSCULAR HGB CONC 31.7 g/dL (31-35); MEAN CORPUSCULAR VOLUME 83.9 fL (81-99); MONOCYTES # (AUTO) 0.9 (0.2-0.8); MONOCYTES % 16.8 % (4.4-11.3); NEUTROPHILS # (AUTO) 2.2 (2.1-6.9); NEUTROPHILS % 42.7 % (38.7-80.0); PLATELET COUNT 180 x10e3/uL (140-360); RED BLOOD COUNT 4.29 x10e6/uL (3.6-5.1); RED CELL DISTRIBUTION WIDTH 14.8 % (11.7-14.4)
[2021-04-12 14:54] LABS: ANION GAP 12.9 mmol/L (8-16); BLOOD UREA NITROGEN 11 mg/dL (7-26); BUN/CREATININE RATIO 17 (6-25); CALCIUM 8.9 mg/dL (8.4-10.2); CARBON DIOXIDE 28 mmol/L (22-29); CHLORIDE 99 mmol/L (98-107); CREATININE, SERUM 0.64 mg/dL (0.57-1.11); EST GLOMERULAR FILTRATION RATE > 60 ML/MIN (60-); GLUCOSE 86 mg/dL (74-118); SODIUM 137 mmol/L (136-145)
[2021-04-12 15:04] LABS: POTASSIUM 2.9 mmol/L (3.5-5.1)
[~2021-04-18] MED LIST changes: +B&O 60MG R/S 60 MG SUPP PR ONE; +BOTULINUM TOXIN TYPE A 100 UNIT VIAL IM ONE; +CEFTRIAXONE 1 GM VIAL ONE; +DEXAMETHASONE SOD PHOS INJ 4 MG/ML VIAL ONE; +IOPAMIDOL 300MG/ML 50ML INFUS..BTL IV ONE; +LIDOCAINE HCL 2% LOCAL INJ 5 ML SDV VIAL INJ ONE; +ONDANSETRON HCL INJ 2MG/ML 2ML 2 MG/ML VIAL ONE; +POVIDONE IODINE 0.05% 0.05 % ML PO ONE; +PROPOFOL IV EMULSION 10 MG/ML 20 ML VIAL ONE; +SEVOFLURANE INHAL SOLN 250 ML PEN BTL ONE; +SODIUM CHLORIDE 0.9% 50ML 50 ML ONE
[2021-04-18 08:39] VITALS: BP 95/63
== END | disposition home or self-care (01) ==
LOC: OR 05:48
PROVIDERS: ATTEND Urology
DX: N39.41 Urge incontinence (principal); N31.9 Neuromuscular dysfunction of bladder, unspecified; N39.0 Urinary tract infection, site not specified; N32.89 Other specified disorders of bladder; N81.10 Cystocele, unspecified; N36.41 Hypermobility of urethra; N81.6 Rectocele; G35 Multiple sclerosis; Z79.82 Long term (current) use of aspirin; Z20.822 Contact with and (suspected) exposure to COVID-19
CPT/HCPCS: 36415 ×2; 52005; 52287; 74420; 80048; 84132; 84702; 85025; J0587; J0696; J1100; J2001; J2405; J2704; Q9967; U0002

== ENCOUNTER → 2021-09-23 | Day surgery (SDC) | payer MEDICARE ==
[~2021-09-23] MED LIST changes: +DEXAMETHASONE SOD PHOS INJ 4 MG/ML SDV ONE; -DEXAMETHASONE SOD PHOS INJ 4 MG/ML VIAL ONE; +EPHEDRINE SULFATE INJ 50 MG/ML VIAL ONE; +FENTANYL CITRATE/PF 100MCG/2 ML INJ ONE; +GENTAMICIN 80MG/NS 100 ML 100 ML IV ONE; +MIDAZOLAM HCL 2 MG/2 ML VIAL ONE
[2021-09-23 09:01] LABS: BASOPHILS % 0.7 % (0.0-1.0); EOSINOPHILS # (AUTO) 0.1 (0.0-0.4); EOSINOPHILS % 1.3 % (0.0-6.0); HEMATOCRIT 38.2 % (34.2-44.1); HEMOGLOBIN 11.9 g/dL (12.0-16.0); LYMPHOCYTES # (AUTO) 2.4 (1.0-3.2); MEAN CORPUSCULAR HEMOGLOBIN 26.6 pg (28-32); MEAN CORPUSCULAR HGB CONC 31.2 g/dL (31-35); MEAN CORPUSCULAR VOLUME 85.3 fL (81-99); MONOCYTES # (AUTO) 0.8 (0.2-0.8); MONOCYTES % 15.2 % (4.4-11.3); NEUTROPHILS # (AUTO) 2.2 (2.1-6.9); NEUTROPHILS % 39.3 % (38.7-80.0); PLATELET COUNT 188 x10e3/uL (140-360); RED BLOOD COUNT 4.48 x10e6/uL (3.6-5.1); RED CELL DISTRIBUTION WIDTH 15.4 % (11.7-14.4)
[2021-09-23 10:03] LABS: CALCIUM 9.8 mg/dL (8.4-10.2); CREATININE, SERUM 0.66 mg/dL (0.57-1.11)
[2021-09-23 11:40] VITALS: BP 93/60
== END | disposition home or self-care (01) ==
LOC: OR 07:46
PROVIDERS: ATTEND Urology
DX: N39.41 Urge incontinence (principal); N31.9 Neuromuscular dysfunction of bladder, unspecified; N39.0 Urinary tract infection, site not specified; N81.10 Cystocele, unspecified; N81.6 Rectocele; N36.41 Hypermobility of urethra; G35 Multiple sclerosis; F41.9 Anxiety disorder, unspecified; Z20.822 Contact with and (suspected) exposure to COVID-19; Z79.82 Long term (current) use of aspirin; Z79.899 Other long term (current) drug therapy; Z86.16 Personal history of COVID-19
CPT/HCPCS: 36415; 52005; 52287; 74420; 80048; 81025; 85025; C1758; J0587; J0696; J1100; J1580; J2001; J2250; J2405; J2704; J3010; Q9967; U0002

== ENCOUNTER → 2022-01-04 | Day surgery (SDC) | payer MEDICARE ==
[~2022-01-04] MED LIST changes: -EPHEDRINE SULFATE INJ 50 MG/ML VIAL ONE
[2022-01-04 08:39] LABS: BASOPHILS % 0.5 % (0.0-1.0); EOSINOPHILS # (AUTO) 0.1 (0.0-0.4); EOSINOPHILS % 1.4 % (0.0-6.0); HEMATOCRIT 38.9 % (34.2-44.1); HEMOGLOBIN 12.6 g/dL (12.0-16.0); LYMPHOCYTES # (AUTO) 2.1 (1.0-3.2); LYMPHOCYTES % 38.6 % (18.0-39.1); MEAN CORPUSCULAR HEMOGLOBIN 27.8 pg (28-32); MEAN CORPUSCULAR HGB CONC 32.4 g/dL (31-35); MEAN CORPUSCULAR VOLUME 85.7 fL (81-99); MONOCYTES # (AUTO) 0.8 (0.2-0.8); MONOCYTES % 14.1 % (4.4-11.3); NEUTROPHILS # (AUTO) 2.5 (2.1-6.9); PLATELET COUNT 196 x10e3/uL (140-360); RED BLOOD COUNT 4.54 x10e6/uL (3.6-5.1); RED CELL DISTRIBUTION WIDTH 14.3 % (11.7-14.4)
[2022-01-04 08:56] LABS: ANION GAP 12.8 mmol/L (8-16); CALCIUM 9.5 mg/dL (8.4-10.2); CREATININE, SERUM 0.66 mg/dL (0.57-1.11)
[2022-01-04 08:58] LABS: POTASSIUM 2.8 mmol/L (3.5-5.1)
[2022-01-04 11:56] VITALS: BP 100/76
== END | disposition home or self-care (01) ==
LOC: OR 07:51
PROVIDERS: ATTEND Urology
DX: N39.41 Urge incontinence (principal); N39.0 Urinary tract infection, site not specified; N81.10 Cystocele, unspecified; N81.6 Rectocele; G35 Multiple sclerosis; F41.9 Anxiety disorder, unspecified; Z79.82 Long term (current) use of aspirin; Z79.899 Other long term (current) drug therapy
CPT/HCPCS: 36415; 52005; 52287; 74420; 80048; 81025; 84132; 85025; C1758; J0587; J0696; J1100; J1580; J2001; J2250; J2405; J2704; J3010; Q9967; U0002

== ENCOUNTER 2022-01-31 15:09 | Emergency (ER) | payer MEDICARE ==
[~2022-01-31] VITALS: Ht 165.1 cm; Wt 63.5 kg
[~2022-01-31 15:09] MED LIST changes: -B&O 60MG R/S 60 MG SUPP PR ONE; -BOTULINUM TOXIN TYPE A 100 UNIT VIAL IM ONE; -CEFTRIAXONE 1 GM VIAL ONE; -DEXAMETHASONE SOD PHOS INJ 4 MG/ML SDV ONE; -FENTANYL CITRATE/PF 100MCG/2 ML INJ ONE; -GENTAMICIN 80MG/NS 100 ML 100 ML IV ONE; -IOPAMIDOL 300MG/ML 50ML INFUS..BTL IV ONE; -LIDOCAINE HCL 2% LOCAL INJ 5 ML SDV VIAL INJ ONE; -MIDAZOLAM HCL 2 MG/2 ML VIAL ONE; -ONDANSETRON HCL INJ 2MG/ML 2ML 2 MG/ML VIAL ONE; -POVIDONE IODINE 0.05% 0.05 % ML PO ONE; -PROPOFOL IV EMULSION 10 MG/ML 20 ML VIAL ONE; -SEVOFLURANE INHAL SOLN 250 ML PEN BTL ONE; -SODIUM CHLORIDE 0.9% 50ML 50 ML ONE
[2022-01-31 17:17] LABS: CLARITY,URINE SL CLOUDY (CLEAR); COLOR,URINE YELLOW (YELLOW); KETONES,URINE NEGATIVE (NEGATIVE); LEUKOCYTE ESTERASE ,URINE NEGATIVE (NEGATIVE); NITRITE,URINE NEGATIVE (NEGATIVE); PROTEIN,URINE DIPSTICK NEGATIVE (NEGATIVE); URINE UROBILINOGEN 0.2 mg/dL (0.2 - 1)
[2022-01-31 17:32] LABS: BACTERIA,URINE MODERATE /HPF; EPITHELIAL CELLS,URINE FEW /LPF
[2022-01-31 18:17] VITALS: BP 104/71
== END 2022-01-31 18:10 | disposition home or self-care (01) ==
LOC: ER 15:29
DX: M54.50 Low back pain, unspecified (principal); G35 Multiple sclerosis; N31.9 Neuromuscular dysfunction of bladder, unspecified
CPT/HCPCS: 81001; 81025; 87086; 99283

== ENCOUNTER → 2022-04-24 | Day surgery (SDC) | payer MEDICARE ==
[~2022-04-24] MED LIST changes: +B&O 60MG R/S 60 MG SUPP PR ONE; +BOTULINUM TOXIN TYPE A 100 UNIT VIAL IM ONE; +CEFTRIAXONE 1 GM VIAL ONE; +DEXAMETHASONE SOD PHOS INJ 4 MG/ML SDV ONE; +EPHEDRINE SULFATE INJ 50 MG/ML VIAL ONE; +FENTANYL CITRATE/PF 100MCG/2 ML INJ ONE; +IOPAMIDOL 610MG/1ML 300 MG/ML VIAL IV ONE; +LIDOCAINE HCL 2% LOCAL INJ 5 ML SDV VIAL INJ ONE; +MIDAZOLAM HCL 2 MG/2 ML VIAL ONE; +ONDANSETRON HCL INJ 2MG/ML 2ML 2 MG/ML VIAL ONE; +POTASSIUM CHLORIDE 20MEQ/100ML 100 ML IV ONE; +POVIDONE IODINE 0.05% 0.05 % ML PO ONE; +PROPOFOL IV EMULSION 10 MG/ML 20 ML VIAL ONE
[2022-04-24 06:31] LABS: BASOPHILS # (AUTO) 0.1 (0.0-0.1); BASOPHILS % 0.7 % (0.0-1.0); EOSINOPHILS # (AUTO) 0.2 (0.0-0.4); EOSINOPHILS % 1.9 % (0.0-6.0); HEMATOCRIT 45.3 % (34.2-44.1); LYMPHOCYTES # (AUTO) 3.2 (1.0-3.2); LYMPHOCYTES % 38.3 % (18.0-39.1); MEAN CORPUSCULAR HEMOGLOBIN 27.4 pg (28-32); MEAN CORPUSCULAR HGB CONC 30.9 g/dL (31-35); MEAN CORPUSCULAR VOLUME 88.6 fL (81-99); MONOCYTES # (AUTO) 0.8 (0.2-0.8); MONOCYTES % 9.6 % (4.4-11.3); NEUTROPHILS # (AUTO) 4.1 (2.1-6.9); NEUTROPHILS % 48.9 % (38.7-80.0); PLATELET COUNT 218 x10e3/uL (140-360); RED BLOOD COUNT 5.11 x10e6/uL (3.6-5.1); RED CELL DISTRIBUTION WIDTH 14.1 % (11.7-14.4)
[2022-04-24 06:45] LABS: ANION GAP 13.8 mmol/L (8-16); CALCIUM 9.9 mg/dL (8.4-10.2); CREATININE, SERUM 0.72 mg/dL (0.57-1.11)
[2022-04-24 06:56] LABS: POTASSIUM 2.8 mmol/L (3.5-5.1)
[2022-04-24 08:35] VITALS: BP 91/43
== END | disposition home or self-care (01) ==
LOC: OR 05:34
PROVIDERS: ATTEND Urology
DX: N39.41 Urge incontinence (principal); N31.9 Neuromuscular dysfunction of bladder, unspecified; N32.89 Other specified disorders of bladder; N39.0 Urinary tract infection, site not specified; N81.10 Cystocele, unspecified; N81.6 Rectocele; N36.41 Hypermobility of urethra; G35 Multiple sclerosis; R60.0 Localized edema; F41.9 Anxiety disorder, unspecified; Z79.82 Long term (current) use of aspirin; Z79.899 Other long term (current) drug therapy
CPT/HCPCS: 0223U; 36415; 52005; 52287; 74420; 80048; 84702; 85025; C1758; J0587; J0696; J1100; J2001; J2250; J2405; J2704; J3010; J3480; Q9967

== ENCOUNTER → 2022-08-25 | Day surgery (SDC) | payer MEDICARE ==
[~2022-08-25] MED LIST changes: -B&O 60MG R/S 60 MG SUPP PR ONE; -CEFTRIAXONE 1 GM VIAL ONE; -DEXAMETHASONE SOD PHOS INJ 4 MG/ML SDV ONE; -EPHEDRINE SULFATE INJ 50 MG/ML VIAL ONE; +GENTAMICIN 80MG/NS 100 ML 200 ML IV ONE; +IOPAMIDOL 300MG/ML 50ML INFUS..BTL IV ONE; -IOPAMIDOL 610MG/1ML 300 MG/ML VIAL IV ONE; -MIDAZOLAM HCL 2 MG/2 ML VIAL ONE; +ONDANSETRON HCL INJ 2MG/ML 2ML 2 MG/ML VIAL IV ONE; -ONDANSETRON HCL INJ 2MG/ML 2ML 2 MG/ML VIAL ONE; -POTASSIUM CHLORIDE 20MEQ/100ML 100 ML IV ONE; +PROPOFOL IV EMULSION 10 MG/ML 20 ML VIAL IV ONE; -PROPOFOL IV EMULSION 10 MG/ML 20 ML VIAL ONE; +SEVOFLURANE INHAL SOLN 250 ML PEN BTL INH ONE; +VITAMIN D3125 MCG PO
[2022-08-25 13:02] LABS: BASOPHILS # (AUTO) 0.1 (0.0-0.1); BASOPHILS % 0.6 % (0.0-1.0); EOSINOPHILS # (AUTO) 0.1 (0.0-0.4); EOSINOPHILS % 1.3 % (0.0-6.0); HEMATOCRIT 38.9 % (34.2-44.1); HEMOGLOBIN 12.8 g/dL (12.0-16.0); LYMPHOCYTES # (AUTO) 2.9 (1.0-3.2); LYMPHOCYTES % 35.7 % (18.0-39.1); MEAN CORPUSCULAR HEMOGLOBIN 28.3 pg (28-32); MEAN CORPUSCULAR HGB CONC 32.9 g/dL (31-35); MEAN CORPUSCULAR VOLUME 86.1 fL (81-99); MONOCYTES # (AUTO) 0.9 (0.2-0.8); MONOCYTES % 11.7 % (4.4-11.3); NEUTROPHILS % 50.2 % (38.7-80.0); PLATELET COUNT 205 x10e3/uL (140-360); RED BLOOD COUNT 4.52 x10e6/uL (3.6-5.1)
[2022-08-25 13:21] LABS: ANION GAP 14.8 mmol/L (8-16); CALCIUM 9.3 mg/dL (8.4-10.2); CREATININE, SERUM 0.64 mg/dL (0.57-1.11)
[2022-08-25 13:29] LABS: POTASSIUM 2.8 mmol/L (3.5-5.1)
[2022-08-25 15:46] VITALS: BP 100/68
== END | disposition home or self-care (01) ==
LOC: OR 12:12
PROVIDERS: ATTEND Urology
DX: N39.41 Urge incontinence (principal); N39.0 Urinary tract infection, site not specified; N31.9 Neuromuscular dysfunction of bladder, unspecified; N81.10 Cystocele, unspecified; N81.6 Rectocele; N36.41 Hypermobility of urethra; N28.83 Nephroptosis; N32.89 Other specified disorders of bladder; G35 Multiple sclerosis; E78.5 Hyperlipidemia, unspecified; Z79.82 Long term (current) use of aspirin; Z79.899 Other long term (current) drug therapy
CPT/HCPCS: 36415; 52005; 52287; 74420; 80048; 81025; 85025; C1758; J0587; J1580; J2001; J2405; J2704; J3010; Q9967

== ENCOUNTER → 2023-01-12 | Day surgery (SDC) | payer MEDICARE ==
[~2023-01-12] MED LIST changes: +ACETAMINOPHEN 1000 MG/100 ML 100 ML IV ONE; +CEFTRIAXONE 1 GM VIAL ONE; +DEXAMETHASONE SOD PHOS INJ 4 MG/ML SDV ONE; +EPHEDRINE SULFATE INJ 50 MG/ML VIAL ONE; -GENTAMICIN 80MG/NS 100 ML 200 ML IV ONE; -IOPAMIDOL 300MG/ML 50ML INFUS..BTL IV ONE; +IOPAMIDOL 610MG/1ML 300 MG/ML VIAL IV ONE; -ONDANSETRON HCL INJ 2MG/ML 2ML 2 MG/ML VIAL IV ONE; +ONDANSETRON HCL INJ 2MG/ML 2ML 2 MG/ML VIAL ONE; -PROPOFOL IV EMULSION 10 MG/ML 20 ML VIAL IV ONE; +PROPOFOL IV EMULSION 10 MG/ML 20 ML VIAL ONE; -SEVOFLURANE INHAL SOLN 250 ML PEN BTL INH ONE; +SEVOFLURANE INHAL SOLN 250 ML PEN BTL ONE
[2023-01-12 07:52] LABS: BASOPHILS % 0.7 % (0.0-1.0); EOSINOPHILS # (AUTO) 0.1 (0.0-0.4); EOSINOPHILS % 1.8 % (0.0-6.0); HEMATOCRIT 38.7 % (34.2-44.1); HEMOGLOBIN 12.4 g/dL (12.0-16.0); LYMPHOCYTES # (AUTO) 2.6 (1.0-3.2); LYMPHOCYTES % 45.2 % (18.0-39.1); MEAN CORPUSCULAR HEMOGLOBIN 27.9 pg (28-32); MEAN CORPUSCULAR VOLUME 87.2 fL (81-99); MONOCYTES # (AUTO) 0.8 (0.2-0.8); MONOCYTES % 13.4 % (4.4-11.3); NEUTROPHILS # (AUTO) 2.2 (2.1-6.9); NEUTROPHILS % 38.4 % (38.7-80.0); PLATELET COUNT 182 x10e3/uL (140-360); RED BLOOD COUNT 4.44 x10e6/uL (3.6-5.1); RED CELL DISTRIBUTION WIDTH 13.9 % (11.7-14.4)
[2023-01-12 08:10] LABS: ANION GAP 12.9 mmol/L (8-16); CALCIUM 9.8 mg/dL (8.4-10.2); CREATININE, SERUM 0.64 mg/dL (0.57-1.11)
[2023-01-12 08:26] LABS: POTASSIUM 2.9 mmol/L (3.5-5.1)
[2023-01-12 11:35] VITALS: BP 96/61
== END | disposition home or self-care (01) ==
LOC: OR 06:57
PROVIDERS: ATTEND Urology
DX: N39.41 Urge incontinence (principal); N32.89 Other specified disorders of bladder; N39.0 Urinary tract infection, site not specified; N28.83 Nephroptosis; N81.10 Cystocele, unspecified; N36.41 Hypermobility of urethra; G35 Multiple sclerosis; Z79.82 Long term (current) use of aspirin; Z79.899 Other long term (current) drug therapy
CPT/HCPCS: 36415; 52005; 52287; 74420; 80048; 81025; 85025; 87086; C1758; J0131; J0587; J0696; J1100; J2001; J2405; J2704; J3010; Q9967

== ENCOUNTER → 2023-04-16 | Day surgery (SDC) | payer MEDICARE ==
[~2023-04-16] MED LIST changes: -ACETAMINOPHEN 1000 MG/100 ML 100 ML IV ONE; +FENTANYL CITRATE/PF 100MCG/2 ML INJ IV ONE; +GENTAMICIN 80MG/NS 100 ML 100 ML IV ONE; +GLYCOPYRROLATE INJ 0.2 MG/ML VIAL ONE; +KETOROLAC TROMETHAMINE 30 MG/ML VIAL IV ONE; +KETOROLAC TROMETHAMINE 30 MG/ML VIAL ONE; +MIDAZOLAM HCL 2 MG/2 ML VIAL ONE; -SEVOFLURANE INHAL SOLN 250 ML PEN BTL ONE; +[UNRECOGNIZED DRUG - OTHER] PO
[2023-04-16 06:10] LABS: BASOPHILS % 0.5 % (0.0-1.0); EOSINOPHILS # (AUTO) 0.1 (0.0-0.4); EOSINOPHILS % 2.3 % (0.0-6.0); HEMATOCRIT 38.3 % (34.2-44.1); HEMOGLOBIN 12.4 g/dL (12.0-16.0); LYMPHOCYTES # (AUTO) 3.1 (1.0-3.2); LYMPHOCYTES % 50.6 % (18.0-39.1); MEAN CORPUSCULAR HEMOGLOBIN 28.4 pg (28-32); MEAN CORPUSCULAR HGB CONC 32.4 g/dL (31-35); MEAN CORPUSCULAR VOLUME 87.6 fL (81-99); MONOCYTES # (AUTO) 0.7 (0.2-0.8); MONOCYTES % 11.5 % (4.4-11.3); NEUTROPHILS # (AUTO) 2.1 (2.1-6.9); NEUTROPHILS % 34.8 % (38.7-80.0); PLATELET COUNT 188 x10e3/uL (140-360); RED BLOOD COUNT 4.37 x10e6/uL (3.6-5.1); RED CELL DISTRIBUTION WIDTH 13.5 % (11.7-14.4)
[2023-04-16 06:31] LABS: ANION GAP 14.2 mmol/L (8-16); CALCIUM 9.8 mg/dL (8.4-10.2); CREATININE, SERUM 0.74 mg/dL (0.57-1.11); POTASSIUM 3.2 mmol/L (3.5-5.1)
[2023-04-16 08:32] VITALS: BP 101/67; PULSE 86; RESP 18; O2SAT 97
== END | disposition home or self-care (01) ==
LOC: OR 05:17
PROVIDERS: ATTEND Urology
DX: N39.41 Urge incontinence (principal); N39.0 Urinary tract infection, site not specified; N81.10 Cystocele, unspecified; N36.41 Hypermobility of urethra; N32.89 Other specified disorders of bladder; G35 Multiple sclerosis; E78.5 Hyperlipidemia, unspecified; G89.29 Other chronic pain; Z01.812 Encounter for preprocedural laboratory examination; Z79.82 Long term (current) use of aspirin; Z79.899 Other long term (current) drug therapy
CPT/HCPCS: 36415; 52005; 52287; 74420; 80048; 84702; 85025; 87086; C1758; J0587; J0696; J1100; J1580; J1885; J2001; J2250; J2405; J2704; J3010; Q9967

== ENCOUNTER 2023-04-18 23:06 | Emergency (ER) | payer MEDICARE ==
[~2023-04-18] VITALS: Ht 165.1 cm; Wt 63.5 kg
[~2023-04-18 23:06] MED LIST changes: -BOTULINUM TOXIN TYPE A 100 UNIT VIAL IM ONE; -CEFTRIAXONE 1 GM VIAL ONE; -DEXAMETHASONE SOD PHOS INJ 4 MG/ML SDV ONE; -EPHEDRINE SULFATE INJ 50 MG/ML VIAL ONE; -FENTANYL CITRATE/PF 100MCG/2 ML INJ IV ONE; -FENTANYL CITRATE/PF 100MCG/2 ML INJ ONE; -GENTAMICIN 80MG/NS 100 ML 100 ML IV ONE; -GLYCOPYRROLATE INJ 0.2 MG/ML VIAL ONE; -IOPAMIDOL 610MG/1ML 300 MG/ML VIAL IV ONE; -KETOROLAC TROMETHAMINE 30 MG/ML VIAL IV ONE; -KETOROLAC TROMETHAMINE 30 MG/ML VIAL ONE; -LIDOCAINE HCL 2% LOCAL INJ 5 ML SDV VIAL INJ ONE; -MIDAZOLAM HCL 2 MG/2 ML VIAL ONE; -ONDANSETRON HCL INJ 2MG/ML 2ML 2 MG/ML VIAL ONE; -POVIDONE IODINE 0.05% 0.05 % ML PO ONE; -PROPOFOL IV EMULSION 10 MG/ML 20 ML VIAL ONE
[2023-04-18 23:37] LABS: BASOPHILS % 0.5 % (0.0-1.0); EOSINOPHILS # (AUTO) 0.2 (0.0-0.4); EOSINOPHILS % 1.8 % (0.0-6.0); HEMATOCRIT 37.8 % (34.2-44.1); LYMPHOCYTES # (AUTO) 3.4 (1.0-3.2); MEAN CORPUSCULAR HGB CONC 31.7 g/dL (31-35); MEAN CORPUSCULAR VOLUME 88.1 fL (81-99); MONOCYTES # (AUTO) 0.9 (0.2-0.8); MONOCYTES % 11.3 % (4.4-11.3); NEUTROPHILS # (AUTO) 3.7 (2.1-6.9); NEUTROPHILS % 45.2 % (38.7-80.0); PLATELET COUNT 214 x10e3/uL (140-360); RED BLOOD COUNT 4.29 x10e6/uL (3.6-5.1); RED CELL DISTRIBUTION WIDTH 13.7 % (11.7-14.4)
[2023-04-18 23:47] LABS: INR 0.82; PROTHROMBIN TIME 11.8 seconds (11.9-14.5)
[2023-04-18 23:56] LABS: ALBUMIN 4.1 g/dL (3.5-5.0); ALBUMIN/GLOBULIN RATIO 1.5 (0.8-2.0); ANION GAP 13.6 mmol/L (8-16); CALCIUM 9.9 mg/dL (8.4-10.2); CREATININE, SERUM 0.69 mg/dL (0.57-1.11); POTASSIUM 3.6 mmol/L (3.5-5.1)
[2023-04-19 01:14] VITALS: O2SAT 100
== END 2023-04-19 01:59 | disposition home or self-care (01) ==
LOC: ER 23:13
DX: R60.9 Edema, unspecified (principal); R53.1 Weakness; N31.9 Neuromuscular dysfunction of bladder, unspecified; G35 Multiple sclerosis
CPT/HCPCS: 36415; 80053; 85025; 85610; 85730; 93926; 93971; 99284

== ENCOUNTER → 2024-03-17 | Day surgery (SDC) | payer MEDICARE ==
[~2024-03-17] MED LIST changes: +BOTULINUM TOXIN TYPE A 100 UNIT VIAL IM ONE; +CEPHALEXIN500 MG PO; +DEXAMETHASONE SOD PHOS INJ 4 MG/ML SDV ONE; +DOXYCYCLINE HY100 MG PO; +GENTAMICIN 80MG/NS 100 ML 200 ML IV ONE; +IOPAMIDOL 610MG/1ML 300 MG/ML VIAL IV ONE; +KESIMPTA P20 MG/0.4; +LACTATED RINGER'S 1,000 ML ONE; +LIDOCAINE HCL 2% LOCAL INJ 5 ML SDV VIAL INJ ONE; +ONDANSETRON HCL INJ 2MG/ML 2ML 2 MG/ML VIAL ONE; +PROPOFOL IV EMULSION 10 MG/ML 20 ML VIAL ONE
[2024-03-17 06:40] LABS: BASOPHILS % 0.6 % (0.0-1.0); EOSINOPHILS # (AUTO) 0.1 (0.0-0.4); EOSINOPHILS % 2.8 % (0.0-6.0); HEMATOCRIT 37.1 % (34.2-44.1); HEMOGLOBIN 12.2 g/dL (12.0-16.0); LYMPHOCYTES # (AUTO) 1.3 (1.0-3.2); LYMPHOCYTES % 25.2 % (18.0-39.1); MEAN CORPUSCULAR HEMOGLOBIN 27.4 pg (28-32); MEAN CORPUSCULAR HGB CONC 32.9 g/dL (31-35); MEAN CORPUSCULAR VOLUME 83.4 fL (81-99); MONOCYTES # (AUTO) 0.7 (0.2-0.8); MONOCYTES % 14.6 % (4.4-11.3); NEUTROPHILS # (AUTO) 2.9 (2.1-6.9); NEUTROPHILS % 56.6 % (38.7-80.0); PLATELET COUNT 232 x10e3/uL (140-360); RED BLOOD COUNT 4.45 x10e6/uL (3.6-5.1); RED CELL DISTRIBUTION WIDTH 13.2 % (11.7-14.4); WHITE BLOOD COUNT 5.07 x10e3/uL (4.8-10.8)
[2024-03-17 07:05] LABS: ANION GAP 13.1 mmol/L (8-16); CALCIUM 9.8 mg/dL (8.4-10.2); CREATININE, SERUM 0.72 mg/dL (0.57-1.11)
[2024-03-17 07:11] LABS: POTASSIUM 3.1 mmol/L (3.5-5.1)
[2024-03-17] MEDS: FENTANYL CITRATE/PF 100MCG/2 ML INJ ONE (08:18)
[2024-03-17] MEDS: PHENAZOPYRIDINE HCL 100 MG TAB ONE (08:40)
[2024-03-17 09:15] VITALS: BP 98/70; PULSE 62; RESP 16; O2SAT 97
== END | disposition home or self-care (01) ==
LOC: OR 05:35
PROVIDERS: ATTEND Urology
DX: N39.41 Urge incontinence (principal); N39.0 Urinary tract infection, site not specified; N81.10 Cystocele, unspecified; N36.41 Hypermobility of urethra; N32.89 Other specified disorders of bladder; N13.8 Other obstructive and reflux uropathy; N31.9 Neuromuscular dysfunction of bladder, unspecified; N81.89 Other female genital prolapse; G35 Multiple sclerosis; F41.9 Anxiety disorder, unspecified; Z88.3 Allergy status to other anti-infective agents; Z79.82 Long term (current) use of aspirin; Z79.899 Other long term (current) drug therapy
CPT/HCPCS: 36415; 52005; 52287; 74420; 80048; 81025; 85025; 87086; C1758; J1100; J1580; J2001; J2405; J2704; J3010; J7121; Q9967; J0587

== ENCOUNTER 2024-06-11 18:04 | Emergency (ER) | payer MEDICARE ==
[~2024-06-11] VITALS: Ht 154.9 cm; Wt 54.0 kg
[~2024-06-11 18:04] MED LIST changes: -BOTULINUM TOXIN TYPE A 100 UNIT VIAL IM ONE; -DEXAMETHASONE SOD PHOS INJ 4 MG/ML SDV ONE; -GENTAMICIN 80MG/NS 100 ML 200 ML IV ONE; -IOPAMIDOL 610MG/1ML 300 MG/ML VIAL IV ONE; -LACTATED RINGER'S 1,000 ML ONE; -LIDOCAINE HCL 2% LOCAL INJ 5 ML SDV VIAL INJ ONE; -ONDANSETRON HCL INJ 2MG/ML 2ML 2 MG/ML VIAL ONE; -PROPOFOL IV EMULSION 10 MG/ML 20 ML VIAL ONE
[2024-06-11 18:52] VITALS: TEMP 97.9
[2024-06-11] MEDS: TRAMADOL HCL 50 MG TAB PO STA (19:13)
[2024-06-11 19:15] VITALS: PULSE 65; RESP 19
[2024-06-11 19:58] LABS: BILIRUBIN,URINE NEGATIVE (NEGATIVE); CLARITY,URINE SL CLOUDY (CLEAR); COLOR,URINE YELLOW (YELLOW); GLUCOSE, URINE NEGATIVE (NEGATIVE); KETONES,URINE NEGATIVE (NEGATIVE); LEUKOCYTE ESTERASE ,URINE MODERATE (NEGATIVE); NITRITE,URINE NEGATIVE (NEGATIVE); PH,URINE 7 (5 - 7); PROTEIN,URINE DIPSTICK 1+ (NEGATIVE); URINE UROBILINOGEN 0.2 mg/dL (0.2 - 1)
[2024-06-11 20:05] LABS: BACTERIA,URINE MODERATE /HPF; EPITHELIAL CELLS,URINE RARE /LPF; WBC,URINE (MAN) >50 /HPF (0-5)
[2024-06-11] MEDS ORDERED: CEFUROXIME500 MG PO (20:44)
[2024-06-11 21:07] VITALS: BP 119/82; PULSE 66; RESP 17; TEMP 97.8; O2SAT 100
== END 2024-06-11 21:14 | disposition home or self-care (01) ==
LOC: ER 18:16
DX: R30.0 Dysuria (principal); N39.0 Urinary tract infection, site not specified; G35 Multiple sclerosis; N31.9 Neuromuscular dysfunction of bladder, unspecified; I73.81 Erythromelalgia
CPT/HCPCS: 81001; 87086; 87186; 99283

== ENCOUNTER → 2024-07-11 | Day surgery (SDC) | payer MEDICARE ==
[~2024-07-11] MED LIST changes: +BOTULINUM TOXIN TYPE A 100 UNIT VIAL IM ONE; +CEFTRIAXONE 1 GM VIAL ONE; +CEFUROXIME500 MG PO; +DEXAMETHASONE SOD PHOS INJ 4 MG/ML SDV ONE; +FENTANYL CITRATE/PF 100MCG/2 ML INJ ONE; +IOPAMIDOL 610MG/1ML 300 MG/ML VIAL IV ONE; +LACTATED RINGER'S 1,000 ML ONE; +LIDOCAINE HCL 2% LOCAL INJ 5 ML SDV VIAL INJ ONE; +MIDAZOLAM HCL 2 MG/2 ML VIAL ONE; +ONDANSETRON HCL INJ 2MG/ML 2ML 2 MG/ML VIAL ONE; +PROPOFOL IV EMULSION 10 MG/ML 20 ML VIAL ONE; +SEVOFLURANE INHAL SOLN 250 ML PEN BTL ONE
[2024-07-11 13:05] LABS: BASOPHILS % 0.8 % (0.0-1.0); EOSINOPHILS # (AUTO) 0.1 (0.0-0.4); EOSINOPHILS % 2.2 % (0.0-6.0); HEMATOCRIT 36.6 % (34.2-44.1); HEMOGLOBIN 11.3 g/dL (12.0-16.0); LYMPHOCYTES # (AUTO) 0.9 (1.0-3.2); LYMPHOCYTES % 18.8 % (18.0-39.1); MEAN CORPUSCULAR HEMOGLOBIN 27.5 pg (28-32); MEAN CORPUSCULAR HGB CONC 30.9 g/dL (31-35); MEAN CORPUSCULAR VOLUME 89.1 fL (81-99); MONOCYTES # (AUTO) 0.6 (0.2-0.8); MONOCYTES % 12.9 % (4.4-11.3); NEUTROPHILS # (AUTO) 3.2 (2.1-6.9); NEUTROPHILS % 65.1 % (38.7-80.0); PLATELET COUNT 233 x10e3/uL (140-360); RED BLOOD COUNT 4.11 x10e6/uL (3.6-5.1)
[2024-07-11 13:47] LABS: ANION GAP 9.7 mmol/L (8-16); CREATININE, SERUM 0.6 mg/dL (0.6-1.2); POTASSIUM 3.7 mmol/L (3.0-5.1)
[2024-07-11 13:48] LABS: CALCIUM 9.1 mg/dL (8.0-10.3)
[2024-07-11 15:07] VITALS: TEMP 97.7
[2024-07-11] MEDS: FENTANYL CITRATE/PF 100MCG/2 ML INJ ONE (15:32)
[2024-07-11] MEDS: PHENAZOPYRIDINE HCL 100 MG TAB ONE (16:00)
[2024-07-11 16:25] VITALS: BP 99/75; PULSE 86; RESP 16; O2SAT 97
== END | disposition home or self-care (01) ==
LOC: OR 12:04
PROVIDERS: ATTEND Urology
DX: N31.8 Other neuromuscular dysfunction of bladder (principal); N39.41 Urge incontinence; N39.0 Urinary tract infection, site not specified; N81.10 Cystocele, unspecified; N81.6 Rectocele; N36.41 Hypermobility of urethra; N32.89 Other specified disorders of bladder; N13.8 Other obstructive and reflux uropathy; N81.89 Other female genital prolapse; G35 Multiple sclerosis; I10 Essential (primary) hypertension; E78.5 Hyperlipidemia, unspecified; Z88.8 Allergy status to other drugs, medicaments and biological substances; Z79.82 Long term (current) use of aspirin; Z79.899 Other long term (current) drug therapy
CPT/HCPCS: 36415; 52005; 52287; 74420; 80048; 81025; 85025; 87086; C1758; J0587; J0696; J1100; J2001; J2250; J2405; J2704; J3010; J7121; Q9967

== ENCOUNTER → 2024-11-19 | Day surgery (SDC) | payer MEDICARE ==
[~2024-11-19] MED LIST changes: -CEFTRIAXONE 1 GM VIAL ONE; +FAMOTIDINE 20 MG/2 ML VIAL IV ONE; -IOPAMIDOL 610MG/1ML 300 MG/ML VIAL IV ONE; -LACTATED RINGER'S 1,000 ML ONE; -MIDAZOLAM HCL 2 MG/2 ML VIAL ONE; +PHENYLEPHRINE HCL 1% 10 MG/ML VIAL ONE; +SODIUM CHLORIDE 0.9% INJ 10 ML VIAL ONE
[2024-11-19] MEDS: LACTATED RINGER'S 1,000 ML ONE (06:20)
[2024-11-19] MEDS: CEFTRIAXONE 1 GM VIAL ONE (06:21)
[2024-11-19 06:24] LABS: BASOPHILS % 0.7 % (0.0-1.0); EOSINOPHILS # (AUTO) 0.1 (0.0-0.4); HEMATOCRIT 39.4 % (34.2-44.1); HEMOGLOBIN 11.7 g/dL (12.0-16.0); LYMPHOCYTES # (AUTO) 1.1 (1.0-3.2); LYMPHOCYTES % 24.5 % (18.0-39.1); MEAN CORPUSCULAR HEMOGLOBIN 26.3 pg (28-32); MEAN CORPUSCULAR HGB CONC 29.7 g/dL (31-35); MEAN CORPUSCULAR VOLUME 88.5 fL (81-99); MONOCYTES # (AUTO) 0.8 (0.2-0.8); NEUTROPHILS # (AUTO) 2.4 (2.1-6.9); NEUTROPHILS % 55.3 % (38.7-80.0); PLATELET COUNT 225 x10e3/uL (140-360); RED BLOOD COUNT 4.45 x10e6/uL (3.6-5.1); RED CELL DISTRIBUTION WIDTH 13.9 % (11.7-14.4); WHITE BLOOD COUNT 4.41 x10e3/uL (4.8-10.8)
[2024-11-19 07:03] LABS: ANION GAP 17.5 mmol/L (8-16); CALCIUM 9.6 mg/dL (8.4-10.2); CREATININE, SERUM 0.71 mg/dL (0.57-1.11); POTASSIUM 3.5 mmol/L (3.5-5.1)
[2024-11-19 07:53] VITALS: TEMP 98
[2024-11-19] MEDS: FENTANYL CITRATE/PF 100MCG/2 ML INJ ONE (08:18)
[2024-11-19] MEDS: PHENAZOPYRIDINE HCL 100 MG TAB ONE ×2 (08:28)
[2024-11-19 09:00] VITALS: BP 118/78; PULSE 78; RESP 16; O2SAT 100
== END | disposition home or self-care (01) ==
LOC: OR 05:31
PROVIDERS: ATTEND Urology
DX: N31.9 Neuromuscular dysfunction of bladder, unspecified (principal); N39.41 Urge incontinence; N39.0 Urinary tract infection, site not specified; N81.10 Cystocele, unspecified; N81.6 Rectocele; N36.41 Hypermobility of urethra; N32.89 Other specified disorders of bladder; G35 Multiple sclerosis; E78.5 Hyperlipidemia, unspecified; Z88.3 Allergy status to other anti-infective agents; Z79.82 Long term (current) use of aspirin; Z79.899 Other long term (current) drug therapy
CPT/HCPCS: 36415; 52005; 52287; 74420; 80048; 81025; 85025; 87086; C1758; J0587; J0696; J1100; J2003; J2371; J2405; J2704; J3010; J7121

== ENCOUNTER → 2025-03-23 | Day surgery (SDC) | payer MEDICARE ==
[~2025-03-23] MED LIST changes: +ACETAMINOPHEN 1000 MG/100 ML 100 ML IV ONE; +AMBIEN10 MG PO; +EPHEDRINE SULFATE INJ 50 MG/ML VIAL ONE; +MIDAZOLAM HCL 2 MG/2 ML VIAL ONE; -PHENYLEPHRINE HCL 1% 10 MG/ML VIAL ONE; -SODIUM CHLORIDE 0.9% INJ 10 ML VIAL ONE
[2025-03-23 06:34] LABS: BASOPHILS % 0.9 % (0.0-1.0); EOSINOPHILS # (AUTO) 0.1 (0.0-0.4); EOSINOPHILS % 2.1 % (0.0-6.0); HEMATOCRIT 37.3 % (34.2-44.1); HEMOGLOBIN 11.6 g/dL (12.0-16.0); LYMPHOCYTES # (AUTO) 0.9 (1.0-3.2); LYMPHOCYTES % 27.6 % (18.0-39.1); MEAN CORPUSCULAR HEMOGLOBIN 25.6 pg (28-32); MEAN CORPUSCULAR HGB CONC 31.1 g/dL (31-35); MEAN CORPUSCULAR VOLUME 82.3 fL (81-99); MONOCYTES # (AUTO) 0.6 (0.2-0.8); MONOCYTES % 17.9 % (4.4-11.3); NEUTROPHILS # (AUTO) 1.8 (2.1-6.9); NEUTROPHILS % 51.5 % (38.7-80.0); PLATELET COUNT 195 x10e3/uL (140-360); RED BLOOD COUNT 4.53 x10e6/uL (3.6-5.1); RED CELL DISTRIBUTION WIDTH 15.5 % (11.7-14.4); WHITE BLOOD COUNT 3.41 x10e3/uL (4.8-10.8)
[2025-03-23] MEDS: GENTAMICIN 80MG/NS 100 ML 200 ML IV ONE (06:34)
[2025-03-23] MEDS: LACTATED RINGER'S 1,000 ML ONE (06:34)
[2025-03-23 06:48] LABS: ANION GAP 13.1 mmol/L (8-16); CALCIUM 9.4 mg/dL (8.4-10.2); CREATININE, SERUM 0.73 mg/dL (0.57-1.11)
[2025-03-23 06:49] LABS: POTASSIUM 3.1 mmol/L (3.5-5.1)
[2025-03-23 08:01] VITALS: TEMP 97.7
[2025-03-23] MEDS: PHENAZOPYRIDINE HCL 100 MG TAB ONE (08:19)
[2025-03-23] MEDS: FENTANYL CITRATE/PF 100MCG/2 ML INJ ONE (08:19)
[2025-03-23 09:00] VITALS: BP 108/78; PULSE 73; RESP 18; O2SAT 99
== END | disposition home or self-care (01) ==
LOC: OR 05:32
PROVIDERS: ATTEND Urology
DX: N39.41 Urge incontinence (principal); N31.9 Neuromuscular dysfunction of bladder, unspecified; N39.0 Urinary tract infection, site not specified; N81.10 Cystocele, unspecified; N81.6 Rectocele; N36.41 Hypermobility of urethra; N32.89 Other specified disorders of bladder; N13.8 Other obstructive and reflux uropathy; G35 Multiple sclerosis; I10 Essential (primary) hypertension; G89.29 Other chronic pain; F41.9 Anxiety disorder, unspecified; Z88.3 Allergy status to other anti-infective agents; Z79.82 Long term (current) use of aspirin; Z79.899 Other long term (current) drug therapy; Z84.1 Family history of disorders of kidney and ureter
CPT/HCPCS: 36415; 52005; 52287; 74420; 80048; 81025; 85025; 87086; 93005; C1758; J0131; J0587; J1100; J1308; J1580; J2003; J2405; J2704; J3010; J7121; J2250

== ENCOUNTER 2025-08-22 19:05 | Emergency (ER) | payer MEDICARE ==
[~2025-08-22] VITALS: Ht 154.9 cm; Wt 59.0 kg
[~2025-08-22 19:05] MED LIST changes: -ACETAMINOPHEN 1000 MG/100 ML 100 ML IV ONE; -BOTULINUM TOXIN TYPE A 100 UNIT VIAL IM ONE; +CEFDINIR300 MG PO; -DEXAMETHASONE SOD PHOS INJ 4 MG/ML SDV ONE; -EPHEDRINE SULFATE INJ 50 MG/ML VIAL ONE; -FAMOTIDINE 20 MG/2 ML VIAL IV ONE; -FENTANYL CITRATE/PF 100MCG/2 ML INJ ONE; -LIDOCAINE HCL 2% LOCAL INJ 5 ML SDV VIAL INJ ONE; -MIDAZOLAM HCL 2 MG/2 ML VIAL ONE; -ONDANSETRON HCL INJ 2MG/ML 2ML 2 MG/ML VIAL ONE; -PROPOFOL IV EMULSION 10 MG/ML 20 ML VIAL ONE; -SEVOFLURANE INHAL SOLN 250 ML PEN BTL ONE
[2025-08-22 19:57] VITALS: PULSE 85; RESP 18; TEMP 98.3
[2025-08-22 20:35] LABS: LEUKOCYTE ESTERASE ,URINE MODERATE (NEGATIVE); PROTEIN,URINE DIPSTICK NEGATIVE (NEGATIVE); URINE UROBILINOGEN 0.2 mg/dL (0.2 - 1)
[2025-08-22 20:49] LABS: WBC,URINE (MAN) >50 /HPF (0-5)
[2025-08-22] MEDS ORDERED: LEVOFLOXACIN750 MG PO (20:54)
[2025-08-22 21:32] VITALS: BP 121/68; PULSE 71; RESP 17; O2SAT 100
== END 2025-08-22 21:20 | disposition home or self-care (01) ==
LOC: ER 19:20
DX: R30.0 Dysuria (principal); N39.0 Urinary tract infection, site not specified; G35.D Multiple sclerosis, unspecified; N31.9 Neuromuscular dysfunction of bladder, unspecified; I73.81 Erythromelalgia
CPT/HCPCS: 81001; 87086; 87186; 99283